=== PATIENT | male | born 1950 | race Caucasian/White ===

== ENCOUNTER 2018-05-23 15:27 | Inpatient (IN) ==
[2018-05-23 15:43] LABS: BE 9.7 mmoll (-3.0-3.0); BLOOD TYPE ARTERIAL; HCO3-(ACT) 32.1 mmoll (20.0-26.0); METHB 1.5 % (0.0-1.5); O2(CT) 18.6 mL/dL (15.0-23.0); PO2(98.6) 53 mmHg (60-100); SAMPLE BLOOD; SAO2 90.6 % (95.0-100.0); THB 15.4 g/dL (11.5-17.4); pH(98.6) 7.29 (7.35-7.45)
[2018-05-23 15:45] LABS: BASO# 0.02 X1000 (0.0-0.2); BASO% 0.2 % (0.0-0.8); EOS# 0.01 X1000 (0.0-0.7); EOS% 0.1 % (0.0-10.0); HEMATOCRIT 44.5 % (42.0-52.0); HEMOGLOBIN 15.1 g/dL (14.0-18.0); IMM GRAN# 0.03 X1000 (0.0-0.04); IMM GRAN% 0.3 % (0.0-0.5); LYMPH# 0.87 X1000 (1.2-3.4); LYMPH% 7.7 % (20.5-51.1); MCH 33.3 PG (27-31); MCHC 33.9 g/dL (33-37); MONO# 0.94 X1000 (0.11-0.59); MONO% 8.3 % (1.7-9.3); MPV 9.8 FL (7.4-10.4); NEUT# 9.43 X1000 (1.4-6.5); NEUT% 83.4 % (42.2-75.2); PLT 134 X1000 (130-400); RBC 4.54 XMIL (4.7-6.1); RDW 14.6 % (11.5-14.5)
[2018-05-23] MEDS ORDERED: DUONEB (A & A) INH ONE (15:52)
--- NOTE | 2018-05-23 15:57 | Diag Imaging Result Doc PS360 ---
EXAM: CHEST-PORTABLE HISTORY: SOB TECHNIQUE: Portable chest COMPARISON: 05/20/2018 FINDINGS: The lungs are well expanded. The heart is not enlarged. There is a left-sided pacemaker. The vessels are not distended. There are no infiltrates. No effusion identified. IMPRESSION: No acute abnormality. Electronically signed by Luis Monique 05/23/2018 3:55 PM
[2018-05-23 15:59] LABS: AGAP 13; ALBUMIN 4.7 g/dL (3.5-5.0); ALKALINE PHOSPHATASE 175 U/L (32-122); BUN 18 mg/dL (8-22); CALCIUM 9.5 mg/dL (8.8-10.2); CHLORIDE 92 mmol/L (98-107); COSMO 287; CREATININE 1.1 mg/dL (0.7-1.2); ESTIMATED GFR > 60; GLUCOSE 233 mg/dL (70-104); GOT 89 U/L (10-34); GPT 45 U/L (10-44); POTASSIUM 3.6 mmol/L (3.5-5.1); SODIUM 139 mmol/L (136-145); TCO2 35 mmol/L (25-35); TOTAL PROTEIN 8.3 g/dL (6.3-8.3)
[2018-05-23 16:01] LABS: PCO2(98.6) 84 mmHg (35-45)
[2018-05-23 16:02] LABS: ALLEN TEST YES; MODALITY CANNULA
[2018-05-23] MEDS ORDERED: ATIVAN ONE (16:55)
[2018-05-23] MEDS ORDERED: ATIVAN IV ONE (16:57)
[2018-05-23] MEDS ORDERED: NS 1,000 ML IV ONE (17:35)
[2018-05-23 17:51] LABS: BE 8.9 mmoll (-3.0-3.0); BLOOD TYPE ARTERIAL; HCO3-(ACT) 31.8 mmoll (20.0-26.0); METHB 1.2 % (0.0-1.5); O2(CT) 20.1 mL/dL (15.0-23.0); O2HB 94.1 % (95.0-99.0); PO2(98.6) 97 mmHg (60-100); SAMPLE BLOOD; SAO2 98.7 % (95.0-100.0); SRATE 20 BPM; THB 15.1 g/dL (11.5-17.4); pH(98.6) 7.36 (7.35-7.45)
[2018-05-23 17:54] LABS: ALLEN TEST YES; MODALITY BI PAP; PCO2(98.6) 66 mmHg (35-45)
[2018-05-23] MEDS: SOLU-MEDROL IV SCH ×2 (18:23→21:09)
[2018-05-23] MEDS: ZOSYN 3.375 GM in NS 50 ML IV SCH ×2 (18:23→22:32)
[2018-05-23] MEDS: ATIVAN IV PRN ×3 (18:50→22:04)
[2018-05-23] MEDS: DUONEB (A & A) INH SCH ×2 (19:00→22:50)
[2018-05-23] MEDS: NS 1,000 ML IV SCH (21:25)
[2018-05-24] MEDS: ATIVAN IV PRN ×5 (02:34→22:44)
[2018-05-24] MEDS: DUONEB (A & A) INH SCH ×6 (02:43→23:23)
[2018-05-24] MEDS: SOLU-MEDROL IV SCH ×4 (03:42→22:44)
[2018-05-24] MEDS: ZOSYN 3.375 GM in NS 50 ML IV SCH ×4 (05:39→22:44)
[2018-05-24 05:55] LABS: BLOOD TYPE ARTERIAL; METHB 1.2 % (0.0-1.5); SAMPLE BLOOD
[2018-05-24 06:03] LABS: BE 7.8 mmoll (-3.0-3.0); HCO3-(ACT) 30.9 mmoll (20.0-26.0); O2(CT) 18.4 mL/dL (15.0-23.0); O2HB 94.4 % (95.0-99.0); PO2(98.6) 88 mmHg (60-100); SAO2 98.4 % (95.0-100.0); THB 13.8 g/dL (11.5-17.4); pH(98.6) 7.29 (7.35-7.45)
[2018-05-24 06:12] LABS: ALLEN TEST YES; MODALITY BI PAP; PCO2(98.6) 78 mmHg (35-45)
[2018-05-24] MEDS ORDERED: DUONEB (A & A) ONE (08:20)
[2018-05-24] MEDS: NS 1,000 ML IV SCH ×2 (09:24→17:28)
[2018-05-24] MEDS: M.V.I.-12 10 ML, FOLIC ACID 1 MG, MAGNESIUM SULFATE 1 GM, THIAMINE 100 MG in NS 1,000 ML IV SCH (09:54)
[2018-05-24] MEDS ORDERED: BLISTEX MEDICATED BERRY LIP BALM TOP ONE (12:57)
[2018-05-24 14:14] LABS: BASO# 0.01 X1000 (0.0-0.2); BASO% 0.2 % (0.0-0.8); HEMATOCRIT 40.2 % (42.0-52.0); HEMOGLOBIN 13.5 g/dL (14.0-18.0); IMM GRAN# 0.01 X1000 (0.0-0.04); IMM GRAN% 0.2 % (0.0-0.5); LYMPH# 0.43 X1000 (1.2-3.4); LYMPH% 7.1 % (20.5-51.1); MCH 33.7 PG (27-31); MCHC 33.6 g/dL (33-37); MCV 100.2 FL (81-99); MONO% 3.3 % (1.7-9.3); MPV 10.2 FL (7.4-10.4); NEUT# 5.41 X1000 (1.4-6.5); NEUT% 89.2 % (42.2-75.2); PLT 113 X1000 (130-400); RBC 4.01 XMIL (4.7-6.1); RDW 14.3 % (11.5-14.5); WBC 6.06 X1000 (4.8-10.8)
[2018-05-24 14:34] LABS: AGAP 13; ALBUMIN 4.3 g/dL (3.5-5.0); ALKALINE PHOSPHATASE 148 U/L (32-122); BUN 24 mg/dL (8-22); CALCIUM 9.6 mg/dL (8.8-10.2); CHLORIDE 99 mmol/L (98-107); COSMO 306; CREATININE 1.1 mg/dL (0.7-1.2); ESTIMATED GFR > 60; GLUCOSE 373 mg/dL (70-104); GOT 60 U/L (10-34); GPT 39 U/L (10-44); POTASSIUM 3.7 mmol/L (3.5-5.1); SODIUM 144 mmol/L (136-145); TCO2 32 mmol/L (25-35)
[2018-05-24 15:12] LABS: LYMPHS 4 % (21-51); MONO 2 % (1-9); SEGS 93 % (42-75)
[2018-05-24] MEDS ORDERED: BASAGLAR SUBQ ONE (15:44)
--- NOTE | 2018-05-24 16:50 | PROGRESS NOTE ---
DATE: 05/24/2018 The patient is currently a patient in the intensive care unit where he is tolerating CPAP, but we give him moments off the machine and he declines after a short period of time. He has also been a little bit agitated. They have been using quite a bit of Ativan suppressing his respiratory drive to some degree. His blood gases today showed a pH of 7.29, pCO2 78, pO2 88, and carboxyhemoglobin 2.80. His chemistries today show normal electrolytes. BUN 24. Creatinine 1.1, GFR greater than 60, and glucose 373 contributed from the steroids, I am sure. He has some mild elevations in LFTs from his alcoholism. Finally, a CBC showed a white count down to 6,000. Hematocrit 40 and platelet count 113. We will continue the antibiotics and will continue to do BiPAP therapy and try to sedate him. cc: Omar Ruiz MD
--- NOTE | 2018-05-24 17:12 | HISTORY AND PHYSICAL ---
HISTORY OF PRESENT ILLNESS: A 67-year-old male presented to the emergency room, brought in by ambulance with shortness of breath, struggling to breathe. He stated that he has not even been able to get out of bed the day of admission because he felt so bad with diminished breathing, tachypnea, and rhonchi in spite of using some of his COPD paraphernalia, including a ipratropium Albuterol, Combivent Respimat inhaler, furosemide 80 daily, fluticasone two sprays b.i.d., bupropion 150 p.o. b.i.d., lorazepam 2 t.i.d., potassium, Mirapex one to two tablets, prednisone 10 p.o. b.i.d., and Cipro - we do not think that he is taking the prednisone and Cipro right now, but he may have gotten them on the looks to be 05/10/2018 when he presented here and was deemed to have a urinary tract infection. After initial evaluation in the ER, which included a chest x-ray, which showed that the lungs were well expanded, the heart was not enlarged, there was left-sided pacemaker, and the vessels were not distended; there are no infiltrates and no effusions identified; no acute abnormality was identified, so he was admitted with respiratory distress, tobacco abuse, and history of alcohol abuse. PAST MEDICAL HISTORY: The patient has had a history of CHF, hypertension, and has had a pacemaker. He has COPD from ongoing smoking, history of diabetes, and history of alcoholism. The only surgery he can recall is a pacemaker. SOCIAL HISTORY: He is drinking a pint of vodka a day. He smokes more than a pack a day. REVIEW OF SYSTEMS: CONSTITUTIONAL: He denies any fever, chills, or night sweats. EYES: No change in visual acuity. No irritation of his eyes. EARS, NOSE, AND THROAT: He has no sinusitis or pharyngitis or otitis. CARDIOVASCULAR: He denies chest pain and palpitations. He has no PND or orthopnea. RESPIRATORY: He has a chronic cough. He is chronically short of breath. GASTROINTESTINAL: He denies any abdominal pain, diarrhea, nausea, or vomiting. : No dysuria, polyuria, or hematuria. MUSCULOSKELETAL: He has chronic pain. Difficult to move around. He has a big belly that makes it difficult for him to mobilize. SKIN: No rash. NEUROLOGICAL: No dizziness, vertigo, or seizures. PSYCHIATRIC: He is a longstanding alcoholic. ENDOCRINE: History of diabetes. No thyroid disease. HEMATOLOGICAL: He has no clotting or bleeding disorder. ALLERGIES: No real asthma. I think his COPD is primarily from his long-standing history of smoking and cigarette abuse. PHYSICAL EXAMINATION: VITAL SIGNS: On admission, his temperature was 97. Pulse was 111, respiratory rate was 36, blood pressure 186/108, O2 saturation was 83. We placed him on oxygen and his O2 saturation came up to 100%. HEENT: Head was normocephalic. His complexion - he has flushed face, barrett faced. CHEST: Tachypneic. Diffuse rhonchi. Diminished breath sounds. Increased AP diameter. Flattened diaphragms. CARDIOVASCULAR: Distant heart sounds, appear to be regular. No murmurs, gallops, clicks, or rubs. ABDOMEN: Obese. Soft. No hepatosplenomegaly. No CVA tenderness. EXTREMITIES: Negative for clubbing, cyanosis, and edema. NEUROLOGIC: Intact. ADMITTING DIAGNOSES: 1. Chronic obstructive pulmonary disease exacerbation. 2. Smoker. 3. Alcoholic. 4. Diabetes, type 2. Random blood sugar is 223. 5. Respiratory and ventilatory failure manifested by blood gases of pH of 7.29, pCO2 84, pO2 53 on cannula with 40% FIO2. 6. History of heart failure. BNP currently is 552. 7. Pacemaker for history of atrial fibrillation. PLAN: Place him on BiPAP and sobering him up. He has had a tendency to have DT issues. Prophylactic antibiotics and steroids and some Ativan as needed, as we try to detox this memo and improve his lungs. cc: Omar Ruiz MD
[2018-05-24] MEDS ORDERED: GEODON PO ONE (23:21)
[2018-05-25] MEDS ORDERED: GEODON IM ONE (00:14)
[2018-05-25] MEDS ORDERED: STERILE WATER INJ. INJ ONE (00:14)
[2018-05-25] MEDS ORDERED: GEODON ONE (00:18)
[2018-05-25] MEDS ORDERED: STERILE WATER INJ. ONE (00:19)
[2018-05-25] MEDS: ATIVAN IV PRN ×4 (01:45→11:46)
[2018-05-25] MEDS ORDERED: ATIVAN IV ONE ×2 (02:47→03:25)
[2018-05-25] MEDS ORDERED: ATIVAN ONE (02:50)
[2018-05-25] MEDS: DUONEB (A & A) INH SCH ×6 (03:00→23:27)
[2018-05-25] MEDS: SOLU-MEDROL IV SCH ×4 (04:55→22:13)
[2018-05-25] MEDS: ZOSYN 3.375 GM in NS 50 ML IV SCH ×4 (04:55→22:13)
[2018-05-25 06:16] LABS: BE 7.9 mmoll (-3.0-3.0); BLOOD TYPE ARTERIAL; METHB 1.3 % (0.0-1.5); O2(CT) 17.9 mL/dL (15.0-23.0); O2HB 94.6 % (95.0-99.0); PO2(98.6) 85 mmHg (60-100); SAMPLE BLOOD; SAO2 98.3 % (95.0-100.0); THB 13.4 g/dL (11.5-17.4); pH(98.6) 7.33 (7.35-7.45)
[2018-05-25 06:19] LABS: ALLEN TEST YES; MODALITY BI PAP; PCO2(98.6) 69 mmHg (35-45)
[2018-05-25] MEDS: M.V.I.-12 10 ML, FOLIC ACID 1 MG, MAGNESIUM SULFATE 1 GM, THIAMINE 100 MG in NS 1,000 ML IV SCH (07:59)
--- NOTE | 2018-05-25 09:16 | PROGRESS NOTE ---
DATE: 05/25/2018 HISTORY: He had a fretful night. Kept the staff busy trying to keep him from pulling out his Hayes, which ultimately had to be discontinued. OBJECTIVE: VITAL SIGNS: He has a temperature of 98.0 degrees Fahrenheit, pulse 88, respiratory rate 32, blood pressure 153/69. PLAN: Blood gases are on 30% and he seems to be doing decently that way, but he is getting more and more combative and irritated, and we have been trying to sedate him with Ativan and Geodon to prevent him from going through delirium tremens. We are going to give him another banana bag today and hopefully he will start getting some better. cc: Omar Ruiz MD
[2018-05-25] MEDS: NS 1,000 ML IV SCH ×2 (09:24→17:29)
--- NOTE | 2018-05-25 09:46 | Diag Imaging Result Doc PS360 ---
EXAM: CHEST-PORTABLE INDICATION: sob TECHNIQUE: One view COMPARISON: 05/23/2018 FINDINGS: The lungs are grossly clear. There is no discrete pleural fluid collection or pneumothorax. The cardiomediastinal silhouette and central vasculature are grossly unremarkable. There is a stable pacemaker. IMPRESSION: No evidence of acute pathology by plain radiograph. Electronically signed by Jovanny Bain 05/25/2018 9:44 AM
[2018-05-25] MEDS ORDERED: ATIVAN IV PRN (13:43)
[2018-05-25] MEDS ORDERED: ATIVAN 20 MG in NS 190 ML IV SCH (13:45)
[2018-05-26] MEDS: NS 1,000 ML IV SCH ×3 (03:00→22:54)
[2018-05-26] MEDS: DUONEB (A & A) INH SCH ×6 (03:09→23:07)
[2018-05-26] MEDS: ZOSYN 3.375 GM in NS 50 ML IV SCH (04:49)
[2018-05-26] MEDS: SOLU-MEDROL IV SCH ×3 (04:50→20:38)
[2018-05-26] MEDS: M.V.I.-12 10 ML, FOLIC ACID 1 MG, MAGNESIUM SULFATE 1 GM, THIAMINE 100 MG in NS 1,000 ML IV SCH (08:53)
[2018-05-26] MEDS: LIBRIUM PO SCH ×2 (10:39→15:59)
[2018-05-26 10:46] LABS: BASO# 0.01 X1000 (0.0-0.2); BASO% 0.1 % (0.0-0.8); HEMATOCRIT 37.9 % (42.0-52.0); HEMOGLOBIN 12.3 g/dL (14.0-18.0); IMM GRAN# 0.02 X1000 (0.0-0.04); IMM GRAN% 0.3 % (0.0-0.5); LYMPH# 0.35 X1000 (1.2-3.4); LYMPH% 5.1 % (20.5-51.1); MCH 33.3 PG (27-31); MCHC 32.5 g/dL (33-37); MCV 102.7 FL (81-99); MONO# 0.29 X1000 (0.11-0.59); MONO% 4.2 % (1.7-9.3); MPV 9.8 FL (7.4-10.4); NEUT# 6.19 X1000 (1.4-6.5); NEUT% 90.3 % (42.2-75.2); PLT 113 X1000 (130-400); RBC 3.69 XMIL (4.7-6.1); RDW 13.9 % (11.5-14.5); WBC 6.86 X1000 (4.8-10.8)
[2018-05-26 11:08] LABS: AGAP 10; ALBUMIN 3.4 g/dL (3.5-5.0); ALKALINE PHOSPHATASE 111 U/L (32-122); BUN 25 mg/dL (8-22); CALCIUM 9.4 mg/dL (8.8-10.2); CHLORIDE 114 mmol/L (98-107); COSMO 322; CREATININE 0.9 mg/dL (0.7-1.2); ESTIMATED GFR > 60; GLUCOSE 325 mg/dL (70-104); GOT 52 U/L (10-34); GPT 37 U/L (10-44); POTASSIUM 3.8 mmol/L (3.5-5.1); SODIUM 154 mmol/L (136-145); TCO2 31 mmol/L (25-35); TOTAL PROTEIN 6.8 g/dL (6.3-8.3)
[2018-05-26 11:41] LABS: LYMPHS 13 % (21-51); MONO 2 % (1-9); SEGS 85 % (42-75)
[2018-05-26] MEDS ORDERED: NS 250 ML ONE (13:44)
[2018-05-26] MEDS ORDERED: NS 1,000 ML IV SCH (13:45)
[2018-05-26] MEDS ORDERED: ATIVAN PO SCH (14:00)
[2018-05-26 14:22] LABS: INR 0.94
[2018-05-26] MEDS ORDERED: ATIVAN IV PRN (17:28)
[2018-05-26] MEDS: ATIVAN 20 MG in NS 190 ML IV SCH ×2 (18:41→21:21)
--- NOTE | 2018-05-26 19:19 | PROGRESS NOTE ---
DATE: 05/26/2018 SUBJECTIVE: He has had a fairly eventful night, struggling to not bother his IVs, Hayes and CPAP, but persistently trying to do that. He has been sedated with Ativan. When he comes out from sedation, he starts picking around with things again. He is not actively hallucinating, as best we can tell. He just seems more irritated, not a true DT-type picture. He has pulled out so many IVs that we had to put in a PICC line. He is destroying the medical equipment, so we are having to replace all that. CURRENT LABS: White count 6860 with a left shift, probably aggravated by steroids, as is his steroid lilia, perhaps. His hematocrit is 37.9. Platelet count is 113. Numbers may be low from bone marrow toxicity from his alcohol, perhaps. I do not think he has a big spleen. Electrolytes: His sodium has drifted up to 154. We are going to have to increase his fluid intake. Potassium is 3.8, chloride 114, carbon dioxide 31, BUN 25, creatinine 0.9. Blood sugars are high. He is on steroids. I am going to continue to taper them. Chest x-ray from yesterday: No evidence of any pathology. OBJECTIVE: Vital signs currently: Temperature 98.4, pulse 95, respiratory rate 22, blood pressure 159/88. He is on BiPAP with 100% saturation. ASSESSMENT/PLAN: I think he is actually getting better. cc: Omar Ruiz MD
[2018-05-27] MEDS: NS 1,000 ML IV SCH ×3 (02:37→11:13)
[2018-05-27] MEDS: SOLU-MEDROL IV SCH ×3 (02:40→13:34)
[2018-05-27] MEDS: DUONEB (A & A) INH SCH ×4 (02:51→16:20)
[2018-05-27] MEDS: ATIVAN IV PRN ×2 (03:49→10:03)
[2018-05-27] MEDS ORDERED: XYLOCAINE 2% JELLY UROJECT TOP ONE (08:20)
[2018-05-27] MEDS: ATIVAN 20 MG in NS 190 ML IV SCH (10:15)
[2018-05-27 11:32] LABS: BE 7.2 mmoll (-3.0-3.0); BLOOD TYPE ARTERIAL; HCO3-(ACT) 30.5 mmoll (20.0-26.0); METHB 1.2 % (0.0-1.5); O2(CT) 16.9 mL/dL (15.0-23.0); O2HB 95.5 % (95.0-99.0); PO2(98.6) 94 mmHg (60-100); SAMPLE BLOOD; SAO2 98.8 % (95.0-100.0); THB 12.5 g/dL (11.5-17.4); pH(98.6) 7.36 (7.35-7.45)
[2018-05-27 11:36] LABS: MODALITY BI PAP; PCO2(98.6) 61 mmHg (35-45)
[2018-05-27 11:37] LABS: ALLEN TEST YES
[2018-05-27 11:57] LABS: HEMATOCRIT 38.3 % (42.0-52.0); IMM GRAN# 0.01 X1000 (0.0-0.04); IMM GRAN% 0.2 % (0.0-0.5); LYMPH# 0.24 X1000 (1.2-3.4); LYMPH% 4.1 % (20.5-51.1); MCH 33.2 PG (27-31); MCHC 31.3 g/dL (33-37); MCV 106.1 FL (81-99); MONO% 5.1 % (1.7-9.3); MPV 9.7 FL (7.4-10.4); NEUT# 5.29 X1000 (1.4-6.5); NEUT% 90.6 % (42.2-75.2); PLT 115 X1000 (130-400); RBC 3.61 XMIL (4.7-6.1); RDW 14.1 % (11.5-14.5); WBC 5.84 X1000 (4.8-10.8)
[2018-05-27 12:14] LABS: ESTIMATED GFR > 60
[2018-05-27 12:23] LABS: AGAP 12; ALBUMIN 3.5 g/dL (3.5-5.0); ALKALINE PHOSPHATASE 105 U/L (32-122); BUN 26 mg/dL (8-22); CALCIUM 9.5 mg/dL (8.8-10.2); CHLORIDE 120 mmol/L (98-107); COSMO 335; GLUCOSE 311 mg/dL (70-104); GOT 82 U/L (10-34); GPT 48 U/L (10-44); POTASSIUM 3.9 mmol/L (3.5-5.1); SODIUM 161 mmol/L (136-145); TCO2 29 mmol/L (25-35); TOTAL PROTEIN 6.8 g/dL (6.3-8.3)
[2018-05-27 12:37] LABS: LYMPHS 4 % (21-51); MONO 5 % (1-9); SEGS 91 % (42-75)
[2018-05-27] MEDS ORDERED: DEMEROL IV ONE ×2 (12:37→18:00)
[2018-05-27] MEDS ORDERED: DEMEROL ONE (12:41)
[2018-05-27] MEDS ORDERED: D5W IV SCH ×2 (13:15→23:00)
[2018-05-27] MEDS ORDERED: HUMULIN R IV SCH ×2 (13:15→23:00)
--- NOTE | 2018-05-27 13:17 | Diag Imaging Result Doc PS360 ---
EXAM: KUB ABDOMEN 05/27/2018 HISTORY: abdominal extension TECHNIQUE: KUB COMMENT: There is a Hayes catheter in the bladder. There may be stones in the upper pole right kidney in the lower pole of the left kidney. There is no evidence of bowel obstruction organomegaly or mass. There is a possible calcification over the left sacral sal which could represent a ureteral stone. IMPRESSION: Bilateral nephrolithiasis with possible distal mid left ureteral lithiasis. Electronically signed by Maximo Devine 05/27/2018 1:15 PM
[2018-05-27 14:36] LABS: BILIRUBIN URINE NEGATIVE (NEGATIVE); BLOOD URINE 3+ (NEGATIVE); CLARITY CLEAR (CLEAR); COLOR YELLOW; KETONE URINE 1+(Small) mg/dL (NEGATIVE); LEUKOCYTES URINE NEGATIVE (NEGATIVE); NITRITE URINE NEGATIVE (NEGATIVE); PH URINE 6.5; PROTEIN URINE 1+(30 mg/dL) mg/dL (NEGATIVE); SP GRAVITY URINE 1.015; UROBILINOGEN URINE NORMAL
[2018-05-27 14:39] LABS: URINE BACTERIA 1+ /HFP; URINE CAST NONE SEEN /LPF; URINE CRYSTAL NONE SEEN /HPF; URINE EPITHELIAL CELLS <10 /HPF (<10); URINE SOURCE CATH; URINE WBC <10 /HPF (<10); URINE YEAST NONE SEEN /HPF
[2018-05-27] MEDS ORDERED: HUMULIN R DOSE (PARKWAY) SUBQ SCH (16:00)
[2018-05-27] MEDS ORDERED: ZOSYN 3.375 GM in NS 50 ML IV SCH (17:00)
[2018-05-27 17:26] LABS: ESTIMATED GFR > 60
[2018-05-27 17:49] LABS: AGAP 9; ALBUMIN 3.4 g/dL (3.5-5.0); ALKALINE PHOSPHATASE 105 U/L (32-122); BUN 26 mg/dL (8-22); CALCIUM 9.6 mg/dL (8.8-10.2); CHLORIDE 121 mmol/L (98-107); COSMO 333; GLUCOSE 279 mg/dL (70-104); GOT 90 U/L (10-34); GPT 51 U/L (10-44); POTASSIUM 3.7 mmol/L (3.5-5.1); SODIUM 161 mmol/L (136-145); TCO2 31 mmol/L (25-35); TOTAL PROTEIN 6.7 g/dL (6.3-8.3)
--- NOTE | 2018-05-27 18:16 | PROGRESS NOTE ---
DATE: 05/27/2018 SUBJECTIVE: He recently started running a temperature. OBJECTIVE: Vital Signs: Pulse 106, respiratory rate 26, blood pressure 185/73, O2 saturation on O2 of 30 is 94%. He is thrashing about. He is still kind of restrained, legs and arms. He is writhing around. He has a history of a [id number] syndrome, but this is a little more than usual. He does not appear to be fluid overloaded. His belly is distended but soft. Bilateral breath sounds. IV sites appear to be normal. LABORATORY DATA: His hematocrit is 38. White count is still normal at 5840. His blood gases today are better, pH of 7.36, pCO2 of 61, the lowest since he has been here. His pO2 is 94 on BiPAP. Chemistries: His sodium is 161. It turns out he is getting some extra sodium in his Ativan drip, so we are changing his fluid status. He has a potassium of 3.9, chloride of 120, CO2 of 29, BUN of 26, creatinine of 1. His glucoses have been in the 200s most of the day. Liver functions are normal. Albumin is 3.5. Total protein is 6.8. So, we have started a D5 and 10 units of insulin drip to slowly correct his hypernatremia. IMPRESSION: 1. Probable delirium tremens. 2. Chronic obstructive pulmonary disease with primary respiratory failure. 3. Dehydration. 4. Hypernatremia. 5. He has a pacemaker that is greater than 10 years old that has not been firing. Probably batteries. I am not sure about their viability. PLAN: When he came into the hospital, he was on Lasix, nebulizer treatments with Combivent, lorazepam 2 mg p.o. t.i.d., potassium 20 mEq, pramipexole 1-2 tablets at bedtime and prednisone 10 mg. He had been on Cipro, but the Cipro appears to have been in the past, as was the prednisone. So, I think he needs to have pulmonary check him out, and neurology, to see about his altered mental status. His family thinks he is hurting in his lower abdomen. In fact, he had issues with his urethra in the past. He has a Hayes in place that he had been pulling and tugging on prior to being restrained. We are doing some cultures now. We need a broad spectrum covering him. We stopped his Zosyn last night. We are going to restart it, since he has a 100-degree temperature. His chest x-ray from 05/25 was read as no evidence of disease. cc: Omar Ruiz MD
[2018-05-27] MEDS ORDERED: ATIVAN IV PRN ×2 (20:07→21:16)
[2018-05-27] MEDS ORDERED: SOLU-MEDROL IV SCH (20:15)
[2018-05-27] MEDS: HUMULIN R SUBQ SCH (20:55)
[2018-05-27] MEDS ORDERED: PHENOBARBITAL IV ONE (21:16)
[2018-05-27] MEDS ORDERED: LANTUS SUBQ SCH (22:15)
[2018-05-27] MEDS ORDERED: INSULIN PEN NEEDLES ONE (22:47)
[2018-05-27] MEDS: ZOSYN 3.375 GM in NS 50 ML IV SCH (22:48)
[2018-05-27] MEDS: CATAPRES-TTS-1 TD SCH (22:52)
[2018-05-27] MEDS: D5W 1,000 ML IV SCH (22:52)
[2018-05-27] MEDS: BASAGLAR SUBQ SCH (22:53)
[2018-05-27] MEDS ORDERED: TYLENOL PR PRN (23:04)
[2018-05-27] MEDS ORDERED: ZOFRAN IV PRN (23:04)
[2018-05-27] MEDS ORDERED: DUONEB (A & A) INH SCH (23:30)
[2018-05-28] MEDS: SODIUM CHLORIDE 0.9% INJ SCH (00:10)
[2018-05-28] MEDS: PROTONIX IV SCH ×2 (00:10→22:31)
[2018-05-28] MEDS: ATIVAN IV PRN ×5 (00:36→20:45)
[2018-05-28] MEDS: DUONEB (A & A) INH SCH ×5 (03:49→21:00)
[2018-05-28] MEDS: D5W 1,000 ML IV SCH ×5 (04:21→21:36)
[2018-05-28] MEDS: ZOSYN 3.375 GM in NS 50 ML IV SCH ×4 (04:21→22:31)
[2018-05-28 04:58] LABS: HEMATOCRIT 38.3 % (42.0-52.0); HEMOGLOBIN 11.8 g/dL (14.0-18.0); IMM GRAN# 0.02 X1000 (0.0-0.04); IMM GRAN% 0.4 % (0.0-0.5); LYMPH# 0.24 X1000 (1.2-3.4); LYMPH% 4.9 % (20.5-51.1); MCH 32.9 PG (27-31); MCHC 30.8 g/dL (33-37); MCV 106.7 FL (81-99); MONO# 0.21 X1000 (0.11-0.59); MONO% 4.3 % (1.7-9.3); MPV 9.8 FL (7.4-10.4); NEUT# 4.39 X1000 (1.4-6.5); NEUT% 90.4 % (42.2-75.2); PLT 109 X1000 (130-400); RBC 3.59 XMIL (4.7-6.1); RDW 13.8 % (11.5-14.5); WBC 4.86 X1000 (4.8-10.8)
[2018-05-28 05:06] LABS: ESTIMATED GFR > 60
[2018-05-28 05:09] LABS: ALLEN TEST YES; BLOOD TYPE ARTERIAL; HCO3-(ACT) 30.4 mmoll (20.0-26.0); O2(CT) 16.2 mL/dL (15.0-23.0); O2HB 95.5 % (95.0-99.0); PO2(98.6) 87 mmHg (60-100); SAMPLE BLOOD; SAO2 99.3 % (95.0-100.0); pH(98.6) 7.38 (7.35-7.45)
[2018-05-28 05:10] LABS: MODALITY BI PAP; PCO2(98.6) 57 mmHg (35-45)
[2018-05-28 05:25] LABS: AGAP 10; BUN 25 mg/dL (8-22); CALCIUM 9.2 mg/dL (8.8-10.2); CHLORIDE 118 mmol/L (98-107); COSMO 332; GLUCOSE 332 mg/dL (70-104); MAGNESIUM 2.6 mg/dL (1.5-2.7); PHOSPHORUS 2.3 mg/dL (2.7-4.5); POTASSIUM 3.8 mmol/L (3.5-5.1); SODIUM 159 mmol/L (136-145); TCO2 31 mmol/L (25-35)
--- NOTE | 2018-05-28 05:43 | HISTORY AND PHYSICAL ---
ADDENDUM HISTORY OF PRESENT ILLNESS: Mr. Mikael Leija was admitted initially to [facility] to his primary care physician's service about 3 days ago for COPD exacerbation. This patient became very agitated displaying a clinical picture suggestive of DTs. He has been on the DT protocol over the last 24-48 hours and while he was on it, he was very agitated, pulling IVs and restless in bed. He had been put on BiPAP to supplement his breathing. His gases today are significantly improved from before. His pH is 7.36, pCO2 61, pO2 94. However, his sodium has increased over the last few days. It has gone up from 139 on admission to 161. This in part I believe in addition to underlying DTs is the main reason why the patient is agitated and confused. VITAL SIGNS: His blood pressure is currently elevated at 161/93, heart rate is 84, respiratory rate is 15, temperature is 97.8. GENERAL: He is a middle-aged man who is in restraints, lying in bed partially sedated and intermittently thrashing in bed. He will open his eyes to verbal stimulus, but occasionally spontaneously will do so. Despite restraints, the patient is able to move all extremities. I do not visualize any motor deficits. CHEST: His chest exam is significant with decreased air entry with a few scattered expiratory wheezes bilaterally. CARDIOVASCULAR: First and second heart sounds heard. No gallops, murmurs or rubs. Rhythm is regular. ABDOMEN: Soft, diffuse bowel sounds. No rigidity, no masses or hepatosplenomegaly appreciated. The patient does not grimace when I palpate his abdomen. EXTREMITIES: The patient has good pulses distally in all extremities. ASSESSMENT: 1. Encephalopathy secondary to probable delirium tremens and hypernatremia secondary to free water loss. 2. Chronic obstructive pulmonary disease exacerbation. 3. Acute on chronic respiratory failure secondary to #2. 4. Hypertension. 5. Macrocytic anemia secondary to chronic alcohol abuse. 6. Dehydration probably secondary to osmotic diuresis from high dose steroids. 7. Type 2 diabetes. PLAN: The patient has been admitted to the ICU. We will continue O2 supplementation via BiPAP. Regarding hypernatremia which I believe is due to free water loss presumably from osmotic diuresis secondary to hyperglycemia secondary to high steroid use. Will start the patient on D5 water and supplement this with sliding scale and Lantus. Monitor BMP closely so as to not over-correct with free water. Will lower the dose of steroids as the data has not shown any correlation with high dose steroids and improvement in COPD. As a matter of fact, the converse has been shown. Short- acting bronchodilators will be started and will consider adding on long-acting bronchodilators. For now the patient has not shown any evidence of an infectious process, i.e. pneumonia be it aspiration for now. Will repeat a chest film in the morning. As a matter of fact, the patient's white count has actually improved and for my recommendations would suggest control with nebulizer treatments and O2 supplementation. The patient will be also treated with thiamine and a banana bag due to the high probability of malnutrition and deficiency of trace elements. cc: MD Omar Chaney MD MTDD
[2018-05-28 06:08] LABS: SEGS 100 % (42-75)
[2018-05-28] MEDS: HUMULIN R SUBQ SCH ×5 (06:33→20:38)
--- NOTE | 2018-05-28 07:23 | HISTORY AND PHYSICAL ---
PRIMARY CARE PROVIDER: Dr. Omar Ruiz. CHIEF COMPLAINT: Shortness of breath. HISTORY OF PRESENT ILLNESS: Mr. Leija is a 67-year-old, male, who was admitted initially at [facility] on 05/23/2018. He was brought in by EMS for complaints of shortness of breath. He reported that he had not been able to get out of bed all day due to his shortness of breath. He does have a history of COPD and is currently smoking for what we know to be a pack to [id number]-[id number]-half of cigarettes a day. His friend who is at bedside reports that he does nebulizer treatments at home and is only prescribed to do these approximately 6 times a day, though she states sometimes he will do them every hour due to his shortness of breath. She reports that he has told her that he cannot even walk to the mailbox without getting winded and becoming very short of breath. She states that he is a daily drinker as well and drinks for what we know at least a pint of alcohol a day. She reports that he does drink vodka and whiskey. She also does report that he does use Red Bull energy drinks as well. And according to her, in the past has had chest pain related to his energy drink use. She also reports that he was known to have a urinary tract infection prior to admission to the hospital and was taking Cipro for treatment of this. He was admitted for COPD exacerbation with acute hypoxic and hypercapnic respiratory failure. According to the history and physical, it does report that the patient has had issues with delirium tremens in the past as well. They place him on prophylactic antibiotics , steroids and Ativan. Though unfortunately at this time the patient's respiratory status is only mildly improved. He does appear to be in alcohol withdrawal. As well, he does have dehydration with hypernatremia. He has been transferred to [facility] to be admitted to the Hospitalist Service, and to have a Pulmonary consultation as well. REVIEW OF SYSTEMS: Unable to be performed as the patient is only responsive to verbal and tactile stimulation by opening his eyes, though he is not really following commands and is not answering questions. Please see HPI for previously reported symptoms. PAST MEDICAL HISTORY: 1. Congestive heart failure. 2. Hypertension. 3. Status post permanent pacemaker placement, though at this time we are unsure exactly when this was placed. 4. Chronic obstructive pulmonary disease. 5. Nicotine dependence. 6. Diabetes mellitus. 7. Alcoholism. 8. Atrial Fibrillation PAST SURGICAL HISTORY: Permanent pacemaker placement. SOCIAL HISTORY: The patient is retired. He is single. His friend who was at the bedside during the time of my examination is an ex-girlfriend, though they have remained friends. At this time, the patient is smoking 1-2 packs of cigarettes per day and has been doing so for many years. She did report that he briefly quit for a few years though unfortunately has started back. The patient has a history of daily alcohol use and at this time is reportedly drinking at least a pint of alcohol a day, though she reports that he does drink vodka and whiskey. He also uses Red Bull energy drinks. FAMILY HISTORY: Positive for his mother having a history of diabetes mellitus. His friend at bedside does not know any other family medical history and at this time the patient is unable to answer these questions due to his condition and mentation. ALLERGIES: No known allergies. HOME MEDICATIONS: It looks as though some of his medications have been reconciled. There are still a few that are unverified, though the ones that had been verified are listed as follows: 1. Cipro 500 mg p.o. b.i.d. 2. Furosemide 60 mg p.o. daily. 3. Glimepiride 2 mg p.o. daily. 4. Combivent Respimat inhaler as directed inhaled daily p.r.n. 5. Lorazepam 2 mg p.o. q.8 hours p.r.n. 6. Meloxicam 50 mg p.o. daily. 7. Metformin ER 500 mg p.o. b.i.d. 8. Mirapex 0.5 mg 1-2 tablets p.o. q at bedtime p.r.n. 9. Prednisone 2 mg p.o. daily. DIAGNOSTIC DATA: Based off his most recent laboratory results that we have: 1. White blood cell count is 5,840, hemoglobin 12, hematocrit 38.3, platelet count is 115,000. 2. PT 13, INR 0.94. Sodium 164, potassium 3.7, chloride 121, serum bicarb is 31 , BUN 26, creatinine 1. GFR is greater than 60. Glucose 279. Calcium 9.6. 3. Total bilirubin is 0.4. AST 90, ALT 51, alkaline phosphatase 105. 4. Ammonia level was previously checked was 60. 5. Urinalysis was obtained via catheter and was positive for protein, ketones and blood. It was negative for white blood cells. Though was positive for 1+ bacteria. He also had 3+ glucose noted in his urine. 6. Arterial blood gases were obtained on BiPAP at 30% FiO2 with pH of 7.36, pCO2 61, pO2 94, HC03 was 30.5 with a base excess of 7.2 and O2 saturation of 98.8%. 7. Chest x-ray which was most recently performed on 05/25/2018 showed no evidence of acute pathology. 8. They did perform an abdominal x-ray which did show bilateral nephrolithiasis with possible distal mid left ureterolithiasis. PHYSICAL EXAMINATION: VITAL SIGNS: Temperature 97.8 degrees Fahrenheit, heart rate 84, respirations 15, blood pressure had been in the 190s systolically and 80-90s diastolically. Oxygen saturation is 100% on BiPAP at 3% FiO2. GENERAL: Mr. Leija is a 67-year-old, male who is resting in the inpatient ICU bed. He is in no acute distress, though he is drowsy upon our examination. He does spontaneously open his eyes and does sometimes open his eyes to verbal stimulation. He will turn his head and follow my voice from one side of the bed to the other, though other than this he is alert and oriented to zero. The patient is sedative medications secondary to withdrawal symptoms with Ativan and phenobarbital p.r.n. HEENT: Head is normocephalic and atraumatic. Pupils are equal, round and reactive to light with 3 mL bilaterally and brisk. Oral mucosa is dry. Oropharynx is clear. NECK: Supple. Trachea is midline. CARDIOVASCULAR: The patient has S1, S2. No murmur, rub or gallop appreciated. Regular rate and rhythm. PULMONARY: The patient has symmetrical chest expansion bilaterally. Lung sounds are clear to auscultation in bilateral upper alfaro and left lower lung alfaro. He did have crackles noted in the right lung base. ABDOMEN: Soft. There was no facial grimacing, guarding or localization to pain upon palpation. Bowel sounds were present in all four quadrants were hypoactive. EXTREMITIES: No clubbing, cyanosis or edema noted. The patient is able to move all extremities. Pedal pulses and radial pulses were 2+ bilaterally. Capillary refill is less than 3. INTEGUMENTARY: The patient is pink, warm and dry. He does have slightly decreased skin turgor upon examination. NEUROLOGIC: The patient is alert and oriented to zero at this time. He does open his eyes spontaneously and in response to verbal stimuli, though is not really following commands and is not answering questions upon request. IMPRESSION AND PLAN: 1. Acute hypoxic and hypercapnic respiratory failure. 2. Chronic obstructive pulmonary disease exacerbation. For both #1 and #2, we continued the patient's BiPAP. We have placed him with administration of Solu-Medrol, though we have reduced this dose to 40 mg IV q.12 hours due to patient experiencing some volume depletion as well as hypernatremia. We will continue with scheduled DuoNeb treatments, aggressive pulmonary toilet. The patient's friend reports that at home it appears as though he does have to use his nebulizer treatments very frequently. She reports sometimes he will do them every hour due to his shortness of breath. He also reports shortness of breath with the mild exertion of just walking to the mailbox. Given this, we will obtain a Pulmonology consult so they can evaluate the patient and he can possibly have pulmonology followup after discharge. We will continue to follow his respiratory status closely. We will repeat an arterial blood gas later on in the morning and we will await pulmonology evaluation and further recommendations. 3. Acute alcohol withdrawal. We will continue the patient at this time on his Ativan drip at 0.5 mg per hour. We have also added in p.r.n. Ativan and phenobarbital as needed. We will do daily banana bag as well. We will closely monitor his neurological, pulmonary and cardiovascular status closely. We will continue to follow. 4. Hypernatremia. This is likely multifactorial. The patient does appear to be volume depleted. He has also been receiving fairly high dose steroids and does have glucose noted in his urine. At this time, we have placed him with infusion of D5W IV at 200mL per hour. We will do frequent sodium checks. We have placed him on seizure precautions as well. We will continue to follow. 5. Metabolic Encephalopathy. This is likely multifactorial related to his hypercapnia, hypernatremia, alcohol withdrawal, and sedative medications he has been receiving. The patient has been on p.r.n. Ativan since his admission, as well as had received Geodon previously. He has been on an Ativan drip since 05/25/2018 and is currently still receiving Ativan 0.5mg/ hr IV. We will continue to monitor this closely. And after these medications have been discontinued or tapered back, if the patient still continues to have confusion and his neurological status is not improving, we will consider further testing as well as possible Neurology consult. 6. Fluid volume depletion. We will continue with treatment as mentioned above for # 4. 7. Hypertension. At this time, we have placed the patient with a clonidine patch. We will continue to monitor his blood pressure closely. 8. History of congestive heart failure. The patient does not appear to be in any fluid volume overload at this time. He actually does appear to be have volume depletion, though given his history of congestive heart failure we will monitor his fluid status closely. It looks as though the last ejection fraction that we have noted was 63% in June 2016. 9. Diabetes mellitus. We have placed the patient with sliding-scale insulin coverage as well as Lantus at night. 10. DVT prophylaxis. He is provided with SCDs. The patient has been placed in ICU for close monitoring. We will do vital signs per ICU protocol. He will be n.p.o. at this time. We will repeat a BMP, magnesium, phosphorus, CBC and ABG later on this morning. The patient was previously on antibiotic of Zosyn. They had discontinued this briefly at [facility], though the patient did begin having a low-grade temperature. We will continue this at this time. We are going to order a repeat chest x-ray. We will await those results and continue to follow. Further orders and recommendations pending hospital course, diagnostics studies, and physician evaluation. Critical care time with this patient is 60 minutes. Dictated by BRENDA Alcaraz for Elvia Lopez MD cc: MD Omar Chaney MD Pls refer to my addendum. [facility]
--- NOTE | 2018-05-28 07:25 | Diag Imaging Result Doc PS360 ---
CHEST-PORTABLE - 05/27/2018 INDICATION: COPD Exac. RLL Crackles COMPARISON: 05/25/2018 FINDINGS: Stable left-sided pacemaker. Stable extensive pulmonary vascular congestion. Heart size is mildly enlarged. There are worsening, faint interstitial infiltrates bilaterally. This may represent interstitial pulmonary edema. IMPRESSION: Mild interstitial pulmonary edema. Electronically signed by Avtar Hawkins 05/28/2018 7:23 AM
[2018-05-28] MEDS: BROVANA NEB INH SCH ×2 (09:27→19:21)
[2018-05-28] MEDS: M.V.I.-12 10 ML, FOLIC ACID 1 MG, MAGNESIUM SULFATE 1 GM, THIAMINE 100 MG in NS 1,000 ML IV SCH (10:17)
[2018-05-28] MEDS: SOLU-MEDROL IV SCH ×2 (10:17→19:59)
[2018-05-28] MEDS: THIAMINE IM SCH (10:18)
--- NOTE | 2018-05-28 10:36 | PROGRESS NOTE ---
DATE: 05/28/2018 SUBJECTIVE: Patient is still confused. Using a BiPAP mask. The patient had been combative last night as per nursing staff, and we decided to continue with Ativan drip. At this point, he is receiving 0.5 mg per hour. OBJECTIVE: Vital Signs: Temperature 97.9 degrees, heart rate 84, respiratory rate 22, blood pressure 169/91, O2 saturation 95% on BiPAP at FiO2 30%. General Examination: This is a chronically ill-looking, 67-year-old male, lying in bed in no acute distress. HEENT: Head is normocephalic, atraumatic. Mucous membranes dry. Patient using BiPAP mask. Neck: No JVD noted. No carotid bruits. No lymphadenopathy. No thyromegaly. Cardiovascular exam: S1, S2 heard. No murmurs, gallops, or rubs. Regular rate and rhythm. Respiratory exam: Decreased air entry globally with a few scattered expiratory wheezing in both pulmonary bases. The patient is not using any accessory muscles or having work of breathing. Abdomen: Soft, a little bit distended, but nontender to palpation. No signs of peritoneal irritation. Bowel sounds present. No organomegaly. Extremities: No clubbing, cyanosis, or edema. Peripheral pulses present in both legs. Neurological exam: Patient follows basic commands. He is not oriented in time, person or place. Moves 4 extremities spontaneously. LABORATORY DATA: White cell count 4.86, hemoglobin 11.8, hematocrit 38.3, platelets are 109. ABG shows pH 7.38, with pCO2 57, PO2 87. Sodium 159. Normal creatinine. Glucose 322 ASSESSMENT AND PLAN: 1. Acute hypercarbic respiratory failure secondary to chronic obstructive pulmonary disease exacerbation. The patient continues to require BiPAP. CO2 in comparing with admission that was 84 is getting better. The pH is normal. So, at this point we will continue with the same management. Pulmonary has been consulted. We will follow recommendations. 2. Encephalopathy. That condition is multifactorial secondary to delirium tremens and hypernatremia. We will continue to monitor. 3. Delirium tremens. Patient is on Ativan drip. The patient was agitated, so that is why we decided to continue with this medication. We will continue to monitor this patient closely. 4. Severe hypernatremia, most likely related to free water loss. The patient is on D5W at 200 mL per hour. We will continue with the same management. 5. Diabetes mellitus type 2. We will continue with Accu-Cheks before meals and also at bedtime and sliding scale insulin as well. 6. Microcytic anemia secondary to chronic alcohol abuse. Aware. Patient also has a very elevated MCV of 106. Vitamin B 12 has been checked and is 895. Folate is normal. At this point, we will continue to monitor this patient. Check the complete blood count daily. 7. Hypertension. Blood pressure has being a little high because this patient is agitated, and he is not able to take any blood pressure medications. Will provide oral medications as needed. In this case, it will be hydralazine as needed for systolic blood pressure greater than 180 or diastolic greater than or equal to 110. DISPOSITION: We will continue to monitor this patient here in the intensive care unit. cc: Antoine Cantor MD
--- NOTE | 2018-05-28 10:41 | PROVIDER DOCUMENTATION ---
This chart was entered by Paris Ellis Scribe, acting as scribe for Omar Ruiz MD. HPI-Respiratory General - General Chief Complaint: Shortness of Breath Stated Complaint: SOB Time Seen by Provider: 05/23/18 15:40 Source: patient, family, EMS Allergies/Adverse Reactions: Patient Allergies Allergy/AdvReac Type Severity Reaction Status Date / Time No Known Allergies Allergy Verified 05/23/18 15:36 Home Medications: Home Medication List Medication Instructions Recorded Confirmed Last Taken Type Bupropion HCl [Bupropion Xl] 150 mg PO BID 09/09/17 05/20/18 05/20/18 History Fluticasone Propionate 2 sprays INH BID 09/09/17 05/20/18 05/20/18 History Furosemide 60 mg PO DAILY 09/09/17 05/24/18 05/20/18 History Ipratropium/Albuterol Sulfate 20 - 100 inh INH DAILY PRN 09/09/17 05/24/1805/20 History [Combivent Respimat Inhal [place]] Lorazepam 2 mg PO Q8H PRN 09/09/17 05/24/18 05/20/18 History Potassium Chloride 20 meq PO DAILY 09/09/17 05/20/18 05/20/18 History Pramipexole Di-HCl [Pramipexole 1 - 2 tab PO QHS PRN 09/10/17 05/24/18 05/20/18 History Dihydrochloride] Ciprofloxacin HCl [Cipro] 500 mg PO BID #20 tablet 05/20/18 05/24/18 Unknown Rx Fluticasone/Umeclidin/Vilanter 05/24/18 Unknown History [Trelegy Ellipta 100-62.5-25] Glimepiride 1 tab PO DAILY 05/24/18 05/24/18 Unknown History Meloxicam 15 mg PO DAILY 05/24/18 05/24/18 Unknown History Metformin HCl [Metformin HCl ER] 500 mg PO BID 05/24/18 05/24/18 Unknown History Prednisone 10 mg PO DAILY 05/24/18 05/24/18 Unknown History - History of Present Illness-Resp Nature of Presenting Problem: 67 y/o male presents to ED with SOB onset this morning. Family of pt reports he has not been out of bed today because he has felt so bad. Diminished breath sounds upon examination. Pt is alert and oriented. Quality of Pain: reports: none Severity in ED: reports: mild Onset/Duration: reports: this morning Timing: reports: still present Context: reports: other (COPD) Exposure: reports: other (COPD) Cough Quality/Degree: reports: no cough Episode Frequency: chronic episodes (COPD) Current Respiratory Medication Therapy: Initiated see nurses note Modifying Factors: improves with: nothing Associated Symptoms: reports: shortness of breath, short of breath Similar Symptoms Previously?: No Recently seen or treated by another doctor?: No Review of Systems - Adult - REVIEW OF SYSTEMS - ADULT Constitutional: denies: chills, fever Eyes: reports: no symptoms reported Ears, Nose, Mouth & Throat: reports: no symptoms reported Cardiovascular: denies: chest pain, palpitations Respiratory: reports: shortness of breath. denies: cough Gastrointestinal: denies: abdominal pain, diarrhea, nausea, vomiting Genitourinary: reports: no symptoms reported Musculoskeletal: denies: back pain, joint pain Integumentary: reports: no symptoms reported Neurological: denies: dizziness/vertigo, seizure Psychiatric: reports: no symptoms reported Endocrine: reports: no symptoms reported Hematologic/Lymphatic: reports: no symptoms reported Allergic/Immunologic: reports: no symptoms reported All Other Systems: Reviewed and Negative Past History - Adult - PAST MEDICAL HISTORY-ADULT Review of Records: reports: Old Records Reviewed, Nursing Assessment Review, Medications Reviewed Major Childhood Illnesses: reports: denies history Cardiovascular: reports: CHF, HTN, pacemaker Respiratory: reports: COPD Gastrointestinal: reports: denies history Obstetrical/Gynecological: reports: denies history Genitourinary: reports: denies history Musculoskeletal: reports: denies history Neurological: reports: denies history Endocrine/Immune: reports: denies history, Diabetes Other Conditions: reports: denies history - PRIOR SURGERIES/PROCEDURES Surgical/Procedure History: reports: pacemaker - PRIOR HOSPITALIZATIONS Prior Hospitalizations: reports: none - IMMUNIZATION STATUS Childhood Immunizations: See Nurse Assessment Flu Vaccine: See Nurse Assessment - FAMILY HISTORY Family History: reviewed, not pertinent - SOCIAL HISTORY Smoking: greater than 1 pack/day Provider spent 3-5 mins advising pt. on dangers of tobacco.: Discussed manners to quit use, and f/u contacts for add'l counseling. Substance Use: none/never Alcohol Use Frequency: occasionally Living Situation: family Physical Exam-General - PHYSICAL EXAM-ADULT Initial Vital Signs Reviewed: Yes - CONSTITUTIONAL General Appearance: appears well, alert, no apparent distress - EYES Eyes: PERRL/EOMI, pink conjunctivae, anisocoria - HEAD, EARS, NOSE, MOUTH & THROAT HENMT: normocephalic/atraumatic, moist mucous membranes, normal ENT inspection - NECK Neck: non-tender, full range of motion - RESPIRATORY Respiratory: chest non-tender, lungs clear, decreased breath sounds - CARDIOVASCULAR Cardiovascular: normal peripheral pulses, regular rate, rhythm - GASTROINTESTINAL (ABDOMEN) Abdominal Exam: normal bowel sounds, non tender, soft - MUSCULOSKELETAL Back Exam: normal inspection, no CVA tenderness Extremity: normal range of motion, non-tender, normal gait - SKIN Integumentary: normal color, warm/dry - NEUROLOGIC Neurologic: grossly normal - PSYCHIATRIC Psych/Mental Status: normal mood/affect, normal thought content, normal thought process Progress - PLAN OF CARE/RESULTS Progress/Plan/Lab Results: Orders Category Date Time Status Admit - [facility] Routine AdmDCTranf 05/23/18 17:35 Active Activity - Strict Bedrest ORDERED Care 05/23/18 17:35 Active Cardiac Monitoring DIRECTED Care 05/23/18 15:37 Completed Saline Loc NOW Care 05/23/18 15:37 Completed Vital Signs Order Q 4-HR ASSESS Care 05/23/18 17:35 Active Z-Document. for Tele Applied ORDERED Care 05/23/18 17:35 Completed CHEST-PORTABLE [RAD] Stat Exams 05/23/18 15:28 Completed ABG [RESP] Routine Lab 05/23/18 15:15 Completed ALCOHOL BLOOD Stat Lab 05/23/18 15:30 Completed CBC WITH ELECTRONIC DIFF [HEME] Stat Lab 05/23/18 15:30 Completed COMPREHENSIVE METABOLIC PANEL [CHEM] Stat Lab 05/23/18 15:30 Completed PRO B-NATRIURETIC PEPTIDE Stat Lab 05/23/18 15:30 Completed 0.9% Sodium Chloride Inj [Ns] 1,000 ml Med 05/23/18 17:35 Discontinued IV 100 mls/hr Albuterol 2.5MG/Ipratrop 0.5MG [Duoneb (A & A)] Med 05/23/18 15:52 Discontinued 3 ml INH NOW ONE Albuterol 2.5MG/Ipratrop 0.5MG [Duoneb (A & A)] Med 05/23/18 19:30 Discontinued 3 ml INH RTQ4H Lorazepam [Ativan] Med 05/23/18 16:57 Discontinued 1 mg IV NOW ONE Lorazepam [Ativan] Med 05/23/18 16:55 Discontinued 2 mg .ROUTE .STK-MED ONE Piperacillin/Tazobactam [Zosyn] 3.375 gm Med 05/23/18 17:35 Discontinued 0.9% Sodium Chloride Inj [Ns] 50 ml IV Q6H Aerosol Treatments Routine Oth 05/23/18 17:35 Completed Aerosol Treatments Stat Oth 05/23/18 15:52 Completed Aerosol Treatments Stat Oth 05/23/18 17:35 Completed BIPAP Stat Oth 05/23/18 15:53 Active Oxygen Device Routine Oth 05/23/18 17:35 Completed Telemetry [OM.EQ] Routine Oth 05/23/18 17:35 Active Transfer/Admit Order [TRANSFER] Routine Transfer 05/23/18 16:18 Completed Result Diagrams: 05/28/18 04:30 05/28/18 04:30 - XRAY 1 XRAY Study: Chest Impression: Normal ( FINDINGS: The lungs are well expanded. The heart is not enlarged. There is a left-sided pacemaker. The vessels are not distended. There are no infiltrates. No effusion identified. IMPRESSION: No acute abnormality. Electronically signed by Luis Monique 05/23/2018 3:55 PM) Departure - Departure Date of Disposition Decision: 05/23/18 Time of Disposition Decision: 17:16 DIAGNOSIS: Tobacco abuse disorder, COPD with exacerbation Disposition: ADMITTED INPATIENT 09 Certified Medical Emergency: Emergent Condition: Stable - Critical Care Note This patient required my direct & personal management of CC.: No Attestation - Physician/ JER Attestation Patient care was provided by Advanced Practice Provider:: No The physician spent face to face time with patient:: Yes Advanced Practice Provider documentation review:: Supervising physician onsite and consulted in the evaluation and care of this patient. The physician did have a face to face encounter with the patient. This chart was documented by the indicated scribe, (Paris Ellis, Char) and accurately reflects the services I performed and decisions made by me, Omar Ruiz MD, as attested by the provider's signature.
[2018-05-28] MEDS: LIORESAL PO SCH ×2 (15:30→16:36)
[2018-05-28] MEDS: ATIVAN 20 MG in NS 190 ML IV SCH (16:49)
[2018-05-28] MEDS: BASAGLAR SUBQ SCH (19:59)
[2018-05-29] MEDS: ATIVAN IV PRN ×5 (01:09→13:56)
[2018-05-29] MEDS: DUONEB (A & A) INH SCH ×4 (03:00→19:29)
[2018-05-29] MEDS: D5W 1,000 ML IV SCH ×5 (03:15→23:40)
--- NOTE | 2018-05-29 03:45 | CONSULTATION ---
DATE OF CONSULTATION: 05/28/2018 REQUESTING PROVIDER: BRENDA Alcaraz. REASON FOR CONSULTATION: COPD exacerbation. HISTORY OF PRESENT ILLNESS: This is a 67-year-old male. He is restless, confused and drowsy. He is able to answer simple questions by shaking or nodding his head, or follow basic commands at times. According to the History and Physical, he has a history of congestive heart failure, hypertension, chronic obstructive pulmonary disease, chronic pain syndrome, diabetes, atrial fibrillation, restless legs syndrome, nicotine dependence, and alcoholism. He was initially admitted to the ICU at [facility] on 05/23/2018 with respiratory distress, tobacco abuse, alcohol abuse and probably probable delirium tremens. During the period of this time, the patient stayed very agitated and confused despite the ongoing treatment with antibiotics, steroids, bronchodilators, and Ativan, and his respiratory status only mildly improved. He started to run fever yesterday afternoon. Currently, he has been transferred here in the ICU for further evaluation and management. PAST MEDICAL HISTORY: 1. Congestive heart failure. 2. Hypertension. 3. Chronic obstructive pulmonary disease. 4. Chronic pain syndrome. 5. Diabetes mellitus type 2. 6. Atrial fibrillation, status post permanent pacemaker placement for more than [address] Ruiz's report. 7. Restless legs syndrome. 8. Nicotine dependence. 9. Alcoholism. SOCIAL HISTORY: The patient drinks at least a pint of alcohol a day, including Vodka and whiskey. He also drinks [employer]. He smokes more than a pack a day for more than 30 years. There is no history of illicit drug use. FAMILY HISTORY: Unable to obtain. ALLERGIES: No known drug allergies. CURRENT MEDICATIONS: As listed in the medication reconciliation sheet. REVIEW OF SYSTEMS: Unable to obtain. PHYSICAL EXAMINATION: Vital Signs: Temperature 97.9, pulse 82, blood pressure 133/63, respiratory rate 20, oxygen saturation 96% on BiPAP at 14/6 with FiO2 of 30%. General: The patient wants to try to get up, becomes restless and confused at times. Most of time, he is resting with eyes closed. In fact, he is on bilateral wrist and ankle restraints. HEENT: Atraumatic. Trachea midline, with full facial mask in place. Respiratory: Even and unlabored. Diminished breathing sounds bilaterally with expiratory wheezing in the right middle lung zone noted. Cardiovascular: Regular rate and rhythm. Gastrointestinal: Normoactive bowel sounds in all 4 quadrants. Soft, nontender, and obese. Extremities: No pedal edema. No clubbing or cyanosis. Able to move all extremities. Pedal pulses and radial pulses 2+ bilaterally. Capillary refill less than 3 seconds. Neurologic: Drowsy, confused. Able to answer simple questions by shaking or nodding his head at times. Able to follow basic commands at times. LABORATORY DATA: White blood cells 4.86, hemoglobin 11.8, hematocrit 38.3, platelet count 109,000. Sodium 159, potassium 3.8, chloride 118, carbon dioxide 31, BUN 25, creatinine 1.0, and glucose 332. Blood gas: pH 7.38, pCO2 of 57, pO2 of 87, HCO3 of 30.4, base excess 7.0, and oxyhemoglobin 95.5. ASSESSMENT: This is a 67-year-old male with a history of congestive heart failure, hypertension, chronic obstructive pulmonary disease, chronic pain syndrome, diabetes, atrial fibrillation, restless legs syndrome, nicotine dependence, and alcoholism. He has been transferred from [facility] Intensive Care Unit to [facility] Intensive Care Unit to the ICU with acute hypoxic and hypercapnic respiratory failure, chronic obstructive pulmonary disease exacerbation, acute alcohol withdrawal, and metabolic encephalopathy. He also presents with hyponatremia and fluid volume depletion. 1. Acute hypoxemic and hypercapnic respiratory failure. 2. Chronic obstructive pulmonary disease exacerbation. PLAN: 1. Continue antibiotics, steroids, and bronchodilators as prescribed. 2. Continue BiPAP with supplemental oxygen and consider AC if needed. 3. Routine chest x-ray, ABG, BMP, and CBC. 4. Continue GI and DVT prophylaxis. Thank you for the courtesy of this consult. Dictated by BRENDA Leon for Evon Mak MD cc: BRENDA Leon MD [facility]
[2018-05-29 05:05] LABS: HEMATOCRIT 38.1 % (42.0-52.0); HEMOGLOBIN 11.9 g/dL (14.0-18.0); IMM GRAN# 0.02 X1000 (0.0-0.04); IMM GRAN% 0.3 % (0.0-0.5); LYMPH# 0.46 X1000 (1.2-3.4); LYMPH% 7.8 % (20.5-51.1); MCHC 31.2 g/dL (33-37); MCV 105.5 FL (81-99); MONO# 0.28 X1000 (0.11-0.59); MONO% 4.7 % (1.7-9.3); NEUT# 5.17 X1000 (1.4-6.5); NEUT% 87.2 % (42.2-75.2); PLT 110 X1000 (130-400); RBC 3.61 XMIL (4.7-6.1); RDW 13.3 % (11.5-14.5); WBC 5.93 X1000 (4.8-10.8)
[2018-05-29 05:08] LABS: ALLEN TEST YES; BLOOD TYPE ARTERIAL; HCO3-(ACT) 29.5 mmoll (20.0-26.0); METHB 1.3 % (0.0-1.5); O2(CT) 22.5 mL/dL (15.0-23.0); O2HB 95.5 % (95.0-99.0); PO2(98.6) 111 mmHg (60-100); SAMPLE BLOOD; SAO2 98.8 % (95.0-100.0); THB 16.7 g/dL (11.5-17.4); pH(98.6) 7.36 (7.35-7.45)
[2018-05-29 05:10] LABS: MODALITY VENTIMASK; PCO2(98.6) 60 mmHg (35-45)
[2018-05-29] MEDS: ZOSYN 3.375 GM in NS 50 ML IV SCH ×4 (05:16→23:34)
[2018-05-29 05:18] LABS: AGAP 6; BUN 18 mg/dL (8-22); CALCIUM 8.5 mg/dL (8.8-10.2); CHLORIDE 112 mmol/L (98-107); COSMO 309; CREATININE 0.8 mg/dL (0.7-1.2); ESTIMATED GFR > 60; GLUCOSE 302 mg/dL (70-104); SODIUM 149 mmol/L (136-145); TCO2 31 mmol/L (25-35)
[2018-05-29] MEDS: HUMULIN R SUBQ SCH ×4 (06:06→20:09)
--- NOTE | 2018-05-29 06:50 | Diag Imaging Result Doc PS360 ---
CHEST-1 VIEW - 05/29/2018 INDICATION: SOB COMPARISON: 05/27/2018 FINDINGS: Stable pacemaker. Stable cardiomegaly and pulmonary vascular congestion. There is worsening infiltrate in the right lung base. Otherwise lung alfaro appear stable. No pneumothorax or large pleural effusion. IMPRESSION: Worsening right basilar infiltrate. Cardiomegaly and pulmonary vascular congestion. Electronically signed by Avtar Hawkins 05/29/2018 6:47 AM
[2018-05-29] MEDS: LIORESAL PO SCH ×3 (08:41→17:03)
[2018-05-29] MEDS: M.V.I.-12 10 ML, FOLIC ACID 1 MG, MAGNESIUM SULFATE 1 GM, THIAMINE 100 MG in NS 1,000 ML IV SCH (08:53)
[2018-05-29] MEDS: SOLU-MEDROL IV SCH ×2 (08:54→20:09)
[2018-05-29] MEDS: THIAMINE IM SCH (08:54)
--- NOTE | 2018-05-29 10:55 | PROGRESS NOTE ---
DATE: 05/29/2018 SUBJECTIVE: The patient continues to be confused. Now he is using BiPAP mask again. According to nursing staff, he had been combative last night. He continues to be on Ativan drip at 0.5 mg/hour. OBJECTIVE: Vital Signs: Temperature 98.0 degrees, heart rate 64, respiratory rate 15, blood pressure 153/73, O2 saturation 96% on Venturi mask at 35%. General Examination: This is a chronically ill-looking, 67-year-old male, lying in bed in no acute distress. HEENT: Mucous membranes dry. Neck: No JVD noted. No carotid bruit. Cardiovascular exam: S1, S2 heard. No murmurs, gallops, or rubs. Regular rate and rhythm. Respiratory exam: Decreased air entry globally with some scattered expiratory wheezing in both pulmonary bases. The patient is not using any accessory muscles or having work of breathing. Abdomen: Soft. A little bit distended, but nontender to palpation. No signs of peritoneal irritation. Bowel sounds present. No organomegaly noted. Extremities: No clubbing or cyanosis or edema. Peripheral pulses present in both legs. Neurological exam: Patient is not oriented to time, person and place. The patient is still confused. Patient moves 4 extremities spontaneously. LABORATORY DATA: White cell count 5.93, hemoglobin 11.9, hematocrit 38.1, platelets 110. ABG shows pH 7.36 with pCO2 60, PO2 111, with sodium 149, potassium 4.0, blood sugars 305. ASSESSMENT/PLAN: 1. Acute hypercarbic respiratory failure secondary to chronic obstructive pulmonary disease exacerbation. Patient continues to require BiPAP. I do personally think that this patient's CO2 of 60 is probably his baseline, but considering that he was desaturating this morning, I prefer to continue to use BiPAP not only for ventilation, but also for oxygenation. We will continue checking arterial blood gases daily. 2. Encephalopathy that is multifactorial secondary to hyponatremia, delirium tremens and acute respiratory failure. In any case, we will continue to monitor. 3. Delirium tremens. The patient continues to be on Ativan drip. He is still combative and agitated. At this point, we will continue with same management. 4. Severe hyponatremia most likely related to free water loss. After we started D5W 200 mL per hour, the sodium is getting better. We will continue to monitor. 5. Diabetes mellitus type 2. Definitely because of D5W, blood sugar has been getting higher. The patient is on sliding scale insulin. We will continue with the same management. 6. Microcytic anemia secondary to chronic alcohol abuse. Aware. 7. Thrombocytopenia secondary to alcohol abuse. Aware. We will continue to monitor complete blood count. 8. Hypertension. Blood pressure is really high mostly because the patient is agitated. So, at this point I prefer to use hydralazine 50 mg every 6 hours. 9. Disposition: We will continue to monitor this patient here in the intensive care unit. cc: Antoine Cantor MD
[2018-05-29] MEDS: APRESOLINE IV SCH ×3 (11:20→23:34)
[2018-05-29] MEDS: NICODERM PATCH TD SCH (11:26)
[2018-05-29] MEDS: BROVANA NEB INH SCH ×2 (11:30→19:29)
[2018-05-29] MEDS: PHENOBARBITAL IV PRN ×2 (12:21→20:09)
[2018-05-29] MEDS ORDERED: BROVANA NEB ONE (18:25)
[2018-05-29] MEDS: ATIVAN 20 MG in NS 190 ML IV SCH (18:32)
[2018-05-29] MEDS: BASAGLAR SUBQ SCH (20:10)
[2018-05-29 21:41] LABS: HEMATOCRIT 39.2 % (42.0-52.0); HEMOGLOBIN 13.2 g/dL (14.0-18.0)
[2018-05-29] MEDS: PROTONIX IV SCH (23:34)
[2018-05-30] MEDS: ATIVAN IV PRN ×4 (01:02→20:09)
[2018-05-30 01:33] LABS: HEMATOCRIT 43.2 % (42.0-52.0); HEMOGLOBIN 14.2 g/dL (14.0-18.0)
[2018-05-30] MEDS: DUONEB (A & A) INH SCH ×4 (03:27→22:23)
[2018-05-30 04:31] LABS: ALLEN TEST YES; BE 8.8 mmoll (-3.0-3.0); BLOOD TYPE ARTERIAL; HCO3-(ACT) 31.8 mmoll (20.0-26.0); METHB 1.1 % (0.0-1.5); O2(CT) 18.5 mL/dL (15.0-23.0); O2HB 96.4 % (95.0-99.0); PCO2(98.6) 45 mmHg (35-45); PO2(98.6) 133 mmHg (60-100); SAMPLE BLOOD; SAO2 99.6 % (95.0-100.0); THB 13.5 g/dL (11.5-17.4); pH(98.6) 7.48 (7.35-7.45)
[2018-05-30 04:32] LABS: MODALITY VENTIMASK
[2018-05-30] MEDS: APRESOLINE IV SCH ×4 (04:36→22:04)
[2018-05-30] MEDS: ZOSYN 3.375 GM in NS 50 ML IV SCH ×4 (04:36→22:04)
[2018-05-30] MEDS: D5W 1,000 ML IV SCH ×3 (04:36→13:01)
[2018-05-30 04:43] LABS: EOS# 0.01 X1000 (0.0-0.7); EOS% 0.2 % (0.0-10.0); HEMATOCRIT 40.2 % (42.0-52.0); HEMOGLOBIN 12.9 g/dL (14.0-18.0); IMM GRAN# 0.03 X1000 (0.0-0.04); IMM GRAN% 0.5 % (0.0-0.5); LYMPH# 0.41 X1000 (1.2-3.4); LYMPH% 6.3 % (20.5-51.1); MCH 32.4 PG (27-31); MCHC 32.1 g/dL (33-37); MONO# 0.24 X1000 (0.11-0.59); MONO% 3.7 % (1.7-9.3); MPV 10.1 FL (7.4-10.4); NEUT# 5.85 X1000 (1.4-6.5); NEUT% 89.3 % (42.2-75.2); PLT 98 X1000 (130-400); RBC 3.98 XMIL (4.7-6.1); RDW 13.1 % (11.5-14.5); WBC 6.54 X1000 (4.8-10.8)
[2018-05-30 04:51] LABS: AGAP 6; BUN 11 mg/dL (8-22); CHLORIDE 107 mmol/L (98-107); COSMO 293; CREATININE 0.6 mg/dL (0.7-1.2); ESTIMATED GFR > 60; GLUCOSE 255 mg/dL (70-104); PHOSPHORUS 2.2 mg/dL (2.7-4.5); POTASSIUM 3.8 mmol/L (3.5-5.1); SODIUM 143 mmol/L (136-145); TCO2 30 mmol/L (25-35)
[2018-05-30 04:54] LABS: LYMPHS 16 % (21-51); SEGS 84 % (42-75)
[2018-05-30] MEDS: HUMULIN R SUBQ SCH ×4 (06:11→20:09)
[2018-05-30] MEDS ORDERED: SODIUM PHOSPHATE 40 MMOL in NS 250 ML IV ONE (06:56)
[2018-05-30] MEDS: PHENOBARBITAL IV PRN ×3 (08:06→15:21)
[2018-05-30] MEDS: SOLU-MEDROL IV SCH ×2 (08:06→20:09)
[2018-05-30] MEDS: LIORESAL PO SCH ×3 (08:07→16:05)
[2018-05-30] MEDS: M.V.I.-12 10 ML, FOLIC ACID 1 MG, MAGNESIUM SULFATE 1 GM, THIAMINE 100 MG in NS 1,000 ML IV SCH (08:07)
[2018-05-30] MEDS: THIAMINE IM SCH (08:07)
[2018-05-30] MEDS: NICODERM PATCH TD SCH (08:07)
--- NOTE | 2018-05-30 08:27 | PROGRESS NOTE ---
DATE: 05/30/2018 SUBJECTIVE: The patient continues to be confused. He had a rough night last night. He was refusing to use BiPAP also as per nursing staff last afternoon. He had 1 big bowel movement. No black tarry stools. OBJECTIVE: Vital Signs: Temperature 98.0 degrees, heart rate 98, respiratory rate 27, blood pressure 181/88, O2 saturation 98% on Venturi mask. General Examination: This is a chronically ill-looking, 67-year-old male, lying in bed in no acute distress. HEENT: Head is normocephalic, atraumatic. Mucous membranes dry. Neck: No JVD noted. No carotid bruits. No lymphadenopathy. No thyromegaly. Cardiovascular exam: S1, S2 heard. No murmurs, gallops, or rubs. Regular rate and rhythm. Respiratory exam: Decreased air entry globally with some scattered expiratory wheezing in both pulmonary bases. Patient not using any accessory muscles or having work of breathing. Abdomen: Soft, a little bit distended, but nontender to palpation. Bowel sounds present. No organomegaly. No signs of peritoneal irritation. Extremities: No clubbing, cyanosis, or edema. Peripheral pulses present in both legs. Skin: There is an edematous rash noted around the abdominal fold near the perineum. Neurological exam: Patient continues to be confused. Does not follow commands. Moves 4 extremities spontaneously. LABORATORY DATA: White cell count is 6.54, hemoglobin for 14.2, hematocrit 43.2, platelets 98. ABG that shows pH 7.48, pCO2 45, PO2 133. BMP shows creatinine 0.6. Phosphate 2.2. ASSESSMENT AND PLAN: 1. Acute hypercarbic, hypoxemic respiratory failure secondary to chronic obstructive pulmonary disease exacerbation. Patient now is better in terms of ventilation. CO2 is back to normal. Patient refused to use BiPAP. So, he has been placed on Ventimask at this time. At this point, we will continue with the same management. 2. Severe dehydration/hyponatremia. D5W is being administered to him and the sodium today is 143. We are going to decrease the rate of fluids from 200-100 mL/hour. 3. Alcohol withdrawal. Patient continues to be agitated, combative. We will continue with Ativan drip. 4. Diabetes mellitus type 2. We will continue with sliding scale insulin. 5. Microcytic anemia secondary to chronic alcohol abuse. Aware. 6. Thrombocytopenia secondary to chronic alcohol abuse. Aware. 7. Hypertension. Blood pressure is still elevated, but the patient has been administered hydralazine. We will continue with the same management. 8. Encephalopathy, multifactorial. We will continue to monitor. 9. Gastrointestinal bleeding. Nursing staff reported 1 episode of big black tarry stool. We have checked hemoglobin and that is stable. Patient is tachycardic, so at this point we are going to order a CT of abdomen and pelvis and consult Gastroenterology and increase the Protonix from 40 mg every 24 hours to every 12 hours. 10. Disposition: We will continue to monitor patient in the intensive care unit. cc: Antoine Cantor MD
[2018-05-30] MEDS: LOTRIMIN 1% CREAM TOP SCH ×2 (08:57→20:17)
[2018-05-30 11:02] LABS: HEMATOCRIT 43.6 % (42.0-52.0)
[2018-05-30] MEDS: SODIUM CHLORIDE 0.9% INJ SCH (11:02)
[2018-05-30] MEDS: PROTONIX IV SCH (11:02)
--- NOTE | 2018-05-30 11:14 | Diag Imaging Result Doc PS360 ---
EXAM: CT ABDOMEN/PELVIS W/WO AMANDAAS 05/30/2018 HISTORY: GI bleeding TECHNIQUE: This exam was performed using automated exposure control, adjustment of mA or kV according to patient size, and/or use of iterative reconstruction technique. COMMENT: There are no previous abdominal studies available for comparison. Where possible, the current study is compared with the previous thoracic study of 03/29/2018. The study is somewhat suboptimal due to motion. There are bilateral pleural effusions. This was not the case at the time the previous thoracic study. There are patchy opacities in both lower lung alfaro particularly in the right lower lobe where there is apparent atelectasis. On the previous study there was some tree-in-bud type opacity particularly in the right lower lobe. There is intraperitoneal fluid, which was not the case at the time the previous study. This measures less than 6 Hounsfield units on the right side on the noncontrast series. Fluid in the pelvis measures at 7 Hounsfield units. This is consistent with ascites. The spleen is not enlarged. There is bilateral nephrolithiasis with a stone in the lower pole on the left measuring 8 mm in greatest dimension and in the mid upper pole of the right kidney measuring 6 mm. There is no evidence of hydronephrosis. There is some stranding in the retroperitoneal fat around the pancreas. There is no evidence of mass or necrosis. The stomach is not distended. There is pericholecystic fluid. The gallbladder is not distended and there are no apparent stones. There is an apparent small cyst in the left hepatic lobe. No acute abnormalities are otherwise demonstrated in the liver. There are some cysts present in the kidneys. No solid mass is identified. There is no evidence of abdominal aortic aneurysm. The mesenteric and renal arteries are patent. There are atherosclerotic calcifications. There is no evidence of bowel obstruction. There is gas and some fecal debris in the colon. There is no evidence of significant adenopathy. Pelvis: There is no evidence of appendicitis. There is a Hayes catheter in the bladder. No masses or significant adenopathy is present. There is a moderate amount of fluid in the rectum. There is bilateral spondylolysis at L5. No acute bony abnormalities are present. IMPRESSION: Ascites and pleural effusions not present on 03/29/2018. The possibility of mild pancreatitis cannot be excluded. A source of gastrointestinal bleeding is not identified. Bibasilar atelectasis and/or pneumonia particularly in the right lower lobe. Electronically signed by Maximo Devine 05/30/2018 11:11 AM
[2018-05-30] MEDS: BROVANA NEB INH SCH ×2 (15:47→19:22)
[2018-05-30] MEDS: BASAGLAR SUBQ SCH (20:17)
[2018-05-31] MEDS: D5W 1,000 ML IV SCH ×3 (00:51→22:35)
[2018-05-31] MEDS: PROTONIX IV SCH ×3 (00:51→23:58)
[2018-05-31] MEDS: ATIVAN 20 MG in NS 190 ML IV SCH (01:29)
[2018-05-31] MEDS: PHENOBARBITAL IV PRN ×4 (02:06→14:58)
[2018-05-31] MEDS: DUONEB (A & A) INH SCH ×4 (03:27→19:37)
[2018-05-31 04:10] LABS: EOS# 0.03 X1000 (0.0-0.7); EOS% 0.5 % (0.0-10.0); HEMATOCRIT 37.9 % (42.0-52.0); HEMOGLOBIN 12.2 g/dL (14.0-18.0); IMM GRAN# 0.05 X1000 (0.0-0.04); IMM GRAN% 0.8 % (0.0-0.5); LYMPH# 0.37 X1000 (1.2-3.4); LYMPH% 5.7 % (20.5-51.1); MCH 32.9 PG (27-31); MCHC 32.2 g/dL (33-37); MCV 102.2 FL (81-99); MONO# 0.36 X1000 (0.11-0.59); MONO% 5.6 % (1.7-9.3); MPV 10.3 FL (7.4-10.4); NEUT# 5.66 X1000 (1.4-6.5); NEUT% 87.4 % (42.2-75.2); PLT 92 X1000 (130-400); RBC 3.71 XMIL (4.7-6.1); RDW 13.4 % (11.5-14.5); WBC 6.47 X1000 (4.8-10.8)
[2018-05-31] MEDS: ZOSYN 3.375 GM in NS 50 ML IV SCH ×4 (04:17→22:34)
[2018-05-31] MEDS: APRESOLINE IV SCH ×4 (04:17→22:34)
[2018-05-31 04:25] LABS: ANISOCYTOSIS OCCASIONAL; BANDS 6 % (0-1); LYMPHS 4 % (21-51); MONO 4 % (1-9); SEGS 86 % (42-75); TOXIC GRANULATION OCCASIONAL
[2018-05-31 04:33] LABS: ALLEN TEST YES; BE 7.3 mmoll (-3.0-3.0); BLOOD TYPE ARTERIAL; HCO3-(ACT) 30.6 mmoll (20.0-26.0); METHB 1.1 % (0.0-1.5); O2(CT) 17.3 mL/dL (15.0-23.0); O2HB 95.7 % (95.0-99.0); PO2(98.6) 96 mmHg (60-100); SAMPLE BLOOD; SAO2 98.9 % (95.0-100.0); THB 12.8 g/dL (11.5-17.4); pH(98.6) 7.39 (7.35-7.45)
[2018-05-31 04:35] LABS: MODALITY VENTIMASK
[2018-05-31 04:36] LABS: PCO2(98.6) 56 mmHg (35-45)
[2018-05-31 04:49] LABS: AGAP 6; BUN 11 mg/dL (8-22); CALCIUM 8.4 mg/dL (8.8-10.2); CHLORIDE 110 mmol/L (98-107); COSMO 296; CREATININE 0.8 mg/dL (0.7-1.2); ESTIMATED GFR > 60; GLUCOSE 209 mg/dL (70-104); PHOSPHORUS 2.6 mg/dL (2.7-4.5); POTASSIUM 3.5 mmol/L (3.5-5.1); SODIUM 146 mmol/L (136-145); TCO2 30 mmol/L (25-35)
[2018-05-31] MEDS: HUMULIN R SUBQ SCH (06:01)
[2018-05-31] MEDS ORDERED: SODIUM PHOSPHATE 35 MMOL in NS 250 ML IV ONE (07:43)
[2018-05-31] MEDS: LOTRIMIN 1% CREAM TOP SCH ×2 (08:05→20:02)
[2018-05-31] MEDS: NICODERM PATCH TD SCH (08:05)
[2018-05-31] MEDS: SOLU-MEDROL IV SCH ×2 (08:05→20:02)
[2018-05-31] MEDS: THIAMINE IM SCH (08:05)
[2018-05-31] MEDS: LIORESAL PO SCH ×3 (08:06→16:06)
[2018-05-31] MEDS ORDERED: LASIX IV ONE (08:06)
[2018-05-31] MEDS: CLINIMIX E 4.25%-5% SOLUTION 1,000 ML IV SCH ×2 (08:40→17:31)
[2018-05-31 08:42] LABS: HEMOGLOBIN A1C 7.4 % (4.8-6.0)
--- NOTE | 2018-05-31 08:48 | PROGRESS NOTE ---
DATE: 05/31/2018 SUBJECTIVE: The patient continues to be confused and agitated. At the time of my examination, he has received 1 dose of phenobarbital. Now he is sleepy. He continued to have several bowel movements but there were maroon-colored. No more black tarry stools. OBJECTIVE: Vital Signs: Temperature 98.4 degrees, heart rate 100, respiratory rate 24, blood pressure 178/93, O2 saturation of 97% on Venturi mask. General Examination: This is a chronically ill-looking, 67-year-old, male, lying in bed, in no acute distress. HEENT: Head is normocephalic and atraumatic. Neck: No JVD noted. No carotid bruits. No lymphadenopathy. No thyromegaly. Cardiovascular Examination: S1 and S2 heard. Tachycardic. No murmurs, gallops, or rubs. Regular rate and rhythm. Respiratory Examination: Decreased air entry globally with some respiratory wheezing and coarse breath sounds noted in both pulmonary bases. The patient is not using any accessory muscles or having work of breathing. Abdomen: Soft. Still more distended but nontender to palpation. Bowel sounds present. No organomegaly. No signs of peritoneal irritation. Extremities: No clubbing or cyanosis. Peripheral pulses present in both legs. Skin: There is still some erythematosus rash noted around the abdominal fold near the perineum. Neurological Examination: The patient continues to be confused. Does not follow commands at all. Moves 4 extremities spontaneously. Laboratory Data: White cell count 6.47, hemoglobin 12.2, hematocrit 37.9, platelets 92,000. ABG shows pH 7.39, pCO2 56, PO2 96. BMP shows sodium 146, glucose 209, phosphorus 2.6. Abdominal CT report showed ascites and pleural effusion, not present on a prior CT in March of this year. Bibasilar atelectasis and/or pneumonia in the right lower lobe. ASSESSMENT AND PLAN: 1. Acute hypercarbic, hypoxemic respiratory failure secondary to chronic obstructive pulmonary disease exacerbation/right lower lobe pneumonia. Patient continues to be on Zosyn. CO2 is slightly elevated. Patient is now requiring Ventimask. At this point, we will continue with the same management; in this case, Zosyn, breathing treatments every 4 hours as scheduled, and intravenous steroids as well. 2. Severe dehydration/hypernatremia. Sodium is 149 . We will continue to monitor sodium. 3. Alcohol withdrawal. Unfortunately, the patient continues to be agitated and withdrawing. At this point, the patient is receiving 0.5 mg intravenous daily for withdrawals but I am planning to increase to 1 every hour considering that he is agitated and he has needed to be given phenobarbital 4 times in the last 24 hours. We will continue to monitor this patient here in the unit. 4. Hypertension. Blood pressure is elevated still when this patient is more combative. At this point on my visit, the systolic blood pressure was 120. We will continue to monitor this patient closely. 5. Encephalopathy. Aware. Multifactorial. We will continue to monitor. 6. Suspected gastrointestinal bleeding. Patient had one episode of black tarry stools the day before yesterday but hemoglobin is stable so far. At this point, we are going to continue checking CBC daily. CT of the abdomen showed results as above. Gastroenterology has been consulted. We will follow recommendations. 7. Right lower lobe pneumonia. We will continue with Zosyn. White cell count is normal. 8. Disposition. We will continue to monitor this patient closely in the intensive care unit. cc: Antoine Cantor MD MTDD
[2018-05-31] MEDS: BROVANA NEB INH SCH ×2 (09:22→19:37)
[2018-05-31] MEDS ORDERED: BROVANA NEB ONE (09:26)
[2018-05-31] MEDS: LIPOSYN 20% 250 ML IV SCH (09:32)
[2018-05-31] MEDS: SODIUM CHLORIDE 0.9% INJ SCH (11:03)
[2018-05-31] MEDS: HUMALOG SUBQ SCH ×3 (11:04→20:02)
[2018-05-31] MEDS: ATIVAN IV PRN (16:08)
[2018-05-31 17:47] LABS: AGAP 13; BUN 15 mg/dL (8-22); CALCIUM 8.9 mg/dL (8.8-10.2); CHLORIDE 103 mmol/L (98-107); COSMO 301; CREATININE 0.9 mg/dL (0.7-1.2); ESTIMATED GFR > 60; GLUCOSE 209 mg/dL (70-104); POTASSIUM 3.3 mmol/L (3.5-5.1); SODIUM 148 mmol/L (136-145); TCO2 32 mmol/L (25-35)
--- NOTE | 2018-05-31 18:00 | CONSULTATION ---
DATE OF CONSULTATION: 05/30/2018 REASON FOR CONSULTATION: Possible GI bleed. HISTORY OF PRESENT ILLNESS: 67-year-old gentleman with increasing shortness of breath, history of COPD, patient is getting recent exercise intolerance and found to be anemic. He did have dehydration, hyponatremia and heme-positive stool. REVIEW OF SYSTEMS: Unable to obtain. PAST MEDICAL HISTORY: 1. CHF . 2. Hypertension. 3. Pacemaker. 4. Chronic obstructive pulmonary disease. 5. Diabetes. 6. Alcoholism. 7. Atrial fibrillation. PAST SURGICAL HISTORY: Pacemaker. SOCIAL: Single, smokes 1 to 2 packs, drinks routinely. FAMILY HISTORY: Positive for diabetes mellitus. HOME MEDICATION: Reconciled. He is on meloxicam 15 mg and prednisone which may contribute to some nonsteroidal gastropathy . PHYSICAL EXAMINATION: Temperature 97 degrees, heart rate 84, respiration 15, blood pressure 180/80, O2 saturation 100% on BiPAP .General: 67 -year-old gentleman pale, sedated. HEENT: Conjunctival pallor, no obvious icterus. Heart: Normal first and second heart sounds. Lungs: Decreased breath sounds. Abdomen: Soft, mildly distended, bowel sounds present. Extremities: No edema, cyanosis. Neurological: Patient is sedated and not oriented. IMPRESSION AND PLAN: 1. Acute hypoxic hypercapnic respiratory failure. 2. Chronic obstructive pulmonary disease. 3. Alcohol withdrawal. 4. Hyponatremia. 5. Anemia heme-positive stool. 6. Congestive heart failure. 7. Hypertension . 8. Deep vein thrombosis prophylaxis SCD. His hematocrit today is 43, his GI blood loss is not hemodynamically significant. Continue PPI for now, will follow, patient also has on CT scan a possible alcoholic liver disease and ascites, there is no signs of any brisk bleeding, will continue to follow and decide on the timing of endoscopy depending on the clinical course. cc: Jem Chamberlain MD
[2018-05-31] MEDS: BASAGLAR SUBQ SCH (20:02)
[2018-06-01] MEDS: ATIVAN 20 MG in NS 190 ML IV SCH ×2 (01:51→21:00)
[2018-06-01] MEDS: DUONEB (A & A) INH SCH ×4 (03:02→21:13)
[2018-06-01] MEDS: CLINIMIX E 4.25%-5% SOLUTION 1,000 ML IV SCH ×3 (04:06→23:43)
[2018-06-01] MEDS: ZOSYN 3.375 GM in NS 50 ML IV SCH ×4 (04:06→23:43)
[2018-06-01] MEDS ORDERED: NS 50 ML ONE (04:06)
[2018-06-01] MEDS: APRESOLINE IV SCH ×4 (04:06→23:42)
[2018-06-01 04:45] LABS: ALLEN TEST YES; BE 6.3 mmoll (-3.0-3.0); BLOOD TYPE ARTERIAL; HCO3-(ACT) 29.7 mmoll (20.0-26.0); METHB 0.9 % (0.0-1.5); O2(CT) 25.1 mL/dL (15.0-23.0); O2HB 94.3 % (95.0-99.0); PO2(98.6) 78 mmHg (60-100); SAMPLE BLOOD; SAO2 97.3 % (95.0-100.0)
[2018-06-01 04:46] LABS: MODALITY VENTIMASK; PCO2(98.6) 54 mmHg (35-45)
[2018-06-01 05:20] LABS: EOS# 0.04 X1000 (0.0-0.7); EOS% 0.5 % (0.0-10.0); HEMATOCRIT 41.5 % (42.0-52.0); HEMOGLOBIN 13.1 g/dL (14.0-18.0); IMM GRAN# 0.02 X1000 (0.0-0.04); IMM GRAN% 0.2 % (0.0-0.5); LYMPH# 0.56 X1000 (1.2-3.4); LYMPH% 6.6 % (20.5-51.1); MCH 32.3 PG (27-31); MCHC 31.6 g/dL (33-37); MCV 102.2 FL (81-99); MONO# 0.53 X1000 (0.11-0.59); MONO% 6.2 % (1.7-9.3); NEUT# 7.37 X1000 (1.4-6.5); NEUT% 86.5 % (42.2-75.2); PLT 94 X1000 (130-400); RBC 4.06 XMIL (4.7-6.1); RDW 13.6 % (11.5-14.5); WBC 8.52 X1000 (4.8-10.8)
[2018-06-01 05:23] LABS: AGAP 7; BUN 15 mg/dL (8-22); CALCIUM 8.9 mg/dL (8.8-10.2); CHLORIDE 105 mmol/L (98-107); COSMO 300; CREATININE 0.7 mg/dL (0.7-1.2); ESTIMATED GFR > 60; GLUCOSE 318 mg/dL (70-104); PHOSPHORUS 2.5 mg/dL (2.7-4.5); POTASSIUM 3.7 mmol/L (3.5-5.1); SODIUM 144 mmol/L (136-145); TCO2 32 mmol/L (25-35)
[2018-06-01] MEDS: HUMALOG SUBQ SCH ×4 (06:07→21:30)
--- NOTE | 2018-06-01 06:18 | Diag Imaging Result Doc PS360 ---
EXAM: CHEST-1 VIEW HISTORY: SOB TECHNIQUE: Portable chest single view COMPARISON: 06/08/2018 FINDINGS: The lungs are well expanded. The heart is not enlarged. Vascular distention remains although it is less pronounced. There is likely an infiltrate in the right base. No pleural effusions identified. No change in the right-sided PICC line. There is a left-sided pacemaker. IMPRESSION: Mild interval improvement. Electronically signed by Luis Monique 06/01/2018 6:16 AM
[2018-06-01] MEDS ORDERED: BROVANA NEB ONE (07:27)
[2018-06-01] MEDS ORDERED: SODIUM PHOSPHATE 40 MMOL in NS 250 ML IV ONE (08:40)
[2018-06-01] MEDS: LIPOSYN 20% 250 ML IV SCH (08:42)
[2018-06-01] MEDS: SOLU-MEDROL IV SCH ×2 (08:42→21:32)
[2018-06-01] MEDS: LOTRIMIN 1% CREAM TOP SCH ×2 (08:42→21:32)
[2018-06-01] MEDS: THIAMINE IM SCH (08:42)
[2018-06-01] MEDS: LIORESAL PO SCH ×3 (08:57→16:48)
[2018-06-01] MEDS ORDERED: BASAGLAR SUBQ SCH (09:00)
[2018-06-01] MEDS: NICODERM PATCH TD SCH (09:03)
[2018-06-01] MEDS: BROVANA NEB INH SCH ×2 (09:25→19:13)
[2018-06-01] MEDS ORDERED: INSULIN PEN NEEDLES ONE (09:33)
--- NOTE | 2018-06-01 10:33 | PROGRESS NOTE ---
DATE: 06/01/2018 SUBJECTIVE: The patient continues to be confused and agitated, although there has been some periods where he is a little bit more calmed down and answers questions, but at this time he is sleepy because he is on Ativan drip. OBJECTIVE: Vital Signs: Temperature 98.7 degrees, heart rate 90, respiratory rate 21, blood pressure 121/60, O2 saturation 96% on 3 L nasal cannula. General examination: This is a chronically ill-looking, 67-year-old, male lying in bed, in no acute distress. HEENT: Head is normocephalic and atraumatic. Neck: No JVD noted. No carotid bruits. No lymphadenopathy. Cardiovascular: S1 and S2 heard, tachycardic, but there are no murmurs, gallops, or rubs. Regular rate and rhythm. Respiratory: Decreased air entry globally. There is still some expiratory wheezing and coarse breath sounds noted in both pulmonary bases. Patient is not using any accessory muscles or having work of breathing. Abdomen: Soft, a little bit distended, but nontender to palpation. Bowel sounds present. No organomegaly. No signs of peritoneal irritation. Extremities: No clubbing, cyanosis, or edema. Peripheral pulses present in both legs. There is still erythematous rash noted around the lower abdomen and also on the perineum. Neurological: The patient continues to be confused, does not follow any commands. LABORATORY DATA: White cell count 8.52, hemoglobin 13.1, hematocrit 41.5, platelets 94,000. ABG shows pH 7.4 with pCO2 54 and PO2 78. The patient is on Ventimask. BMP reveals basal glucose 318. ASSESSMENT AND PLAN: 1. Acute hypercarbic/hypoxemic respiratory failure secondary to chronic obstructive pulmonary disease exacerbation/right lower lobe pneumonia. The patient continues to be on Zosyn. White cell count is back to normal. CO2 is better. I think at this point, we will continue with breathing treatments every 4 hours, in this case DuoNeb, and intravenous steroids 40 mg q.12 hours. We will continue, of course, to monitor this patient in the intensive care unit. 2. Alcohol withdrawal. Unfortunately, the patient continues to require Ativan drip. Now, we have increased the dose from 0.5 yesterday to 1 mg. He is no longer needing to receive phenobarbital. At this point, will continue with the same management. 3. Severe dehydration/hyponatremia, resolved. 4. Hypertension. Even though he is combative, the blood pressure is much better. He is receiving hydralazine intravenously q.6 hours scheduled. Continue with same management. 5. Metabolic encephalopathy. Aware. 6. Suspected gastrointestinal bleeding. His hemoglobin has remained stable. No more tarry stools noted by the nursing staff. 7. Right lower lobe pneumonia. Will continue with Zosyn. Numbers are back to normal. DISPOSITION: Will continue to monitor this patient in the intensive care unit. cc: Antoine Cantor MD
[2018-06-01] MEDS ORDERED: PERICOLACE PO PRN (11:12)
[2018-06-01] MEDS: PROTONIX IV SCH (11:16)
[2018-06-01] MEDS: D5W 1,000 ML IV SCH ×2 (11:16→23:43)
--- NOTE | 2018-06-01 11:32 | PROGRESS NOTE ---
DATE: 06/01/2018 SUBJECTIVE: The patient is resting in bed. He is currently confused. Nursing staff is at the bedside. No documented vomiting or passing blood in the stools. He is on an Ativan drip. PHYSICAL EXAMINATION: Vital Signs: Temperature of 98.7 degrees, pulse rate of 88, respiratory rate of 21, blood pressure 121/60, saturating 95% on 4 L nasal cannula. Body weight of 208 pounds and 1.6 ounces. BMI of 28.2 kg/m2. General Appearance: Moderately built, moderately nourished, lying in bed, and currently confused. HEENT: No pallor. No icterus. Nasal cannula in place. Neck: Supple. Abdomen: Protuberant and tympanic on percussion. No rebound or guarding. Extremities: No cyanosis or clubbing. Neurologic: He is confused. LABS: Hemoglobin and hematocrit are 13.1 and 41.5, white count of 8.5, platelet count of 94,000. ABG showing pH 7.40, pCO2 54, PO2 78. This is on Ventimask, 35% FiO2. Sodium of 140, potassium 3.7, chloride 105, bicarb 32, anion gap 7, BUN of 15, creatinine 0.7, glucose of 318, calcium is 8.9, phosphorus 2.5. Stool studies done showed C. difficile antigen negative, C. difficile toxin is negative. Stool for occult blood is positive. Blood culture x2 are negative at 48 hours. Urine culture is showing no growth. CT of the abdomen and pelvis was done which showed ascites, pleural effusion mild, basilar atelectasis and pneumonia in the right lower lobe. No source of GI bleeding identified. Chest x-ray showed lungs are well-expanded. Left-sided pacemaker. IMPRESSION AND PLAN: 1. Acute hypoxic and hypercarbic respiratory failure secondary to chronic obstructive pulmonary disease exacerbation and right lower lobe pneumonia. He is on Zosyn. He is being followed by the primary care team. He is on intravenous steroids and DuoNeb inhalers. 2. Alcohol withdrawal. He is on an Ativan drip. He is still currently confused and he is in restraints. 3. Suspected gastrointestinal bleeding. He is currently stable. The blood counts are stable. We keep the patient on intravenous Protonix twice a day. We will watch for any further signs of gastrointestinal bleeding. 4. Gastrointestinal prophylaxis with proton pump inhibitors. 5. Diabetes. He is on insulin. 6. Malnutrition. He is on amino acids at 100 mL per hour and fat emulsion 10 mL per hour. 7. Bowel regimen. He is continuing to have liquid green and brown stools. We will start him on Keren-Colace as needed. 8. I discussed the plan of care with the patient's nursing staff and all questions were answered. Please call with any further questions. cc: MD Antoine Thomas MD MTDD
[2018-06-01] MEDS: ATIVAN IV PRN (17:52)
[2018-06-01] MEDS: DITROPAN PO PRN (17:53)
[2018-06-01] MEDS: BASAGLAR SUBQ SCH (21:31)
[2018-06-01] MEDS ORDERED: LASIX IV ONE (23:55)
[2018-06-02] MEDS: PROTONIX IV SCH ×2 (00:11→11:24)
[2018-06-02] MEDS: SODIUM CHLORIDE 0.9% INJ SCH (00:14)
[2018-06-02] MEDS: ATIVAN IV PRN ×6 (02:15→22:05)
[2018-06-02] MEDS: DITROPAN PO PRN ×2 (03:16→08:29)
[2018-06-02] MEDS: DUONEB (A & A) INH SCH ×4 (03:25→19:20)
[2018-06-02 04:25] LABS: AGAP 10; BUN 15 mg/dL (8-22); CALCIUM 8.9 mg/dL (8.8-10.2); CHLORIDE 103 mmol/L (98-107); COSMO 300; CREATININE 0.7 mg/dL (0.7-1.2); ESTIMATED GFR > 60; GLUCOSE 255 mg/dL (70-104); PHOSPHORUS 2.3 mg/dL (2.7-4.5); POTASSIUM 3.6 mmol/L (3.5-5.1); SODIUM 146 mmol/L (136-145); TCO2 33 mmol/L (25-35)
[2018-06-02] MEDS: ZOSYN 3.375 GM in NS 50 ML IV SCH ×4 (04:30→23:14)
[2018-06-02] MEDS: APRESOLINE IV SCH ×4 (04:31→23:14)
[2018-06-02] MEDS: HUMALOG SUBQ SCH ×4 (06:44→21:10)
[2018-06-02] MEDS ORDERED: LASIX IV ONE (08:00)
[2018-06-02] MEDS: BASAGLAR SUBQ SCH ×2 (08:27→21:33)
[2018-06-02] MEDS: NICODERM PATCH TD SCH (08:28)
[2018-06-02] MEDS: LIORESAL PO SCH ×3 (08:28→16:42)
[2018-06-02] MEDS: THIAMINE IM SCH (08:28)
[2018-06-02] MEDS: SOLU-MEDROL IV SCH ×2 (08:28→21:33)
[2018-06-02] MEDS: MORPHINE IV PRN ×4 (08:29→22:04)
[2018-06-02] MEDS: LOTRIMIN 1% CREAM TOP SCH ×2 (08:29→21:34)
[2018-06-02] MEDS: LIPOSYN 20% 250 ML IV SCH (08:29)
[2018-06-02] MEDS ORDERED: SODIUM PHOSPHATE 40 MMOL in NS 250 ML IV ONE (08:30)
--- NOTE | 2018-06-02 08:35 | PROGRESS NOTE ---
DATE: 06/02/2018 SUBJECTIVE: The patient continues to be agitated, combative, confused. Patient continues to be on Ativan drip. OBJECTIVE: Vital Signs: Temperature 99.0, heart rate 114, respiratory rate 24 , blood pressure 150/90, O2 saturation 95% on BiPAP. General Examination: This is a chronically ill-looking, 57- year-old male, lying in bed in no acute distress. HEENT: Head is normocephalic, atraumatic. Mucous membranes dry. Neck: No JVD noted. No carotid bruits. No lymphadenopathy. No thyromegaly. Cardiovascular exam: S1, S2 heard. Tachycardic, but there are no murmurs gallops or rubs noted. Regular rate and rhythm. Respiratory exam: Decreased air entry globally. There is marked crackles noted mostly in both pulmonary bases. Some expiratory wheezing as well. Patient is not using any accessory muscles or having work of breathing. Abdomen : Soft. A little bit distended. Nontender to palpation. Bowel sounds present. No organomegaly. Extremities: No clubbing, cyanosis, or edema. Peripheral pulses present in both legs. Skin: There is still erythematous rash noted around the lower abdomen and also the perineum. Neurological exam: Patient continues to be confused and combative. Does not follow any commands. LABORATORY DATA: White cell count 8.52, hemoglobin 13.1, hematocrit 41.5, platelets 94. BMP shows sodium 146 and glucose 255, phosphorus 2.3. ASSESSMENT AND PLAN: 1. Acute hypercarbic hypoxemic respiratory failure secondary to chronic obstructive pulmonary disease exacerbation/right lower lobe pneumonia. Patient is on Zosyn day #6 of treatment. At this point, we are going to continue with the same management. Actually the CO2 from yesterday was 54. We will continue with the same management. Patient is also receiving the unit every 4 hours as scheduled and also intravenous steroids, in this case Solu-Medrol 40 mg intravenous every 12 hours. 2. Alcohol withdrawal. Unfortunately, this patient continues to require Ativan drip. He is still combative and agitated, so we will continue with same medications. 3. Dehydration/hyponatremia, resolved. 4. Hypertension. Blood pressure is under control. The patient is receiving intravenous medications to control blood pressure. 5. Metabolic encephalopathy, aware. 6. Suspected gastrointestinal bleeding. Hemoglobin continues to be stable. Gastroenterology has evaluated the patient, but no procedure is required at this time. We will continue to monitor. 7. Right lower lobe pneumonia. Patient is on Zosyn day #6. Oxygen saturation is okay. At this point we will continue with same management. 9. Disposition: We will continue to monitor this patient in intensive care unit. cc: Antoine Cantor MD MTDD
--- NOTE | 2018-06-02 08:36 | Diag Imaging Result Doc PS360 ---
EXAM: CHEST-PORTABLE 06/02/2018 HISTORY: pulmonary edema TECHNIQUE: AP portable at 0817 COMMENT: There is a PICC line with its tip in the superior vena cava. There is increased pulmonary vascularity. There is increased interstitial opacity particularly in the left base. There is some hazy opacity in the perihilar region on the right. The lungs are slightly better expanded than on 06/01/2018. IMPRESSION: Pulmonary edema. Electronically signed by Maximo Devine 06/02/2018 8:34 AM
[2018-06-02] MEDS: BROVANA NEB INH SCH ×2 (09:21→19:20)
[2018-06-02] MEDS: CLINIMIX E 4.25%-5% SOLUTION 1,000 ML IV SCH ×2 (09:47→21:33)
[2018-06-02] MEDS: MUPIROCIN OINTMENT TOP SCH ×2 (09:47→21:34)
[2018-06-02] MEDS: CALMOSEPTINE OINTMENT TOP PRN (09:52)
--- NOTE | 2018-06-02 13:27 | PROGRESS NOTE ---
DATE: 06/02/2018 SUBJECTIVE: Patient is resting in bed. He is on a face mask. He is in restraints. He is confused. He is on Ativan drip. OBJECTIVE: Vital Signs: Temperature 98.5 degrees, pulse rate 114, respiratory 32, blood pressure 173/95, saturating 92% on BiPAP. General appearance: He is moderately built , moderately nourished, lying in bed, in no acute distress. He is in restraints. His face mask in place. HEENT: No pallor. No icterus. Face mask in place. Neck: Supple. Abdomen: Soft, nondistended. No guarding. Extremities: Restraints. Neuro garcia: He was awake, was able to respond to his name. He did not answer any of my questions. LABS: His labs were done, which showed sodium, potassium 3.6, chloride 103, bicarb 30, anion gap 10, BUN of 15, creatinine 0.7, glucose of 255, calcium is 8.9, phosphorus 2.3. Chest x- ray was done which showed pulmonary edema. IMPRESSION AND PLAN: 1. Suspected gastrointestinal bleeding. Hematocrit is stable. We will hold off any kind of intervention. Will keep him on proton-pump inhibitors b.i.d. Will watch his blood counts as you are doing. 2. Alcohol withdrawal. He is on Ativan drip. He is in restraints. 3. Pulmonary edema and acute hypercarbic and hypoxic respiratory failure secondary to chronic obstructive pulmonary disease exacerbation. This is being managed by the primary care team. 4. Right lower lobe pneumonia. He is on Zosyn, day 6. 5. Delirium secondary to alcohol withdrawal. 6. Gastrointestinal prophylaxis with proton-pump inhibitors. 7. Bowel regimen with Keren-Colace as needed. 8. The above plan was discussed with patient's nurse, and all questions were answered. Please call us with any questions. We will sign off at this time. cc: MD Dr. Kennedy Thomas
[2018-06-02] MEDS: D5W 1,000 ML IV SCH (14:22)
[2018-06-02] MEDS: ATIVAN 20 MG in NS 190 ML IV SCH (17:34)
--- NOTE | 2018-06-02 20:35 | CONSULTATION ---
DATE OF CONSULTATION: 06/02/2018 ATTENDING PHYSICIAN: Hospitalist. REFERRING PHYSICIAN: Hospitalist. HISTORY OF PRESENT ILLNESS: This 67-year-old male with a long history of extensive alcohol abuse was admitted with withdrawal syndrome. He is on an Ativan drip and is still very combative. He is restrained. He has a 14-Guaman[place] Hayes catheter in place and leaks around the catheter occasionally. The patient does not answer questions. He is on a face tent and again is very combative. His past medical history is taken from his chart. PAST MEDICAL HISTORY: Congestive heart failure, hypertension, COPD, diabetes, history of atrial fibrillation with pacemaker placement, restless leg syndrome. SOCIAL HISTORY: At least a pint of alcohol a day. Cigarettes more than a pack a day for over 30 years. SURGICAL HISTORY: Not available. ALLERGIES: No known drug allergies. REVIEW OF SYSTEMS: No known drug allergies. The rest is not able to be obtained. PHYSICAL EXAMINATION: General: A mildly obese, age apparent, normally developed white male who is restrained on face tent. He is trying to get up and tries to move all extremities. He Valsalvas very often. HEENT: Normal for age. Lungs: Clear. Cardiovascular: Regular rate and rhythm. Abdomen: Protuberant, soft, nontender. No hepatosplenomegaly or masses. Normal bowel sounds. Genitourinary: Circumcised male. 14-Guamanian Hayes catheter in place and there is no leakage at this time. Both testes are down and palpably normal. Rectal: Deferred since the patient is tied to his bed. Extremities: No clubbing, cyanosis or edema. Neurologic: No focal deficits. LABORATORY EVALUATION: He has a white count of 8.52, hemoglobin 13.1, hematocrit of 41.5 and platelets are 94,000. His serum electrolytes are normal. BUN 15, creatinine 0.7. IMPRESSION: 1. Alcohol withdrawal and is still very combative. 2. 14-Guamanian Hayes catheter in place. The catheter was verified in position two days ago by CT scan. 3. Bladder spasms. When the patient Valsalvas with a 14-Gu[place]ian Hayes, if he develops enough pressure it will push urine around the catheter. Recommend that since the patient cannot take p.o. medications, will use B O suppositories. When he can take p.o. medication and he is still having spasms, will use Ditropan 5 to 10 mg 3 times a day. Thank you for this consultation. cc: Salvador Linda MD
[2018-06-02] MEDS: LASIX IV SCH (21:33)
[2018-06-02] MEDS ORDERED: INSULIN PEN NEEDLES ONE (21:33)
[2018-06-03] MEDS: ATIVAN IV PRN ×4 (00:10→10:44)
[2018-06-03] MEDS: PROTONIX IV SCH ×2 (00:10→12:33)
[2018-06-03] MEDS: DUONEB (A & A) INH SCH ×4 (03:31→22:00)
[2018-06-03] MEDS: D5W 1,000 ML IV SCH (04:04)
[2018-06-03 04:38] LABS: ALLEN TEST YES; BE 9.2 mmoll (-3.0-3.0); BLOOD TYPE ARTERIAL; O2(CT) 19.6 mL/dL (15.0-23.0); O2HB 93.6 % (95.0-99.0); PO2(98.6) 75 mmHg (60-100); SAMPLE BLOOD; SAO2 96.9 % (95.0-100.0); THB 14.9 g/dL (11.5-17.4); pH(98.6) 7.44 (7.35-7.45)
[2018-06-03 04:39] LABS: MODALITY BI PAP; PCO2(98.6) 52 mmHg (35-45)
[2018-06-03 04:46] LABS: EOS# 0.06 X1000 (0.0-0.7); EOS% 0.6 % (0.0-10.0); HEMATOCRIT 37.9 % (42.0-52.0); HEMOGLOBIN 12.5 g/dL (14.0-18.0); IMM GRAN# 0.05 X1000 (0.0-0.04); IMM GRAN% 0.5 % (0.0-0.5); LYMPH# 0.49 X1000 (1.2-3.4); LYMPH% 4.5 % (20.5-51.1); MCH 33.2 PG (27-31); MCV 100.8 FL (81-99); MONO# 0.87 X1000 (0.11-0.59); MONO% 8.1 % (1.7-9.3); MPV 11.4 FL (7.4-10.4); NEUT# 9.32 X1000 (1.4-6.5); NEUT% 86.3 % (42.2-75.2); PLT 103 X1000 (130-400); RBC 3.76 XMIL (4.7-6.1); RDW 13.8 % (11.5-14.5); WBC 10.79 X1000 (4.8-10.8)
[2018-06-03 05:06] LABS: AGAP 12; BUN 20 mg/dL (8-22); CALCIUM 8.5 mg/dL (8.8-10.2); CHLORIDE 97 mmol/L (98-107); COSMO 292; ESTIMATED GFR > 60; GLUCOSE 303 mg/dL (70-104); PHOSPHORUS 3.4 mg/dL (2.7-4.5); SODIUM 139 mmol/L (136-145); TCO2 30 mmol/L (25-35)
[2018-06-03] MEDS: ZOSYN 3.375 GM in NS 50 ML IV SCH ×4 (05:22→22:43)
[2018-06-03] MEDS: APRESOLINE IV SCH ×4 (05:22→21:31)
[2018-06-03 06:33] LABS: BANDS 2 % (0-1); LYMPHS 6 % (21-51); SEGS 92 % (42-75)
[2018-06-03] MEDS: HUMALOG SUBQ SCH ×4 (06:38→21:24)
[2018-06-03] MEDS: CLINIMIX E 4.25%-5% SOLUTION 1,000 ML IV SCH ×2 (06:48→15:42)
--- NOTE | 2018-06-03 07:27 | PROGRESS NOTE ---
DATE: 06/03/2018 SUBJECTIVE: The patient has been agitated overnight as per nursing staff. Today, he is a little bit more calmed down. Upon my examination, he is able to tell me his name but not place. OBJECTIVE: Vital Signs: Temperature is 99.1, heart rate 101, respiratory 19, blood pressure 141/85. O2 saturation 97% on BiPAP. General: This is a chronically ill-looking , 57-year-old male, lying in bed, in no acute distress. Looking older than his stated age. HEENT: Head is normocephalic and atraumatic. Mucous membranes dry. Neck: No JVD noted. No carotid bruits. No lymphadenopathy. Cardiovascular: S1, S2 heard. Tachycardic, but there are no murmurs, gallops, or rubs noted. Regular rate and rhythm. Respiratory: Decreased air entry globally. There are crackles noted mostly in both pulmonary bases. The patient is not using any accessory muscles or having work of breathing. Abdomen is soft, a little bit distended but nontender to palpation. Bowel sounds present. No organomegaly. Extremities: No clubbing, cyanosis, or edema. Peripheral pulses present in both legs. Skin: There is still some erythematosus rash noted in the lower abdomen and also in the perineum but it is getting better. Neurologic: The patient continues to be confused and combative most of the time with some short periods of time when he is little more calmed down. He does follow very basic commands like squeezing my fingers. LABORATORY DATA: White cell count 10.79, hemoglobin 12.5, hematocrit 37.9, platelets 103,000. ABG shows pH of 7.44, pCO2 of 52, PO2 of 75; that was taken on BiPAP at FiO2 of 30% . Blood sugar 303. Phosphorus 3.4 today. ASSESSMENT AND PLAN: 1. Acute hypercarbic hypoxemic respiratory failure secondary to chronic obstructive pulmonary disease exacerbation/right lower lobe pneumonia. The patient is on Zosyn, day #7 of treatment. White cell count is back to normal. Regarding CO2 levels , 52 today. The patient has been using BiPAP all night long. At this point, we will continue with breathing treatments and, also, he is receiving Solu-Medrol 40 mg IV q.12 hours. 2. Alcohol withdrawal. The patient continues to be on Ativan drip. He, unfortunately, is still combative and agitated. 3. Dehydration. Hypernatremia. That condition is completely resolved. 4. Hypertension. Blood pressure is under control. The patient is most of the time agitated, so that is why probably we were having falsely elevated blood pressure. In any case, I have instructed the nurse to check manually in case the blood pressure reading looks inconsistent. 5. Metabolic encephalopathy secondary to alcohol withdrawal, aware. Management as we mentioned above. 6. Suspected gastrointestinal bleeding. Three days ago, the patient had black tarry stools. We have checked hemoglobin and hematocrit every 6 hours for a day and a half, but hemoglobin has remained stable. Animal Assistant is following this patient, but there is no plan to do any procedure in the near future. We will continue with Protonix 40 mg IV every 12 hours. 7. Right lower lobe pneumonia. Patient is on Zosyn. We will continue with the same management. 8. Hypophosphatemia. Finally phosphorus is back to normal after we replenished for 4 days. We will continue checking it for 2 more days. DISPOSITION: We will continue to monitor this patient in the Intensive Care Unit. cc: Antoine Cantor MD MTDD
[2018-06-03] MEDS: BROVANA NEB INH SCH ×2 (08:00→19:30)
[2018-06-03] MEDS: LIORESAL PO SCH ×3 (08:24→15:59)
[2018-06-03] MEDS: LIPOSYN 20% 250 ML IV SCH (08:25)
[2018-06-03] MEDS: THIAMINE IM SCH (08:25)
[2018-06-03] MEDS: BASAGLAR SUBQ SCH ×2 (08:25→21:23)
[2018-06-03] MEDS: NICODERM PATCH TD SCH (08:25)
[2018-06-03] MEDS: SOLU-MEDROL IV SCH ×2 (08:25→21:31)
[2018-06-03] MEDS: DITROPAN PO PRN ×2 (08:25→15:44)
[2018-06-03] MEDS: LOTRIMIN 1% CREAM TOP SCH ×2 (08:26→21:27)
[2018-06-03] MEDS: LASIX IV SCH ×2 (08:26→21:22)
[2018-06-03] MEDS: MUPIROCIN OINTMENT TOP SCH ×2 (08:26→21:25)
[2018-06-03] MEDS: B & O 16A SUPP PR PRN ×2 (08:43→15:42)
[2018-06-03] MEDS: ATIVAN 20 MG in NS 190 ML IV SCH (10:48)
[2018-06-03] MEDS: PHENOBARBITAL IV PRN ×3 (12:47→22:43)
--- NOTE | 2018-06-03 18:29 | PROGRESS NOTE ---
DATE: 06/03/2018 SUBJECTIVE: Patient is resting in bed. Patient is in restraints. He is on Ativan drip. OBJECTIVE: Vital Signs: Temperature 98.1, pulse of 97, respiratory 20, blood pressure 150/95, saturating 94% on 4 L nasal cannula. General Appearance: Moderately built, lying in bed, currently sedated. HEENT: No pallor. No icterus. Nasal cannula in place. Neck: Supple. Abdomen: Mildly protuberant, soft, nondistended. No guarding. Extremities: In restraints. No cyanosis, clubbing. Neurologic: He woke up on commands, but could not answer any questions. LABS: Hemoglobin and hematocrit is 12.5 and 37.9, white count of 10.79, platelet count of 103,000. Sodium 139, potassium 4, chloride 97, bicarb 30, anion gap 12, BUN of 20, creatinine 1, glucose of 303, calcium is 8.5, phosphorus 3.4. ABG showing pH of 7.4, pCO2 52 , PO2 75, this is on BiPAP at 30% FiO2. Chest x-ray yesterday showed pulmonary edema. IMPRESSION AND PLAN: 1. Alcohol withdrawal. He is on Ativan drip. Continue to watch closely. 2. Suspect upper GI bleeding. Three days ago the patient had black tarry stools. His hematocrit so far dropped by a few points. We will give him Protonix twice daily. We will watch closely. No plans of endoscopic intervention at this time. 3. Right lower lobe pneumonia. He is on Zosyn. 4. Electrolyte imbalance. He is being monitored by primary team. 5. Acute hypercarbic hypoxic respiratory failure secondary to chronic obstructive pulmonary disease exacerbation, right lower lobe pneumonia. He is slowly improving. He is on Solu- Medrol q.12 hours. 6. GI, PPIs. 7. Malnutrition. He is on TPN. 8. Bowel regimen. Keren-Colace as needed. 9. Above plan discussed with discussed with the patient's nurse and all questions were answered. cc: Jesus Mays MD MTDD
[2018-06-03] MEDS: CATAPRES-TTS-1 TD SCH (21:26)
[2018-06-04] MEDS: PHENOBARBITAL IV PRN ×3 (00:55→17:54)
[2018-06-04] MEDS: B & O 16A SUPP PR PRN (01:21)
[2018-06-04] MEDS: CLINIMIX E 4.25%-5% SOLUTION 1,000 ML IV SCH ×3 (01:43→21:53)
[2018-06-04] MEDS: PROTONIX IV SCH ×2 (01:43→11:45)
[2018-06-04] MEDS: DUONEB (A & A) INH SCH ×4 (03:15→21:54)
[2018-06-04] MEDS: ZOSYN 3.375 GM in NS 50 ML IV SCH (04:17)
[2018-06-04] MEDS: APRESOLINE IV SCH ×4 (04:17→21:55)
[2018-06-04 04:29] LABS: ALLEN TEST YES; BE 13.6 mmoll (-3.0-3.0); BLOOD TYPE ARTERIAL; HCO3-(ACT) 35.5 mmoll (20.0-26.0); METHB 1.2 % (0.0-1.5); O2(CT) 15.5 mL/dL (15.0-23.0); O2HB 94.4 % (95.0-99.0); PO2(98.6) 79 mmHg (60-100); SAMPLE BLOOD; SAO2 97.6 % (95.0-100.0); THB 11.6 g/dL (11.5-17.4); pH(98.6) 7.44 (7.35-7.45)
[2018-06-04 04:30] LABS: MODALITY BI PAP; PCO2(98.6) 59 mmHg (35-45)
[2018-06-04 04:58] LABS: EOS# 0.05 X1000 (0.0-0.7); EOS% 0.6 % (0.0-10.0); HEMATOCRIT 35.7 % (42.0-52.0); HEMOGLOBIN 11.4 g/dL (14.0-18.0); IMM GRAN# 0.02 X1000 (0.0-0.04); IMM GRAN% 0.2 % (0.0-0.5); LYMPH# 0.44 X1000 (1.2-3.4); LYMPH% 4.9 % (20.5-51.1); MCH 32.8 PG (27-31); MCHC 31.9 g/dL (33-37); MCV 102.6 FL (81-99); MONO# 0.56 X1000 (0.11-0.59); MONO% 6.3 % (1.7-9.3); MPV 11.7 FL (7.4-10.4); NEUT# 7.87 X1000 (1.4-6.5); PLT 102 X1000 (130-400); RBC 3.48 XMIL (4.7-6.1); RDW 13.8 % (11.5-14.5); WBC 8.94 X1000 (4.8-10.8)
[2018-06-04 05:12] LABS: LYMPHS 22 % (21-51); MONO 12 % (1-9); SEGS 66 % (42-75)
[2018-06-04 05:19] LABS: AGAP 12; BUN 23 mg/dL (8-22); CALCIUM 9.1 mg/dL (8.8-10.2); CHLORIDE 103 mmol/L (98-107); COSMO 303; ESTIMATED GFR > 60; GLUCOSE 250 mg/dL (70-104); PHOSPHORUS 3.3 mg/dL (2.7-4.5); POTASSIUM 3.8 mmol/L (3.5-5.1); SODIUM 146 mmol/L (136-145); TCO2 31 mmol/L (25-35)
[2018-06-04] MEDS: HUMALOG SUBQ SCH ×4 (06:23→20:40)
--- NOTE | 2018-06-04 07:39 | Diag Imaging Result Doc PS360 ---
EXAM: CHEST-PORTABLE INDICATION: pna TECHNIQUE: One view COMPARISON: 06/02/2018 FINDINGS: Right PICC line is in stable position. Interstitial infiltrate at the left lung base appears to have improved slightly. However, there is focal infiltrate in the right lower lung zone that is slightly more dense. No other new consolidations are appreciated. Cardiac silhouette is stable. IMPRESSION: Mixed changes as described above. Electronically signed by Jovanny Bain 06/04/2018 7:37 AM
[2018-06-04] MEDS: LASIX IV SCH ×2 (08:27→20:29)
[2018-06-04] MEDS: LIPOSYN 20% 250 ML IV SCH (08:27)
[2018-06-04] MEDS: SOLU-MEDROL IV SCH ×2 (08:27→20:29)
[2018-06-04] MEDS: LOTRIMIN 1% CREAM TOP SCH ×2 (08:28→20:31)
[2018-06-04] MEDS: NICODERM PATCH TD SCH (08:28)
[2018-06-04] MEDS: MUPIROCIN OINTMENT TOP SCH ×2 (08:28→20:31)
[2018-06-04] MEDS: BASAGLAR SUBQ SCH ×2 (08:28→20:41)
[2018-06-04] MEDS: LIORESAL PO SCH ×3 (08:42→15:59)
[2018-06-04] MEDS: DITROPAN PO SCH ×3 (08:59→15:59)
--- NOTE | 2018-06-04 09:36 | PROGRESS NOTE ---
DATE: 06/04/2018 SUBJECTIVE: Overnight, no acute events. He was intermittently tachycardic. In the morning time, he was a little fidgety inside the bed. I was informed by the nurse that phenobarbital IV was given to him which helped him calmed down. He is awake. However, he is not oriented. He denies any complaints on repeated verbal stimuli. He does follow simple commands, but only occasionally. PHYSICAL EXAMINATION: Vital Signs: Temperature afebrile with T-max of 98.6 degrees, pulse has been between 80 to 105 per minute, he has been normotensive most occasions, except occasional readings of 180s which happens when he is more agitated, saturating between usually 91 to 96 percent on 4 L nasal cannula and BiPAP intermittently. General appearance: On physical examination, he appears fidgety in bed, moving around. He also has flushed face. HEENT: His pupil are round, reacting to light bilaterally. Oral cavity appears dry. Lungs: Air entry bilaterally equal. He does have prolonged expiratory phase and wheezing bilaterally. No rhonchi or crackles. Heart: Tachycardic, S1, S2 regular, normal. No murmur, rub, or gallop. Abdomen: Distended, soft. Bowel sounds present. He has urine catheter in place. Extremities: He has livedo reticularis bilateral lower extremities. He is also intermittently coughing during examination, appears tachypneic. Neurologic: He is awake, alert, but not oriented. Moving all his extremities spontaneously. Does not follow commands to have better neurological examination. LABS: Suggestive of macrocytic anemia with stable hemoglobin, thrombocytopenia, hypercarbia with normal pH, hypernatremia, normal kidney function and hyperglycemia. MICROBIOLOGY: Previously had Clostridium difficile that was negative. Stool occult blood test was positive. IMAGING: Chest x-ray performed today suggests dense right lower lobe infiltrate. ASSESSMENT AND PLAN: 1. Acute hypoxic hypercarbic respiratory failure on admission due to chronic obstructive pulmonary disease exacerbation and right lower lobe pneumonia. Continue nighttime BiPAP and nasal cannula during daytime. Currently he does appear to have chronic hypercarbic respiratory failure based on arterial blood gas, which is compensated. 2. Chronic obstructive pulmonary disease exacerbation. Continue albuterol ipratropium nebulization scheduled and intravenous Solu-Medrol twice daily. 3. Right lower lobe pneumonia. He is status post 7 days of Zosyn. Chest x-ray does suggest dense consolidation. However, his leukocytosis has resolved. He has not had any fever episode, so I will stop antibiotics. 4. Alcohol use disorder with alcohol withdrawal. He still appears to be delirious. Continue intravenous lorazepam drip. Will also give him lorazepam intravenous as needed and as-needed phenobarbital for controlling his agitation. Continue thiamine. I will add multivitamins as he becomes more alert. 5. Hypertension currently in acceptable range, likely related to alcohol withdrawal. 6. Metabolic toxic encephalopathy because of alcohol withdrawal, aware. Management as mentioned above. 7. Gastrointestinal bleed, suspected upper gastrointestinal bleed. Currently hemoglobin is stable. He does have thrombocytopenia, likely because of his alcohol use disorder. Gastroenterology on board. Continue Protonix intravenous twice daily. 8. Hypophosphatemia appears to have resolved. 9. Hyperglycemia. Continue insulin glargine and sliding scale insulin. 10. Bladder spasm with nephrolithiasis. Continue oxybutynin and Hayes catheter. 11. Ascites, likely because of his alcohol use disorder. Does not have tenderness to suggest spontaneous bacterial peritonitis. 12. Other history of atrial fibrillation status post pacemaker. Follow-up with electrocardiogram. DISPOSITION: The patient remains inside the ICU for need for lorazepam drip. This is likely related to his alcohol withdrawal status. If he has a fever episode or leukocytosis, we will consider further infectious workup. Plan of care was discussed with the nursing team; all of their questions were answered. TIME SPENT: More than 30 minutes of critical care time was spent in taking care of this patient. cc: Carlton Mares MD
--- NOTE | 2018-06-04 09:45 | EKG Report ---
Test Performed on : 06/04/2018 09:34:33 AM Test Reason : H/o A Fib. Currently tachycardic Blood Pressure : / mmHG Vent. Rate : 105 BPM Atrial Rate : 105 BPM P-R Int : 144 ms QRS Dur : 090 ms QT Int : 346 ms P-R-T Axes : 080 048 -11 degrees QTc Int : 457 ms Sinus tachycardia. Septal infarct (cited on or before 09-SEP-2017) Abnormal ECG When compared with ECG of 29-MAR-2018 14:55, (Unconfirmed) Nonspecific T wave abnormality now evident in Inferior leads Nonspecific T wave abnormality now evident in Lateral leads Confirmed by Edwin SANDRA, Raúl Moscoso ([id number]) on 06/04/2018 4:15:46 PM
[2018-06-04] MEDS: THIAMINE IM SCH (10:15)
[2018-06-04] MEDS: LOVENOX SUBQ SCH (10:25)
[2018-06-04] MEDS: MORPHINE IV PRN ×3 (10:26→21:56)
[2018-06-04] MEDS: ATIVAN 20 MG in NS 190 ML IV SCH (10:51)
--- NOTE | 2018-06-04 12:44 | PROGRESS NOTE ---
DATE: 06/04/2018 SUBJECTIVE: He is resting in bed. He is in restraints. He woke up to verbal commands, but he was still confused. OBJECTIVE: Vital signs: Temperature 98.9 degrees, pulse 109, respiratory rate 21, blood pressure 174/98, saturating 94% on Ventimask 35% FiO2. General appearance: Moderately built, moderately nourished, lying in bed, currently confused. He is in restraints. HEENT: Positive pallor. No icterus. Neck: Supple. Abdomen: Soft, nondistended. No guarding. Extremities: In restraints. Neurological: He woke up on command, but could not answer any questions. He is confused. LABORATORY DATA: Hemoglobin and hematocrit 11.4 and 35.7, white count 8.94, platelet count 102,000. Sodium 146, potassium 3.8, chloride 103, bicarb 31, anion gap 12, BUN 23, creatinine 1, glucose 125, calcium 9.1, phosphorus 3.3. ABG showing pH 7.44, pCO2 59, PO2 79. This is on BiPAP. IMPRESSION AND PLAN: 1. Melena. Will continue watch his blood counts. So far, the blood counts are slightly low. Will continue on Protonix b.i.d. No signs of active gastrointestinal bleeding noted. 2. Right lower lobe pneumonia. He is on Zosyn. 3. Chronic obstructive pulmonary disease exacerbation. He is on albuterol/ipratropium and intravenous Solu-Medrol. 4. Acute hypoxic respiratory failure. He is weaning down. He continues with nighttime BiPAP and nasal cannula during the daytime. 5. Delirium tremens, likely secondary to alcohol withdrawal. He is on Ativan drip. 6. Malnutrition. He is on total parenteral nutrition. Above plan with the patient's nurse and all questions were answered. Please call us with any further questions. cc: Jesus Mays MD
[2018-06-04] MEDS: ATIVAN IV PRN ×3 (12:45→21:55)
[2018-06-04] MEDS: BROVANA NEB INH SCH ×2 (15:24→19:42)
[2018-06-04] MEDS ORDERED: BROVANA NEB ONE (15:31)
[2018-06-05] MEDS: SODIUM CHLORIDE 0.9% INJ SCH ×3 (02:40→23:24)
[2018-06-05] MEDS: PROTONIX IV SCH ×3 (02:40→23:22)
[2018-06-05] MEDS: MORPHINE IV PRN ×3 (02:41→14:08)
[2018-06-05] MEDS: PHENOBARBITAL IV PRN ×2 (02:41→11:06)
[2018-06-05] MEDS: DUONEB (A & A) INH SCH ×4 (02:45→22:19)
[2018-06-05 04:06] LABS: ALLEN TEST YES; BE 11.5 mmoll (-3.0-3.0); BLOOD TYPE ARTERIAL; HCO3-(ACT) 33.9 mmoll (20.0-26.0); O2(CT) 10.8 mL/dL (15.0-23.0); O2HB 95.9 % (95.0-99.0); PCO2(98.6) 50 mmHg (35-45); PO2(98.6) 81 mmHg (60-100); SAMPLE BLOOD; SAO2 98.9 % (95.0-100.0); THB 7.9 g/dL (11.5-17.4); pH(98.6) 7.47 (7.35-7.45)
[2018-06-05 04:08] LABS: MODALITY BI PAP
[2018-06-05] MEDS: APRESOLINE IV SCH ×4 (04:53→22:33)
[2018-06-05] MEDS: ATIVAN 20 MG in NS 190 ML IV SCH (04:53)
[2018-06-05 05:29] LABS: CREATININE 1.2 mg/dL (0.7-1.2)
[2018-06-05] MEDS: HUMALOG SUBQ SCH ×4 (06:34→20:44)
[2018-06-05] MEDS: ATIVAN IV PRN (06:36)
[2018-06-05] MEDS: NICODERM PATCH TD SCH (08:06)
[2018-06-05] MEDS: CLINIMIX E 4.25%-5% SOLUTION 1,000 ML IV SCH ×2 (08:06→17:41)
[2018-06-05] MEDS: LIPOSYN 20% 250 ML IV SCH (08:06)
[2018-06-05] MEDS: BASAGLAR SUBQ SCH ×2 (08:07→20:45)
[2018-06-05] MEDS: SOLU-MEDROL IV SCH ×2 (08:11→20:43)
[2018-06-05] MEDS: MUPIROCIN OINTMENT TOP SCH ×2 (08:12→20:46)
[2018-06-05] MEDS: LOTRIMIN 1% CREAM TOP SCH ×2 (08:12→20:46)
[2018-06-05] MEDS: LIORESAL PO SCH ×3 (08:37→16:25)
[2018-06-05] MEDS: DITROPAN PO SCH ×3 (08:37→16:25)
[2018-06-05] MEDS: VITAMIN B-1 PO SCH (08:38)
[2018-06-05] MEDS: THERA M PLUS PO SCH (08:38)
[2018-06-05] MEDS: LOVENOX SUBQ SCH (09:46)
--- NOTE | 2018-06-05 10:41 | PROGRESS NOTE ---
DATE: 06/05/2018 OVERNIGHT EVENTS: Overnight, he required 1 mg of Ativan early in the morning. He also required phenobarbital at 2 a.m. SUBJECTIVE: He was on CPAP when I saw him. He opens his eyes to verbal commands, occasionally follows commands like shaking hands with me and smiling, but does not engage in any intelligent conversation. He does not appear to be in acute distress except he is fidgety and he is in four- point restraints. OBJECTIVE: Vital signs: Afebrile with temperature of 98.1 degrees, pulse 95 per minute, blood pressure 150/83, saturating 94% to 97% on Venturi mask. General: He does not appear in any acute distress. However, he does appear fidgety in the bed. He appears obese, moving about in bed. He is in restraints. He has flushing of his face after CPAP mask. HEENT: Pupils are round, pinpoint. Reaction to light could not be assessed very well as he keeps his eyes closed. Oral cavity appears dry. Lungs: Air entry bilaterally equal. He does have prolonged expiratory phase and wheezing bilaterally. He also has some secretions in his mouth, which is making gurgling, rhonchorous sounds. Heart: Tachycardic. S1 nd S2 regular and normal. No murmur, rub, or gallop. Abdomen: Distended, soft. Bowel sounds present. He has a urine catheter in place. 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 He also has intermittent coughing during the examination. He is not oriented. He is moving all of his extremities spontaneously. LABORATORY DATA: Labs today suggestive of chronic hypercarbic respiratory failure, hyponatremia, and elevated BUN. ASSESSMENT AND PLAN: 1. Acute hypoxic/hypercarbic respiratory failure due to chronic obstructive pulmonary disease exacerbation and right lower lobe pneumonia. Continue nighttime BiPAP and nasal cannula during the daytime. He also has chronic hypercarbic respiratory failure. 2. Chronic obstructive pulmonary disease exacerbation. Continue albuterol/ipratropium nebulization and intravenous Solu-Medrol. 3. Right lower lobe pneumonia. He is status post 7 days of Zosyn. Last day was 06/04/2018. Chest x-ray does suggest consolidation. However, he is afebrile and leukocytosis has resolved. I will follow up with chest x-ray tomorrow and hold off on giving additional antibiotics for now. 4. Acute metabolic toxic encephalopathy since presentation, could be related to alcohol withdrawal. Follow-up head CT to rule out any intracranial hemorrhage. He has a pacemaker and cannot get an MRI. 5. Alcohol use disorder with alcohol withdrawal and delirium tremens. Continue intravenous lorazepam drip and p.r.n. lorazepam. Continue p.r.n. phenobarbital for agitation. He is still very delirious and will require intravenous lorazepam drip. 6. Hypertension, in acceptable range, likely because of alcohol withdrawal. I will continue to keep a close eye over it. 7. Suspected upper gastrointestinal bleed with positive fecal occult blood test and thrombocytopenia, likely because of alcohol use disorder. Suspect acute alcoholic gastritis or erosive gastritis. Gastroenterology on board. Continue proton pump inhibitor b.i.d. No need of acute EGD at the moment. 8. Hypophosphatemia, resolved. 9. Hyperglycemia. Continue glargine and sliding scale insulin. 10. Bladder spasm with nephrolithiasis. Continue oxybutynin and Hayes catheter. 11. Ascites and thrombocytopenia because of alcohol use disorder. No tenderness could be elicited. 12. History of atrial fibrillation, status post pacemaker. EKG, however, suggestive of sinus tachycardia. DISPOSITION: The patient remains in the intensive care unit. More than 30 minutes of critical care time was spent in taking care of this patient. Plan of care was discussed with the patient's sister. cc: Carlton Mares MD
--- NOTE | 2018-06-05 11:46 | Diag Imaging Result Doc PS360 ---
EXAM: CT HEAD W/O CONTRAST 06/05/2018 HISTORY: encephalopathy TECHNIQUE: This exam was performed using automated exposure control, adjustment of mA or kV according to patient size, and/or use of iterative reconstruction technique. COMMENT: There is no evidence of mass effect, bleed, abnormal extra-axial fluid collection, or hydrocephalus. There is a tiny lacune in the right basal ganglia. Compared to 07/08/2016 there has been no significant change. The visualized paranasal sinuses are without air-fluid level. There is a mucous retention cyst on the left in the maxillary sinus. The calvarium is intact. There is some motion artifact IMPRESSION: No evidence of acute disease. Chronic microvascular ischemic change. Electronically signed by Maximo Devine 06/05/2018 11:44 AM
[2018-06-05] MEDS: D5W 1,000 ML IV SCH ×2 (13:13→21:19)
[2018-06-05] MEDS: LASIX IV SCH (13:14)
--- NOTE | 2018-06-05 13:34 | PULMONOLOGY PROGRESS NOTE ---
DATE: 06/05/2018 SUBJECTIVE: The patient has been agitated. He is currently on an Ativan drip. The patient has been in the hospital for 13 days. OBJECTIVE: BP is 136/80, heart rate 98, respiratory rate 20, and oxygen saturation 94% on 4L per nasal cannula. HEENT: Pupils are equal but not overtly dilated. Oropharynx is dry with nasal cannula in place. Respiratory: The chest reveals good air entry bilaterally with prolonged expiratory phase and faint wheezing. Cardiac: S1, S2. Regular rate. Gastrointestinal: The abdomen is soft. Extremities: The extremities reveal trace edema. LABORATORIES: CT scan of the brain was performed which reveals microvascular disease but no evidence of acute disease. Chest x-ray performed yesterday reveals a focal infiltrate in the right lower lung field which is slightly worse with improvement in the left lung base. Arterial blood gas reveals a pH of 7.47, pCO2 of 50, and pO2 of 81. Chemistry reveals a sodium of 147, potassium 4, chloride 101, bicarbonate 32, BUN 35, and creatinine 1.2. IMPRESSION: A 67-year-old with chronic obstructive pulmonary disease, chronic obstructive pulmonary disease exacerbation, and alcohol abuse, with chronic obstructive pulmonary disease exacerbation. The patient has acute hypoxemic respiratory failure. The patient has chronic hypercapnic respiratory failure. Current laboratories today reveal hypernatremia. RECOMMENDATIONS: 1. Attempt to wean benzodiazepines and initiate an antipsychotic for his delirium. 2. Continue BiPAP and oxygen for respiratory failure. 3. Free water bolus for hypernatremia. 4. Continue Clinimix pending improvement of mental status. 5. Follow up chest x-ray tomorrow with initiation of antibiotics if he develops fevers or worsening infiltrates. cc: Alexandr Franklin MD
[2018-06-05] MEDS: BROVANA NEB INH SCH ×2 (15:11→19:01)
--- NOTE | 2018-06-05 18:08 | PROGRESS NOTE ---
DATE: 06/05/2018 SUBJECTIVE: Resting in bed. He is currently sedated. His daughter is present at bedside. According to the records, his Ativan drip is being weaned down. No fevers reported. He is on TPN. He is moving his bowels. The last bowel movement was yesterday. OBJECTIVE: Vital Signs: Temperature 98.5, pulse rate of 88, respiratory rate 13, blood pressure 106/57, saturating 94%. General Appearance: Moderately-built, moderately-nourished. Lying in bed, currently sedated. HEENT: No pallor. No icterus. Neck: Supple. Abdomen: Soft, nontender, nondistended. No guarding. Extremities: No cyanosis, clubbing. Neurologic: He is currently sedated. LABS: ABG showing pH 7.47, pCO2 50, PO2 81. This is on BiPAP at 35% FiO2. Sodium 147, potassium 4, chloride 101, bicarb 32, anion gap of 14, BUN of 35, creatinine 1.2, glucose of 252. Calcium is 9, phosphorus is 4. On admission, his liver enzymes are slightly high. AST on 05/27 was 90, ALT on 05/27 was 51. Alkaline phosphatase on 05/24 was 148. His albumin at that time was 3.4. We will repeat the liver enzymes tomorrow. IMPRESSION AND PLAN: 1. Alcohol withdrawal and delirium tremens. We are weaning down the Ativan drip. 2. Malnutrition. Continue TPN. 3. History of alcoholism. We will check the liver enzymes tomorrow. 4. CT scan of the abdomen done on 05/30/2018 was reviewed. 5. Acute hypoxic and hypercarbic respiratory failure, secondary to chronic obstructive pulmonary disease and right lower lobe pneumonia. He is on antibiotics and BiPAP support. 6. Suspected gastrointestinal bleeding. The patient had some melena on admission, but this is now resolved. He is having brown stools. We will keep on proton pump inhibitor b.i.d. 7. Gastrointestinal prophylaxis. Proton pump inhibitor. 8. Hyperglycemia. Glargine and sliding scale insulin. 9. History of atrial fibrillation, status post pacemaker. Aware. The above plans were discussed with the patient's family at bedside. All questions were answered. Please call us with any further questions. cc: Jesus Mays MD
[2018-06-06] MEDS: LASIX IV SCH ×2 (00:24→16:30)
[2018-06-06] MEDS: DUONEB (A & A) INH SCH ×4 (03:13→22:05)
[2018-06-06] MEDS: APRESOLINE IV SCH ×4 (03:31→22:01)
[2018-06-06] MEDS: CLINIMIX E 4.25%-5% SOLUTION 1,000 ML IV SCH ×2 (03:39→13:41)
[2018-06-06 04:39] LABS: ALLEN TEST YES; BE 10.7 mmoll (-3.0-3.0); BLOOD TYPE ARTERIAL; HCO3-(ACT) 33.3 mmoll (20.0-26.0); PO2(98.6) 89 mmHg (60-100); SAMPLE BLOOD; pH(98.6) 7.38 (7.35-7.45)
[2018-06-06 04:40] LABS: MODALITY COOL AEROSOL; PCO2(98.6) 65 mmHg (35-45)
[2018-06-06] MEDS: ATIVAN 20 MG in NS 190 ML IV SCH (04:58)
[2018-06-06 06:11] LABS: AGAP 8; ALB/GLOB RATIO 1.3; ALBUMIN 3.2 g/dL (3.5-5.0); ALKALINE PHOSPHATASE 139 U/L (32-122); BUN 32 mg/dL (8-22); CALCIUM 8.9 mg/dL (8.8-10.2); CHLORIDE 99 mmol/L (98-107); COSMO 301; ESTIMATED GFR > 60; GLUCOSE 263 mg/dL (70-104); GOT 28 U/L (10-34); GPT 37 U/L (10-44); POTASSIUM 4.1 mmol/L (3.5-5.1); SODIUM 143 mmol/L (136-145); TCO2 36 mmol/L (25-35); TOTAL BILIRUBIN 0.45 mg/dL (0.20-1.00); TOTAL PROTEIN 5.7 g/dL (6.3-8.3)
[2018-06-06] MEDS: HUMALOG SUBQ SCH ×4 (06:18→21:58)
--- NOTE | 2018-06-06 06:37 | Diag Imaging Result Doc PS360 ---
EXAM: CHEST-PORTABLE HISTORY: Follow up of pneumonia TECHNIQUE: Portable chest single view COMPARISON: 06/04/2018 FINDINGS: There is a left-sided pacemaker and right-sided PICC line. Pulmonary edema is more prominent than on the prior study. There is a small left pleural effusion. There may be underlying pneumonia in the lung bases. No cardiomegaly. IMPRESSION: Interval worsening in the pulmonary edema. Electronically signed by Luis Monique 06/06/2018 6:35 AM
[2018-06-06 07:38] LABS: MAGNESIUM 1.7 mg/dL (1.5-2.7); PHOSPHORUS 4.2 mg/dL (2.7-4.5)
[2018-06-06] MEDS ORDERED: LASIX IV ONE (07:51)
[2018-06-06] MEDS: LIPOSYN 20% 250 ML IV SCH (08:16)
[2018-06-06] MEDS: SOLU-MEDROL IV SCH ×2 (08:17→21:59)
[2018-06-06] MEDS: MUPIROCIN OINTMENT TOP SCH ×2 (08:17→22:00)
[2018-06-06] MEDS: HALDOL IV PRN ×4 (08:17→16:59)
[2018-06-06] MEDS: LOTRIMIN 1% CREAM TOP SCH ×2 (08:17→22:00)
[2018-06-06] MEDS: BASAGLAR SUBQ SCH ×2 (08:18→21:58)
[2018-06-06] MEDS ORDERED: VANCOMYCIN IV PER PHARMACY MISC SCH (08:45)
[2018-06-06] MEDS: DITROPAN PO SCH ×3 (08:55→17:13)
[2018-06-06] MEDS: VITAMIN B-1 PO SCH (08:56)
[2018-06-06] MEDS: THERA M PLUS PO SCH (08:56)
[2018-06-06] MEDS: LIORESAL PO SCH ×3 (08:56→17:13)
[2018-06-06] MEDS: ZOSYN 3.375 GM in NS 50 ML IV SCH ×3 (09:15→21:45)
[2018-06-06] MEDS: LOVENOX SUBQ SCH (09:15)
--- NOTE | 2018-06-06 09:45 | PROGRESS NOTE ---
DATE: 06/06/2018 OVERNIGHT: His lorazepam drip rate was decreased, and he was started on p.r.n. Haldol. He did require p.r.n. medications to help his agitation. He remains on four-point restraints. Chest x- ray performed this morning was suggestive of worsening pulmonary edema and possibly worsening infiltrate, so his antibiotics have been resumed. SUBJECTIVE: He remains fidgety, and he is in four-point restraints and does not follow commands meaningfully. He is also appears to be in mild distress. OBJECTIVE: Vital Signs: Temperature 98.1, pulse 75 per minute, blood pressure 107/54, saturating 97% on CPAP mask. PHYSICAL EXAMINATION: General: He has a flushed face. He is fidgety and moving around in bed. Pupils are round, reacting to light bilaterally, about 6 or 7 mm in size, equal. Oral cavity could not be assessed. Lungs: Air entry bilaterally equal with bilateral mild wheezes with prolonged expiratory phase. He has crackles in bilateral infrascapular region. Abdomen is soft, distended and bowel sounds are present. Urine catheter is in place, and he has 4-point restraints. He also has left-sided chest AICD or pacemaker. Neurologic: He is intermittently sleepy and awake; appears delirious. No obvious tremors I could assess. LABORATORY DATA: Labs today suggestive of pH of 7.38, pCO2 of 65. Normal electrolytes except high bicarbonate likely as a compensation for his chronic hypercarbia. Normal kidney function. Hyperglycemia, mostly in acceptable range. Microbiology: No new microbiological data. IMAGING: Head CT performed yesterday did not detect any evidence of acute disease except chronic microvascular ischemic changes. Chest x-ray this morning suggestive of worsening pulmonary congestion and possible consolidation. ASSESSMENT AND PLAN: 1. Acute metabolic toxic encephalopathy since presentation. Differentials at this point include delirium tremens from alcohol, worsening predominantly right lower lobe pneumonia versus other infectious etiology. Will repeat urine culture, blood culture, and start him on broad- spectrum antibiotics. 2. Acute hypoxic hypercarbic respiratory failure due to chronic obstructive pulmonary disease exacerbation and right lower lobe pneumonia. Continue nighttime BiPAP and nasal cannula during daytime. He still appears to be hyperventilating, and he has chronic compensated hypercarbic respiratory failure. Continue albuterol ipratropium nebulization and intravenous steroids. We will decrease the dose as tolerated. 3. Right lower lobe pneumonia. He was initially status post 7 days off Zosyn which was stopped on 06/04/2018. Resume antibiotics considering worsening infiltrate. 4. I also give him a one time dose of Lasix to maintain input and output and considering his pulmonary edema. 5. Alcohol use disorder with alcohol withdrawal and delirium tremens. Continue lorazepam drip at 0.5. We will try to wean him off over the next 24 to 48 hours. Continue p.r.n. Haldol as needed and p.r.n. phenobarbital. CT scan did not detect any acute intracranial process. He has a pacemaker and cannot get an MRI. 6. Essential hypertension and worsening of it because of alcohol withdrawal; currently in acceptable range. 7. Suspected gastrointestinal bleeding with positive fecal occult blood test and thrombocytopenia because of alcohol use disorder and alcoholic gastritis and suspected erosive gastritis. Continue Protonix IV b.i.d. He does not need esophagogastroduodenoscopy emergently. 8. Hypophosphatemia, resolved. 9. Hyperglycemia. Continue glargine and sliding scale insulin. 10. Bladder spasm with history of nephrolithiasis. Continue oxybutynin when he is able to take p.o. Continue Hayes catheter. 11. Ascites and thrombocytopenia because of alcohol use disorder. No evident tenderness. 12. History of atrial fibrillation, status post pacemaker. EKG was suggestive of sinus tachycardia. DISPOSITION: The patient's condition remains critical. I had called one of the patient's sister on the phone and discussed with her about plan of care yesterday and had answered all of her questions. TIME SPENT: More than 30 minutes of critical care time was spent in taking care of this patient. cc: Carlton Mares MD
[2018-06-06] MEDS ORDERED: D5W 1,000 ML IV SCH (11:00)
[2018-06-06] MEDS: VANCOMYCIN 1,800 MG in NS 250 ML IV SCH (11:31)
[2018-06-06] MEDS: PROTONIX IV SCH (11:31)
[2018-06-06] MEDS: SODIUM CHLORIDE 0.9% INJ SCH (11:32)
[2018-06-06 12:43] LABS: URINE SOURCE CATH
[2018-06-06 12:45] LABS: BILIRUBIN URINE NEGATIVE (NEGATIVE); BLOOD URINE NEGATIVE (NEGATIVE); COLOR STRAW; GLUCOSE URINE NEGATIVE (NEGATIVE); KETONE URINE NEGATIVE (NEGATIVE); LEUKOCYTES URINE MODERATE (NEGATIVE); NITRITE URINE NEGATIVE (NEGATIVE); PROTEIN URINE NEGATIVE (NEGATIVE); TURBIDITY URINE CLEAR (CLEAR); UROBILINOGEN URINE NORMAL (NORMAL)
[2018-06-06 12:48] LABS: UR EPITHELIAL CELLS <10 /HPF (<10); URINE BACTERIA NEGATIVE /HPF; URINE RBC 20-40 /HPF (<10); URINE WBC 20-40 /HPF (<10)
[2018-06-06 13:04] LABS: URINE YEAST PRESENT
[2018-06-06 13:05] LABS: URINE CASTS NONE SEEN; URINE CRYSTALS NONE SEEN; URINE SMALL ROUND CELLS NONE SEEN
[2018-06-06] MEDS: PHENOBARBITAL IV PRN (13:40)
--- NOTE | 2018-06-06 14:32 | PULMONOLOGY PROGRESS NOTE ---
DATE: 06/06/2018 SUBJECTIVE: The patient has periods of agitation. He does withdraw to pain. He is not conversant. OBJECTIVE: Vital signs: The patient has been afebrile for the last 24 hours. Blood pressure 127/73, heart rate 94, respiratory rate 24 and oxygen saturation 92%. HEENT: Pupils are equal and reactive. Oropharynx appears dry. Neck: Supple. Chest: Coarse rhonchi bilaterally. Cardiac: S1, S2. Abdomen: Soft with diminished bowel sounds. Extremities: 1+ peripheral edema. LABORATORY: Chest x-ray reveals mild increased vascular congestion. Sodium 143, potassium 4.1, chloride 99, bicarbonate 36, BUN 32, creatinine 1.0, glucose 263. WBC 8.94, hemoglobin 11.4, platelet count 102,000. Arterial blood gas reveals a pH of 7.38, pCO2 of 65 and pO2 of 89. IMPRESSION: 67-year-old with COPD, COPD exacerbation, acute hypoxemic respiratory failure, chronic hypercapnic respiratory failure, hypernatremia, with delirium. The patient is currently on 0.5 mg of Ativan per hour. RECOMMENDATIONS: 1. Decrease Ativan to 0.25 mg per hour for the next 24 hours and then the Ativan drip will be discontinued. 2. Additional free water today for hypernatremia. 3. Continue to cycle BiPAP and oxygen for respiratory failure. 4. Attempt to balance intake and output. 5. Overall prognosis is guarded. cc: Alexandr Franklin MD
[2018-06-06] MEDS: BROVANA NEB INH SCH ×2 (15:34→18:54)
[2018-06-06] MEDS ORDERED: BROVANA NEB ONE (18:26)
[2018-06-06] MEDS ORDERED: INSULIN PEN NEEDLES ONE (22:51)
[2018-06-07] MEDS: PROTONIX IV SCH ×2 (01:30→18:08)
[2018-06-07] MEDS: CLINIMIX E 4.25%-5% SOLUTION 1,000 ML IV SCH ×3 (01:30→21:32)
[2018-06-07] MEDS: ZOSYN 3.375 GM in NS 50 ML IV SCH ×5 (01:31→21:34)
[2018-06-07] MEDS: HALDOL IV PRN ×2 (01:32→14:14)
[2018-06-07] MEDS: LASIX IV SCH (01:32)
[2018-06-07] MEDS: PHENOBARBITAL IV PRN (01:32)
[2018-06-07] MEDS: DUONEB (A & A) INH SCH ×4 (03:32→22:46)
[2018-06-07 04:35] LABS: ALLEN TEST YES; BE 18.9 mmoll (-3.0-3.0); BLOOD TYPE ARTERIAL; HCO3-(ACT) 39.7 mmoll (20.0-26.0); METHB 1.9 % (0.0-1.5); O2HB 95.5 % (95.0-99.0); PO2(98.6) 83 mmHg (60-100); SAMPLE BLOOD; SAO2 99.6 % (95.0-100.0); THB 4.3 g/dL (11.5-17.4); pH(98.6) 7.52 (7.35-7.45)
[2018-06-07 04:38] LABS: MODALITY COOL AEROSOL; PCO2(98.6) 53 mmHg (35-45)
[2018-06-07] MEDS: APRESOLINE IV SCH ×4 (04:40→21:46)
[2018-06-07] MEDS: VANCOMYCIN 1,800 MG in NS 250 ML IV SCH ×2 (04:40→23:30)
[2018-06-07] MEDS: HUMALOG SUBQ SCH ×5 (05:04→21:38)
[2018-06-07 06:52] LABS: BASO# 0.01 X1000 (0.0-0.2); BASO% 0.1 % (0.0-0.8); EOS# 0.03 X1000 (0.0-0.7); EOS% 0.4 % (0.0-10.0); HEMATOCRIT 34.9 % (42.0-52.0); HEMOGLOBIN 11.2 g/dL (14.0-18.0); LYMPH# 0.43 X1000 (1.2-3.4); LYMPH% 5.2 % (20.5-51.1); MCH 32.8 PG (27-31); MCHC 32.1 g/dL (33-37); MCV 102.3 FL (81-99); MONO# 0.54 X1000 (0.11-0.59); MONO% 6.5 % (1.7-9.3); MPV 11.6 FL (7.4-10.4); NEUT# 7.24 X1000 (1.4-6.5); NEUT% 87.8 % (42.2-75.2); PLT 131 X1000 (130-400); RBC 3.41 XMIL (4.7-6.1); RDW 13.3 % (11.5-14.5); WBC 8.25 X1000 (4.8-10.8)
[2018-06-07 07:13] LABS: MAGNESIUM 1.4 mg/dL (1.5-2.7); PHOSPHORUS 2.8 mg/dL (2.7-4.5)
[2018-06-07 07:15] LABS: AGAP 13; ALBUMIN 3.2 g/dL (3.5-5.0); ALKALINE PHOSPHATASE 192 U/L (32-122); BUN 24 mg/dL (8-22); CALCIUM 8.6 mg/dL (8.8-10.2); CHLORIDE 93 mmol/L (98-107); COSMO 295; CREATININE 1.1 mg/dL (0.7-1.2); ESTIMATED GFR > 60; GLUCOSE 311 mg/dL (70-104); GOT 40 U/L (10-34); GPT 43 U/L (10-44); POTASSIUM 3.5 mmol/L (3.5-5.1); SODIUM 140 mmol/L (136-145); TCO2 34 mmol/L (25-35); TOTAL BILIRUBIN 0.82 mg/dL (0.20-1.00); TOTAL PROTEIN 6.3 g/dL (6.3-8.3)
[2018-06-07] MEDS ORDERED: MAGNESIUM SULFATE 2 GM/S.W.I. 2 GM/50 ML IVPB IV ONE (07:28)
--- NOTE | 2018-06-07 07:36 | Diag Imaging Result Doc PS360 ---
EXAM: CHEST-PORTABLE - 06/07/2018 HISTORY: respiratory failure TECHNIQUE: Portable chest COMPARISON: 06/06/2018 FINDINGS: There has been some decrease in pulmonary edema compared to the prior exam. There is no substantial pleural effusion or pneumothorax identified. Heart size appears within normal limits and stable. There is transvenous cardiac pacemaker again seen. PICC remains with its tip of the distal superior vena cava. IMPRESSION: Some decrease in pulmonary edema compared to prior. Electronically signed by Sterling Baird 06/07/2018 7:33 AM
[2018-06-07] MEDS ORDERED: LASIX IV ONE ×2 (08:20→22:00)
[2018-06-07] MEDS: BROVANA NEB INH SCH ×2 (08:47→19:02)
[2018-06-07] MEDS: LOTRIMIN 1% CREAM TOP SCH ×2 (08:47→21:43)
[2018-06-07] MEDS: LIPOSYN 20% 250 ML IV SCH (08:47)
[2018-06-07] MEDS: BASAGLAR SUBQ SCH ×2 (08:48→21:41)
[2018-06-07] MEDS: MUPIROCIN OINTMENT TOP SCH ×2 (08:48→21:43)
[2018-06-07] MEDS: POTASSIUM CHLORIDE 20 MEQ/SWI 20 MEQ/100 ML IVPB IV SCH ×2 (08:48→10:34)
[2018-06-07] MEDS: DITROPAN PO SCH (08:49)
[2018-06-07] MEDS: LIORESAL PO SCH ×3 (08:49→18:09)
[2018-06-07] MEDS: VITAMIN B-1 PO SCH (08:49)
[2018-06-07] MEDS: THERA M PLUS PO SCH (08:50)
[2018-06-07] MEDS: LOVENOX SUBQ SCH (10:34)
--- NOTE | 2018-06-07 12:29 | PROGRESS NOTE ---
DATE: 06/07/2018 Overnight, no acute events. His Ativan drip rate was decreased to 0.25. He had blood cultures and urine cultures drawn. A chest x-ray suggested persistent pneumonia. He was restarted on antibiotics. He has been tachycardic in the morning time. He is more calm. His face is flushed. He did receive BiPAP overnight and he was on Ventimask when I saw him. He follows simple commands like shaking hand, however does not engage in meaningful conversation and becomes confused again. His pupils are dilated, reacting to light bilaterally. Oral cavity appears dry on limited examination. Pupils equal. He still appears tachypneic and he has rhonchi with prolonged expiration. No wheeze. S1, S2 normal. Tachycardic. No murmur or gallop. Abdomen soft, nontender. Lower extremities no edema. He has left-sided chest pacemaker. He has a PICC line in the right arm. Neurologic, he is awake and alert but not oriented. Intermittently mumbles something which is not apprehensible. LAB DATA: Today suggestive of no leukocytosis. No macrocytic anemia. Normal platelet count. ABG suggestive of hypercarbia with alkalosis. BMP suggestive off normal kidney function, decreasing BUN, hyperglycemia, hypomagnesemia, persistently elevated alkaline phosphatase. ASSESSMENT AND PLAN: 1. Acute toxic metabolic encephalopathy since presentation. Contributing factors includes delirium tremens, right lower lobe pneumonia versus others. Repeat urine culture only growing yeast. Repeat blood cultures in lab. Follow up with final results. 2. Delirium tremens, likely related to his alcohol use disorder. He has been on an Ativan drip for more than 7 days now, which could also be contributing to confusion. Plan is to gradually wean him off. He is on 0.25 mg/hour. We will start him on p.r.n. benzodiazepines starting later tonight or early tomorrow morning. Pulmonology on board. Appreciate recommendation. 3. Acute hypoxic hypercarbic respiratory failure because of COPD exacerbation, right lower lobe pneumonia. Continue nighttime BiPAP and nasal cannula during daytime. Continue intravenous vancomycin and Zosyn. Continue albuterol ipratropium nebulization. Decrease steroids to once a day IV. Also, gave one time Lasix today as he has been positive 24 L according to input and output cumulative, however this may not be acute. 4. Alcohol use disorder with alcohol withdrawal. Lorazepam drip weaning off plan as mentioned above. CT scan head did not detect any acute pathology. He cannot get MRI because of pacemaker. 5. Essential hypertension, currently in acceptable range. Continue p.r.n. hydralazine and clonidine patch. 6. History of [id number] diabetes mellitus, currently hyperglycemic because of steroid use. Continue glargine sliding scale insulin. Steroid dose is getting decreased. 7. Suspected gastrointestinal bleed with positive FOBT and thrombocytopenia. No need of transfusion. Follow up daily CBC. 8. Hypophosphatemia, resolved. Hypomagnesemia being repleted. 9. Bladder spasms with history of nephrolithiasis. Continue Hayes catheter. He has not been taking p.o. oxybutynin. 10. History of atrial fibrillation status post pacemaker. However, EKG was sinus tachycardia, aware. 11. Disposition: Patient remains inside the ICU for need for intravenous lorazepam drip. Plan of care is discussed with the patient's daughter on phone today. All of her questions have been answered. More than 30 minutes of critical care time was spent in taking care of this patient. cc: Carlton Mares MD MTDD
[2018-06-07] MEDS: THIAMINE 100 MG in NS 50 ML IV SCH (13:21)
--- NOTE | 2018-06-07 13:34 | PULMONOLOGY PROGRESS NOTE ---
DATE: 06/07/2018 SUBJECTIVE: The patient will respond to questions. He has had periods of agitation requiring Haldol. He remains on his Diprivan drip at 0.25 mg per hour. OBJECTIVE: Vital Signs: The patient has been afebrile for the last 24 hours. Blood pressure 125/61, heart rate 77, respiratory rate 16, oxygen saturation 96%. HEENT: Pupils are equal and reactive. Oropharynx appears clear. Neck: Supple. Chest: Reveals prolonged expiratory phase with no significant wheezing. Cardiac: S1 and S2. Abdomen: Soft. Extremities: Reveal trace edema. LABORATORY DATA: White blood count 8.25, hemoglobin 11.5, platelet count 131,000. Chemistry: Sodium 140, potassium 3.5, chloride 93, bicarbonate 34, BUN 24, creatinine 1.1, magnesium 1.4. Arterial blood gas reveals a pH of 7.52, pCO2 53, pO2 83, on cool aerosol. Chest x-ray reveals decrease in pulmonary edema. IMPRESSION: A 67-year-old with chronic obstructive pulmonary disease, chronic obstructive pulmonary disease exacerbation with acute hypoxemic respiratory failure, chronic hypercapnic respiratory failure, alcohol abuse/use, and delirium. He has no tachycardia or hypertension and does not appear to be diaphoretic. He does not have other signs of alcohol withdrawal. RECOMMENDATIONS: 1. Discontinue Ativan drip. He is currently getting 6 mg of Ativan per day. I will change his dosing so that he can get up to 4 mg per day. 2. Continue to cycle BiPAP and oxygen per respiratory failure. 3. Continue to balance intake and output. 4. Additional recommendations pending hospital course. cc: Alexandr Franklin MD
[2018-06-07] MEDS: ATIVAN IV PRN (14:14)
[2018-06-07] MEDS ORDERED: BROVANA NEB ONE (19:02)
[2018-06-07] MEDS ORDERED: SOLU-MEDROL IV SCH (21:00)
[2018-06-08] MEDS: PROTONIX IV SCH ×3 (00:30→23:16)
[2018-06-08] MEDS: ZOSYN 3.375 GM in NS 50 ML IV SCH ×4 (02:30→21:05)
[2018-06-08] MEDS: DUONEB (A & A) INH SCH ×4 (03:46→21:55)
[2018-06-08 04:29] LABS: ALLEN TEST YES; BE 16.3 mmoll (-3.0-3.0); BLOOD TYPE ARTERIAL; HCO3-(ACT) 37.6 mmoll (20.0-26.0); METHB 1.3 % (0.0-1.5); O2(CT) 16.2 mL/dL (15.0-23.0); O2HB 96.5 % (95.0-99.0); PO2(98.6) 126 mmHg (60-100); SAMPLE BLOOD; SAO2 99.6 % (95.0-100.0); THB 11.8 g/dL (11.5-17.4); pH(98.6) 7.48 (7.35-7.45)
[2018-06-08 04:31] LABS: MODALITY COOL AEROSOL; PCO2(98.6) 57 mmHg (35-45)
[2018-06-08] MEDS: APRESOLINE IV SCH ×4 (04:41→21:06)
[2018-06-08] MEDS: HUMALOG SUBQ SCH ×5 (05:37→21:08)
[2018-06-08] MEDS: CLINIMIX E 4.25%-5% SOLUTION 1,000 ML IV SCH ×4 (06:35→22:02)
--- NOTE | 2018-06-08 06:35 | Diag Imaging Result Doc PS360 ---
EXAM: CHEST-PORTABLE HISTORY: respiratory failure TECHNIQUE: Portable chest single view COMPARISON: 06/07/2018 FINDINGS: The lungs are well expanded. No change in the right-sided PICC line or left pacemaker. No cardiomegaly. Mild vascular distention. Likely tiny left pleural effusion. No consolidation. IMPRESSION: Stable chest. Electronically signed by Luis Monique 06/08/2018 6:33 AM
[2018-06-08 07:05] LABS: AGAP 8; ALBUMIN 3.3 g/dL (3.5-5.0); ALKALINE PHOSPHATASE 220 U/L (32-122); BUN 20 mg/dL (8-22); CALCIUM 9.3 mg/dL (8.8-10.2); CHLORIDE 98 mmol/L (98-107); COSMO 297; ESTIMATED GFR > 60; GLUCOSE 238 mg/dL (70-104); GOT 42 U/L (10-34); GPT 45 U/L (10-44); POTASSIUM 3.7 mmol/L (3.5-5.1); SODIUM 144 mmol/L (136-145); TCO2 38 mmol/L (25-35); TOTAL BILIRUBIN 0.72 mg/dL (0.20-1.00); TOTAL PROTEIN 6.7 g/dL (6.3-8.3)
[2018-06-08] MEDS: MORPHINE IV PRN ×4 (08:55→22:33)
[2018-06-08] MEDS: HALDOL IV PRN ×5 (08:55→22:12)
[2018-06-08] MEDS: LOVENOX SUBQ SCH (08:56)
[2018-06-08] MEDS: LIORESAL PO SCH ×3 (08:56→16:28)
[2018-06-08] MEDS: LIPOSYN 20% 250 ML IV SCH (08:59)
[2018-06-08] MEDS: LOTRIMIN 1% CREAM TOP SCH ×2 (08:59→21:09)
[2018-06-08] MEDS: MUPIROCIN OINTMENT TOP SCH ×2 (08:59→21:09)
[2018-06-08] MEDS: BASAGLAR SUBQ SCH ×2 (09:03→21:07)
--- NOTE | 2018-06-08 09:42 | PROGRESS NOTE ---
DATE: 06/08/2018 SUBJECTIVE: Patient resting in bed. He is more awake. He answers simple questions. He is in restraints. OBJECTIVE: Vital signs: Temperature of 99.5, pulse rate of 90, respiratory rate 18, blood pressure of 143/69, saturating 97% on face mask. General Appearance: Moderately built, moderately nourished, lying in bed, in no acute distress. HEENT: Pale conjunctivae. No icterus. Face mask in place. Neck: Supple. Abdomen: Soft, nondistended. No guarding or rebound. Extremities: No cyanosis, clubbing. He is in restraints with upper and lower extremities. Neuro: He is awake and answers simple questions. He still could not do a meaningful conversation. LABORATORIES: Hemoglobin and hematocrit is 11.2 and 34.9 from yesterday. His ABG today 7.40, pCO2 57, PO2 126, he is on 40% FiO2. Sodium 140, potassium 3.7, chloride 98, bicarb 39 with BUN of 20, creatinine 1, glucose of 238, calcium 9.3, total bilirubin is 0.72, AST 42, ALT 45, alkaline phosphatase 220, total protein 6.7, albumin of 3.3. Urine culture showing yeast. IMAGING: Chest x-ray showed no cardiomegaly mild vascular distention. Likely tiny left pleural effusion. No consolidation. IMPRESSION AND PLAN: 1. Delirium tremens likely secondary to alcohol use disorder. His Ativan drip has been discontinued. He is still in restraints, most likely he will come out of restraints today. He is on thiamine. 2. Encephalopathy likely secondary to pneumonia and delirium and urine culture showing yeast. This is being followed by primary care team. 3. Alcoholism, aware. 4. Non-insulin dependent diabetes mellitus. Continue on sliding scale insulin. 5. Suspected gastrointestinal bleed with positive fecal occult blood and mild drop in hematocrit. He does not have any signs of active gastrointestinal bleeding at the moment. We will keep her on PPIs b.i.d. We will keep him on iron C b.i.d. 6. Malnutrition. Continue on TPN. 7. Atrial fibrillation status post pacemaker. Aware. 8. Pneumonia and COPD exacerbation. He is on vancomycin, Zosyn, oxygen support and nebulizer treatment. 9. Gastrointestinal prophylaxis with PPIs. 10. Anemia. We will watch the blood counts. We will start him on iron C b.i.d. 11. The above plan of care discussed with the patient's nursing staff and all questions answered. cc: MD Carlton Thomas MD Michael Putman, MD
[2018-06-08] MEDS ORDERED: LASIX IV ONE ×2 (10:44→21:00)
[2018-06-08] MEDS: ATIVAN IV PRN ×2 (11:06→21:06)
[2018-06-08] MEDS: THIAMINE 100 MG in NS 50 ML IV SCH (11:08)
[2018-06-08] MEDS: BROVANA NEB INH SCH ×2 (11:30→19:06)
--- NOTE | 2018-06-08 12:17 | PROGRESS NOTE ---
DATE: 06/08/2018 OVERNIGHT: No acute events. His lorazepam drip was stopped and he had a quiet night. He did not require p.r.n. medications except 4 mg of morphine and 5 mg of haloperidol to help him calm down. SUBJECTIVE: He is more alert today. He is a little interactive. He was able to tell me his full name. His family member's name and I tried to inform about his hospital course and answer simple questions. OBJECTIVE: Vital signs: Temperature 99.5, pulse 98 per minute, blood pressure 143/69, saturating 97% on Ventimask. General: On physical exam, obese, does not appear in acute distress. HEENT: Pupils round, reacting to light bilaterally. Oral cavity is dry, air entry bilaterally equal. No wheeze or rhonchi. Decreased crackles bilaterally. Abdomen: Soft, obese. Bowel sounds present. Extremities: Lower extremities, no edema. He has left-sided chest pacemaker and right arm PICC line. Neurologic: He is alert and oriented to himself. He is able to name his family members today. LAB DATA: ABG suggestive of chronic hypercarbic respiratory failure. BMP suggestive of decreasing BUN and hyperglycemia. Input and output suggests he was -4 L yesterday and has been - 800 mL today MICROBIOLOGY: Urine culture growing yeast. Blood culture, no growth to date. ASSESSMENT AND PLAN: 1. Acute toxic metabolic encephalopathy since presentation, likely a combination of delirium tremens, right lower lobe pneumonia. Repeat urinalysis and blood culture has ruled out any new infection. His encephalopathy appears to be resolving now. 2. Delirium tremens, likely because of his alcohol use disorder. He required lorazepam drip for almost 12 days. Now he is off lorazepam drip. Continue p.r.n. haloperidol and p.r.n. lorazepam if needed to control agitation and further withdrawal episodes. Continue to monitor in the ICU for at least 24 hours. 3. Acute hypoxic hypercarbic respiratory failure because of chronic obstructive pulmonary disease exacerbation, right lower lobe pneumonia. Continue nighttime BiPAP and nasal cannula during daytime. Continue intravenous vancomycin and Zosyn. Day one of antibiotics have been 06/06/2018. He had previously completed 7 days of Zosyn though. Continue albuterol ipratropium nebulization. Decrease steroids to once a day. Last day would be 06/09/2018. We will give him p.r.n. Lasix to match input and output. 4. Alcohol use disorder with alcohol withdrawal. Continue thiamine. 5. Essential hypertension, currently acceptable range. Continue p.r.n. hydralazine and clonidine patch. 6. History of noninsulin-dependent diabetes mellitus with hyperglycemia, likely related to steroid use. Increase Lantus dose today. 7. Suspected gastrointestinal bleed with positive fecal occult blood test (FOBT) and thrombocytopenia. No need of transfusion. Continue iron tablets. 8. Hypophosphatemia during admission, resolved. 9. Bladder spasm. He does not complain of bladder spasm anymore. 10. History of atrial fibrillation status post pacemaker. EKG now sinus tachycardia. Aware. 11. Nutrition. Continue intravenous infusions until he is more awake and alert. Start ice chips and sips of water today and assess his progress. TIME SPENT: More than 30 minutes of critical care time was spent in taking care of this patient. I had in informed one of patient's family member, daughter, on phone about his course on 06/07/2018. All of her questions were answered. cc: Carlton Mares MD
--- NOTE | 2018-06-08 12:41 | PULMONOLOGY PROGRESS NOTE ---
DATE: 06/08/2018 SUBJECTIVE: The patient is arousable. He will answer questions. He is in restraints but does not appear to be overtly combative during the examination. OBJECTIVE: Blood pressure is 139/68, heart rate 100, respiratory rate 21 and unlabored, oxygen saturation 95% on 5 L per nasal cannula. HEENT: Pupils are equal and reactive. Oropharynx is clear. Neck is supple. Chest reveals prolonged expiratory phase. Cardiac: S1, S2. Abdomen is soft and without hepatosplenomegaly. Extremities were without edema. Dermatologic: Skin is erythematous following bathing. DIAGNOSTIC DATA: Arterial blood gas shows pH of 7.48, pCO2 of 57, pO2 of 126. Sodium is 144, potassium 3.7, chloride 98, bicarbonate 38, BUN is 20, creatinine 1.0. Chest x-ray reveals mild vasculature distention and tiny infiltrate/effusion at left base. IMPRESSION: A 67 year old with COPD, COPD exacerbation with acute hypoxemic respiratory failure, chronic hypercapnic respiratory failure, alcohol abuse, and delirium. The patient continues to slowly improve. RECOMMENDATIONS: 1. Continue p.r.n. Ativan and Haldol if needed for delirium. 2. Cycle BiPAP and oxygen. 3. Continue Clinimix. Consider p.o. intake tomorrow. 4. Consider physical therapy if mental status continues to improve. cc: Alexandr Franklin MD
[2018-06-08] MEDS: VANCOMYCIN 1,800 MG in NS 250 ML IV SCH (17:38)
[2018-06-08] MEDS: ICAR-C PO SCH (21:06)
[2018-06-08] MEDS: SODIUM CHLORIDE 0.9% INJ SCH (23:15)
[2018-06-09] MEDS: ZOSYN 3.375 GM in NS 50 ML IV SCH ×4 (02:54→20:40)
[2018-06-09] MEDS: APRESOLINE IV SCH ×4 (03:38→21:16)
[2018-06-09] MEDS: DUONEB (A & A) INH SCH ×4 (04:04→21:15)
[2018-06-09 04:36] LABS: ALLEN TEST YES; BE 15.6 mmoll (-3.0-3.0); BLOOD TYPE ARTERIAL; HCO3-(ACT) 37.1 mmoll (20.0-26.0); METHB 1.2 % (0.0-1.5); O2(CT) 14.4 mL/dL (15.0-23.0); O2HB 96.7 % (95.0-99.0); PO2(98.6) 143 mmHg (60-100); SAMPLE BLOOD; THB 10.4 g/dL (11.5-17.4); pH(98.6) 7.44 (7.35-7.45)
[2018-06-09 04:37] LABS: MODALITY CANNULA; PCO2(98.6) 62 mmHg (35-45)
[2018-06-09 04:46] LABS: BASO# 0.01 X1000 (0.0-0.2); BASO% 0.1 % (0.0-0.8); EOS# 0.25 X1000 (0.0-0.7); EOS% 3.5 % (0.0-10.0); HEMATOCRIT 31.9 % (42.0-52.0); HEMOGLOBIN 10.4 g/dL (14.0-18.0); IMM GRAN# 0.02 X1000 (0.0-0.04); IMM GRAN% 0.3 % (0.0-0.5); LYMPH# 0.79 X1000 (1.2-3.4); MCH 32.9 PG (27-31); MCHC 32.6 g/dL (33-37); MCV 100.9 FL (81-99); MONO# 0.59 X1000 (0.11-0.59); MONO% 8.2 % (1.7-9.3); MPV 11.1 FL (7.4-10.4); NEUT# 5.51 X1000 (1.4-6.5); NEUT% 76.9 % (42.2-75.2); PLT 127 X1000 (130-400); RBC 3.16 XMIL (4.7-6.1); RDW 13.4 % (11.5-14.5); WBC 7.17 X1000 (4.8-10.8)
[2018-06-09 05:09] LABS: MAGNESIUM 1.7 mg/dL (1.5-2.7); PHOSPHORUS 3.6 mg/dL (2.7-4.5)
[2018-06-09 05:17] LABS: AGAP 11; ALB/GLOB RATIO 1.1; ALBUMIN 3.2 g/dL (3.5-5.0); ALKALINE PHOSPHATASE 174 U/L (32-122); BUN 21 mg/dL (8-22); CALCIUM 8.7 mg/dL (8.8-10.2); CHLORIDE 96 mmol/L (98-107); COSMO 291; ESTIMATED GFR > 60; GLUCOSE 184 mg/dL (70-104); GOT 36 U/L (10-34); GPT 41 U/L (10-44); POTASSIUM 3.2 mmol/L (3.5-5.1); SODIUM 142 mmol/L (136-145); TCO2 35 mmol/L (25-35); TOTAL BILIRUBIN 0.66 mg/dL (0.20-1.00)
[2018-06-09] MEDS: HALDOL IV PRN ×4 (05:36→19:34)
[2018-06-09] MEDS: MORPHINE IV PRN ×3 (05:36→19:35)
[2018-06-09] MEDS: HUMALOG SUBQ SCH ×4 (06:20→20:40)
--- NOTE | 2018-06-09 07:17 | Diag Imaging Result Doc PS360 ---
EXAM: CHEST-PORTABLE INDICATION: respiratory failure TECHNIQUE: 2 views COMPARISON: 06/08/2018 FINDINGS: The right PICC line is in stable position. There is decreased opacity at the left lung base suggesting a resolved tiny effusion with adjacent atelectasis and/or infiltrate. Pulmonary venous congestion is approximately stable. No new consolidation is identified. Cardiac silhouette is stable. IMPRESSION: Interval improvement on the left. Stable chest, otherwise. Electronically signed by Jovanny Bain 06/09/2018 7:15 AM
[2018-06-09] MEDS: ATIVAN IV PRN ×2 (07:31→17:58)
[2018-06-09] MEDS: CLINIMIX E 4.25%-5% SOLUTION 1,000 ML IV SCH ×2 (07:55→17:01)
[2018-06-09] MEDS: LIORESAL PO SCH ×3 (08:43→17:01)
[2018-06-09] MEDS: MUPIROCIN OINTMENT TOP SCH ×2 (08:44→20:40)
[2018-06-09] MEDS: LOVENOX SUBQ SCH (08:44)
[2018-06-09] MEDS: ICAR-C PO SCH ×2 (08:44→20:41)
[2018-06-09] MEDS: LIPOSYN 20% 250 ML IV SCH (08:44)
[2018-06-09] MEDS: LOTRIMIN 1% CREAM TOP SCH ×2 (08:44→20:40)
[2018-06-09] MEDS: BASAGLAR SUBQ SCH ×2 (09:58→20:41)
[2018-06-09] MEDS ORDERED: INSULIN PEN NEEDLES ONE (09:59)
[2018-06-09] MEDS: VANCOMYCIN 1,800 MG in NS 250 ML IV SCH (11:27)
[2018-06-09] MEDS: LASIX IV SCH ×2 (11:27→21:52)
--- NOTE | 2018-06-09 12:06 | PROGRESS NOTE ---
DATE: 06/09/2018 OVERNIGHT: No acute events. SUBJECTIVE: He is feeling fine. He is more awake and alert. He is able to tell me his name. He is able to follow simple commands like squeezing my hands and opening his mouth. He was able to name his daughter's names to me. I discussed with the nursing team about starting him on sips of water if he tolerates. OBJECTIVE: Vital Signs: Afebrile with temperature of 98.8, pulse 95 per minute, blood pressure 128/67. He is saturating 90 to 93% percent on nasal cannula on Ventimask. Input and output: He was -4 L. Give for yesterday -800 mL yesterday. Positive 300 mL today in next labs and study. PHYSICAL EXAMINATION: General: Flushed face. He does not appear in acute distress. Eyes: Pupils dilated, round, reacting to light bilaterally equal. Chest: No wheeze or rhonchi. He does have a bilateral inframammary crackles. Abdomen is obese, soft, and nontender. No lower extremity edema. He has left-sided chest pacemaker. Right arm PICC line. Neurologic: He is alert and oriented to himself. He is able to name his family members today. LABORATORY DATA: Labs today suggestive of macrocytic anemia with hemoglobin of 10.4, thrombocytopenia with a platelet of 127,000. Chronic hypercarbia, hypokalemia, hyperglycemia, chronically elevated alkaline phosphatase. ASSESSMENT AND PLAN: 1. Acute toxic metabolic encephalopathy due to delirium tremens and right lower lobe pneumonia appears to be resolving. Continue p.r.n. lorazepam and p.r.n. haloperidol if he becomes agitated. 2. Delirium tremens because of alcohol use disorder. He is off lorazepam drip now, which he required for almost 12 days. Last day of the drip was 06/07/2018. Continue p.r.n. haloperidol and lorazepam p.r.n. IV as needed. I will consider still monitoring him in ICU until he is a little more awake. 3. Acute hypoxic hypercarbic respiratory failure on top of chronic hypercarbic respiratory failure because of history of chronic obstructive pulmonary disease and currently right lower lobe pneumonia. Continue nighttime BiPAP and daytime nasal cannula or simple Venti mask. Give him additional IV Lasix to maintain input and output. Continue intravenous vancomycin and Zosyn. Day 1 of antibiotics is 06/06/2018; previously, he had completed 7 days of Zosyn. Continue albuterol ipratropium nebulization. Stop intravenous steroids as he is no longer wheezing. Last day is 06/09/2018. 4. Alcohol use disorder with alcohol withdrawal. Continue thiamine. 5. Essential hypertension. Continue p.r.n. hydralazine and clonidine patch. 6. History of [id number] diabetes mellitus with hyperglycemia, likely related to steroid use previously. Continue off Lantus and sliding scale insulin. 7. Suspected gastrointestinal bleed with positive fecal occult blood test and thrombocytopenia. No need of transfusion at the moment. Continue iron tablet and pantoprazole IV b.i.d. 8. Hypophosphatemia during admission, resolved. 9. Bladder spasm, resolved. Continue Hayes catheter for close input and output monitoring. 10. History of atrial fibrillation, status post pacemaker, aware. During hospital, his EKG revealed sinus tachycardia. 11. Nutrition. Continue intravenous nutrition if he tolerates ice chips, my plan is to start him on a clear liquid diet later today or tomorrow. DISPOSITION: The patient remains inside ICU. TIME SPENT: More than 30 minutes critical care time was spent in taking care of this patient. If he continues to do better, my plan is to transfer him to a step-down unit on 06/10/2018. Plan of care were discussed with her daughter. All of her questions have been answered thank you. cc: Carlton Mares MD
[2018-06-09] MEDS: PROTONIX IV SCH ×2 (12:24→23:24)
[2018-06-09] MEDS: THIAMINE 100 MG in NS 50 ML IV SCH (12:24)
--- NOTE | 2018-06-09 12:52 | PULMONOLOGY PROGRESS NOTE ---
DATE: 06/09/2018 SUBJECTIVE: The patient is awake, alert, and conversant. He is not oriented to time or place. OBJECTIVE: The patient has been afebrile for the last 24 hours. Blood pressure is 101/52, heart rate 96, respiratory rate 16, oxygen saturation is 92% on face mask. Input approximately matches output. HEENT: Pupils are equal and reactive. Oropharynx appears clear. Neck is supple. Chest reveals prolonged expiratory phase with faint wheezing. Cardiac: S1, S2. Abdomen is soft with good bowel sounds. Extremities reveal trace to 1+ edema. DIAGNOSTIC DATA: White blood count is 7.17, hemoglobin 10.4, platelet count 127,000. Chemistry shows sodium 142, potassium 3.2, chloride 96, bicarbonate 35, BUN is 21, creatinine 1.0. Arterial blood gas showed pH of 7.44, pCO2 of 62, pO2 of 143. Chest x-ray reveals decreasing infiltrate/effusion at the left base. IMPRESSION: A 67 year old with COPD, COPD exacerbation, acute hypoxemic respiratory failure, alcohol abuse with delirium, chronic hypercapnic respiratory failure. He continues to slowly improve. RECOMMENDATIONS: 1. Continue to use p.r.n. Ativan and Haldol with the minimal amount as needed for delirium. 2. Continue to cycle BiPAP and oxygen. 3. Agree with plans to try sips of liquids today as outlined by Dr. Mares. 4. Consider initiation of physical therapy tomorrow if he continues to improve. 5. 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 cc: Alexandr Franklin MD
[2018-06-09] MEDS ORDERED: BROVANA NEB ONE (13:26)
--- NOTE | 2018-06-09 14:13 | PROGRESS NOTE ---
DATE: 06/09/2018 SUBJECTIVE: Patient is resting in bed. He is sedated. He is in restraints. He is on TPN. No evidence of GI bleeding. OBJECTIVE: Vital signs: Temperature of 99.6, pulse of 96, respiratory rate 16 , blood pressure 101/52, saturating 92% on face mask, 40% FiO2. General appearance: Moderately nourished, moderately built, lying in bed, currently sedated. HEENT: Pale conjunctivae. No icterus. Face mask in place. Neck: Supple. Abdomen: Soft, nondistended. No guarding or rebound. Extremities: No cyanosis or clubbing. He is in restraints. Neuro garcia: He is sedated. LABS: Hemoglobin and hematocrit is 10.4 and 31.9, white count of 7.1, platelet count of 127,000. ABG showing pH 7.44, pCO2 of 62, pO2 143. This is on nasal cannula on 40% FiO2. Sodium of 142, potassium 3.2, chloride 96, bicarb 35, anion gap 11. BUN of 21, creatinine 1, glucose of 184, calcium is 8.7, phosphorus 3.6, magnesium 1.7. Total bilirubin is 0.66, AST 36, ALT 41, alkaline phosphatase 174, total protein 6, albumin of 3.2. IMPRESSION AND PLAN: 1. Anemia. Continue to watch for now and transfuse as needed. 2. Question of gastrointestinal bleeding. The patient melena a few weeks ago, but no more evidence of melena. We will keep him on proton-pump inhibitors b.i.d. 3. Elevated liver enzymes. This could be seen alcoholic liver disease. We will check acute hepatitis panel, GINA. 4. Alcohol withdrawal. He is on thiamine and being managed by the primary care team. 5. Acute hypoxic respiratory failure. He has a baseline history of chronic obstructive pulmonary disease and right lower lobe pneumonia. This is being managed by the pulmonary team. 6. Kzk-gglpjcd-jpbljyxnw diabetes mellitus on sliding scale insulin. 7. Gastrointestinal prophylaxis on proton-pump inhibitors. 8. Atrial fibrillation status post pacemaker placement, aware. 9. Malnutrition. Continue total parenteral nutrition. The above plans was discussed with the patient's nurse and all questions answered. cc: MD Dr. Vishnu Thomas
[2018-06-09] MEDS: BROVANA NEB INH SCH ×2 (15:14→21:10)
[2018-06-09] MEDS: SODIUM CHLORIDE 0.9% INJ SCH (23:24)
[2018-06-10] MEDS: ZOSYN 3.375 GM in NS 50 ML IV SCH ×4 (02:55→22:16)
[2018-06-10] MEDS: CLINIMIX E 4.25%-5% SOLUTION 1,000 ML IV SCH ×3 (02:59→23:03)
[2018-06-10] MEDS: APRESOLINE IV SCH ×4 (03:11→22:18)
[2018-06-10] MEDS: DUONEB (A & A) INH SCH ×4 (03:27→21:15)
[2018-06-10] MEDS: MORPHINE IV PRN ×3 (04:24→20:22)
[2018-06-10] MEDS: HALDOL IV PRN ×4 (04:25→22:44)
[2018-06-10] MEDS: VANCOMYCIN 1,800 MG in NS 250 ML IV SCH ×2 (04:27→22:16)
[2018-06-10] MEDS: HUMALOG SUBQ SCH ×4 (06:57→22:17)
--- NOTE | 2018-06-10 07:34 | Diag Imaging Result Doc PS360 ---
CHEST-PORTABLE - 06/10/2018 INDICATION: respiratory failure COMPARISON: 06/09/2018 FINDINGS: Stable pacemaker. Stable right PICC line in good position. There has been slight decrease in the left perihilar infiltrate. No new infiltrates. Stable cardiomegaly and pulmonary vascular congestion. IMPRESSION: Decrease in density of the left perihilar infiltrate. Electronically signed by Avtar Hawkins 06/10/2018 7:31 AM
[2018-06-10] MEDS: ICAR-C PO SCH ×2 (08:19→22:16)
[2018-06-10] MEDS: LIORESAL PO SCH ×3 (08:19→16:05)
[2018-06-10] MEDS: LIPOSYN 20% 250 ML IV SCH (08:20)
[2018-06-10] MEDS: LOTRIMIN 1% CREAM TOP SCH ×2 (08:20→22:15)
[2018-06-10] MEDS: LOVENOX SUBQ SCH (08:20)
[2018-06-10] MEDS: TYLENOL PR PRN (08:20)
[2018-06-10] MEDS: MUPIROCIN OINTMENT TOP SCH ×2 (08:21→22:16)
[2018-06-10] MEDS: BASAGLAR SUBQ SCH ×2 (08:27→22:17)
[2018-06-10 09:10] LABS: ALBUMIN 3.5 g/dL (3.5-5.0); CALCIUM 9.1 mg/dL (8.8-10.2); CREATININE 1.2 mg/dL (0.7-1.2); POTASSIUM 3.7 mmol/L (3.5-5.1); TOTAL BILIRUBIN 0.75 mg/dL (0.20-1.00)
[2018-06-10] MEDS: BROVANA NEB INH SCH ×2 (10:14→19:30)
[2018-06-10] MEDS: LASIX IV SCH ×2 (10:19→22:18)
[2018-06-10] MEDS: THIAMINE 100 MG in NS 50 ML IV SCH (12:11)
[2018-06-10] MEDS: PROTONIX IV SCH ×2 (12:12→23:03)
--- NOTE | 2018-06-10 12:18 | PROGRESS NOTE ---
DATE: 06/10/2018 OVERNIGHT: No acute events. 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 SUBJECTIVE: He is feeling fine. Denies any complaints. He is able to tell me his full name, his daughter's name. He remembers the date today, month. Could not tell me the year though. He denies any complaints. He states he wants to eat something. OBJECTIVE: Vital signs: Temperature, he had a 1-time fever episode of 101.2 this morning. Pulse of 105 per minute, blood pressure 150/70, saturating 90 to 95 percent on Ventimask. General: Does not appear in acute distress. Lungs: Air entry bilaterally equal. Mild wheeze at the end of expiration bilaterally. No crackles, no rhonchi. Cardiac: S1, S2 normal. Tachycardic. No murmur or gallop. Abdomen: Soft, nontender. He has left-sided chest pacemaker. He has a right arm PICC line. He is alert and oriented to himself, to this place, able to name his daughter's name and oriented to the date and month. INPUT AND OUTPUT: He was positive 300 mL yesterday and positive 600 mL today. LABORATORY DATA: BMP suggestive of resolution of hypokalemia, mild elevation of creatinine, persistent elevated alkaline phosphatase. Hepatitis panel has been pending. ASSESSMENT AND PLAN: 1. Acute toxic metabolic encephalopathy due to delirium tremens and right lower lobe pneumonia, appears to be resolving. I will modify p.r.n. lorazepam and p.r.n. haloperidol dosing so that he remains more awake, at the same time controlling his agitation. 2. Delirium tremens because of alcohol use disorder. He is off lorazepam drip, which he required for almost 12 days. Last day of drip was June 07. Continue p.r.n. haloperidol and p.r.n. lorazepam. I will transfer him to [facility]. We will try to take four-point restraints off. 3. Acute hypoxic hypercarbic respiratory failure on top of chronic hypercarbic respiratory failure because of right lower lobe pneumonia and history of COPD. Continue nighttime BiPAP and daytime nasal cannula or Ventimask. Continue intravenous Lasix and modify dose according to kidney function to have him net negative balance. Continue intravenous vancomycin and Zosyn, day 1 of antibiotics was 06/06/2018. Before that, he had completed 7 days of Zosyn though. Continue albuterol-ipratropium nebulization. He is status post intravenous steroids stopped on 06/09/2018. 4. Alcohol use disorder with alcohol withdrawal. Continue thiamine. 5. Essential hypertension. Continue p.r.n. hydralazine and clonidine patch. 6. History of peb-auydfwe-kobtkyvyz diabetes mellitus with hyperglycemia, likely related to steroid use. Continue Lantus and sliding scale insulin. His dose was modified yesterday. 7. Suspected gastrointestinal bleed. Positive fecal occult blood test and thrombocytopenia on admission. He did not require any transfusion. Continue iron tablets and pantoprazole IV b.i.d. 8. Hypophosphatemia during admission and bladder spasm during hospitalization, resolved. Continue Hayes catheter. 9. History of atrial fibrillation status post pacemaker. During EKG he was sinus tachycardia, likely paroxysmal atrial fibrillation in the past. 10. Nutrition. Continue intravenous nutrition and start him on clear liquid diet and will stop the intravenous once he is more stable and able to take by mouth. 11. Disposition. Patient will be transferred to [facility] today. Plan of care was discussed with his daughter yesterday. All of her questions have been answered. cc: Carlton Mares MD
[2018-06-10 13:36] LABS: HEPATITIS PROFILE ACUTE SEE COMMENTS
[2018-06-10 14:08] LABS: URINE SOURCE CATH
[2018-06-10 14:12] LABS: BILIRUBIN URINE NEGATIVE (NEGATIVE); BLOOD URINE NEGATIVE (NEGATIVE); COLOR ORANGE; GLUCOSE URINE NEGATIVE (NEGATIVE); KETONE URINE NEGATIVE (NEGATIVE); LEUKOCYTES URINE LARGE (NEGATIVE); NITRITE URINE NEGATIVE (NEGATIVE); PH URINE 6.5; PROTEIN URINE NEGATIVE (NEGATIVE); SP GRAVITY URINE 1.004; TURBIDITY URINE TURBID (CLEAR); UROBILINOGEN URINE NORMAL (NORMAL)
[2018-06-10 14:18] LABS: UR EPITHELIAL CELLS <10 /HPF (<10); URINE BACTERIA NEGATIVE /HPF; URINE RBC TNTC /HPF (<10); URINE WBC TNTC /HPF (<10)
[2018-06-10 14:24] LABS: URINE CASTS NONE SEEN; URINE YEAST PRESENT
--- NOTE | 2018-06-10 17:18 | Diag Imaging Result Doc PS360 ---
EXAM: US ABDOMEN-COMPLETE INDICATION: elevated liver enzymes COMPARISON: 01/11/2015 FINDINGS: The gallbladder appears normal with no stones, wall thickening, or pericholecystic fluid. The common bile duct is normal in diameter. Sonographic Marx's sign was reported to be negative. The liver is enlarged measuring up to 21.6 cm in length. The echotexture of the liver is unremarkable. No discrete hepatic mass is identified. Portal venous flow is hepatopetal. The pancreas is largely obscured. The visualized portion is unremarkable. The distal aorta is obscured. The remainder of the aorta and IVC are unremarkable. The spleen is enlarged measuring up to 16.4 cm in length. The kidneys are grossly unremarkable. IMPRESSION: Hepatosplenomegaly. Grossly unremarkable, otherwise. Electronically signed by Jovanny Bain 06/10/2018 5:15 PM
--- NOTE | 2018-06-10 18:06 | PULMONOLOGY PROGRESS NOTE ---
DATE: 06/10/2018 SUBJECTIVE: The patient is in restraints. He is moaning but with direct conversation he will focus and answer questions. He reports he is doing "okay." He cannot verbalize why he is moaning. OBJECTIVE: Maximum temperature in the last 24 hours 101.2 degrees. Blood pressure 129/71. Heart rate 101. Respiratory rate 19. Oxygen saturation 95% on face mask. HEENT: Pupils are equal and reactive. Oropharynx is clear. Neck is supple. Chest reveals prolonged expiratory phase with faint distant wheezing. Cardiac exam: S1, S2. Abdomen: Soft. Extremities: Reveal 1+ peripheral edema. LABORATORY: Chest x-ray reveals generous cardiac silhouette with slight decrease in the left perihilar infiltrate. IMPRESSION: A 67-year-old with: 1. Chronic obstructive pulmonary disease exacerbation. 2. Acute hypoxemic respiratory failure. 3. Delirium. 4. Chronic hypoxemic respiratory failure and delirium. He did have a fever at 8 o'clock this morning. RECOMMENDATIONS: 1. Continue bronchial hygiene. 2. Wean oxygen as tolerated. 3. Agree with attempts at p.o. intake. 4. Check urine for C and S. cc: Alexandr Franklin MD
[2018-06-10] MEDS: CATAPRES-TTS-1 TD SCH (22:17)
[2018-06-11] MEDS: HALDOL IV PRN ×6 (00:20→20:35)
[2018-06-11] MEDS: ATIVAN IV PRN ×3 (00:20→21:59)
[2018-06-11] MEDS: MORPHINE IV PRN ×3 (00:20→11:11)
[2018-06-11] MEDS: ZOSYN 3.375 GM in NS 50 ML IV SCH ×2 (02:37→08:44)
--- NOTE | 2018-06-11 03:04 | PROGRESS NOTE ---
DATE: 06/10/2018 SUBJECTIVE: The patient is resting in bed. He is in restraints. He is slightly more awake today. He was able to answer to his name and tell me his name. He has been on TPN. According to the nursing staff, he is spiking a temperature of 101.2 degrees today. He had a urinalysis done, which was positive for UTI. OBJECTIVE: Vital Signs: Temperature 98.4 degrees, pulse rate of 93, respiratory rate 22, blood pressure 163/68, saturating 94% on all oxygen face mask. General: Moderately-built, moderately nourished, lying in bed, in no acute distress. HEENT: Positive pallor. No icterus. Neck: Supple. Abdomen: Soft, nondistended. No guarding or rebound. Extremities: No cyanosis, clubbing, edema. The upper and lower extremities are in restraints. Neurologic: He was agitated, but was able to answer to his name. He was able to tell me his name, but was still confused. LABS: Hemoglobin and hematocrit is 10.4 and 31.9. White count of 7.17. Platelet count of 127,000. ABG showing pH 7.44, pCO2 of 62, PO2 of 143. This is on nasal cannula. This is on 40 percent FiO2. Sodium 143 potassium, of 3.7, chloride 96, bicarb 31, anion gap 12, BUN of 44, creatinine 1.2, glucose of 135, calcium 9.1, total bilirubin is 0.75, AST 47, ALT 49, alkaline phosphatase is 258. Total protein 7, albumin of 3.5. Urinalysis showing large white cells. His GINA is negative. Hepatitis panel is nonreactive. IMPRESSION AND PLAN: 1. Elevated liver enzymes. His hepatitis panel is negative. GINA is negative. We will check an abdominal ultrasound. This could also be secondary to sepsis and medication-induced liver injury. We will continue to follow liver enzymes. 2. Encephalopathy, secondary to delirium tremens and right lower lobe pneumonia. Improving slowly. 3. History of alcoholic liver disease and alcoholism. Continue to watch liver enzymes. 4. Chronic smoker. Aware. 5. Chronic obstructive pulmonary disease and exacerbation, resulting in acute hypoxic and hypercarbic respiratory failure. He is on oxygen support. 6. Pneumonia. He is on antibiotics. 7. UTI. This is being worked up by the primary care team. 8. Suspected GI bleed. He will continue on PPIs. 9. Anemia. Continue to watch for now. 10. Malnutrition. He is on TPN. 11. We will continue Iron C b.i.d. for anemia. 12. GI prophylaxis, PPIs b.i.d. 13. Bowel regimen is Keren-Colace as needed. The above plan of care was discussed with the patient's nursing staff, and all questions answered. cc: MD Omar Thomas MD
[2018-06-11] MEDS: APRESOLINE IV SCH ×4 (03:09→20:31)
[2018-06-11] MEDS: DUONEB (A & A) INH SCH ×4 (03:30→21:06)
[2018-06-11] MEDS: HUMALOG SUBQ SCH ×4 (06:10→20:34)
[2018-06-11 06:22] LABS: AGAP 10; ALB/GLOB RATIO 1.2; ALBUMIN 3.4 g/dL (3.5-5.0); ALKALINE PHOSPHATASE 262 U/L (32-122); BUN 22 mg/dL (8-22); CALCIUM 9.1 mg/dL (8.8-10.2); CHLORIDE 96 mmol/L (98-107); COSMO 285; ESTIMATED GFR > 60; GLUCOSE 165 mg/dL (70-104); GOT 52 U/L (10-34); GPT 51 U/L (10-44); POTASSIUM 3.3 mmol/L (3.5-5.1); SODIUM 139 mmol/L (136-145); TCO2 33 mmol/L (25-35); TOTAL BILIRUBIN 0.72 mg/dL (0.20-1.00); TOTAL PROTEIN 6.2 g/dL (6.3-8.3)
--- NOTE | 2018-06-11 07:20 | Diag Imaging Result Doc PS360 ---
EXAM: CHEST-PORTABLE INDICATION: respiratory failure TECHNIQUE: One view COMPARISON: 06/10/2018 FINDINGS: The right PICC line is in stable position. Consolidation in the medial right lung base has developed since the previous study. No new consolidation is identified, otherwise. Cardiac silhouette is stable. IMPRESSION: Interval development of consolidation at the right lung base. Electronically signed by Jovanny Bain 06/11/2018 7:17 AM
[2018-06-11] MEDS: LIPOSYN 20% 250 ML IV SCH (08:44)
[2018-06-11] MEDS: CLINIMIX E 4.25%-5% SOLUTION 1,000 ML IV SCH ×3 (08:44→20:27)
[2018-06-11] MEDS: LOVENOX SUBQ SCH (08:44)
[2018-06-11] MEDS: BASAGLAR SUBQ SCH ×2 (08:58→20:30)
[2018-06-11] MEDS: LOTRIMIN 1% CREAM TOP SCH ×2 (08:58→20:29)
[2018-06-11] MEDS: MUPIROCIN OINTMENT TOP SCH ×2 (08:59→20:29)
[2018-06-11] MEDS: SENOKOT PO SCH (08:59)
[2018-06-11] MEDS: LIORESAL PO SCH (09:20)
[2018-06-11] MEDS: ICAR-C PO SCH ×2 (09:20→20:30)
[2018-06-11] MEDS: LASIX IV SCH ×2 (09:52→23:42)
[2018-06-11] MEDS: PROTONIX IV SCH ×2 (11:11→23:42)
[2018-06-11] MEDS: TYLENOL PR PRN (11:16)
[2018-06-11] MEDS: THIAMINE 100 MG in NS 50 ML IV SCH (12:39)
--- NOTE | 2018-06-11 12:54 | PROGRESS NOTE ---
DATE: 06/11/2018 SUBJECTIVE: Resting in bed. He is still in restraints. He was in face mask. He was able to wake up to verbal commands. He was able to tell me his name. No documented evidence of GI bleeding. OBJECTIVE: Vital signs: Temperature 98.1, pulse rate of 109, respiratory rate of 24, blood pressure 133/58, saturating 94% on mask 8 L/minute of oxygen. General: The patient is moderately built, moderately nourished, lying in bed in no acute distress. HEENT: Pale conjunctivae. No icterus. Face mask in place. Neck: Supple. Abdomen: Soft. Nondistended. No guarding. Extremities: No cyanosis, clubbing. He has upper and lower extremity restraints. Neurological: He was sleeping. He woke up on commands. He was able to tell me his name, but he still cannot have a meaningful conversation. DIAGNOSTIC DATA: Sodium 139, potassium 3.3, chloride of 96, bicarbonate of 33, anion gap 10, BUN of 22, creatinine 1, glucose of 165, calcium 9.1, total bilirubin is 0.72, AST 52, ALT 51, alkaline phosphatase was 260, total protein is 6.2, albumin 3.4. Ultrasound of the abdomen was done yesterday, which showed hepatosplenomegaly, grossly unremarkable otherwise. Chest x-ray done today, which showed an interval development of consolidation in right lung base. IMPRESSION AND PLAN: 1. Elevated liver enzymes. Likely from resolving alcoholic hepatitis. His GINA is negative. Acute hepatitis panel is negative. Ultrasound is negative. We will continue to watch and try to avoid hepatotoxic drugs. 2. Anemia. Continue to watch for now. We will continue Iron-C b.i.d. 3. Malnutrition. He is on TPN. 4. Gastrointestinal prophylaxis. PPIs. 5. History of melena during this admission, which appears to have resolved. We will keep him on Protonix twice daily for now. 6. Pneumonia. He is on vancomycin and Zosyn. 7. Bowel regimen with Keren-Colace as needed. 8. Encephalopathy. Being monitored by primary team. 9. Deep vein thrombosis prophylaxis. Lovenox. Above plan of care was discussed with the patient's nurse, and all questions were answered. Please call us with any further questions. We will follow as needed. We will sign off at this time. cc: MD Omar Thomas MD
[2018-06-11 13:04] LABS: ALLEN TEST YES; BE 12.3 mmoll (-3.0-3.0); BLOOD TYPE ARTERIAL; HCO3-(ACT) 34.5 mmoll (20.0-26.0); METHB 1.2 % (0.0-1.5); O2(CT) 12.8 mL/dL (15.0-23.0); O2HB 96.5 % (95.0-99.0); PO2(98.6) 98 mmHg (60-100); SAMPLE BLOOD; SAO2 99.9 % (95.0-100.0); THB 9.3 g/dL (11.5-17.4); pH(98.6) 7.46 (7.35-7.45)
[2018-06-11] MEDS: MERREM 1 GM in NS 50 ML IV SCH ×2 (13:06→20:30)
[2018-06-11 13:09] LABS: MODALITY COOL AEROSOL; PCO2(98.6) 53 mmHg (35-45)
[2018-06-11] MEDS: ZYVOX 600 MG/D5W 600 MG/300 ML IVPB IV SCH (14:19)
--- NOTE | 2018-06-11 14:39 | PROGRESS NOTE ---
DATE: 06/11/2018 OBJECTIVE: Vital signs: Blood pressure is 111/53, heart rate of 82, respiratory rate 22, temperature 98.9 degrees. Cardiovascular: Regular rate and rhythm. Pulmonary: Bilateral breath sounds clear to auscultation. Gastrointestinal: Soft, nontender, nondistended. Bowel sounds are positive. DIAGNOSTIC DATA: Blood gas: A pH 7.46, pCO2 of 53, PaO2 of 98. Potassium is 3.3, AST 52, and ALT 51. PROBLEM LIST: 1. Acute encephalopathy. Not exactly sure of his underlying etiology. He does have chronic alcohol abuse, but he has been here for 19 days. I find it difficult to believe this is still related to withdrawal, but he had apparently been on Ativan for a long time, and that may have been part of the now undergoing withdrawal. He was on an Ativan drip for 12 days. We will add some Seroquel at night and see how he does. Right now, he is still in restraints. 2. Acute on chronic hypercapnic respiratory failure related to chronic obstructive pulmonary disease and now pneumonia. He has completed 7 days of Zosyn which I think was resumed. I have changed him to Zyvox and imipenem because he has a very dense consolidation there, which is the next problem. 3. Right lower lobe pneumonia. We will continue antibiotics. He does have fever. 4. Alcoholic hepatitis. Gastroenterology is following. We are going to continue to monitor. 5. Moderate protein calorie malnutrition. He is currently on TPN and lipids. We will continue to follow. 6. History of gastrointestinal bleed. Hemoglobin and hematocrit have been stable. We will continue to monitor, although he has kind had a slow drift downwards, but that may be related to fluids. DISPOSITION: He is still very agitated. I am not sure what our long-term goal is. We have to wait for him to wake up before we can decide about other treatment plans. He has been on some p.r.n. Ativan which we will continue. I am going to try to see if we can use Haldol alone. I have stopped the morphine in case it is causing issues from that standpoint, and we will continue to monitor. Prognosis is guarded. I did not note family, but we will update them accordingly. cc: Pasquale Urena MD
[2018-06-11] MEDS: BROVANA NEB INH SCH ×2 (15:19→21:06)
[2018-06-11] MEDS ORDERED: BROVANA NEB ONE ×2 (15:20→18:07)
[2018-06-11] MEDS ORDERED: INSULIN PEN NEEDLES ONE (19:58)
--- NOTE | 2018-06-11 20:31 | PULMONOLOGY PROGRESS NOTE ---
DATE: 06/11/2018 SUBJECTIVE: The patient continues to be periodically agitated and combative. He will answer questions with direct stimulation. OBJECTIVE: Maximum temperature in the last 24 hours is 100.4 degrees. Blood pressure 164/63. Oxygen saturation 95% on face mask. Heart rate 89. Respiratory rate 20. HEENT: Pupils are equal and reactive. Oropharynx is clear. Neck is supple. Chest reveals rhonchi bilaterally. Cardiac exam: S1, S2. Abdomen is soft with good bowel sounds. Extremities reveal a trace of edema. IMAGING: Chest x-ray reveals new infiltrate at the right middle base. IMPRESSION: A 67 year old with chronic obstructive pulmonary disease exacerbation, delirium, acute hypoxemic respiratory failure, and chronic hypoxemic respiratory failure. His improvement appears to be hindered by his delirium. RECOMMENDATIONS: 1. Continue antibiotics. 2. Continue bronchial hygiene. 3. Continue oxygen. 4. Await final urine culture report. 5. Agree with plans to minimize benzodiazepine use as outlined by Dr. Urena. cc: Alexandr Franklin MD
[2018-06-12] MEDS: APRESOLINE IV SCH ×3 (00:19→10:55)
[2018-06-12] MEDS: ZYVOX 600 MG/D5W 600 MG/300 ML IVPB IV SCH ×2 (02:02→15:50)
[2018-06-12] MEDS: DUONEB (A & A) INH SCH ×5 (03:36→23:10)
[2018-06-12] MEDS: MERREM 1 GM in NS 50 ML IV SCH ×3 (04:03→23:56)
[2018-06-12] MEDS: CLINIMIX E 4.25%-5% SOLUTION 1,000 ML IV SCH ×3 (05:10→14:19)
[2018-06-12] MEDS: HUMALOG SUBQ SCH ×4 (06:00→21:28)
[2018-06-12 06:02] LABS: BASO# 0.02 X1000 (0.0-0.2); BASO% 0.2 % (0.0-0.8); EOS# 0.23 X1000 (0.0-0.7); EOS% 2.6 % (0.0-10.0); HEMATOCRIT 32.9 % (42.0-52.0); HEMOGLOBIN 10.7 g/dL (14.0-18.0); IMM GRAN# 0.02 X1000 (0.0-0.04); IMM GRAN% 0.2 % (0.0-0.5); LYMPH# 0.67 X1000 (1.2-3.4); LYMPH% 7.5 % (20.5-51.1); MCH 32.7 PG (27-31); MCHC 32.5 g/dL (33-37); MCV 100.6 FL (81-99); MONO# 0.76 X1000 (0.11-0.59); MONO% 8.5 % (1.7-9.3); MPV 11.5 FL (7.4-10.4); NEUT# 7.29 X1000 (1.4-6.5); PLT 126 X1000 (130-400); RBC 3.27 XMIL (4.7-6.1); RDW 13.6 % (11.5-14.5); WBC 8.99 X1000 (4.8-10.8)
[2018-06-12 06:07] LABS: AGAP 13; ALB/GLOB RATIO 0.9; ALBUMIN 3.5 g/dL (3.5-5.0); ALKALINE PHOSPHATASE 269 U/L (32-122); BUN 20 mg/dL (8-22); CALCIUM 8.9 mg/dL (8.8-10.2); CHLORIDE 95 mmol/L (98-107); COSMO 287; ESTIMATED GFR > 60; GLUCOSE 155 mg/dL (70-104); GOT 50 U/L (10-34); GPT 47 U/L (10-44); POTASSIUM 3.4 mmol/L (3.5-5.1); SODIUM 141 mmol/L (136-145); TCO2 33 mmol/L (25-35); TOTAL BILIRUBIN 0.66 mg/dL (0.20-1.00); TOTAL PROTEIN 7.3 g/dL (6.3-8.3)
--- NOTE | 2018-06-12 08:03 | Diag Imaging Result Doc PS360 ---
EXAM: CHEST-PORTABLE HISTORY: respiratory failure TECHNIQUE: Portable chest single view COMPARISON: 06/11/2018 FINDINGS: There is a right-sided PICC line and a left-sided pacemaker. The lungs are well expanded. There is pulmonary edema. Continued improvement in the right basilar infiltrate. No cardiomegaly. No pleural effusions identified. IMPRESSION: Interval improvement. Electronically signed by Luis Monique 06/12/2018 8:01 AM
[2018-06-12] MEDS: ICAR-C PO SCH ×2 (08:05→21:23)
[2018-06-12] MEDS: BASAGLAR SUBQ SCH ×2 (08:05→21:22)
[2018-06-12] MEDS: LOVENOX SUBQ SCH (08:05)
[2018-06-12] MEDS: LIPOSYN 20% 250 ML IV SCH (08:05)
[2018-06-12] MEDS: LOTRIMIN 1% CREAM TOP SCH ×2 (08:21→21:24)
[2018-06-12] MEDS: MUPIROCIN OINTMENT TOP SCH ×2 (08:22→21:24)
[2018-06-12] MEDS: SENOKOT PO SCH (08:22)
[2018-06-12] MEDS ORDERED: BROVANA NEB ONE ×2 (09:02)
[2018-06-12] MEDS ORDERED: POTASSIUM CHLORIDE 40 MEQ/SWI 40 MEQ/100 ML IVPB IV ONE (09:03)
[2018-06-12] MEDS: BROVANA NEB INH SCH ×2 (09:34→21:20)
[2018-06-12] MEDS: LASIX IV SCH ×3 (11:00→23:16)
[2018-06-12] MEDS: PROTONIX IV SCH ×2 (11:28→23:56)
[2018-06-12] MEDS: THIAMINE 100 MG in NS 50 ML IV SCH (11:28)
[2018-06-12] MEDS ORDERED: DUONEB (A & A) INH ONE (12:51)
[2018-06-12] MEDS ORDERED: SOLU-MEDROL IV ONE (12:52)
[2018-06-12] MEDS ORDERED: LASIX IV ONE (12:52)
[2018-06-12 13:16] LABS: ALLEN TEST YES; BE 9.9 mmoll (-3.0-3.0); BLOOD TYPE ARTERIAL; HCO3-(ACT) 32.6 mmoll (20.0-26.0); METHB 1.1 % (0.0-1.5); O2(CT) 15.6 mL/dL (15.0-23.0); O2HB 94.3 % (95.0-99.0); PCO2(98.6) 48 mmHg (35-45); PO2(98.6) 71 mmHg (60-100); SAMPLE BLOOD; SAO2 97.3 % (95.0-100.0); THB 11.7 g/dL (11.5-17.4); pH(98.6) 7.47 (7.35-7.45)
[2018-06-12 13:17] LABS: MODALITY CANNULA
[2018-06-12] MEDS ORDERED: DUONEB (A & A) INH PRN (15:27)
[2018-06-12] MEDS: ATIVAN IV PRN ×2 (15:47→21:22)
--- NOTE | 2018-06-12 16:30 | PROGRESS NOTE ---
DATE: 06/12/2018 SUBJECTIVE: The patient has no focal complaints. OBJECTIVE: Blood pressure is 145/64, heart rate of 104, respiratory rate 28, temperature 97.8 degrees, 95% on 5 L. Cardiovascular: Regular rate and rhythm. Pulmonary: Bilateral breath sounds. Clear to auscultation. Gastrointestinal: Abdomen soft, nontender, nondistended. Bowel sounds are positive. LABORATORY DATA: White count 8.9, hemoglobin 10, hematocrit 32, platelets 126,000. The pH is 7.47, pCO2 of 48, PaO2 of 71. Potassium 3.4. AST is 50, ALT is 47, alkaline phosphatase is 269. PROBLEM LIST: 1. Acute encephalopathy. Not clear what the underlying etiology is, but it is improving. Today, he is much more awake, alert. He is able to carry conversation. He is following commands. He seems to be doing better. I am going to start some low-dose Seroquel at night. He is requesting something for sleep which I think is reasonable, and we will continue to monitor. 2. Hriyh-qq-eyxvvsk respiratory failure. Today, it is worse. He is just having much more difficulty breathing. I have increased his Lasix, put him on some diuretics, changed his breathing treatments, and will continue to follow. I am not sure why he has declined so significantly, but overall, he is struggling a little more. I discussed the case with Dr. Mak, and hopefully, we can get this situated to the point where he does not end up having to be on a ventilator. We will continue BiPAP as needed. 3. Diabetes, appears to be well controlled on current medications. I have decreased his fluid intake because of other things going on. 4. Right lower lobe pneumonia. He is currently on cefepime and Zyvox. Fevers have improved. 5. Alcoholic hepatitis, appears to be stable. 6. History of gastrointestinal bleed. Hemoglobin and hematocrit are also stabilizing. 7. Disposition: He may need LTAC. We will continue to see how he does. cc: Pasquale Urena MD
--- NOTE | 2018-06-12 17:24 | PROGRESS NOTE ---
DATE: 06/12/2018 SUBJECTIVE: The patient is resting in bed. He is off restraints. His grandson is at the bedside. The patient was able to eat some of his meal today. He had one soft liquid black tarry stool here. OBJECTIVE: Vitals: Temperature 98 degrees, pulse rate of 93, respiratory rate 22, blood pressure 129/56, saturating 94% on 6 L nasal cannula. General Appearance: Moderately-built, lying in bed, in no acute distress. HEENT: Pale conjunctivae. No icterus. Neck: Supple. Abdomen: Soft, nondistended. No guarding or rebound. Extremities: No cyanosis or clubbing. Neurologic: He is awake, alert, and answers questions. LABS: His hemoglobin and hematocrit is 10.7 and 32.9, white count of 8.9, platelet count of 126,000. ABG showed pH of 7.47, pCO2 of 48, pO2 71, this is 6 L nasal cannula. Sodium 141, potassium 3.4, chloride 95, bicarb 30, anion gap of 13, BUN of 20, creatinine 1, glucose of 155. Calcium is 8.9. Total bilirubin is 0.6. AST 50, ALT 47, alkaline phosphatase 269. Total protein 7.3. Albumin of 3.5. His GINA is negative and hepatitis panel is nonreactive. IMPRESSION AND PLAN: 1. Alcoholism and alcohol withdrawal. He is slowly showing signs of improvement. He is on Seroquel. 2. Acute on chronic hypercapnic respiratory failure secondary to COPD and pneumonia. He is on Zyvox and imipenem. 3. Alcoholic hepatitis. Continue to watch liver enzymes. His hepatitis panel is nonreactive. 4. Protein calorie malnutrition. He is on TPN. Hopefully once he is able to reach optimum oral nutrition we can discontinue TPN. 5. History of melena. We are going to monitor hemoglobin and hematocrit. If that remains stable we will keep him on PPIs b.i.d. No plans of any endoscopy intervention at this time. 6. Bowel regimen with Keren-Colace. 7. Anemia. We will start on iron C b.i.d. 8. Above plan discussed with the patient and his family and all questions answered. Please call us with any further questions. cc: MD Omar Thomas MD
[2018-06-12] MEDS: CALMOSEPTINE OINTMENT TOP PRN (17:40)
[2018-06-12] MEDS: MUCOMYST 20% INH SCH (21:20)
[2018-06-12] MEDS: SOLU-MEDROL IV SCH (21:22)
[2018-06-12] MEDS: APRESOLINE PO SCH (21:23)
[2018-06-12] MEDS ORDERED: INSULIN PEN NEEDLES ONE (21:23)
[2018-06-12] MEDS: SEROQUEL PO SCH (21:23)
[2018-06-13] MEDS: DUONEB (A & A) INH SCH ×6 (03:05→23:13)
[2018-06-13] MEDS: ATIVAN IV PRN ×2 (03:16→10:51)
[2018-06-13] MEDS: ZYVOX 600 MG/D5W 600 MG/300 ML IVPB IV SCH ×2 (03:17→17:55)
[2018-06-13 05:29] LABS: BASO# 0.01 X1000 (0.0-0.2); BASO% 0.1 % (0.0-0.8); HEMATOCRIT 32.5 % (42.0-52.0); HEMOGLOBIN 10.6 g/dL (14.0-18.0); LYMPH# 0.36 X1000 (1.2-3.4); LYMPH% 5.1 % (20.5-51.1); MCH 32.5 PG (27-31); MCHC 32.6 g/dL (33-37); MCV 99.7 FL (81-99); MONO# 0.25 X1000 (0.11-0.59); MONO% 3.5 % (1.7-9.3); MPV 11.1 FL (7.4-10.4); NEUT# 6.47 X1000 (1.4-6.5); NEUT% 91.3 % (42.2-75.2); PLT 126 X1000 (130-400); RBC 3.26 XMIL (4.7-6.1); RDW 13.4 % (11.5-14.5); WBC 7.09 X1000 (4.8-10.8)
[2018-06-13] MEDS: SOLU-MEDROL IV SCH ×3 (05:40→21:34)
[2018-06-13] MEDS: APRESOLINE PO SCH ×3 (05:40→21:34)
[2018-06-13 05:42] LABS: MAGNESIUM 1.9 mg/dL (1.5-2.7); PHOSPHORUS 2.9 mg/dL (2.7-4.5)
[2018-06-13 05:51] LABS: AGAP 15; ALBUMIN 3.7 g/dL (3.5-5.0); ALKALINE PHOSPHATASE 296 U/L (32-122); BUN 20 mg/dL (8-22); CALCIUM 9.6 mg/dL (8.8-10.2); CHLORIDE 94 mmol/L (98-107); COSMO 293; ESTIMATED GFR > 60; GLUCOSE 267 mg/dL (70-104); GOT 42 U/L (10-34); GPT 44 U/L (10-44); POTASSIUM 3.6 mmol/L (3.5-5.1); SODIUM 141 mmol/L (136-145); TCO2 32 mmol/L (25-35); TOTAL BILIRUBIN 0.56 mg/dL (0.20-1.00); TOTAL PROTEIN 7.4 g/dL (6.3-8.3)
[2018-06-13 06:23] LABS: LYMPHS 10 % (21-51); SEGS 90 % (42-75)
[2018-06-13] MEDS: HUMALOG SUBQ SCH ×4 (06:40→21:33)
--- NOTE | 2018-06-13 07:18 | Diag Imaging Result Doc PS360 ---
CHEST-PORTABLE - 06/13/2018 INDICATION: respiratory failure COMPARISON: 06/12/2018 FINDINGS: Stable pacemaker and right PICC line. Stable severe pulmonary vascular congestion. No infiltrates or edema. No pneumothorax or large pleural effusion. Heart size is top normal. IMPRESSION: No change from prior. Electronically signed by Avtar Hawkins 06/13/2018 7:16 AM
[2018-06-13] MEDS: MERREM 1 GM in NS 50 ML IV SCH ×3 (07:59→23:33)
[2018-06-13] MEDS: SENOKOT PO SCH (09:15)
[2018-06-13] MEDS: ICAR-C PO SCH ×2 (09:15→21:33)
[2018-06-13] MEDS: LIPOSYN 20% 250 ML IV SCH (09:19)
[2018-06-13] MEDS: LOTRIMIN 1% CREAM TOP SCH ×2 (09:19→21:35)
[2018-06-13] MEDS: BASAGLAR SUBQ SCH ×2 (09:19→21:32)
[2018-06-13] MEDS: MUPIROCIN OINTMENT TOP SCH ×2 (09:19→21:35)
[2018-06-13] MEDS: BROVANA NEB INH SCH ×2 (09:24→19:28)
[2018-06-13] MEDS: MUCOMYST 20% INH SCH ×2 (09:25→19:27)
[2018-06-13] MEDS: LASIX IV SCH ×2 (10:48→23:34)
[2018-06-13] MEDS: LOVENOX SUBQ SCH (10:52)
[2018-06-13] MEDS: THIAMINE 100 MG in NS 50 ML IV SCH (11:41)
[2018-06-13] MEDS: PROTONIX IV SCH ×2 (11:45→23:34)
[2018-06-13] MEDS: HALDOL IV PRN (15:22)
[2018-06-13 16:45] LABS: ALLEN TEST YES; BE 9.8 mmoll (-3.0-3.0); BLOOD TYPE ARTERIAL; HCO3-(ACT) 32.5 mmoll (20.0-26.0); METHB 1.1 % (0.0-1.5); O2(CT) 14.4 mL/dL (15.0-23.0); O2HB 93.4 % (95.0-99.0); PO2(98.6) 67 mmHg (60-100); SAMPLE BLOOD; SAO2 96.1 % (95.0-100.0); THB 10.9 g/dL (11.5-17.4); pH(98.6) 7.41 (7.35-7.45)
[2018-06-13 16:47] LABS: MODALITY VENTIMASK
[2018-06-13 16:48] LABS: PCO2(98.6) 57 mmHg (35-45)
[2018-06-13] MEDS ORDERED: BROVANA NEB ONE (19:02)
--- NOTE | 2018-06-13 19:37 | PROGRESS NOTE ---
DATE: 06/13/2018 SUBJECTIVE: Patient has no focal complaints. OBJECTIVE: Blood pressure is 141/67, heart rate of 98, respiratory 19, temperature 97.7 degrees, 98% on 5 L.Cardiovascular: Regular rate and rhythm. Pulmonary: Bilateral breath sounds clear to auscultation. GI: Soft, nontender, nondistended. Bowel sounds are positive. He still has some work of breathing, rhonchi, wheezing. LABORATORY DATA: White count 7, hemoglobin and hematocrit 10 and 32, platelets 126,000. Basic looked okay except sugar was 267. PROBLEM LIST: 1. Acute respiratory failure hypercapnic, we are using BiPAP intermittently. I am going to try to switch him to Optiflow or high-flow O2 today and see how he does. 2. Encephalopathy with likely component of chronic organic brain disease but overall he has improved. Trying to avoid anything really sedating. I did start some Seroquel last night so will see how he does with that. 3. Diabetes stable on current medications. 4. Right lower lobe pneumonia. He is on cefepime and Zyvox and has been afebrile. 5. Alcoholic hepatitis appears to be stable. 6. Disposition. It is difficult situation. He wants to go home but now is probably not strong enough. We may need to consider rehab or even LTAC. We will continue to monitor closely. cc: Pasquale Urena MD
--- NOTE | 2018-06-13 19:51 | PROGRESS NOTE ---
DATE: 06/13/2018 SUBJECTIVE: Resting in bed. He is eating his lunch. He denies any new complaints. Denies any vomiting or passing blood in stool. VITALS: Temperature 97.7, pulse of 98, respiratory 19, blood pressure 141/67 , saturating 90% on 5 L nasal cannula.General Appearance: Moderate nourished in no acute distress HEENT: Mild conjunctiva pallor no icterus. Neck: Is supple. Abdomen: Is protuberant, soft, nontender, no guarding. Extremities: No cyanosis, clubbing. Neuro: Awake, alert, answers questions. LABS: His hemoglobin and hematocrit is 10.6 and 32.5, white count of 7.09, platelet count of 126,000, sodium 140, potassium 3.6, chloride 94, bicarb of 32, anion gap 15, BUN of 20, creatinine 1, glucose 89, calcium 9.6, phosphorus 2.9, magnesium 1.9, total bilirubin is 0.56, AST 42, ALT 44, alkaline phosphatase 296, total protein is 7.4, albumin of 3.7. IMPRESSION AND PLAN: 1. History of melena, currently his hematocrit stable, continue on supportive care with PPIs b.i.d. 2. Anemia: continue to watch for now and his hematocrit is stable. continue Iron C b.i.d. and multivitamin once daily, transfuse as needed. 3. Bowel regimen with Keren-Colace to continue. 4. Malnutrition. He is beginning to eat orally and is tolerating diet well. We probably will be able to discontinue his TPN but I will leave it to the discretion of the primary care team. 5. Chronic obstructive pulmonary disease, chronic smoker, alcoholism and delirium aware. 6. Gastrointestinal prophylaxis PPIs . 7. The above plan discussed with patient and all questions answered; will sign off, please call if any questions. cc: Jesus Mays MD MTDD
[2018-06-13] MEDS: SEROQUEL PO SCH (21:33)
[2018-06-13] MEDS: CLINIMIX E 4.25%-5% SOLUTION 1,000 ML IV SCH (21:56)
[2018-06-14] MEDS: DUONEB (A & A) INH SCH ×6 (03:13→23:12)
[2018-06-14] MEDS: CLINIMIX E 4.25%-5% SOLUTION 1,000 ML IV SCH (04:09)
[2018-06-14 04:20] LABS: ALLEN TEST YES; BE 10.9 mmoll (-3.0-3.0); BLOOD TYPE ARTERIAL; HCO3-(ACT) 33.4 mmoll (20.0-26.0); METHB 1.2 % (0.0-1.5); O2(CT) 15.5 mL/dL (15.0-23.0); O2HB 95.8 % (95.0-99.0); PO2(98.6) 89 mmHg (60-100); SAMPLE BLOOD; SAO2 98.7 % (95.0-100.0); THB 11.4 g/dL (11.5-17.4); pH(98.6) 7.46 (7.35-7.45)
[2018-06-14 04:29] LABS: MODALITY BI PAP; PCO2(98.6) 51 mmHg (35-45)
[2018-06-14] MEDS: APRESOLINE PO SCH ×3 (04:32→22:13)
[2018-06-14] MEDS: ZYVOX 600 MG/D5W 600 MG/300 ML IVPB IV SCH ×2 (04:33→17:19)
[2018-06-14] MEDS: SOLU-MEDROL IV SCH ×4 (04:34→23:23)
[2018-06-14] MEDS: HALDOL IV PRN ×2 (05:06→10:57)
[2018-06-14 06:03] LABS: HEMATOCRIT 32.4 % (42.0-52.0); HEMOGLOBIN 10.4 g/dL (14.0-18.0); LYMPH# 0.46 X1000 (1.2-3.4); LYMPH% 5.3 % (20.5-51.1); MCH 32.6 PG (27-31); MCHC 32.1 g/dL (33-37); MCV 101.6 FL (81-99); MONO# 0.41 X1000 (0.11-0.59); MONO% 4.7 % (1.7-9.3); PLT 140 X1000 (130-400); RBC 3.19 XMIL (4.7-6.1); RDW 13.3 % (11.5-14.5); WBC 8.67 X1000 (4.8-10.8)
[2018-06-14] MEDS: ATIVAN IV PRN ×3 (06:17→23:22)
[2018-06-14 06:18] LABS: AGAP 12; ALBUMIN 3.7 g/dL (3.5-5.0); ALKALINE PHOSPHATASE 279 U/L (32-122); BUN 24 mg/dL (8-22); CHLORIDE 93 mmol/L (98-107); COSMO 291; CREATININE 1.1 mg/dL (0.7-1.2); ESTIMATED GFR > 60; GLUCOSE 236 mg/dL (70-104); GOT 37 U/L (10-34); GPT 41 U/L (10-44); POTASSIUM 4.3 mmol/L (3.5-5.1); SODIUM 140 mmol/L (136-145); TCO2 35 mmol/L (25-35); TOTAL PROTEIN 7.3 g/dL (6.3-8.3)
[2018-06-14] MEDS: HUMALOG SUBQ SCH ×4 (06:18→22:12)
--- NOTE | 2018-06-14 07:39 | Diag Imaging Result Doc PS360 ---
CHEST-PORTABLE - 06/14/2018 INDICATION: respiratory failure COMPARISON: 06/13/2018 FINDINGS: Stable right PICC line in good position. Stable left-sided pacemaker. Stable cardiomegaly and pulmonary vascular congestion. There has been decrease in the interstitial markings/pulmonary edema in the lung bases. No pneumothorax or pleural effusion. IMPRESSION: Decrease in the faint interstitial pulmonary edema in the lung bases. Stable cardiomegaly and pulmonary vascular congestion. Electronically signed by Avtar Hawkins 06/14/2018 7:37 AM
[2018-06-14] MEDS: MERREM 1 GM in NS 50 ML IV SCH ×3 (08:04→23:22)
[2018-06-14] MEDS: SENOKOT PO SCH (08:35)
[2018-06-14] MEDS: ICAR-C PO SCH ×2 (08:35→22:13)
[2018-06-14] MEDS: LOVENOX SUBQ SCH (08:36)
[2018-06-14] MEDS: BASAGLAR SUBQ SCH ×2 (08:36→22:12)
[2018-06-14] MEDS: MUPIROCIN OINTMENT TOP SCH (08:38)
[2018-06-14] MEDS: LOTRIMIN 1% CREAM TOP SCH (08:38)
[2018-06-14] MEDS: LIPOSYN 20% 250 ML IV SCH (10:56)
[2018-06-14] MEDS: LASIX IV SCH ×2 (10:58→23:23)
[2018-06-14] MEDS ORDERED: BROVANA NEB ONE ×2 (11:18)
[2018-06-14] MEDS: MUCOMYST 20% INH SCH ×2 (11:57→19:06)
[2018-06-14] MEDS: BROVANA NEB INH SCH ×2 (11:57→19:07)
[2018-06-14] MEDS: THIAMINE 100 MG in NS 50 ML IV SCH (12:07)
[2018-06-14] MEDS: PROTONIX IV SCH ×2 (12:07→23:23)
--- NOTE | 2018-06-14 17:40 | PROGRESS NOTE ---
DATE: 06/14/2018 SUBJECTIVE: Patient has no focal complaints. OBJECTIVE: Vital Signs: Blood pressure is 117/60, heart rate of 86, respiratory rate of 20, temperature 97.9, 98%. He is on a face mask. Cardiovascular: Regular rate and rhythm. Pulmonary: Bilateral breath sounds. Clear to auscultation. Gastrointestinal: Soft, nontender, nondistended. Bowel sounds are positive. Clinically he appears like he is improving, though. He was joking around today, seemed to be in better spirits. Cardiovascular: Tachy. Pulmonary: With wheezes. LABORATORY: PH 7.46, pCO2 51, PaO2 89. BUN is 24. AST was 37. ProBNP is 888. Chest x-ray today showed interstitial edema is improved. ASSESSMENT AND PLAN: 1. Acute on chronic respiratory failure associated with sleep apnea. We will continue treatment, weaning O2 and weaning off BiPAP. He is heading in the right direction. Pulmonary is following. 2. Encephalopathy seems to be resolving. We are trying to use non-benzodiazepine medications. We did start Seroquel at night. He seems to be doing better from that standpoint. He is eating better. I think I am going to take him off the lipids for the time being. I think we could possibly wean his steroids a bit as well. 3. Diabetes, will continue regular medications. 4. Right lower lobe pneumonia. He is on cefepime and Zyvox. We will continue to follow. 5. Alcoholic hepatitis. His numbers are stable. DISPOSITION: Probably start to work on him with physical therapy a bit more now that he is participating a bit better. Disposition he most likely will need rehab. Hopefully he will be agreeable to that. We will continue to follow. I think he is probably safe for the floor in next 1 to 2 days pending his clinical status. cc: Pasquale Urena MD
[2018-06-14] MEDS: SEROQUEL PO SCH (22:14)
[2018-06-14] MEDS ORDERED: LASIX IV SCH (22:15)
[2018-06-15] MEDS: ATIVAN IV PRN ×4 (03:15→21:01)
[2018-06-15] MEDS: MUPIROCIN OINTMENT TOP SCH ×2 (03:16→08:44)
[2018-06-15] MEDS: LOTRIMIN 1% CREAM TOP SCH ×2 (03:16→08:43)
[2018-06-15] MEDS: ZYVOX 600 MG/D5W 600 MG/300 ML IVPB IV SCH ×2 (03:16→16:32)
[2018-06-15] MEDS: DUONEB (A & A) INH SCH ×6 (03:34→23:14)
[2018-06-15 03:54] LABS: ALLEN TEST YES; BLOOD TYPE ARTERIAL; HCO3-(ACT) 34.3 mmoll (20.0-26.0); METHB 1.3 % (0.0-1.5); O2(CT) 14.2 mL/dL (15.0-23.0); O2HB 95.5 % (95.0-99.0); PO2(98.6) 81 mmHg (60-100); SAMPLE BLOOD; SAO2 98.8 % (95.0-100.0); THB 10.5 g/dL (11.5-17.4); pH(98.6) 7.44 (7.35-7.45)
[2018-06-15 03:55] LABS: MODALITY VENTIMASK
[2018-06-15 03:57] LABS: PCO2(98.6) 56 mmHg (35-45)
[2018-06-15 06:02] LABS: AGAP 9; ALB/GLOB RATIO 0.9; ALBUMIN 3.2 g/dL (3.5-5.0); ALKALINE PHOSPHATASE 232 U/L (32-122); BUN 24 mg/dL (8-22); CALCIUM 9.3 mg/dL (8.8-10.2); CHLORIDE 95 mmol/L (98-107); COSMO 284; ESTIMATED GFR > 60; GLUCOSE 205 mg/dL (70-104); GOT 37 U/L (10-34); GPT 40 U/L (10-44); POTASSIUM 3.8 mmol/L (3.5-5.1); SODIUM 137 mmol/L (136-145); TCO2 33 mmol/L (25-35); TOTAL BILIRUBIN 0.44 mg/dL (0.20-1.00); TOTAL PROTEIN 6.6 g/dL (6.3-8.3)
[2018-06-15] MEDS: HUMALOG SUBQ SCH ×4 (06:21→20:59)
[2018-06-15] MEDS: APRESOLINE PO SCH ×3 (06:21→21:06)
--- NOTE | 2018-06-15 07:12 | Diag Imaging Result Doc PS360 ---
CHEST-PORTABLE - 06/15/2018 INDICATION: respiratory failure COMPARISON: 06/14/2018 FINDINGS: Stable pacemaker and right PICC line in good position. Heart size remains normal. Stable pulmonary vascular congestion. No infiltrates or edema. No large pleural effusion. IMPRESSION: No change from prior. Electronically signed by Avtar Hawkins 06/15/2018 7:09 AM
[2018-06-15 07:45] LABS: HEMATOCRIT 30.3 % (42.0-52.0); HEMOGLOBIN 9.6 g/dL (14.0-18.0); LYMPH# 0.16 X1000 (1.2-3.4); LYMPH% 2.5 % (20.5-51.1); MCH 32.1 PG (27-31); MCHC 31.7 g/dL (33-37); MCV 101.3 FL (81-99); MONO# 0.41 X1000 (0.11-0.59); MONO% 6.4 % (1.7-9.3); NEUT# 5.86 X1000 (1.4-6.5); NEUT% 91.1 % (42.2-75.2); PLT 136 X1000 (130-400); RBC 2.99 XMIL (4.7-6.1); WBC 6.43 X1000 (4.8-10.8)
[2018-06-15] MEDS: MUCOMYST 20% INH SCH ×2 (08:06→18:52)
[2018-06-15] MEDS: BROVANA NEB INH SCH ×2 (08:06→18:52)
[2018-06-15 08:16] LABS: BANDS 4 % (0-1); LYMPHS 2 % (21-51); MONO 6 % (1-9); SEGS 88 % (42-75)
[2018-06-15] MEDS: ICAR-C PO SCH ×2 (08:41→21:02)
[2018-06-15] MEDS: SOLU-MEDROL IV SCH ×2 (08:41→15:22)
[2018-06-15] MEDS: MERREM 1 GM in NS 50 ML IV SCH ×2 (08:41→15:22)
[2018-06-15] MEDS: LASIX IV SCH ×3 (08:41→21:00)
[2018-06-15] MEDS: LOVENOX SUBQ SCH (08:42)
[2018-06-15] MEDS: BASAGLAR SUBQ SCH ×2 (08:42→20:59)
[2018-06-15] MEDS: SENOKOT PO SCH (08:42)
[2018-06-15] MEDS: PROTONIX IV SCH (13:02)
[2018-06-15] MEDS: HALDOL IV PRN (13:19)
--- NOTE | 2018-06-15 17:48 | PROGRESS NOTE ---
DATE: 06/15/2018 SUBJECTIVE: The patient is sitting up in a chair eating candy. He states that he feels better today. OBJECTIVE: Vital Signs: Temperature 97 degrees, blood pressure 125/56, heart rate 101, respirations 20, O2 saturation 96% on Venturi mask, urine output 2.6 L. General : This is a chronically ill-appearing elderly male sitting up in a chair in no acute distress. Heart: S1, S2 normal. Lungs: Coarse breath sounds bilaterally. Abdomen: Positive bowel sounds. Soft, nontender, nondistended. Extremities: No edema, no cyanosis. Neuro: The patient is alert and oriented x3. LABS: Hemoglobin 9.6, hematocrit 30, platelets 136,000. ABG pH of 7.4, pCO2 56 , PO2 81, bicarb 34. Sodium 137, potassium 3.8, chloride 95, CO2 33, BUN 24, creatinine 1, glucose 205. Chest x-ray shows pulmonary vascular congestion. ASSESSMENT AND PLAN: 1. Acute hypoxemic and hypercapnic respiratory failure. The patient remains on a Venturi mask. Will continue to try and wean the patient off of the supplemental oxygen, continue to treat the underlying pneumonia, continue with bronchodilator therapy. 2. Pneumonia. Continue with the current antibiotic regimen plus bronchodilator therapy. 3. Encephalopathy. Resolving. The patient is awake and alert today, the patient did require dose of Ativan early this morning. 4. Diabetes mellitus type 2. Continue on long-acting insulin plus sliding scale insulin. 5. Hypertension. Continue on the current antihypertensive regimen. 6. Gastrointestinal prophylaxis. Continue on Protonix. 7. Deep vein thrombosis prophylaxis. Continue on Lovenox. 8. Physical therapy has been consulted. cc: Honey Rutherford MD [facility]
--- NOTE | 2018-06-15 19:17 | Diag Imaging Result Doc PS360 ---
CT THORAX W/O CONTRAST - 06/15/2018 INDICATION: pneumonia/copd COMPARISON: Chest x-ray 06/15/2018. Chest CT 03/29/2018. FINDINGS: Stable pacemaker. Heart size is top normal. Stable mediastinal lymph nodes. Stable cirrhotic liver. Stable nonobstructing stones in both kidneys. There is bronchitis in the lung bases. There are some scattered tree-in-bud nodular infiltrates compatible with endobronchially spread infection such as aspiration or bronchial pneumonia. There is mild COPD. IMPRESSION: Bronchitis. Mild bronchopneumonia. COPD. Cirrhosis. Bilateral nonobstructing renal stones. This exam was performed using automated exposure control, adjustment of mA or kV according to patient size, and/or use of iterative reconstruction technique Electronically signed by Avtar Hawkins 06/15/2018 7:14 PM
[2018-06-15] MEDS: SEROQUEL PO SCH (21:02)
[2018-06-16] MEDS: MERREM 1 GM in NS 50 ML IV SCH ×3 (01:10→15:59)
[2018-06-16] MEDS: PROTONIX IV SCH ×2 (01:11→12:26)
[2018-06-16] MEDS: SOLU-MEDROL IV SCH ×4 (01:11→15:59)
[2018-06-16] MEDS: DUONEB (A & A) INH SCH ×6 (03:14→23:03)
[2018-06-16 03:53] LABS: ALLEN TEST YES; BE 17.1 mmoll (-3.0-3.0); BLOOD TYPE ARTERIAL; HCO3-(ACT) 38.3 mmoll (20.0-26.0); METHB 1.1 % (0.0-1.5); O2(CT) 14.9 mL/dL (15.0-23.0); O2HB 96.2 % (95.0-99.0); PO2(98.6) 93 mmHg (60-100); SAMPLE BLOOD; SAO2 99.2 % (95.0-100.0); THB 10.9 g/dL (11.5-17.4); pH(98.6) 7.45 (7.35-7.45)
[2018-06-16 04:05] LABS: MODALITY VENTIMASK; PCO2(98.6) 63 mmHg (35-45)
[2018-06-16] MEDS: ZYVOX 600 MG/D5W 600 MG/300 ML IVPB IV SCH ×2 (04:42→16:34)
[2018-06-16] MEDS: APRESOLINE PO SCH ×3 (04:42→21:03)
[2018-06-16] MEDS: MUPIROCIN OINTMENT TOP SCH ×3 (04:43→20:59)
[2018-06-16] MEDS: LOTRIMIN 1% CREAM TOP SCH ×3 (04:43→21:00)
[2018-06-16 05:43] LABS: HEMATOCRIT 32.2 % (42.0-52.0); HEMOGLOBIN 10.2 g/dL (14.0-18.0); LYMPH% 3.3 % (20.5-51.1); MCH 32.7 PG (27-31); MCHC 31.7 g/dL (33-37); MCV 103.2 FL (81-99); MONO# 0.55 X1000 (0.11-0.59); MONO% 9.1 % (1.7-9.3); MPV 10.5 FL (7.4-10.4); NEUT# 5.28 X1000 (1.4-6.5); NEUT% 87.6 % (42.2-75.2); PLT 132 X1000 (130-400); RBC 3.12 XMIL (4.7-6.1); RDW 13.4 % (11.5-14.5); WBC 6.03 X1000 (4.8-10.8)
[2018-06-16 05:58] LABS: AGAP 8; ALB/GLOB RATIO 1.1; ALBUMIN 3.6 g/dL (3.5-5.0); ALKALINE PHOSPHATASE 263 U/L (32-122); BUN 19 mg/dL (8-22); CALCIUM 9.5 mg/dL (8.8-10.2); CHLORIDE 94 mmol/L (98-107); COSMO 280; ESTIMATED GFR > 60; GLUCOSE 108 mg/dL (70-104); GOT 46 U/L (10-34); GPT 45 U/L (10-44); POTASSIUM 3.8 mmol/L (3.5-5.1); SODIUM 139 mmol/L (136-145); TCO2 37 mmol/L (25-35); TOTAL BILIRUBIN 0.47 mg/dL (0.20-1.00); TOTAL PROTEIN 6.8 g/dL (6.3-8.3)
[2018-06-16] MEDS: HUMALOG SUBQ SCH ×4 (06:29→20:22)
--- NOTE | 2018-06-16 07:12 | Diag Imaging Result Doc PS360 ---
CHEST-PORTABLE - 06/16/2018 INDICATION: respiratory failure COMPARISON: 06/15/2018 FINDINGS: Stable pacemaker and right PICC line. Stable cardiomegaly and pulmonary vascular congestion. No infiltrates or edema. No large pleural effusion. IMPRESSION: No change from prior. Electronically signed by Avtar Hawkins 06/16/2018 7:10 AM
[2018-06-16] MEDS: MUCOMYST 20% INH SCH ×2 (07:33→19:30)
[2018-06-16] MEDS: BROVANA NEB INH SCH ×2 (07:33→19:30)
[2018-06-16] MEDS: BASAGLAR SUBQ SCH (08:24)
[2018-06-16] MEDS: LOVENOX SUBQ SCH (08:24)
[2018-06-16] MEDS: SENOKOT PO SCH (08:24)
[2018-06-16] MEDS: ICAR-C PO SCH ×2 (08:25→21:03)
[2018-06-16] MEDS: LASIX IV SCH ×2 (10:08→21:00)
[2018-06-16] MEDS: ATIVAN IV PRN ×2 (10:08→21:00)
[2018-06-16] MEDS: HALDOL IV PRN (13:55)
--- NOTE | 2018-06-16 14:28 | PROGRESS NOTE ---
DATE: 06/16/2018 SUBJECTIVE: The patient is standing up near his bed. He states that he feels okay. He currently has a Venturi mask on. OBJECTIVE: Vital Signs: Temperature 98.1 degrees, blood pressure 124/59, heart rate 85, respirations 20, O2 saturation 100% on Venturi mask. Urine output 1 L. General : A chronically ill-appearing, elderly male sitting on the edge of the bed in no acute distress. Heart: S1, S2 normal. Lungs: Coarse breath sounds bilaterally. Diminished breath sounds at the bases. Abdomen: Positive bowel sounds. Soft, nontender, nondistended. Extremities: No edema. No cyanosis. Neurologic: The patient is alert and oriented x3. LABORATORY DATA: White blood cell count 6, hemoglobin 10, hematocrit 32 platelets 132,000. Sodium 139, potassium 3.8, chloride 94, CO2 37, BUN 19, creatinine 1, glucose 108. AST 46, ALT 45, alkaline phosphatase 263. Chest x-ray shows no change. ASSESSMENT AND PLAN: 1. Acute hypoxemic and hypercapnic respiratory failure. Continue with the current treatment plan. Pulmonary is following. 2. Pneumonia. Continue with IV antibiotic therapy plus bronchodilator therapy and supplemental oxygen. 3. Encephalopathy. Resolved. 4. Diabetes mellitus type 2. Continue on the current insulin regimen. 5. Hypertension. Continue on the current antihypertensive regimen. 6. Gastrointestinal prophylaxis. Continue on Protonix. 7. Deep vein thrombosis prophylaxis. Continue on Lovenox. 8. Physical therapy has been consulted. cc: Honey Rutherford MD MTDD
[2018-06-16] MEDS: SEROQUEL PO SCH (21:03)
--- NOTE | 2018-06-16 22:27 | Extremity Venous Study ---
PROCEDURE NAME: Venous U/S Right Leg - 06/14/2018 Right lower extremity venous duplex and color flow imaging study using the [employer] vivid E9 ultrasound system with a 9L-D transducer. REFERRING PHYSICIANS: Pasquale Urena MD. INDICATIONS: Pain and edema right lower extremity suggestive of deep venous thrombosis. FINDINGS: Right common femoral vein and its branches, deep and superficial femoral veins were satisfactorily imaged. They had flow through them and were compressible. The right popliteal vein, deep veins below the right knee were all compressible and had flow through them. Superficial veins of the right lower extremity were compressible throughout their length. INTERPRETATION: No evidence of acute deep or superficial venous thrombosis of the right lower extremity. cc: MD Robinson Kaur CRNP
[2018-06-17] MEDS: PROTONIX IV SCH ×2 (00:51→13:08)
[2018-06-17] MEDS: MERREM 1 GM in NS 50 ML IV SCH ×3 (00:51→16:50)
[2018-06-17] MEDS: SOLU-MEDROL IV SCH ×3 (00:51→15:30)
[2018-06-17] MEDS: DUONEB (A & A) INH SCH ×7 (03:43→23:00)
[2018-06-17] MEDS: ZYVOX 600 MG/D5W 600 MG/300 ML IVPB IV SCH ×2 (04:10→15:27)
[2018-06-17] MEDS: APRESOLINE PO SCH ×3 (04:10→20:05)
[2018-06-17 04:21] LABS: ALLEN TEST YES; BE 15.1 mmoll (-3.0-3.0); BLOOD TYPE ARTERIAL; HCO3-(ACT) 36.6 mmoll (20.0-26.0); METHB 1.2 % (0.0-1.5); O2(CT) 22.7 mL/dL (15.0-23.0); O2HB 94.6 % (95.0-99.0); PO2(98.6) 78 mmHg (60-100); SAMPLE BLOOD; SAO2 97.7 % (95.0-100.0); THB 17.1 g/dL (11.5-17.4); pH(98.6) 7.45 (7.35-7.45)
[2018-06-17 04:26] LABS: MODALITY CANNULA; PCO2(98.6) 62 mmHg (35-45)
[2018-06-17 05:40] LABS: HEMATOCRIT 33.6 % (42.0-52.0); HEMOGLOBIN 10.8 g/dL (14.0-18.0); LYMPH# 0.35 X1000 (1.2-3.4); LYMPH% 5.4 % (20.5-51.1); MCH 32.7 PG (27-31); MCHC 32.1 g/dL (33-37); MCV 101.8 FL (81-99); MONO# 0.54 X1000 (0.11-0.59); MONO% 8.3 % (1.7-9.3); MPV 10.4 FL (7.4-10.4); NEUT# 5.61 X1000 (1.4-6.5); NEUT% 86.3 % (42.2-75.2); PLT 130 X1000 (130-400); RDW 13.2 % (11.5-14.5)
[2018-06-17] MEDS: HUMALOG SUBQ SCH ×4 (06:11→23:49)
[2018-06-17 06:18] LABS: AGAP 12; ALB/GLOB RATIO 1.1; ALBUMIN 3.6 g/dL (3.5-5.0); ALKALINE PHOSPHATASE 265 U/L (32-122); BUN 15 mg/dL (8-22); CHLORIDE 93 mmol/L (98-107); COSMO 285; CREATININE 0.9 mg/dL (0.7-1.2); ESTIMATED GFR > 60; GLUCOSE 190 mg/dL (70-104); GOT 50 U/L (10-34); GPT 48 U/L (10-44); POTASSIUM 3.6 mmol/L (3.5-5.1); SODIUM 140 mmol/L (136-145); TCO2 35 mmol/L (25-35); TOTAL BILIRUBIN 0.51 mg/dL (0.20-1.00); TOTAL PROTEIN 6.9 g/dL (6.3-8.3)
[2018-06-17] MEDS: BROVANA NEB INH SCH ×2 (07:30→19:25)
[2018-06-17] MEDS: MUCOMYST 20% INH SCH ×2 (07:31→19:25)
--- NOTE | 2018-06-17 07:38 | Diag Imaging Result Doc PS360 ---
CHEST-PORTABLE - 06/17/2018 INDICATION: respiratory failure COMPARISON: 06/16/2018 FINDINGS: Stable pacemaker and right PICC line. There is improvement in the cardiomegaly and pulmonary vascular congestion. No dense infiltrates or edema. IMPRESSION: Improvement in the cardiomegaly and pulmonary vascular congestion. Electronically signed by Avtar Hawkins 06/17/2018 7:36 AM
[2018-06-17] MEDS: SENOKOT PO SCH (09:14)
[2018-06-17] MEDS: ICAR-C PO SCH ×2 (09:14→20:04)
[2018-06-17] MEDS: LASIX IV SCH ×3 (09:14→23:49)
[2018-06-17] MEDS: BASAGLAR SUBQ SCH (09:15)
[2018-06-17] MEDS: MUPIROCIN OINTMENT TOP SCH ×2 (09:15→20:06)
[2018-06-17] MEDS: LOTRIMIN 1% CREAM TOP SCH ×2 (09:15→23:49)
[2018-06-17] MEDS: LOVENOX SUBQ SCH (09:30)
[2018-06-17] MEDS: SODIUM CHLORIDE 0.9% INJ SCH (13:07)
--- NOTE | 2018-06-17 14:26 | PROGRESS NOTE ---
DATE: 06/17/2018 SUBJECTIVE: The patient is resting comfortably. He states that he feels a lot better. He states that he has been walking around in his room. OBJECTIVE: Vital Signs: Temperature 97.9, blood pressure 135/55, heart rate 96 , respirations 21 O2 saturation 90% on 5 L nasal cannula. Urine output 1 L. General: This is a chronically ill- appearing, elderly male, sitting at the edge of the bed in no acute distress. Heart: S1, S2 normal. Lungs: Coarse breath sounds bilaterally. Abdomen: Positive bowel sounds. Soft, nontender, nondistended. Extremities: No edema, no cyanosis. Neurologic: The patient is alert and oriented x3. LABS: White blood cell count 6.5, hemoglobin 10, hematocrit 33, platelets 130. Sodium 140, potassium 3.6, chloride 93, CO2 of 35, BUN 15, creatinine 0.9, glucose 190, AST 50, ALT 48, alkaline phosphatase 265. Chest x-ray shows improvement in the pulmonary vascular congestion and cardiomegaly. ASSESSMENT AND PLAN: 1. Acute hypercapnic respiratory failure. Slowly improving. Continue with the current treatment plan. 2. Pulmonary edema. Continue on diuretic therapy. The chest x-ray shows improvement today. 3. Pneumonia. Continue with antibiotics and bronchodilator therapy. The patient is now on 5 L nasal cannula. We will continue to try and wean the patient's O2 requirements down. 4. Encephalopathy. Resolved. 5. Diabetes mellitus type 2. Continue on sliding scale insulin. 6. Hypertension. Continue on the current antihypertensive regimen. 7. Anemia. Stable. 8. Gastrointestinal prophylaxis. Continue on the IV Protonix. 9. Elevated liver function tests. Will continue to monitor closely. The patient has hepatosplenomegaly on ultrasound. 10. Deep vein thrombosis prophylaxis. Continue on Lovenox. 11. Disposition. The patient is stable for transfer to the medical floor on telemetry. We will consult physical therapy. cc: Honey Rutherford MD [facility]
[2018-06-17] MEDS: ATIVAN IV PRN ×2 (14:34→20:56)
[2018-06-17] MEDS: CATAPRES-TTS-1 TD SCH ×2 (20:04→23:49)
[2018-06-17] MEDS: SEROQUEL PO SCH (20:05)
[2018-06-18] MEDS: MERREM 1 GM in NS 50 ML IV SCH ×3 (01:15→15:49)
[2018-06-18] MEDS: SOLU-MEDROL IV SCH ×3 (01:15→15:50)
[2018-06-18] MEDS: PROTONIX IV SCH ×2 (01:15→12:55)
[2018-06-18] MEDS: DUONEB (A & A) INH SCH ×6 (03:44→23:00)
[2018-06-18] MEDS: APRESOLINE PO SCH ×3 (05:00→20:44)
[2018-06-18] MEDS: ZYVOX 600 MG/D5W 600 MG/300 ML IVPB IV SCH ×2 (05:00→16:36)
[2018-06-18] MEDS: HUMALOG SUBQ SCH ×4 (06:41→20:44)
[2018-06-18 07:07] LABS: HEMATOCRIT 33.2 % (42.0-52.0); HEMOGLOBIN 10.6 g/dL (14.0-18.0); LYMPH# 0.46 X1000 (1.2-3.4); LYMPH% 9.6 % (20.5-51.1); MCH 32.3 PG (27-31); MCHC 31.9 g/dL (33-37); MCV 101.2 FL (81-99); MONO# 0.33 X1000 (0.11-0.59); MONO% 6.9 % (1.7-9.3); NEUT# 3.98 X1000 (1.4-6.5); NEUT% 83.5 % (42.2-75.2); PLT 122 X1000 (130-400); RBC 3.28 XMIL (4.7-6.1); WBC 4.77 X1000 (4.8-10.8)
[2018-06-18 07:20] LABS: AGAP 10; ALB/GLOB RATIO 1.1; ALBUMIN 3.6 g/dL (3.5-5.0); ALKALINE PHOSPHATASE 243 U/L (32-122); BUN 15 mg/dL (8-22); CALCIUM 9.2 mg/dL (8.8-10.2); CHLORIDE 90 mmol/L (98-107); COSMO 282; CREATININE 0.9 mg/dL (0.7-1.2); ESTIMATED GFR > 60; GLUCOSE 263 mg/dL (70-104); GOT 41 U/L (10-34); GPT 43 U/L (10-44); POTASSIUM 3.6 mmol/L (3.5-5.1); SODIUM 136 mmol/L (136-145); TCO2 36 mmol/L (25-35); TOTAL BILIRUBIN 0.51 mg/dL (0.20-1.00); TOTAL PROTEIN 6.8 g/dL (6.3-8.3)
[2018-06-18] MEDS: BROVANA NEB INH SCH ×2 (07:28→19:50)
[2018-06-18] MEDS: MUCOMYST 20% INH SCH ×2 (07:28→19:50)
[2018-06-18] MEDS: ICAR-C PO SCH ×2 (08:46→20:44)
[2018-06-18] MEDS: SENOKOT PO SCH (08:46)
[2018-06-18] MEDS: LOVENOX SUBQ SCH (08:48)
[2018-06-18] MEDS: BASAGLAR SUBQ SCH (08:49)
[2018-06-18] MEDS: LASIX IV SCH ×2 (09:33→20:44)
[2018-06-18] MEDS ORDERED: STERILE WATER INJ. INJ ONE (12:08)
[2018-06-18] MEDS ORDERED: CATHFLO IV ONE (12:08)
[2018-06-18] MEDS: ATIVAN IV PRN ×2 (12:54→22:00)
[2018-06-18] MEDS: MUPIROCIN OINTMENT TOP SCH ×2 (12:55→20:44)
[2018-06-18] MEDS: LOTRIMIN 1% CREAM TOP SCH ×2 (12:55→20:44)
[2018-06-18] MEDS: SODIUM CHLORIDE 0.9% INJ SCH (12:55)
--- NOTE | 2018-06-18 15:40 | PROGRESS NOTE ---
DATE: 06/18/2018 SUBJECTIVE: The patient is sitting at the edge of the bed. He is getting ready to work with Physical Therapy. He does ambulate a little bit on his own and he states that he is feeling a lot better. OBJECTIVE: Vital Signs: Temperature 98.9, blood pressure 126/57, heart rate 87 , respirations 19, O2 sats 93% on 2 L nasal cannula. General: This is a chronically ill- appearing elderly male sitting at the edge of the bed in no acute distress. Heart: S1, S2 normal. Regular rate and rhythm. Lungs: Equal air entry bilaterally. No wheezing. No rales. Abdomen : Positive bowel sounds. Soft, nontender, nondistended. Extremities: No edema, no cyanosis. Neurologic: The patient is alert and oriented x 3. LABS: White blood cell count 4.7, hemoglobin 10, hematocrit 33, platelets 122, 000. BUN 15, creatinine 0.9, sodium 136, potassium 3.6, chloride 90, CO2 36, glucose 263. AST 41, ALT 43, alkaline phosphatase 243. ASSESSMENT AND PLAN: 1. Acute hypercapnic respiratory failure. The patient is now on 2 L nasal cannula. Slowly improving. 2. Pulmonary edema. Improved. The patient is currently on Lasix. 3. Pneumonia. Continue with antibiotics and bronchodilator therapy. 4. Encephalopathy. Resolved. 5. Alcohol abuse. The patient has been counseled about cessation. 6. Diabetes mellitus type 2. Continue on sliding scale insulin. 7. Hypertension. Continue on the current antihypertensive regimen. 8. Anemia. Stable. 9. Elevated liver function tests. Improved. 10. GI prophylaxis. Continue on IV Protonix. 11. DVT prophylaxis. Continue on Lovenox. 12. Disposition. The patient will likely be stable for discharge with home health in the next several days. Continue to work with Physical Therapy. cc: Honey Rutherford MD MTDD
[2018-06-18] MEDS: SEROQUEL PO SCH (20:44)
[2018-06-19] MEDS: LASIX IV SCH ×2 (00:35→09:25)
[2018-06-19] MEDS: MERREM 1 GM in NS 50 ML IV SCH ×2 (00:41→09:22)
[2018-06-19] MEDS: SOLU-MEDROL IV SCH ×2 (00:42→09:25)
[2018-06-19] MEDS: PROTONIX IV SCH ×2 (00:42→12:28)
[2018-06-19] MEDS: DUONEB (A & A) INH SCH ×3 (03:00→11:33)
[2018-06-19] MEDS: ZYVOX 600 MG/D5W 600 MG/300 ML IVPB IV SCH (05:28)
[2018-06-19] MEDS: APRESOLINE PO SCH (05:28)
[2018-06-19 07:26] LABS: HEMOGLOBIN 10.5 g/dL (14.0-18.0); MCH 31.8 PG (27-31); MCHC 31.8 g/dL (33-37); MPV 9.7 FL (7.4-10.4); RBC 3.3 XMIL (4.7-6.1); RDW 12.9 % (11.5-14.5); WBC 3.31 X1000 (4.8-10.8)
[2018-06-19] MEDS: BROVANA NEB INH SCH (07:28)
[2018-06-19] MEDS: MUCOMYST 20% INH SCH (07:28)
[2018-06-19 07:46] VITALS: BP 134/66
[2018-06-19 07:50] LABS: AGAP 9; ALB/GLOB RATIO 1.1; ALBUMIN 3.5 g/dL (3.5-5.0); ALKALINE PHOSPHATASE 246 U/L (32-122); BUN 16 mg/dL (8-22); CALCIUM 9.3 mg/dL (8.8-10.2); CHLORIDE 94 mmol/L (98-107); COSMO 285; CREATININE 0.9 mg/dL (0.7-1.2); ESTIMATED GFR > 60; GLUCOSE 181 mg/dL (70-104); GOT 42 U/L (10-34); GPT 41 U/L (10-44); POTASSIUM 3.7 mmol/L (3.5-5.1); SODIUM 140 mmol/L (136-145); TCO2 37 mmol/L (25-35); TOTAL BILIRUBIN 0.44 mg/dL (0.20-1.00); TOTAL PROTEIN 6.6 g/dL (6.3-8.3)
[2018-06-19] MEDS: BASAGLAR SUBQ SCH (09:15)
[2018-06-19] MEDS: MUPIROCIN OINTMENT TOP SCH (09:25)
[2018-06-19] MEDS: ICAR-C PO SCH (09:25)
[2018-06-19] MEDS: LOVENOX SUBQ SCH (09:25)
[2018-06-19] MEDS: SENOKOT PO SCH (09:25)
[2018-06-19] MEDS: LOTRIMIN 1% CREAM TOP SCH (09:26)
[2018-06-19] MEDS ORDERED: FLU VACCINE IM ONE (11:23)
[2018-06-19] MEDS ORDERED: INSULIN PEN NEEDLES ONE (11:59)
[2018-06-19] MEDS: HUMALOG SUBQ SCH (12:26)
--- NOTE | 2018-06-27 13:29 | DISCHARGE SUMMARY ---
ADMISSION DATE: 05/23/2018 DISCHARGE DATE: 06/19/2018 FINAL DISCHARGE DIAGNOSES: 1. Acute hypercapnic respiratory failure. 2. Pulmonary edema. 3. Pneumonia. 4. Global encephalopathy. 5. Alcohol abuse. 6. Diabetes mellitus, type 2. 7. Alcohol withdrawal. 8. Hypertension. 9. Anemia. 10. Elevated liver function tests. 11. COPD on home oxygen HOSPITAL COURSE: Mr. Leija is a 67-year-old male with a history of heavy alcohol abuse, COPD, and diabetes who presented to the ER initially for COPD exacerbation. Within 3 days of his hospital stay, the patient went into alcohol withdrawal. The patient was then transferred to [facility]. The patient was noted to be in acute hypercapnic respiratory failure and was placed on BiPAP upon arrival to [facility]. Pulmonary was consulted as well as GI due to concerns about GI bleeding. A CT of the abdomen and pelvis was done that revealed ascites and pleural effusion. Also, pancreatitis was a possibility as well as pneumonia. Cultures were obtained, and the patient was started on broad-spectrum antibiotics, IV steroids and bronchodilator therapy. The patient had a prolonged course due to his encephalopathy. Eventually, the patient improved clinically and was transferred to CICU. The patient did develop some pulmonary edema and was given Lasix in addition to the other medications. Slowly over the course of the hospitalization, the patient returned to baseline from a mental status point of view. Also, the patient's respiratory status started to improve as well. The patient remained on IV antibiotic therapy throughout the hospitalization. On the day of discharge, the patient was noted to be back down to 2 L nasal cannula of supplemental oxygen which was what he was on prior to admission. The patient was again advised to stop drinking alcohol and to quit smoking. The patient was ultimately cleared for discharge home with home health on 2017. DISCHARGE MEDICATIONS: 1. Hydralazine 25 mg p.o. every 8 hours. 2. Glargine 20 units subcutaneous every morning. 3. Icar-C 1 tablet oral twice a day. 4. Prednisone taper. 5. Augmentin 875/125 one tab oral twice a day. 6. Ativan 0.5 mg p.o. daily p.r.n. 7. Seroquel 25 mg p.o. at bedtime. 8. DuoNebs 3 mL inhaled every 4 hours p.r.n. 9. Lasix 60 mg p.o. daily. 10. Potassium chloride 20 mEq oral daily. 11. Bupropion 150 mg p.o. twice a day. 12. Amaryl 1 tablet oral daily. 13. Metformin 500 mg p.o. twice a day. 14. Ellipta inhaled daily. DISCHARGE DIET: 1800 ADA diet/low-sodium diet. ACTIVITY: As tolerated. FOLLOWUP INSTRUCTIONS: The patient will need to follow up with his primary care physician in 1 week for a repeat chest x-ray. The patient was also given a prescription for antibiotics and a steroid taper. cc: Honey Rutherford MD MTDD
== END 2018-06-19 13:30 | disposition home health service (06) | DRG 189 ==
LOC: P.ED 15:27 → P.ICU 17:16 → SUATTDRO 17:16 → ICU 05-27 19:48 → 3S 06-10 20:14 → 3N 06-17 10:42
PROVIDERS: ATTEND Internal Medicine
CPT/HCPCS: 36415; 36569; 70450; 71010; 71020; 71045; 71046; 71250; 74000; 74018; 74178; 76700; 80048; 80053; 80074; 80202; 80307; 80320; 81001; 82055; 82140; 82270; 82607; 82746; 82805; 82948; 83036; 83690; 83735; 83880; 84100; 84145; 84295; 85014; 85018; 85025; 85027; 85610; 86038; 86039; 87040; 87077; 87088; 87186; 87275; 87276; 87324; 87449; 87804; 93005; 93010; 93971; 94640; 94660; 94760; 94761; 94762; 94799; 96372; 96374; 97110; 97162; 97530; 99284; 99285; A9270; C9113; G0480; G6040; J0360; J0696; J1630; J1650; J1815; J1940; J2020; J2060; J2175; J2185; J2270; J2543; J2560; J2920; J2930; J3370; J3411; J3475; J3480; J3486; J7030; J7050; J7070; Q9967; S0164; XXXXX

== ENCOUNTER 2018-06-25 13:26 | Inpatient (IN) ==
[2018-06-25] MEDS ORDERED: ASPIRIN PO ONE (13:34)
--- NOTE | 2018-06-25 14:10 | EKG Report ---
Test Performed on : 06/25/2018 1:42:49 PM Test Reason : SOB Blood Pressure : / mmHG Vent. Rate : 110 BPM Atrial Rate : 110 BPM P-R Int : 158 ms QRS Dur : 094 ms QT Int : 342 ms P-R-T Axes : 077 007 068 degrees QTc Int : 462 ms Sinus tachycardia. Otherwise normal ECG When compared with ECG of 04-JUN-2018 09:34, Nonspecific T wave abnormality no longer evident in Inferior leads Nonspecific T wave abnormality no longer evident in Lateral leads Unconfirmed Result
[2018-06-25 14:26] LABS: PROTIME 11.4 Seconds (11.0-16.0)
[2018-06-25 14:27] LABS: BASO# 0.01 X1000 (0.0-0.2); BASO% 0.1 % (0.0-0.8); EOS# 0.05 X1000 (0.0-0.7); EOS% 0.4 % (0.0-10.0); IMM GRAN# 0.05 X1000 (0.0-0.04); IMM GRAN% 0.4 % (0.0-0.5); INR 0.77; LYMPH# 0.34 X1000 (1.2-3.4); LYMPH% 2.8 % (20.5-51.1); MCH 32.3 PG (27-31); MCHC 32.5 g/dL (33-37); MCV 99.5 FL (81-99); MONO# 0.81 X1000 (0.11-0.59); MONO% 6.6 % (1.7-9.3); MPV 9.8 FL (7.4-10.4); NEUT# 10.93 X1000 (1.4-6.5); NEUT% 89.7 % (42.2-75.2); PLT 145 X1000 (130-400); PTT 30.7 Seconds (22.3-41.8); RBC 4.02 XMIL (4.7-6.1); RDW 13.5 % (11.5-14.5); WBC 12.19 X1000 (4.8-10.8)
--- NOTE | 2018-06-25 14:28 | Diag Imaging Result Doc PS360 ---
EXAM: CHEST-PORTABLE HISTORY: SOB TECHNIQUE: Portable chest COMPARISON: 06/17/2018 FINDINGS: The lungs are well expanded. The heart is not enlarged. There is a left-sided pacemaker The vessels are not distended. There are no infiltrates. No effusion identified. IMPRESSION: Negative exam. Electronically signed by Luis Monique 06/25/2018 2:26 PM
[2018-06-25 14:34] LABS: AGAP 13; ALB/GLOB RATIO 1.2; ALBUMIN 4.2 g/dL (3.5-5.0); ALKALINE PHOSPHATASE 331 U/L (32-122); BUN 14 mg/dL (8-22); CALCIUM 9.9 mg/dL (8.8-10.2); CHLORIDE 94 mmol/L (98-107); CK PROFILE 35 U/L (24-204); COSMO 288; ESTIMATED GFR > 60; GLUCOSE 179 mg/dL (70-104); GOT 106 U/L (10-34); GPT 125 U/L (10-44); POTASSIUM 4.1 mmol/L (3.5-5.1); SODIUM 142 mmol/L (136-145); TCO2 35 mmol/L (25-35); TOTAL BILIRUBIN 0.73 mg/dL (0.20-1.00); TOTAL PROTEIN 7.6 g/dL (6.3-8.3)
[2018-06-25] MEDS ORDERED: DUONEB (A & A) INH ONE (14:35)
[2018-06-25] MEDS ORDERED: DECADRON IV ONE (14:36)
[2018-06-25] MEDS ORDERED: ROCEPHIN 1 GM in NS 50 ML IV ONE (14:42)
[2018-06-25] MEDS ORDERED: NS 1,000 ML IV ONE (14:42)
[2018-06-25 15:01] LABS: URINE SOURCE CLEAN CATCH
[2018-06-25 15:13] LABS: BILIRUBIN URINE NEGATIVE (NEGATIVE); BLOOD URINE NEGATIVE (NEGATIVE); COLOR YELLOW; GLUCOSE URINE NEGATIVE (NEGATIVE); KETONE URINE NEGATIVE (NEGATIVE); LEUKOCYTES URINE LARGE (NEGATIVE); NITRITE URINE NEGATIVE (NEGATIVE); PH URINE 6.5; PROTEIN URINE NEGATIVE (NEGATIVE); TURBIDITY URINE HAZY (CLEAR); UROBILINOGEN URINE NORMAL (NORMAL)
[2018-06-25 15:20] LABS: ALLEN TEST YES; BE 11.7 mmoll (-3.0-3.0); BLOOD TYPE ARTERIAL; HCO3-(ACT) 33.9 mmoll (20.0-26.0); METHB 1.4 % (0.0-1.5); O2(CT) 18.3 mL/dL (15.0-23.0); O2HB 91.3 % (95.0-99.0); PCO2(98.6) 50 mmHg (35-45); PO2(98.6) 61 mmHg (60-100); SAMPLE BLOOD; THB 14.3 g/dL (11.5-17.4); pH(98.6) 7.48 (7.35-7.45)
[2018-06-25 15:29] LABS: UR EPITHELIAL CELLS <10 /HPF (<10); URINE BACTERIA NEGATIVE /HPF; URINE WBC TNTC /HPF (<10)
[2018-06-25 15:35] LABS: URINE CASTS NONE SEEN; URINE CRYSTALS NONE SEEN; URINE YEAST PRESENT
[2018-06-25 15:41] LABS: MODALITY CANNULA
--- NOTE | 2018-06-25 17:26 | PROVIDER DOCUMENTATION ---
This chart was entered by Shanika Reyna Scribe, acting as scribe for Braulio Marcos MD. HPI-Respiratory General - General Chief Complaint: Shortness of Breath Stated Complaint: COPD / SHORTNESS OF BREATH Time Seen by Provider: 06/25/18 14:10 Source: patient, family Allergies/Adverse Reactions: Patient Allergies Allergy/AdvReac Type Severity Reaction Status Date / Time No Known Allergies Allergy Verified 05/23/18 15:36 Home Medications: Home Medication List Medication Instructions Recorded Confirmed Last Taken Type Bupropion HCl [Bupropion Xl] 150 mg PO BID 09/09/17 06/25/18 05/20/18 History Furosemide 60 mg PO DAILY 09/09/17 06/25/18 05/20/18 History Ipratropium/Albuterol Sulfate 20 - 100 inh INH DAILY PRN 09/09/17 06/25/1805/20 History [Combivent Respimat 20-100 Mcg] Potassium Chloride 20 meq PO DAILY 09/09/17 05/20/18 05/20/18 History Fluticasone/Umeclidin/Vilanter 05/24/18 Unknown History [Trelegy Ellipta 100-62.5-25] Glimepiride 1 tab PO DAILY 05/24/18 06/25/18 Unknown History Metformin HCl [Metformin HCl ER] 500 mg PO BID 05/24/18 05/24/18 Unknown History Albuterol 2.5MG/Ipratrop 0.5MG 3 ml INH RTQ4H PRN #30 neb 06/19/18 06/25/18 Unknown Rx [Duoneb (A & A)] Amoxicillin/Potassium Clav 1 each PO BID #10 tablet 06/19/18 Unknown Rx [Augmentin 875-125 Tablet] Hydralazine [Apresoline] 25 mg PO Q8HR #90 tab 06/19/18 06/25/18 Unknown Rx Insulin Glargine [Basaglar] 20 unit SUBQ QAM #4 insuln.pen 06/19/18 06/25/18 Unknown Rx Iron Carbonyl/Ascorbic Acid 1 ea PO BID #60 tab 06/19/18 06/25/18 Unknown Rx [Icar-C] Lorazepam [Ativan] 0.5 mg PO DAILY #10 tablet 06/19/18 06/25/18 Unknown Rx Prednisone 20 mg PO DIRECTED #20 tablet 06/19/18 Unknown Rx Quetiapine [Seroquel] 25 mg PO QHS tablet 06/19/18 06/25/18 Unknown Rx - History of Present Illness-Resp Nature of Presenting Problem: 67 yom presents to the ed with c/o increasing sob for few days especially this morning associated with wheeze. pt home health care came out and sent pt to ed. He report mild cough, denies leg swelling or chest pain. pt was released from hosp pn 06/19/18 with dx copd, uti and detox. Quality of Pain: reports: none Severity in ED: reports: moderate (sob) Onset/Duration: reports: this morning (has been worsening throughout the day) Timing: reports: still present Exposure: reports: unknown cause Cough Quality/Degree: reports: mild, dry cough Episode Frequency: frequent episodes Current Respiratory Medication Therapy: Initiated see nurses note Modifying Factors: improves with: nothing Associated Symptoms: reports: cough, dizziness, hyperventilating, shortness of breath, wheezing. denies: chest pain/soreness, heart racing Similar Symptoms Previously?: Yes Recently seen or treated by another doctor?: Yes (was dc from hosp 06/19/18) Review of Systems - Adult - REVIEW OF SYSTEMS - ADULT Constitutional: reports: fatique. denies: chills, fever Eyes: reports: no symptoms reported Ears, Nose, Mouth & Throat: reports: no symptoms reported Cardiovascular: denies: chest pain, palpitations, syncope Respiratory: reports: cough, dyspnea on exertion, shortness of breath, wheezing Gastrointestinal: reports: see HPI, nausea. denies: diarrhea, vomiting Genitourinary: reports: no symptoms reported Musculoskeletal: reports: muscle aches. denies: back pain, neck pain Integumentary: reports: no symptoms reported Neurological: reports: see HPI, dizziness/vertigo. denies: headache/migraines, loss of balance, numbness, paresthesia, slurred speech, syncope, tremors Psychiatric: reports: no symptoms reported Endocrine: reports: no symptoms reported Hematologic/Lymphatic: reports: no symptoms reported Allergic/Immunologic: reports: no symptoms reported All Other Systems: Reviewed and Negative Past History - Adult - PAST MEDICAL HISTORY-ADULT Review of Records: reports: Old Records Reviewed, Nursing Assessment Review, Medications Reviewed, Social history reviewed & non-contributory. Major Childhood Illnesses: reports: denies history Cardiovascular: reports: CHF, HTN, pacemaker Respiratory: reports: COPD Gastrointestinal: reports: denies history Genitourinary: reports: denies history Musculoskeletal: reports: denies history Neurological: reports: denies history Endocrine/Immune: reports: denies history, Diabetes Diabetes Type: Type 2 Other Conditions: reports: denies history - PRIOR SURGERIES/PROCEDURES Surgical/Procedure History: reports: pacemaker - PRIOR HOSPITALIZATIONS Prior Hospitalizations: reports: none - IMMUNIZATION STATUS Childhood Immunizations: See Nurse Assessment Flu Vaccine: See Nurse Assessment - FAMILY HISTORY Family History: reviewed, not pertinent - SOCIAL HISTORY Smoking: denies Substance Use: none presently/history of abuse Living Situation: family Physical Exam-General - PHYSICAL EXAM-ADULT Initial Vital Signs Reviewed: Yes - CONSTITUTIONAL General Appearance: alert, mild distress - EYES Eyes: PERRL/EOMI, pink conjunctivae - HEAD, EARS, NOSE, MOUTH & THROAT HENMT: moist mucous membranes, normal ENT inspection - NECK Neck: non-tender, normal inspection - RESPIRATORY Respiratory: respiratory distress, decreased breath sounds, wheezing, increased rate (32). negative: crackles, rales, rhonchi - CARDIOVASCULAR Cardiovascular: normal peripheral pulses, tachycardia (109) - GASTROINTESTINAL (ABDOMEN) Abdominal Exam: normal bowel sounds, non tender, soft - GENITOURINARY Male Genitalia: deferred Rectal Exam: deferred - LYMPHATIC Lymphatic: no adenopathy - MUSCULOSKELETAL Back Exam: normal inspection Extremity: normal capillary refill, pelvis stable - SKIN Integumentary: normal color, normal turgor, warm/dry - NEUROLOGIC Neurologic: grossly normal - PSYCHIATRIC Psych/Mental Status: normal mood/affect, normal thought content, normal thought process, oriented x 3 Progress - PLAN OF CARE/RESULTS Progress/Plan/Lab Results: Vital Signs - 8 hr 06/25/18 13:43 06/25/18 14:18 06/25/18 14:32 Temperature 98.7 F Pulse Rate 109 H 109 H 107 H Respiratory Rate 32 H 30 H 32 H Blood Pressure 124/85 132/76 126/86 O2 Sat by Pulse Oximetry 90 L 93 L 93 L 06/25/18 15:01 06/25/18 15:15 06/25/18 15:39 Temperature Pulse Rate 110 H 97 H 112 H Respiratory Rate 16 Blood Pressure 136/87 135/77 O2 Sat by Pulse Oximetry 94 L 94 L 91 L 06/25/18 16:01 06/25/18 16:20 Temperature Pulse Rate 110 H 107 H Respiratory Rate 10 L Blood Pressure 122/69 O2 Sat by Pulse Oximetry 89 L 94 L Laboratory Results - last 24 hr 06/25/18 06/25/18 06/25/18 13:56 13:57 13:57 WBC 12.19 H RBC 4.02 L Hgb 13.0 L Hct 40.0 L MCV 99.5 H MCH 32.3 H MCHC 32.5 L RDW Std Deviation 13.5 Plt Count 145 MPV 9.8 Immature Gran % (Auto) 0.4 Neut % (Auto) 89.7 H Lymph % (Auto) 2.8 L Wilcox % (Auto) 6.6 Eos % (Auto) 0.4 Baso % (Auto) 0.1 Immature Gran # (Auto) 0.05 H Neut # (Auto) 10.93 H Lymph # (Auto) 0.34 L Wilcox # (Auto) 0.81 H Eos # (Auto) 0.05 Baso # (Auto) 0.01 PT INR PTT (Actin FS) Specimen Type Sample Site pH pCO2 pO2 HCO3 Base Excess Oxyhemoglobin ABG O2 Sat (Calculated) ABG O2 Saturation ABG Carboxyhemoglobin ABG Methemoglobin Raúl Test A-a O2 Difference Total Hemoglobin Lactate Liter Flow Blood Gas Modality FiO2 % Sodium 142 Potassium 4.1 Chloride 94 L Carbon Dioxide 35 Anion Gap 13 BUN 14 Creatinine 1.0 Estimated GFR/1.73 m2 > 60 BUN/Creatinine Ratio 14 Glucose 179 H Calculated Osmolality 288 Calcium 9.9 Total Bilirubin 0.73 AST 106 H ALT 125 H Alkaline Phosphatase 331 H Creatine Kinase 35 Troponin T Dpd-V-Trtairhcoyy Pept Total Protein 7.6 Albumin 4.2 Globulin 3.4 Albumin/Globulin Ratio 1.2 Plasma Lactate 1.7 Urine Source Urine Color Urine Turbidity Urine pH Ur Specific [place] Urine Protein Ur Glucose (Stick) Ur Ketones (Stick) Urine Blood Urine Nitrite Urine Bilirubin Urobilinogen Dipstick Urine Leukocytes Urine WBC (Auto) Urine RBC (Auto) U Epithel Cells (Auto) Urine Bacteria (Auto) Urine Crystals Small Round Cells Urine Casts Urine Yeast-like Cells 06/25/18 06/25/18 06/25/18 13:57 13:57 13:57 WBC RBC Hgb Hct MCV MCH MCHC RDW Std Deviation Plt Count MPV Immature Gran % (Auto) Neut % (Auto) Lymph % (Auto) Wilcox % (Auto) Eos % (Auto) Baso % (Auto) Immature Gran # (Auto) Neut # (Auto) Lymph # (Auto) Wilcox # (Auto) Eos # (Auto) Baso # (Auto) PT 11.4 INR 0.77 PTT (Actin FS) 30.7 Specimen Type Sample Site pH pCO2 pO2 HCO3 Base Excess Oxyhemoglobin ABG O2 Sat (Calculated) ABG O2 Saturation ABG Carboxyhemoglobin ABG Methemoglobin Raúl Test A-a O2 Difference Total Hemoglobin Lactate Liter Flow Blood Gas Modality FiO2 % Sodium Potassium Chloride Carbon Dioxide Anion Gap BUN Creatinine Estimated GFR/1.73 m2 BUN/Creatinine Ratio Glucose Calculated Osmolality Calcium Total Bilirubin AST ALT Alkaline Phosphatase Creatine Kinase Troponin T 0.015 Fzx-B-Tiaulvrtkjq Pept 585 H Total Protein Albumin Globulin Albumin/Globulin Ratio Plasma Lactate Urine Source Urine Color Urine Turbidity Urine pH Ur Specific [place] Urine Protein Ur Glucose (Stick) Ur Ketones (Stick) Urine Blood Urine Nitrite Urine Bilirubin Urobilinogen Dipstick Urine Leukocytes Urine WBC (Auto) Urine RBC (Auto) U Epithel Cells (Auto) Urine Bacteria (Auto) Urine Crystals Small Round Cells Urine Casts Urine Yeast-like Cells 06/25/18 06/25/18 14:37 15:11 WBC RBC Hgb Hct MCV MCH MCHC RDW Std Deviation Plt Count MPV Immature Gran % (Auto) Neut % (Auto) Lymph % (Auto) Wilcox % (Auto) Eos % (Auto) Baso % (Auto) Immature Gran # (Auto) Neut # (Auto) Lymph # (Auto) Wilcox # (Auto) Eos # (Auto) Baso # (Auto) PT INR PTT (Actin FS) Specimen Type ARTERIAL Sample Site R RADIAL pH 7.48 H pCO2 50 H pO2 61 HCO3 33.9 H Base Excess 11.7 H Oxyhemoglobin 91.3 L ABG O2 Sat (Calculated) 18.3 ABG O2 Saturation 95.0 ABG Carboxyhemoglobin 2.50 ABG Methemoglobin 1.4 Raúl Test YES A-a O2 Difference 105.0 Total Hemoglobin 14.3 Lactate 0.90 Liter Flow 3.0 Blood Gas Modality CANNULA FiO2 % 32.0 Sodium Potassium Chloride Carbon Dioxide Anion Gap BUN Creatinine Estimated GFR/1.73 m2 BUN/Creatinine Ratio Glucose Calculated Osmolality Calcium Total Bilirubin AST ALT Alkaline Phosphatase Creatine Kinase Troponin T Clp-T-Twrencmiash Pept Total Protein Albumin Globulin Albumin/Globulin Ratio Plasma Lactate Urine Source CLEAN CATCH Urine Color YELLOW Urine Turbidity HAZY Urine pH 6.5 Ur Specific [place] 1.000 Urine Protein NEGATIVE Ur Glucose (Stick) NEGATIVE Ur Ketones (Stick) NEGATIVE Urine Blood NEGATIVE Urine Nitrite NEGATIVE Urine Bilirubin NEGATIVE Urobilinogen Dipstick NORMAL Urine Leukocytes LARGE A Urine WBC (Auto) TNTC A Urine RBC (Auto) 10-20 A U Epithel Cells (Auto) <10 Urine Bacteria (Auto) NEGATIVE Urine Crystals NONE SEEN Small Round Cells Not Reportable Urine Casts NONE SEEN Urine Yeast-like Cells PRESENT Orders Category Date Time Status Cardiac Monitoring DIRECTED Care 06/25/18 13:34 Active Oxygen Therapy- ED Nursing DIRECTED Care 06/25/18 13:34 Active Saline Loc NOW Care 06/25/18 13:34 Active Diabetic Diet Diet 06/25/18 15:53 Active CHEST-PORTABLE [RAD] Stat Exams 06/25/18 13:55 Completed ABG [RESP] Routine Lab 06/25/18 15:11 Completed BLOOD CULTURE [BLDCUL] Stat Lab 06/25/18 15:15 Received CBC WITH ELECTRONIC DIFF [HEME] Stat Lab 06/25/18 13:57 Completed CK PROFILE [SP CHEM] Stat Lab 06/25/18 13:57 Completed COMPREHENSIVE METABOLIC PANEL [CHEM] Stat Lab 06/25/18 13:57 Completed LACTATE, PLASMA [CHEM] Stat Lab 06/25/18 13:56 Completed PRO B-NATRIURETIC PEPTIDE Stat Lab 06/25/18 13:57 Completed PROTIME WITH INR [COAG] Stat Lab 06/25/18 13:57 Completed PTT [COAG] Stat Lab 06/25/18 13:57 Completed TROPONIN T Stat Lab 06/25/18 13:57 Completed URINALYSIS W/POSS RFLX CULT [URINALYSIS] Stat Lab 06/25/18 14:37 Completed URINE CULTURE [RM] Routine Lab 06/25/18 15:30 Received URINE MANUAL MICROSCOPIC [URINALYSIS] Stat Lab 06/25/18 14:37 Completed 0.9% Sodium Chloride Inj [Ns] 1,000 ml Med 06/25/18 14:42 Discontinued IV 999 mls/hr Albuterol 2.5MG/Ipratrop 0.5MG [Duoneb (A & A)] Med 06/25/18 14:35 Discontinued 9 ml INH NOW ONE Aspirin Med 06/25/18 13:34 Discontinued 325 mg PO NOW ONE CefTRIAXONE [Rocephin] 1 gm Med 06/25/18 14:42 Discontinued 0.9% Sodium Chloride Inj [Ns] 50 ml IV NOW Dexamethasone [Decadron] Med 06/25/18 14:36 Discontinued 10 mg IV NOW ONE Aerosol Treatments Routine Oth 06/25/18 14:36 Completed Aerosol Treatments Stat Oth 06/25/18 14:36 Completed BIPAP Stat Oth 06/25/18 14:35 Active CP/SOB/Palp >45 yrs of Age Stat Oth 06/25/18 13:34 Ordered EKG [EKG] Stat Ther 06/25/18 13:34 Draft Transfer/Admit Order [TRANSFER] Routine Transfer 06/25/18 16:08 Ordered Patient care, assessment and plan discussed with the attending physician Dr. Stuart Muhammad and he agree with the plan as documented. Result Diagrams: 06/25/18 13:57 06/25/18 13:57 - REASSESSMENT Reassessment #1 Time Reassessed: 15:23 Status: improving (Patient has less SOB, less tachypneic. better air entry but still tight lung exam. will admit to inpatient.) - EKG 1 Time of EKG reading by physician:: 13:42 EKG Read and Signed by:: Braulio Cobb EKG Interpretation (*Must complete 3 of following elements*): Normal Rate: 110 Rhythm: sinus tachycardia [place]: normal QRS: normal [place] Interval: normal ST Wave: normal - XRAY 1 XRAY: Bilateral XRAY Study: Chest ( EXAM: CHEST-PORTABLE HISTORY: SOB TECHNIQUE: Portable chest COMPARISON: 06/17/2018 FINDINGS: The lungs are well expanded. The heart is not enlarged. There is a left-sided pacemaker The vessels are not distended. There are no infiltrates. No effusion identified. IMPRESSION: Negative exam. Electronically signed by Luis Monique 06/25/2018 2:26 PM 06/25/18 [id number] Interpreting Physician: Luis Monique MD Dictated Date/Time : 06/25/18 1428 cc: Stuart Muhammad MD; Omar Ruiz MD) - CONSULTS/PCP/HOSPITALIST Notification #1 *Consult/PCP/Hospitalist*: RAMAN Maurice admit to Dr. Aguilera Time Discussed: 15:42 Consult Disposition: Admit (Accepted.) Departure - Departure Date of Disposition Decision: 06/25/18 Time of Disposition Decision: 15:42 DIAGNOSIS: COPD exacerbation, Elevated brain natriuretic peptide (BNP) level Sepsis Qualifiers: Sepsis type: sepsis due to unspecified organism Qualified Code(s): A41.9 - Sepsis, unspecified organism Respiratory failure Qualifiers: Chronicity: unspecified Respiratory failure complication: hypoxia and hypercapnia Qualified Code(s): J96.91 - Respiratory failure, unspecified with hypoxia; J96.92 - Respiratory failure, unspecified with hypercapnia Disposition: ADMITTED INPATIENT 09 Certified Medical Emergency: Emergent Condition: Stable Referrals and Follow-Ups: Omar Ruiz MD [Primary Care Provider] - - Critical Care Note This patient required my direct & personal management of CC.: Yes Total Time (mins): 36 Critical Care Statement: This patient required my direct personal management to treat or rule out processes, the absence of which, could potentiallly result in sudden, clinically significant life or limb threatening deterioration. Attestation - Physician/ JER Attestation Patient care was provided by Advanced Practice Provider:: No The physician spent face to face time with patient:: Yes Advanced Practice Provider documentation review:: Supervising physician onsite and consulted in the evaluation and care of this patient. The physician did have a face to face encounter with the patient. This chart was documented by the indicated scribe, (Shanika Reyna Scribe) and accurately reflects the services I performed and decisions made by me, Braulio Marcos MD, as attested by the provider's signature.
[2018-06-25] MEDS ORDERED: NORCO-7.5 PO PRN (19:25)
[2018-06-25] MEDS ORDERED: NICODERM PATCH TD PRN (19:25)
[2018-06-25] MEDS ORDERED: ZOFRAN IV PRN (19:25)
[2018-06-25] MEDS: DUONEB (A & A) INH SCH ×2 (19:30→23:30)
[2018-06-25] MEDS: HUMALOG SUBQ SCH (21:00)
--- NOTE | 2018-06-25 21:26 | Diag Imaging Result Doc PS360 ---
EXAM: CT THORAX W/O CONTRAST - 06/25/2018 HISTORY: hypoxia. pneumonia vs copd exac TECHNIQUE: CT thorax without contrast. No contrast administered per request the referring provider. COMPARISON: 06/15/2018 FINDINGS: There are mild COPD/emphysematous changes. There is interstitial infiltrate with fine nodularity at the right lower lobe and possibly right middle and upper lobes. There is no dense consolidation, pleural effusion, or pneumothorax identified. There are nonspecific small to borderline mediastinal lymph nodes similar to prior. Included sections of upper abdomen show possible cirrhosis with dramatically/portal hypertension, similar to prior. There is no discrete focal lesion identified in the visualized portion of the liver. There are small bilateral adrenal nodules similar to prior, possibly representing adrenal adenomas. IMPRESSION: Mild COPD/emphysematous changes. Pneumonitis and/or bronchopneumonia on the right, most prominent at the lower lobe. No dense consolidation. This exam was performed using automated exposure control, adjustment of mA or kV according to patient size, and/or use of iterative reconstruction technique. Electronically signed by Sterling Baird 06/25/2018 9:24 PM
[2018-06-25] MEDS: SEROQUEL PO SCH (22:06)
[2018-06-25] MEDS: WELLBUTRIN XL PO SCH (22:06)
[2018-06-25] MEDS: SOLU-MEDROL IV SCH (22:06)
[2018-06-25] MEDS: LIBRIUM PO SCH (22:30)
[2018-06-26] MEDS: HUMALOG SUBQ SCH ×5 (00:39→21:29)
--- NOTE | 2018-06-26 01:15 | HISTORY AND PHYSICAL ---
CHIEF COMPLAINT: Dyspnea. HISTORY OF PRESENT ILLNESS: Patient is a 67-year-old white male with history of COPD on 2 L O2 at home, hypertension, diabetes, atrial fibrillation, CHF, tobacco abuse and until recently alcohol abuse. He was recently discharged on June 19, approximately 5 days ago, after being admitted for a prolonged period with a COPD exacerbation, pneumonia, pulmonary edema and alcohol withdrawal. He reports being relatively stable for the 1st day or so after discharge but then began having episodes of shortness of breath. He endorses increased nonproductive cough, subjective chills, but no fevers, and episodes of shortness of breath also associated with anxiety. He endorses a history of anxiety which has worsened since he stopped drinking. He denies restarting alcohol abuse since his discharge, but was previously a pint a day drinker. He has had no nausea, vomiting, diarrhea, muscle aches. He has occasional urinary hesitancy, but denies current dysuria. On presentation to the ED, he was found to have a mildly elevated white count and hypoxia worse than his baseline. For this reason, we were asked to admit the patient for further evaluation and treatment. REVIEW OF SYSTEMS: Twelve point review of systems negative except as per interval history. ALLERGIES: No known drug allergies. PAST MEDICAL HISTORY: As per HPI. PAST SURGICAL HISTORY: Pacemaker/defibrillator placement. FAMILY HISTORY: Mother , had diabetes while she was alive. Father from CHF. SOCIAL HISTORY: Smokes 1 to 2 packs per day for several decades. Previously 1 pint per day of liquor drinker, but states he has not resumed drinking since discharge almost a week ago. LABS: White count 12.1, hemoglobin 13, hematocrit 40, platelets 145,000, neutrophils 89.7. PH 7.48, pCO2 50, PO2 61, O2 saturation 95% on 32% FiO2. AST 106, ALT 125, alkaline phosphatase 331, bilirubin 0.73. BNP 585. Complete metabolic panel otherwise unremarkable. Lactate 1.7. Urinalysis significant for large leukocytes, too numerous to count white cells, 10 to 20 red cells, no epithelial cells. IMAGING: Chest x-ray with no acute process. Chest CT pending. PHYSICAL EXAMINATION: VITALS: T-max 98.7 degrees, pulse 97, respirations 16, blood pressure 122/69, O2 saturation 89% on 3 L by nasal cannula. GENERAL: No acute distress. Vitals as above. HEENT: Normocephalic, atraumatic. Moist mucous membranes. No cervical adenopathy. CARDIOVASCULAR: Regular rate and rhythm. No murmurs, rubs, or gallops. PULMONARY: Faint end-expiratory wheeze with good air entry throughout. Slight bibasilar crackles, otherwise clear to auscultation. ABDOMEN: Soft, nontender, nondistended. Bowel sounds positive. EXTREMITIES: Peripheral pulses decreased but intact. No clubbing or cyanosis. No edema. NEUROLOGIC: Cranial nerves 2-12 grossly intact. No focal motor sensory deficits. PSYCHIATRIC: Normal mood and affect. Awake, alert, oriented x3. SKIN: No new rashes or lesions noted. ASSESSMENT AND PLAN: 1. Acute on chronic hypoxic and chronic hypercapnic respiratory failure: Suspect mild COPD exacerbation but we will obtain CT chest to make sure we are not missing a pneumonia. White count is minimally elevated, but no fevers here. We will place on IV steroids and DuoNebs and monitor closely. Suspect that at least part of his dyspnea is anxiety related, so we will likely start the patient on Paxil. BNP is not significantly elevated compared to previous and no evidence of pulmonary edema on chest x-ray so low suspicion for congestive heart failure, but as his exact CHF status is unclear we will also obtain an echocardiogram. Patient on 2 L O2 at home, so we will work toward weaning him down to that. 2. Congestive heart failure. Last EF unknown, but suspect this failure is systolic as patient states that his pacemaker/defibrillator was placed primarily for heart failure. We will obtain echo to clarify status. 3. Diabetes mellitus. Last A1c 7.4. No need to recheck at this time. We will place on sliding scale insulin and continue recently added basal insulin. 4. Alcohol dependence. The patient was a pint a day drinker until approximately 5 days ago. Denies continued drinking, but given severity of withdrawal on previous admission we will place on a Librium taper and monitor. 5. Atrial fibrillation, likely paroxysmal versus patient may have had an ablation previously. Normal sinus rhythm at the time of my exam. We will monitor on telemetry. 6. Tobacco abuse. Patient again counseled on cessation and offered nicotine patch. 7. Transaminitis, likely related to history of alcohol abuse. Previously with mild hepatosplenomegaly noted on ultrasound. We will monitor, but no need for acute intervention at this time. 8. Likely urinary tract infection. Patient urinalysis suggestive of urinary tract infection. Previous urine cultures with Enterobacter cloacae and Enterobacter aerogenes, both sensitive to Rocephin so we will place him on Rocephin until culture data is available. 9. Deep vein thrombosis prophylaxis, SCDs.
[2018-06-26] MEDS: DUONEB (A & A) INH SCH ×6 (03:30→23:20)
[2018-06-26] MEDS: LIBRIUM PO SCH ×3 (04:30→16:18)
[2018-06-26 05:09] LABS: ALLEN TEST YES; BE 7.4 mmoll (-3.0-3.0); BLOOD TYPE ARTERIAL; HCO3-(ACT) 30.7 mmoll (20.0-26.0); METHB 1.2 % (0.0-1.5); O2(CT) 14.7 mL/dL (15.0-23.0); O2HB 96.8 % (95.0-99.0); PO2(98.6) 112 mmHg (60-100); SAMPLE BLOOD; SAO2 99.6 % (95.0-100.0); THB 10.7 g/dL (11.5-17.4); pH(98.6) 7.42 (7.35-7.45)
[2018-06-26 05:12] LABS: MODALITY VENTIMASK; PCO2(98.6) 51 mmHg (35-45)
[2018-06-26 07:47] LABS: HEMATOCRIT 32.9 % (42.0-52.0); HEMOGLOBIN 10.7 g/dL (14.0-18.0); IMM GRAN# 0.02 X1000 (0.0-0.04); IMM GRAN% 0.3 % (0.0-0.5); LYMPH# 0.42 X1000 (1.2-3.4); LYMPH% 5.7 % (20.5-51.1); MCH 32.2 PG (27-31); MCHC 32.5 g/dL (33-37); MCV 99.1 FL (81-99); MONO# 0.36 X1000 (0.11-0.59); MONO% 4.9 % (1.7-9.3); MPV 9.7 FL (7.4-10.4); NEUT# 6.52 X1000 (1.4-6.5); NEUT% 89.1 % (42.2-75.2); PLT 119 X1000 (130-400); RBC 3.32 XMIL (4.7-6.1); WBC 7.32 X1000 (4.8-10.8)
[2018-06-26 07:59] LABS: BANDS 2 % (0-1); LYMPHS 6 % (21-51); MONO 2 % (1-9); SEGS 90 % (42-75)
[2018-06-26 08:05] LABS: AGAP 12; ALB/GLOB RATIO 1.1; ALBUMIN 3.6 g/dL (3.5-5.0); ALKALINE PHOSPHATASE 274 U/L (32-122); BUN 26 mg/dL (8-22); CALCIUM 9.1 mg/dL (8.8-10.2); CHLORIDE 94 mmol/L (98-107); COSMO 290; CREATININE 1.1 mg/dL (0.7-1.2); ESTIMATED GFR > 60; GLUCOSE 370 mg/dL (70-104); GOT 76 U/L (10-34); GPT 104 U/L (10-44); POTASSIUM 3.9 mmol/L (3.5-5.1); SODIUM 135 mmol/L (136-145); TCO2 29 mmol/L (25-35); TOTAL BILIRUBIN 0.49 mg/dL (0.20-1.00); TOTAL PROTEIN 6.9 g/dL (6.3-8.3)
[2018-06-26] MEDS: PRILOSEC PO SCH (08:08)
[2018-06-26] MEDS: LASIX PO SCH (09:08)
[2018-06-26] MEDS: ZITHROMAX 500 MG/NS 500 MG/250 ML IVPB IV SCH (09:15)
[2018-06-26] MEDS: SOLU-MEDROL IV SCH ×2 (09:15→21:29)
[2018-06-26] MEDS: WELLBUTRIN XL PO SCH ×2 (09:56→21:28)
[2018-06-26] MEDS: BASAGLAR SUBQ SCH (10:00)
--- NOTE | 2018-06-26 13:13 | ECHO REPORT ---
ORDER DATE: 06/25/2018 ECHOCARDIOGRAPHIC MEASUREMENTS: 1. Interventricular septum 1.0. 2. Left ventricular posterior wall. 0.9. 3. Diastolic diameter 5.8. 4. Left atrium 4.2. 5. Aorta 3.3. SUMMARY: 1. Left atrial enlargement. 2. Technically suboptimal study. Poor acoustic window. 3. Aortic valve leaflets are trileaflet. 4. Mitral valve was normal. 5. Tricuspid valve was normal. 6. Peak velocity across the aortic valve less than 2 m/sec. There is no aortic stenosis or regurgitation. 7. There is trace mitral regurgitation. 8. Trace tricuspid regurgitation. Peak velocity across the tricuspid valve was 2 m/sec. 9. Definity was used to assess left ventricular systolic function to better delineate endocardium. 10. The left ventricle is mildly dilated with an estimated ejection fraction of 45%. There is apical hypokinesis. 11. Pacing leads were noted in the right chamber. 12. There is no pericardial effusion. cc: Roel Hernandez MD
[2018-06-26] MEDS: ROCEPHIN 1 GM in NS 50 ML IV SCH (15:41)
--- NOTE | 2018-06-26 16:06 | PROGRESS NOTE ---
DATE: 06/26/2017 INTERVAL HISTORY: Patient dyspnea somewhat improved. Oxygen requirements significantly improved. Afebrile overnight. Patient still with some nonproductive cough with no new complaints no acute events overnight . REVIEW OF SYSTEMS: Twelve point review of systems negative except as per interval history . LABS: WBC 7.3, hemoglobin 10.7, hematocrit 32.9 , platelets 119,000. ABG with pH 7.4, pCO2 51 , PO2 112, O2 saturation 99 on 50% Ventimask at that time. Sodium 135, potassium 3.9, chloride 94, BUN 26, creatinine 1.1, AST 76, ALT 104, alkaline phosphatase 274. IMAGING: Chest CT showing mild emphysematous changes and pneumonitis/ bronchopneumonia on the right most prominent in lower lobe . Incidental note made of likely cirrhosis of the liver. VITALS: T-max 98.7 degrees, pulse 87, respiration 16, blood pressure 137/71, O2 saturation 98% on 2 L by nasal cannula. PHYSICAL EXAM: General: No acute distress vitals as above. HEENT: Normocephalic, atraumatic, moist mucous membranes, no cervical adenopathy . Cardiovascular: Regular rate and rhythm no murmur, rub, gallop. Pulmonary: Still with faint end-expiratory wheeze with good air entry throughout slight bibasilar crackles right greater than otherwise largely clear. Abdomen: Soft, nontender, nondistended bowel sounds positive. Extremities: Peripheral pulses decreased but intact, no clubbing or cyanosis or edema. Neurologic: Cranial nerves 2-12 grossly intact, no focal motor sensory deficit. Psychiatric: No mood, affect, awake, alert oriented x3. Skin: No rashes or lesions noted . ASSESSMENT AND PLAN: 1. Acute on chronic hypoxic chronic hypercapnic respiratory failure: Multifactorial with mild chronic obstructive pulmonary disease exacerbation and pneumonia identified on chest CT started on antibiotics with Rocephin and azithromycin which will continue. Leukocytosis resolved, no fevers. Continue steroids, duo nebs, antibiotics. Oxygen requirements weaning down rapidly will continue patient's home bupropion but recommend he discuss with PCP possibly changing to another antidepressant with more anti anxiety effect. 2. Chronic systolic congestive heart failure last ejection fraction unknown but here appears to be 40 to 45 so fairly mild decrease in ejection fraction, has pacemaker/ defibrillator in place. Does not appear to be in exacerbation at this time. 3. Diabetes mellitus A1c 7.4 control poor with current steroids . Received 1st dose of basal insulin on this morning so will wait and see what that does prior to adjusting, suspect he will need a higher level of sliding scale and possibly a higher doses of basal insulin . 4. History of alcohol dependence. Patient was a pint a day drinker until approximately 1 month ago when he was admitted. Denies further drinking since discharge 5 days ago. On low-dose Librium taper given severity withdrawal on previous admission. 5. Atrial fibrillation likely paroxysmal as patient has been normal sinus rhythm here. Continue to monitor on telemetry. 6. Tobacco abuse, patient counseled on cessation and offered nicotine patch. 7. 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 Will monitor, no need for acute intervention at this time. 8. Likely urinary tract infection, urinalysis strongly suggestive of urinary tract infection, previous urine cultures with Enterobacter cloaca and Enterobacter aerogenes both sensitive to Rocephin so he should be well covered by Rocephin as above. Culture pending. 9. Deep vein thrombosis prophylaxis SCDs. 10. Disposition, hopefully home in the next 24 to 48 hours if he continues to improve. CAITLIN
[2018-06-26] MEDS: SEROQUEL PO SCH (21:28)
[2018-06-27] MEDS: LIBRIUM PO SCH ×3 (00:03→16:49)
[2018-06-27] MEDS: DUONEB (A & A) INH SCH ×6 (03:20→22:42)
[2018-06-27] MEDS: PRILOSEC PO SCH (06:29)
[2018-06-27] MEDS: HUMALOG SUBQ SCH ×4 (06:30→20:35)
[2018-06-27] MEDS: SOLU-MEDROL IV SCH ×2 (08:34→21:34)
[2018-06-27] MEDS: LASIX PO SCH (08:35)
[2018-06-27] MEDS: WELLBUTRIN XL PO SCH ×2 (08:35→21:34)
[2018-06-27] MEDS: BASAGLAR SUBQ SCH (10:38)
[2018-06-27] MEDS: ZITHROMAX 500 MG/NS 500 MG/250 ML IVPB IV SCH (10:38)
[2018-06-27] MEDS: ROCEPHIN 1 GM in NS 50 ML IV SCH (15:06)
--- NOTE | 2018-06-27 17:15 | PROGRESS NOTE ---
DATE: 06/27/2018 SUBJECTIVE: This patient is still complaining of shortness of breath, he is still wheezing bilaterally, he is still having some nonproductive cough but no new complaints overnight though. I will continue with the same management for now. I will ask for a hemoglobin A1c. I will start decreasing his Librium slowly. I already talked to the patient and probably he will spend a few more days in the hospital. OBJECTIVE: Vital Signs: Temperature 98.2 degrees, pulse 92, respiratory rate 14, blood pressure 146/71, oxygen saturation 97 on room air. HEENT: Head normocephalic. No trauma. PERRLA. Neck: Supple. No JVD. No masses. Central trachea. Chest: Decreased breath sounds globally with prolonged expiratory phase, bibasilar crackles and expiratory wheezing. Abdomen: Soft, nontender, nondistended. No hepatosplenomegaly. Extremities: No edema, no clubbing, no cyanosis. Neurological: The patient is alert and oriented x3. He does have some mild hand tremors but he is following commands. He is completely oriented. LABORATORY: Glucose 382. ASSESSMENT AND PLAN: 1. Acute on chronic hypoxemic and hypercapnic respiratory failure probably multifactorial due to his history of chronic obstructive pulmonary disease and pneumonia. Will continue with ceftriaxone and azithromycin. He is not having fever. Continue with steroids but I will start decreasing the dose slowly probably tomorrow. 2. Right lower lobe pneumonia, continue with same management. I do believe he is getting better slowly. 3. Chronic obstructive pulmonary disease exacerbation, continue with steroids, breathing treatment, oxygen supplementation and pulmonary toilet. 4. Chronic systolic congestive heart failure, ejection fraction around 40 to 45 percent. He does not appear to be in exacerbation at this time. 5. Type 2 diabetes. Hemoglobin A1c 7.4. Will continue with steroids, that probably is increasing his glucose in blood, will continue with pattern of blood sugar and sliding scale insulin. 6. History of alcohol dependence. It looks like he stopped drinking around 1 month ago and he went to a detox center. Apparently he was discharged a few days ago probably a week, he has been placed on low dose of Librium that will be tapered down slowly. 7. Atrial fibrillation likely paroxysmal. He has been in normal sinus rhythm. Continue to monitor. 8. Tobacco abuse. This patient has been highly advised against tobacco use. I will continue with daily cessation education. 9. Transaminitis likely secondary to alcoholic hepatitis. Will continue to monitor. No intervention at this time. 10. Deep vein thrombosis prophylaxis with sequential compression devices. cc: Glenroy Roth MD
[2018-06-27] MEDS: SEROQUEL PO SCH (21:34)
[2018-06-28] MEDS: LIBRIUM PO SCH ×2 (00:37→08:17)
[2018-06-28] MEDS: DUONEB (A & A) INH SCH ×6 (03:23→23:57)
[2018-06-28 04:47] LABS: ALLEN TEST YES; BE 5.5 mmoll (-3.0-3.0); BLOOD TYPE ARTERIAL; HCO3-(ACT) 29.1 mmoll (20.0-26.0); METHB 0.9 % (0.0-1.5); O2(CT) 15.5 mL/dL (15.0-23.0); O2HB 91.7 % (95.0-99.0); PO2(98.6) 66 mmHg (60-100); SAMPLE BLOOD; SAO2 94.7 % (95.0-100.0); pH(98.6) 7.33 (7.35-7.45)
[2018-06-28 04:54] LABS: MODALITY CANNULA
[2018-06-28 05:20] LABS: PCO2(98.6) 63 mmHg (35-45)
[2018-06-28] MEDS: PRILOSEC PO SCH (06:26)
[2018-06-28] MEDS: HUMALOG SUBQ SCH ×4 (06:28→22:39)
[2018-06-28 07:08] LABS: HEMATOCRIT 35.6 % (42.0-52.0); HEMOGLOBIN 11.3 g/dL (14.0-18.0); IMM GRAN# 0.02 X1000 (0.0-0.04); IMM GRAN% 0.2 % (0.0-0.5); LYMPH# 0.47 X1000 (1.2-3.4); LYMPH% 5.1 % (20.5-51.1); MCH 31.9 PG (27-31); MCHC 31.7 g/dL (33-37); MCV 100.6 FL (81-99); MONO% 6.5 % (1.7-9.3); MPV 10.2 FL (7.4-10.4); NEUT# 8.09 X1000 (1.4-6.5); NEUT% 88.2 % (42.2-75.2); PLT 145 X1000 (130-400); RBC 3.54 XMIL (4.7-6.1); RDW 13.4 % (11.5-14.5); WBC 9.18 X1000 (4.8-10.8)
--- NOTE | 2018-06-28 07:14 | Diag Imaging Result Doc PS360 ---
EXAM: CHEST-PORTABLE 06/28/2018 HISTORY: dyspnea TECHNIQUE: AP portable at 0505 COMMENT: The inspiration is less optimal than on 06/25/2018. Otherwise there has been no significant change. IMPRESSION: Stable chest. Electronically signed by Maximo Devine 06/28/2018 7:11 AM
[2018-06-28 07:16] LABS: ALBUMIN 3.6 g/dL (3.5-5.0); CALCIUM 8.9 mg/dL (8.8-10.2); CREATININE 1.4 mg/dL (0.7-1.2); TOTAL BILIRUBIN 0.4 mg/dL (0.20-1.00); TOTAL PROTEIN 7.3 g/dL (6.3-8.3)
[2018-06-28 07:22] LABS: HEMOGLOBIN A1C 6.7 % (4.8-6.0)
[2018-06-28] MEDS: SOLU-MEDROL IV SCH (08:16)
[2018-06-28 08:17] LABS: POTASSIUM 4.1 mmol/L (3.5-5.1)
[2018-06-28] MEDS: WELLBUTRIN XL PO SCH ×2 (08:18→22:35)
[2018-06-28] MEDS: LASIX PO SCH (08:18)
[2018-06-28] MEDS: BASAGLAR SUBQ SCH (08:19)
--- NOTE | 2018-06-28 11:56 | PROGRESS NOTE ---
DATE: 06/28/2018 SUBJECTIVE: This patient states that he is feeling better. He is still having some expiratory wheezing, but compared with yesterday he is improving. He has a little increase of his BUN and creatinine. I will hold his furosemide today and see how he does. Also I will decrease the dose of the steroids to once a day. Hopefully that will improve the hyperglycemia. OBJECTIVE: Vital Signs: Temperature 98.3 degrees, pulse 86, respiratory rate 18, blood pressure 135/62, oxygen saturation 98% on 3 L of nasal cannula. HEENT: Head normocephalic. No trauma. PERRLA. Neck: Supple. No JVD. No masses. Central trachea. Chest: Decreased breath sounds globally with prolonged expiratory phase. Bilateral scattered crackles and expiratory wheezing. Abdomen: Soft, nontender, nondistended. No hepatosplenomegaly. Extremities: No edema. No clubbing. No cyanosis. Neurological: He is alert. He is oriented x3. He is not having tremors today. He is completely oriented. LABORATORY: WBC 9.1, hemoglobin 11.3, hematocrit 35.6, platelets 145,000. Sodium 139, potassium 4.1, chloride 97, bicarbonate 26, BUN 28, creatinine 1.4, glucose 325, calcium 8.9. Hemoglobin A1c 6.7, albumin 3.6. ASSESSMENT AND PLAN: 1. Acute on chronic hypoxemic and hypercapnic respiratory failure, multifactorial due to COPD, pneumonia. Continue with ceftriaxone and azithromycin. He is not having fever continue with steroids but I will decrease the dose today. 2. Right lower lobe pneumonia. Continue with same management. I think he is getting better. 3. Chronic obstructive pulmonary disease exacerbation. Continue with steroids, but I will decrease the dose, breathing treatment, oxygen supplementation and pulmonary toilet. 4. Chronic systolic congestive heart failure, ejection fraction around 40 to 45 percent, He does not appear to be in exacerbation at this time, but he does have lower extremity edema. 5. Type 2 diabetes. His blood sugar is between 200s and 300s because of the steroids, which I have decreased today. Continue with sliding scale insulin and pattern of blood sugar. 6. History of alcohol abuse. This patient has been highly advised against alcohol use. I will continue with daily cessation education. Apparently, this patient already stopped drinking a month ago. 7. Tobacco abuse. This patient has been highly advised against tobacco use. I will continue with daily cessation education. This patient apparently stopped smoking a month ago as well. 8. Atrial fibrillation, likely paroxysmal. He has been in normal sinus rhythm. Continue to monitor. 9. Transaminitis, likely secondary to alcoholic hepatitis. Continue to monitor. 10. Deep vein thrombosis prophylaxis with SCDs. cc: Glenroy Roth MD
[2018-06-28] MEDS: ZITHROMAX 500 MG/NS 500 MG/250 ML IVPB IV SCH (12:07)
[2018-06-28] MEDS: ROCEPHIN 1 GM in NS 50 ML IV SCH (14:50)
[2018-06-28] MEDS: SEROQUEL PO SCH (22:35)
[2018-06-28] MEDS: ATIVAN IV PRN (22:35)
[2018-06-29] MEDS: DUONEB (A & A) INH SCH ×6 (03:30→23:05)
[2018-06-29 06:38] LABS: BASO# 0.01 X1000 (0.0-0.2); BASO% 0.1 % (0.0-0.8); EOS# 0.01 X1000 (0.0-0.7); EOS% 0.1 % (0.0-10.0); HEMATOCRIT 33.6 % (42.0-52.0); HEMOGLOBIN 10.7 g/dL (14.0-18.0); LYMPH# 0.75 X1000 (1.2-3.4); LYMPH% 11.1 % (20.5-51.1); MCH 32.5 PG (27-31); MCHC 31.8 g/dL (33-37); MCV 102.1 FL (81-99); MONO# 0.62 X1000 (0.11-0.59); MONO% 9.2 % (1.7-9.3); MPV 10.1 FL (7.4-10.4); NEUT# 5.34 X1000 (1.4-6.5); NEUT% 79.5 % (42.2-75.2); PLT 117 X1000 (130-400); RBC 3.29 XMIL (4.7-6.1); RDW 13.3 % (11.5-14.5); WBC 6.73 X1000 (4.8-10.8)
[2018-06-29] MEDS: PRILOSEC PO SCH (06:49)
[2018-06-29] MEDS: HUMALOG SUBQ SCH ×4 (06:51→20:25)
[2018-06-29 07:18] LABS: AGAP 9; ALB/GLOB RATIO 1.1; ALBUMIN 3.4 g/dL (3.5-5.0); ALKALINE PHOSPHATASE 255 U/L (32-122); BUN 25 mg/dL (8-22); CALCIUM 9.3 mg/dL (8.8-10.2); CHLORIDE 103 mmol/L (98-107); COSMO 297; CREATININE 1.1 mg/dL (0.7-1.2); ESTIMATED GFR > 60; GLUCOSE 177 mg/dL (70-104); GOT 132 U/L (10-34); GPT 185 U/L (10-44); IRON SATURATION 20 %; POTASSIUM 3.3 mmol/L (3.5-5.1); SODIUM 145 mmol/L (136-145); TCO2 33 mmol/L (25-35); TIBC 270 ug/dL; TOTAL BILIRUBIN 0.41 mg/dL (0.20-1.00); TOTAL IRON 55 ug/dL (53-167); TOTAL PROTEIN 6.4 g/dL (6.3-8.3); UNBOUND IRON 215 ug/dL (112-346)
[2018-06-29 07:30] LABS: FERRITIN 241 ng/mL (30-400)
[2018-06-29] MEDS: SOLU-MEDROL IV SCH (10:54)
[2018-06-29] MEDS: WELLBUTRIN XL PO SCH ×2 (10:54→20:25)
[2018-06-29] MEDS: BASAGLAR SUBQ SCH (10:54)
[2018-06-29] MEDS: ZITHROMAX 500 MG/NS 500 MG/250 ML IVPB IV SCH (10:55)
[2018-06-29] MEDS ORDERED: KLOR-CON PO ONE (11:41)
[2018-06-29] MEDS: ROCEPHIN 1 GM in NS 50 ML IV SCH (16:42)
--- NOTE | 2018-06-29 18:01 | PROGRESS NOTE ---
DATE: 06/29/2018 SUBJECTIVE: No acute events overnight, this patient still complaining of shortness of breath, he is still having some wheezing and generalized weakness, his folate level is low. I will replace it as well as his potassium level. OBJECTIVE: Vital Signs: Temperature 98 degrees, pulse 95, respiratory rate 18, blood pressure 129/71, oxygen saturation 97 on 3 L of nasal cannula. HEENT: Head normocephalic. No trauma. PERRLA. Neck: Supple. No JVD. No masses. Central trachea. Chest: Decreased breath sounds globally with prolonged expiratory phase. Bilateral scattered crackles and expiratory wheezing. Abdomen: Soft, nontender, nondistended. No hepatosplenomegaly. Extremities: 1 to 2+ lower extremity edema. No clubbing, no cyanosis. Neurological: The patient is alert. He is oriented x3. He is not having tremors today . LABORATORY: WBC 6.7, hemoglobin 10.7, hematocrit 33.6, platelets 117,000, sodium 145, potassium 3.3, chloride 103, bicarbonate 33, BUN 25, creatinine 1.1, glucose 177, calcium 9.3, AST 132, ALT 185, alkaline phosphatase 255. ASSESSMENT AND PLAN: 1. Acute on chronic hypoxemic and hypercapnic respiratory failure, this is likely multifactorial due to pneumonia and chronic obstructive pulmonary disease, continue with ceftriaxone and azithromycin. He is not having fever, continue with steroids as well. 2. Right lower lobe pneumonia. Continue with antibiotics. 3. Chronic obstructive pulmonary disease exacerbation. Continue with steroids, oxygen supplementation, breathing treatment and pulmonary toilet. 4. Chronic systolic congestive heart failure, ejection fraction 40 to 45 percent. He does no appear to be on exacerbation at this time but he does have some crackles and lower extremity edema, I will put this patient on IV Lasix. 5. Type 2 diabetes. Blood sugar better controlled. 6. History of alcohol abuse. This patient has been highly advised against alcohol abuse. I will continue with daily cessation education. 7. Tobacco abuse. This patient has been highly advised against tobacco use. I will continue with daily cessation education as well. 8. Atrial fibrillation likely paroxysmal. At this moment he is on normal sinus rhythm. Continue to monitor. 9. Transaminitis likely secondary to alcoholic hepatitis. Continue to monitor. 10. Deep vein thrombosis prophylaxis with SCDs. cc: Glenroy Roth MD
[2018-06-29] MEDS: LASIX IV SCH (18:22)
[2018-06-29] MEDS: SEROQUEL PO SCH (20:25)
[2018-06-29] MEDS: FOLIC ACID PO SCH (20:25)
[2018-06-29] MEDS: ATIVAN IV PRN (22:42)
[2018-06-30] MEDS: DUONEB (A & A) INH SCH ×6 (03:35→23:25)
[2018-06-30] MEDS ORDERED: INSULIN PEN NEEDLES ONE (05:39)
[2018-06-30] MEDS: HUMALOG SUBQ SCH ×4 (06:41→20:47)
[2018-06-30] MEDS: PRILOSEC PO SCH (07:00)
[2018-06-30 07:02] LABS: BASO# 0.01 X1000 (0.0-0.2); BASO% 0.2 % (0.0-0.8); EOS# 0.05 X1000 (0.0-0.7); EOS% 0.8 % (0.0-10.0); HEMATOCRIT 33.1 % (42.0-52.0); HEMOGLOBIN 10.5 g/dL (14.0-18.0); IMM GRAN# 0.02 X1000 (0.0-0.04); IMM GRAN% 0.3 % (0.0-0.5); LYMPH# 0.85 X1000 (1.2-3.4); LYMPH% 13.4 % (20.5-51.1); MCH 32.1 PG (27-31); MCHC 31.7 g/dL (33-37); MCV 101.2 FL (81-99); MONO# 0.56 X1000 (0.11-0.59); MONO% 8.8 % (1.7-9.3); MPV 10.3 FL (7.4-10.4); NEUT# 4.85 X1000 (1.4-6.5); NEUT% 76.5 % (42.2-75.2); PLT 113 X1000 (130-400); RBC 3.27 XMIL (4.7-6.1); RDW 13.2 % (11.5-14.5); WBC 6.34 X1000 (4.8-10.8)
[2018-06-30 07:21] LABS: AGAP 7; ALB/GLOB RATIO 1.1; ALBUMIN 3.2 g/dL (3.5-5.0); ALKALINE PHOSPHATASE 240 U/L (32-122); BUN 18 mg/dL (8-22); CALCIUM 9.1 mg/dL (8.8-10.2); CHLORIDE 100 mmol/L (98-107); COSMO 288; ESTIMATED GFR > 60; GLUCOSE 121 mg/dL (70-104); GOT 94 U/L (10-34); GPT 156 U/L (10-44); POTASSIUM 3.6 mmol/L (3.5-5.1); SODIUM 143 mmol/L (136-145); TCO2 36 mmol/L (25-35); TOTAL BILIRUBIN 0.43 mg/dL (0.20-1.00); TOTAL PROTEIN 6.1 g/dL (6.3-8.3)
[2018-06-30] MEDS: ZITHROMAX 500 MG/NS 500 MG/250 ML IVPB IV SCH (09:14)
[2018-06-30] MEDS: LASIX IV SCH (09:32)
[2018-06-30] MEDS: SOLU-MEDROL IV SCH (09:32)
[2018-06-30] MEDS: WELLBUTRIN XL PO SCH ×2 (09:32→20:46)
[2018-06-30] MEDS: FOLIC ACID PO SCH ×2 (09:33→20:46)
[2018-06-30] MEDS: BASAGLAR SUBQ SCH (09:33)
[2018-06-30] MEDS ORDERED: LASIX IV ONE (10:35)
--- NOTE | 2018-06-30 11:04 | PROGRESS NOTE ---
DATE: 06/30/2018 SUBJECTIVE: This patient states that he is feeling better. He is still having some shortness of breath but, as per the patient, this is chronic. He has COPD, and he used to be a smoker and an alcoholic. He received Lasix IV yesterday and, also, he will receive it today in the afternoon but I will give him an extra dose right now. His kidney function is stable. OBJECTIVE: Vital Signs: Temperature 97.5, pulse 82, respiratory rate 18, blood pressure 128/68, oxygen saturation 95% on 3 L of nasal cannula. HEENT: Head normocephalic. No trauma. PERRLA. Neck supple. No JVD. No masses. Central trachea. Chest: Decreased breath sounds globally with prolonged expiratory phase. Bilateral scattered crackles but no wheezing today. Abdomen is soft, nontender, nondistended. No hepatosplenomegaly. Extremities 2+ lower extremity edema. No clubbing. No cyanosis. Neurologic: This patient is alert and oriented x3. No focal deficits. LABORATORY: WBC 6.3, hemoglobin 10.5, hematocrit 33.1, platelet 113. Sodium 143 , potassium 3.6, chloride 100, bicarbonate 36. BUN 18, creatinine 1, glucose 121. Calcium 9.1. AST 94, ALT 156, alkaline phosphatase 240. Albumin 3.2. ASSESSMENT AND PLAN: 1. [id number] hypoxemic and hypercapnic respiratory failure likely multifactorial due to pneumonia and chronic obstructive pulmonary disease. Continue with antibiotics. He is not having fever. We will continue with the same dose of the steroids as well. 2. Chronic obstructive pulmonary disease exacerbation. 3. Continue with steroids, oxygen supplementation, breathing treatment and pulmonary toilet. 4. Right lower lobe pneumonia. Continue with antibiotics. 5. Chronic systolic congestive heart failure. Ejection fraction around 40% to 45% percent. He does not appear to be in exacerbation at this moment. He does have some crackles at the level of the lower lobes and lower extremity edema. He is getting Lasix daily and an extra dose of Lasix this morning. 6. Type 2 diabetes. Blood sugar better controlled. 7. History of alcohol abuse. This patient has been highly advised against alcohol abuse and will continue with daily cessation education. Apparently, this patient stopped drinking more than 1 month ago, and he went to a detox center. 8. Tobacco abuse. This patient has been highly advised against tobacco use. I will continue with daily cessation education. 9. Atrial fibrillation, likely paroxysmal. I am not quite sure about this diagnosis as he has never been told about this apparently. We will continue to monitor for now. 10. Transaminitis, likely secondary to alcoholic hepatitis. Continue to monitor. 11. Deep vein thrombosis prophylaxis with sequential compression devices. cc: Glenroy Roth MD MTDD
[2018-06-30] MEDS: ROCEPHIN 1 GM in NS 50 ML IV SCH (14:16)
[2018-06-30] MEDS: ATIVAN IV PRN (20:46)
[2018-06-30] MEDS: SEROQUEL PO SCH (20:46)
[2018-07-01] MEDS: DUONEB (A & A) INH SCH ×3 (02:55→11:17)
[2018-07-01 06:50] LABS: BASO# 0.01 X1000 (0.0-0.2); BASO% 0.1 % (0.0-0.8); EOS# 0.05 X1000 (0.0-0.7); EOS% 0.7 % (0.0-10.0); HEMATOCRIT 36.8 % (42.0-52.0); HEMOGLOBIN 11.7 g/dL (14.0-18.0); LYMPH# 0.78 X1000 (1.2-3.4); LYMPH% 10.8 % (20.5-51.1); MCH 31.8 PG (27-31); MCHC 31.8 g/dL (33-37); MONO# 0.48 X1000 (0.11-0.59); MONO% 6.6 % (1.7-9.3); NEUT# 5.93 X1000 (1.4-6.5); NEUT% 81.8 % (42.2-75.2); PLT 128 X1000 (130-400); RBC 3.68 XMIL (4.7-6.1); RDW 13.4 % (11.5-14.5); WBC 7.25 X1000 (4.8-10.8)
[2018-07-01] MEDS: HUMALOG SUBQ SCH (07:00)
[2018-07-01 07:41] LABS: AGAP 9; ALBUMIN 3.6 g/dL (3.5-5.0); ALKALINE PHOSPHATASE 297 U/L (32-122); BUN 17 mg/dL (8-22); CALCIUM 9.5 mg/dL (8.8-10.2); CHLORIDE 99 mmol/L (98-107); COSMO 288; CREATININE 0.9 mg/dL (0.7-1.2); ESTIMATED GFR > 60; GLUCOSE 99 mg/dL (70-104); GOT 124 U/L (10-34); GPT 202 U/L (10-44); POTASSIUM 3.4 mmol/L (3.5-5.1); SODIUM 144 mmol/L (136-145); TCO2 36 mmol/L (25-35); TOTAL BILIRUBIN 0.49 mg/dL (0.20-1.00); TOTAL PROTEIN 7.1 g/dL (6.3-8.3)
[2018-07-01 07:53] VITALS: BP 127/62
[2018-07-01] MEDS ORDERED: KLOR-CON PO ONE (09:20)
[2018-07-01] MEDS: SOLU-MEDROL IV SCH (09:42)
[2018-07-01] MEDS: BASAGLAR SUBQ SCH (09:43)
[2018-07-01] MEDS: FOLIC ACID PO SCH (09:44)
[2018-07-01] MEDS: WELLBUTRIN XL PO SCH (09:44)
[2018-07-01] MEDS: LASIX IV SCH (09:44)
--- NOTE | 2018-07-02 06:03 | DISCHARGE SUMMARY ---
ADMISSION DATE: 06/25/2018 DISCHARGE DATE: 07/01/2018 CONSULTATIONS: None. PERTINENT PROCEDURES: 1. Chest CT, mild COPD, emphysematous changes, pneumonitis and/or bronchopneumonia on the right, most prominent in the lower lobe. No dense consolidation. 2. Followup chest x-ray showed a stable chest. 3. Echocardiogram showed an EF of 45% with apical hypokinesis, pacing leads noted to the right chamber. DISCHARGE DIAGNOSES: 1. Acute on chronic hypoxemic, hypercapnic respiratory failure, likely multifactorial due to pneumonia and chronic obstructive pulmonary disease. The patient has been on intravenous antibiotics. He has improved with antibiotics, bronchodilators, and steroids. He will be discharged home with home oxygen. He will continue on bronchodilators, a Z-Bryan, Keflex, and a prednisone taper. 2. Chronic obstructive pulmonary disease exacerbation. Will continue with steroids and supplemental oxygen at home. Continue aggressive pulmonary toilet and bronchodilators. 3. Right lower lobe pneumonia. He will continue on oral antibiotics. 4. Chronic systolic heart failure, ejection fraction is 40 to 45 percent, without exacerbation. He will continue his home medications. 5. Type 2 diabetes. Blood sugars are better controlled. He will continue with a diabetic diet and home regimen. 6. History of alcohol abuse. The patient did quit alcohol one month ago and went to a detox center. 7. Tobacco abuse. Again, the patient has been educated daily about smoking cessation as well as the means to quit. He also quit smoking one month ago. 8. Atrial fibrillation, likely paroxysmal. We were quite sure about this diagnosis as he has never been told. We continued to monitor. Stable rhythm. 9. Transaminitis, secondary to alcoholic hepatitis. HOSPITAL COURSE: Briefly, Mr. Leija is a 67-year-old, gentleman with a history of COPD on 2 L of O2 at home, hypertension, diabetes, atrial fibrillation, congestive heart failure, tobacco abuse, recently quit both alcohol and tobacco. He was discharged on June 19, approximately 5 days ago, for being admitted for prolonged period of COPD exacerbation, pneumonia, pulmonary edema, and alcohol withdrawal. He reported being relatively stable for the 1st day or so after discharge but then began having episodes of shortness of breath. He did have an increase in cough that was nonproductive, subjective chills but no fevers, episodes of shortness of breath associated with anxiety. He denied the use of restarting alcohol or tobacco. He was previously a pint a day drinker. He was admitted for acute on chronic hypoxemic and hypercapnic respiratory failure secondary to chronic obstructive pulmonary disease exacerbation as well as found to have a right lower lobe pneumonia. He was placed on appropriate antibiotics, IV steroids, bronchodilators, aggressive pulmonary toilet, supplemental O2. He continued to improve throughout his hospital stay. His clinical course was stable. He will be discharged back home with home O2, and encourage alcohol and tobacco abuse cessation. DISCHARGE DIET: Diabetic. DISCHARGE MEDICATIONS: 1. Bupropion XL 150 mg p.o. b.i.d. 2. Trelegy Ellipta 100/62.5/25 one puff inhaled daily. 3. Lasix 60 mg p.o. daily. 4. Glimepiride 1 tablet p.o. daily. 5. Metformin 500 mg p.o. b.i.d. 6. Potassium chloride 20 mEq p.o. daily. 7. Mirapex 0.25 mg p.o. p.r.n. 8. Seroquel 25 mg p.o. at bedtime. 9. Apresoline 25 mg p.o. q.8 hours. 10. DuoNebs 3 mL inhaled q.6 hours p.r.n. 11. Z-Bryan as instructed. 12. Keflex 500 mg p.o. q.8 hours, total of 12 capsules. 13. Folic acid 1 mg p.o. daily. 14. Basaglar 20 units subcutaneous q.a.m. 15. Combivent Respimat inhaler 1 inch inhaled 4 times a day. 16. Icar C 1 each p.o. b.i.d. 17. Ativan 0.5 mg p.o. daily. 18. Medrol Dosepak 4 mg p.o. as directed. 19. Prednisone taper 20 mg for 5 days, taper as directed. FOLLOWUP: Mr. Leija is being discharged back home with home O2. Again, he has been educated to continue with his alcohol and tobacco abuse cessation. He has been quit for 1 month. We encouraged him to continue this. He is to follow up with his primary care provider, Dr. Omar Ruiz. He is to take all antibiotics, steroids, and bronchodilators as instructed. He can return to the ED or call 911 for any worsening of symptoms. Dictated by BRENDA Deleon for Glenroy Roth MD cc: MD Omar Lowe MD
== END 2018-07-01 14:08 | disposition home health service (06) | DRG 193 ==
LOC: ED 13:26 → EDIPHOLD 18:48 → SUATTDRO 18:48 → 4N 06-26 10:12
PROVIDERS: ATTEND Internal Medicine
CPT/HCPCS: 71010; 71045; 71250; 80053; 81001; 82550; 82607; 82728; 82746; 82805; 82948; 83036; 83540; 83550; 83605; 83880; 84484; 85025; 85610; 85730; 87040; 87088; 93005; 93306; 94640; 94761; 96365; 96367; 96372; 96375; 96376; 97116; 97162; 99285; A9270; C8929; J0456; J0696; J1815; J1940; J2060; J2920; J2930; J7030; Q9957; XXXXX

== ENCOUNTER 2018-12-23 15:37 | Inpatient (IN) ==
[2018-12-23] MEDS ORDERED: ASPIRIN PO ONE (15:59)
[2018-12-23] MEDS ORDERED: VANCOMYCIN 1 GM/NS 1 GM/250 ML IVPB IV ONE (16:06)
[2018-12-23] MEDS ORDERED: ZOSYN 3.375 GM in NS 50 ML IV ONE ×2 (16:06→20:00)
[2018-12-23] MEDS ORDERED: SOLU-MEDROL IV ONE (16:06)
[2018-12-23] MEDS ORDERED: DUONEB (A & A) INH ONE (16:06)
[2018-12-23] MEDS ORDERED: NS 1,000 ML IV ONE (16:06)
[2018-12-23] MEDS ORDERED: SOLU-CORTEF IV ONE (16:08)
[2018-12-23 16:42] LABS: BASO# 0.01 X1000 (0.0-0.2); BASO% 0.1 % (0.0-0.8); EOS# 0.09 X1000 (0.0-0.7); EOS% 1.1 % (0.0-10.0); HEMATOCRIT 37.5 % (42.0-52.0); HEMOGLOBIN 12.1 g/dL (14.0-18.0); IMM GRAN# 0.01 X1000 (0.0-0.04); IMM GRAN% 0.1 % (0.0-0.5); LYMPH# 0.64 X1000 (1.2-3.4); LYMPH% 7.6 % (20.5-51.1); MCH 30.9 PG (27-31); MCHC 32.3 g/dL (33-37); MCV 95.7 FL (81-99); MONO# 0.43 X1000 (0.11-0.59); MONO% 5.1 % (1.7-9.3); MPV 9.7 FL (7.4-10.4); NEUT# 7.28 X1000 (1.4-6.5); PLT 139 X1000 (130-400); RBC 3.92 XMIL (4.7-6.1); RDW 13.6 % (11.5-14.5); WBC 8.46 X1000 (4.8-10.8)
[2018-12-23 16:56] LABS: INR 0.91; PROTIME 12.7 Seconds (11.0-16.0)
[2018-12-23 16:57] LABS: BILIRUBIN URINE NEGATIVE (NEGATIVE); BLOOD URINE TRACE (NEGATIVE); CLARITY VERY CLOUDY (CLEAR); COLOR YELLOW; GLUCOSE URINE NEGATIVE (NEGATIVE); KETONE URINE NEGATIVE (NEGATIVE); LEUKOCYTES URINE 2+ (NEGATIVE); NITRITE URINE NEGATIVE (NEGATIVE); PROTEIN URINE NEGATIVE (NEGATIVE); SP GRAVITY URINE 1.015; UROBILINOGEN URINE NORMAL
[2018-12-23 16:57] LABS: PTT 28.4 Seconds (22.3-41.8)
[2018-12-23 16:59] LABS: UR AMPHETAMINES QUAL NONE DETECTED (NONE DETECT); UR BARBITUATES QUAL NONE DETECTED (NONE DETECT); UR BENZODIAZEPIN QUAL PRESUMPTIVE POSITIVE (NONE DETECT); UR CANNABINOIDS QUAL NONE DETECTED (NONE DETECT); UR COCAINE QUAL NONE DETECTED (NONE DETECT); UR METHADONE QUAL NONE DETECTED (NONE DETECT); UR METHAMPHETAMINE QUAL NONE DETECTED (NONE DETECT); UR OPIATES QUAL NONE DETECTED (NONE DETECT); UR OXYCODONE QUAL NONE DETECTED (NONE DETECT); UR PCP QUAL NONE DETECTED (NONE DETECT); UR PROPOXYPHENE QUAL NONE DETECTED (NONE DETECT); UR TCA QUAL NONE DETECTED (NONE DETECT)
[2018-12-23 17:02] LABS: BE 7.8 mmoll (-3.0-3.0); BLOOD TYPE ARTERIAL; HCO3-(ACT) 30.9 mmoll (20.0-26.0); METHB 1.3 % (0.0-1.5); O2(CT) 15.9 mL/dL (15.0-23.0); O2HB 91.7 % (95.0-99.0); PO2(98.6) 116 mmHg (60-100); SAMPLE BLOOD; SAO2 99.7 % (95.0-100.0); THB 12.2 g/dL (11.5-17.4); pH(98.6) 7.39 (7.35-7.45)
[2018-12-23 17:07] LABS: PCO2(98.6) 57 mmHg (35-45)
[2018-12-23 17:08] LABS: MODALITY CANNULA
[2018-12-23 17:09] LABS: ALLEN TEST YES
[2018-12-23 17:16] LABS: URINE SOURCE CLEAN CATCH
[2018-12-23 17:17] LABS: ALBUMIN 4.2 g/dL (3.5-5.0); CALCIUM 8.9 mg/dL (8.8-10.2); CREATININE 1.3 mg/dL (0.7-1.2); POTASSIUM 4.7 mmol/L (3.5-5.1); TOTAL BILIRUBIN 0.4 mg/dL (0.20-1.00); TOTAL PROTEIN 7.4 g/dL (6.3-8.3)
[2018-12-23 17:19] LABS: URINE RBC <10 /HPF (<10); URINE WBC TNTC /HPF (<10)
[2018-12-23 17:20] LABS: URINE BACTERIA NEGATIVE /HFP; URINE CAST NONE SEEN /LPF; URINE CRYSTAL NONE SEEN /HPF; URINE EPITHELIAL CELLS <10 /HPF (<10); URINE SMALL ROUND CELLS TRANSITIONAL PRESENT; URINE YEAST PRESENT /HPF
--- NOTE | 2018-12-23 17:20 | EKG Report ---
Test Performed on : 12/23/2018 4:19:15 PM Test Reason : AMS Blood Pressure : / mmHG Vent. Rate : 087 BPM Atrial Rate : 087 BPM P-R Int : 170 ms QRS Dur : 094 ms QT Int : 384 ms P-R-T Axes : 075 -19 050 degrees QTc Int : 462 ms Normal sinus rhythm. Septal infarct (cited on or before 05-DEC-2018) Abnormal ECG When compared with ECG of 05-DEC-2018 15:25, (Unconfirmed) No significant change was found Unconfirmed Result
[2018-12-23] MEDS ORDERED: DIFLUCAN 400 MG/NS 400 MG/200 ML IVPB IV ONE (17:46)
[2018-12-23] MEDS ORDERED: ZOFRAN IV PRN (17:56)
[2018-12-23] MEDS ORDERED: TYLENOL PO PRN (17:56)
--- NOTE | 2018-12-23 17:56 | PROVIDER DOCUMENTATION ---
This chart was entered by Dayanna Singh Scribe, acting as scribe for Guzman Grider MD. HPI-Respiratory General - General Chief Complaint: Shortness of Breath Stated Complaint: STROKE LIKE SX Time Seen by Provider: 12/23/18 15:55 Source: patient Allergies/Adverse Reactions: Patient Allergies Allergy/AdvReac Type Severity Reaction Status Date / Time No Known Allergies Allergy Verified 12/23/18 16:18 Home Medications: Home Medication List Medication Instructions Recorded Confirmed Last Taken Type Bupropion HCl [Bupropion Xl] 150 mg PO BID 09/09/17 06/25/18 05/20/18 History Furosemide 60 mg PO DAILY 09/09/17 06/25/18 05/20/18 History Potassium Chloride 20 meq PO DAILY 09/09/17 06/26/18 05/20/18 History Fluticasone/Umeclidin/Vilanter 1 puff IH DAILY 05/24/18 06/26/18 Unknown History [Trelegy Ellipta 100-62.5-25] Glimepiride 1 tab PO DAILY 05/24/18 06/25/18 Unknown History Metformin HCl [Metformin HCl ER] 500 mg PO BID 05/24/18 06/26/18 Unknown History Albuterol 2.5MG/Ipratrop 0.5MG 3 ml INH RTQ4H PRN #30 neb 06/19/18 06/25/18 Unknown Rx [Duoneb (A & A)] Hydralazine [Apresoline] 25 mg PO Q8HR #90 tab 06/19/18 06/25/18 Unknown Rx Insulin Glargine [Basaglar] 20 unit SUBQ QAM #4 insuln.pen 06/19/18 06/25/18 Un known Rx Iron Carbonyl/Ascorbic Acid 1 ea PO BID #60 tab 06/19/18 06/25/18 Unknown Rx [Icar-C] Lorazepam [Ativan] 0.5 mg PO DAILY #10 tablet 06/19/18 06/25/18 Unknown Rx Quetiapine [Seroquel] 25 mg PO QHS tablet 06/19/18 06/25/18 Unknown Rx Pramipexole [Mirapex] 0.25 mg PO PRN PRN 06/26/18 06/26/18 Unknown History Azithromycin [Zithromax Z-Bryan] 250 mg PO DIRECTED #1 pkg 07/01/18 Unknown Rx Cephalexin [Keflex] 500 mg PO Q8H #12 cap 07/01/18 Unknown Rx Folic Acid 1 mg PO DAILY #90 tab 07/01/18 Unknown Rx Ipratropium/Albuterol Sulfate 1 inh INH 4XDAY #1 07/01/18 06/25/18 05/20/18 Rx [Combivent Respimat 20-100 Mcg] Methylprednisolone [Medrol Dosepak] 4 mg PO DIRECTED #1 pkg 07/01/18 Unknown Rx Prednisone 20 mg PO DAILY #20 tab 07/01/18 Unknown Rx Levofloxacin [Levaquin] 500 mg PO DAILY #10 tab 12/05/18 Unknown Rx Levofloxacin [Levaquin] 750 mg PO DAILY #7 tab 12/05/18 Unknown Rx - History of Present Illness-Resp Nature of Presenting Problem: Patient is a 68 year old male who presents with family for shortness of breath. Patient's daughter states patient has been having visual and auditory galeano ucinations. Daughter reports history of carbon dioxide retention. Family also states patient has been on multiple antibiotics recently for numerous diagnoses. Patient's GCS is 14. Quality of Pain: reports: tightness Severity in ED: reports: moderate Onset/Duration: reports: gradual Timing: reports: still present, getting worse Associated Symptoms: reports: shortness of breath Similar Symptoms Previously?: Yes Recently seen or treated by another doctor?: Yes Review of Systems - Adult - REVIEW OF SYSTEMS - ADULT ROS:: ROS per family Constitutional: reports: no symptoms reported. denies: chills, fever, fatique Eyes: reports: no symptoms reported Ears, Nose, Mouth & Throat: reports: no symptoms reported Cardiovascular: reports: no symptoms reported Respiratory: reports: see HPI, shortness of breath. denies: cough, wheezing Gastrointestinal: reports: no symptoms reported Genitourinary: reports: no symptoms reported Musculoskeletal: reports: no symptoms reported Integumentary: reports: no symptoms reported Neurological: reports: no symptoms reported Psychiatric: reports: see HPI, other (auditory and visual hallucinations). denies: anxiety, depression, suicidal thoughts Endocrine: reports: no symptoms reported Hematologic/Lymphatic: reports: no symptoms reported Allergic/Immunologic: reports: no symptoms reported All Other Systems: Reviewed and Negative Past History - Adult - PAST MEDICAL HISTORY-ADULT Review of Records: reports: Old Records Reviewed, Nursing Assessment Review, Medications Reviewed, Social history reviewed & non-contributory. Major Childhood Illnesses: reports: denies history Cardiovascular: reports: CHF, HTN, pacemaker Respiratory: reports: asthma, COPD Gastrointestinal: reports: denies history Obstetrical/Gynecological: reports: denies history Genitourinary: reports: denies history Musculoskeletal: reports: denies history Neurological: reports: denies history Endocrine/Immune: reports: Diabetes Other Conditions: reports: denies history - PRIOR SURGERIES/PROCEDURES Surgical/Procedure History: reports: pacemaker - PRIOR HOSPITALIZATIONS Prior Hospitalizations: reports: none - IMMUNIZATION STATUS Childhood Immunizations: See Nurse Assessment Flu Vaccine: See Nurse Assessment - FAMILY HISTORY Family History: reviewed, not pertinent - SOCIAL HISTORY Smoking: cigarettes, greater than 1 pack/day Provider spent 3-5 mins advising pt. on dangers of tobacco.: Discussed manners to quit use, and f/u contacts for add'l counseling. Alcohol Use Frequency: sober (former use) Physical Exam-General - PHYSICAL EXAM-ADULT Initial Vital Signs Reviewed: Yes - CONSTITUTIONAL General Appearance: alert, mild distress. negative: lethargic - HEAD, EARS, NOSE, MOUTH & THROAT HENMT: normocephalic/atraumatic, moist mucous membranes. negative: angioedema - RESPIRATORY Respiratory: chest non-tender, respiratory distress (mild), decreased breath sounds, wheezing (inspiratory and expiratory bilaterally), increased rate, other (tight breath sounds bilaterally.). negative: crackles, rhonchi - CARDIOVASCULAR Cardiovascular: normal peripheral pulses, regular rate, rhythm. negative: tachycardia, systolic murmur - GASTROINTESTINAL (ABDOMEN) Abdominal Exam: normal bowel sounds, non tender, soft. negative: guarding, rebound - MUSCULOSKELETAL Extremity: non-tender, normal inspection. negative: deformity, erythema - SKIN Integumentary: normal color, normal turgor, warm/dry. negative: cyanosis, ecchymosis, erythema, jaundice - NEUROLOGIC Neurologic: grossly normal. negative: aphasia, facial droop - PSYCHIATRIC Psych/Mental Status: normal mood/affect, other (oriented to person and place.). negative: anxious Progress - PLAN OF CARE/RESULTS Progress/Plan/Lab Results: Vital Signs - 8 hr 12/23/18 15:48 12/23/18 16:45 12/23/18 16:55 Temperature 98.3 F Pulse Rate 94 H 84 88 Respiratory Rate 21 24 Blood Pressure 131/67 O2 Sat by Pulse Oximetry 92 L 96 12/23/18 17:05 Temperature Pulse Rate 85 Respiratory Rate 21 Blood Pressure O2 Sat by Pulse Oximetry Laboratory Results - last 24 hr 12/23/18 12/23/18 12/23/18 15:48 16:15 16:15 WBC 8.46 RBC 3.92 L Hgb 12.1 L Hct 37.5 L MCV 95.7 MCH 30.9 MCHC 32.3 L RDW Std Deviation 13.6 Plt Count 139 MPV 9.7 Immature Gran % (Auto) 0.1 Neut % (Auto) 86.0 H Lymph % (Auto) 7.6 L [place] % (Auto) 5.1 Eos % (Auto) 1.1 Baso % (Auto) 0.1 Immature Gran # (Auto) 0.01 Neut # (Auto) 7.28 H Lymph # (Auto) 0.64 L [place] # (Auto) 0.43 Eos # (Auto) 0.09 Baso # (Auto) 0.01 PT INR PTT (Actin FS) Specimen Type Sample Site pH pCO2 pO2 HCO3 Base Excess Oxyhemoglobin ABG O2 Sat (Calculated) ABG O2 Saturation ABG Carboxyhemoglobin ABG Methemoglobin Raúl Test A-a O2 Difference Total Hemoglobin Lactate Liter Flow Blood Gas Modality FiO2 % Sodium 140 Potassium 4.7 Chloride 102 Carbon Dioxide 29 Anion Gap 9 BUN 21 Creatinine 1.3 H Estimated GFR/1.73 m2 55 BUN/Creatinine Ratio 16 Glucose 191 H POC Glucose 195 H Calculated Osmolality 288 Calcium 8.9 Total Bilirubin 0.40 AST 66 H ALT 60 H Alkaline Phosphatase 150 H Creatine Kinase 82 Troponin T [id number] Pept Total Protein 7.4 Albumin 4.2 Globulin 3.0 Albumin/Globulin Ratio 1.0 Plasma Lactate Urine Source Urine Color Urine Clarity Urine pH Ur Specific [place] Urine Protein Urine Ketones Urine Blood Urine Nitrite Urine Bilirubin Urine Urobilinogen Urine Microscopic RBC Urine WBC Urine Microscopic WBC Ur Epithelial Cells Urine Crystals Small Round Cells Urine Bacteria Urine Casts Urine Yeast Urine Glucose Urine Opiates Screen Ur Oxycodone Screen Urine Methadone Screen U Propoxyphene Qual Ur Barbituates Screen Ur Tricyclics Screen Ur Phencyclidine Scrn Ur Amphetamines Screen U Methamphetamines Scrn U Benzodiazepines Scrn Urine Cocaine Screen U Cannabinoids Screen Plasma/Serum Ethyl Alc 12/23/18 12/23/18 12/23/18 16:15 16:15 16:15 WBC RBC Hgb Hct MCV MCH MCHC RDW Std Deviation Plt Count MPV Immature Gran % (Auto) Neut % (Auto) Lymph % (Auto) [place] % (Auto) Eos % (Auto) Baso % (Auto) Immature Gran # (Auto) Neut # (Auto) Lymph # (Auto) [place] # (Auto) Eos # (Auto) Baso # (Auto) PT 12.7 INR 0.91 PTT (Actin FS) 28.4 Specimen Type Sample Site pH pCO2 pO2 HCO3 Base Excess Oxyhemoglobin ABG O2 Sat (Calculated) ABG O2 Saturation ABG Carboxyhemoglobin ABG Methemoglobin Raúl Test A-a O2 Difference Total Hemoglobin Lactate Liter Flow Blood Gas Modality FiO2 % Sodium Potassium Chloride Carbon Dioxide Anion Gap BUN Creatinine Estimated GFR/1.73 m2 BUN/Creatinine Ratio Glucose POC Glucose Calculated Osmolality Calcium Total Bilirubin AST ALT Alkaline Phosphatase Creatine Kinase Troponin T < 0.010 [id number] Pept 892 H Total Protein Albumin Globulin Albumin/Globulin Ratio Plasma Lactate Urine Source Urine Color Urine Clarity Urine pH Ur Specific [place] Urine Protein Urine Ketones Urine Blood Urine Nitrite Urine Bilirubin Urine Urobilinogen Urine Microscopic RBC Urine WBC Urine Microscopic WBC Ur Epithelial Cells Urine Crystals Small Round Cells Urine Bacteria Urine Casts Urine Yeast Urine Glucose Urine Opiates Screen Ur Oxycodone Screen Urine Methadone Screen U Propoxyphene Qual Ur Barbituates Screen Ur Tricyclics Screen Ur Phencyclidine Scrn Ur Amphetamines Screen U Methamphetamines Scrn U Benzodiazepines Scrn Urine Cocaine Screen U Cannabinoids Screen Plasma/Serum Ethyl Alc 12/23/18 12/23/18 12/23/18 16:15 16:15 16:33 WBC RBC Hgb Hct MCV MCH MCHC RDW Std Deviation Plt Count MPV Immature Gran % (Auto) Neut % (Auto) Lymph % (Auto) [place] % (Auto) Eos % (Auto) Baso % (Auto) Immature Gran # (Auto) Neut # (Auto) Lymph # (Auto) [place] # (Auto) Eos # (Auto) Baso # (Auto) PT INR PTT (Actin FS) Specimen Type Sample Site pH pCO2 pO2 HCO3 Base Excess Oxyhemoglobin ABG O2 Sat (Calculated) ABG O2 Saturation ABG Carboxyhemoglobin ABG Methemoglobin Raúl Test A-a O2 Difference Total Hemoglobin Lactate Liter Flow Blood Gas Modality FiO2 % Sodium Potassium Chloride Carbon Dioxide Anion Gap BUN Creatinine Estimated GFR/1.73 m2 BUN/Creatinine Ratio Glucose POC Glucose Calculated Osmolality Calcium Total Bilirubin AST ALT Alkaline Phosphatase Creatine Kinase Troponin T [id number] Pept Total Protein Albumin Globulin Albumin/Globulin Ratio Plasma Lactate 1.4 Urine Source CLEAN CATCH Urine Color YELLOW Urine Clarity VERY CLOUDY A Urine pH 5.0 Ur Specific [place] 1.015 Urine Protein NEGATIVE Urine Ketones NEGATIVE Urine Blood TRACE Urine Nitrite NEGATIVE Urine Bilirubin NEGATIVE Urine Urobilinogen NORMAL Urine Microscopic RBC <10 Urine WBC 2+ A Urine Microscopic WBC TNTC A Ur Epithelial Cells <10 Urine Crystals NONE SEEN Small Round Cells TRANSITIONAL PRESENT Urine Bacteria NEGATIVE Urine Casts NONE SEEN Urine Yeast PRESENT Urine Glucose NEGATIVE Urine Opiates Screen Ur Oxycodone Screen Urine Methadone Screen U Propoxyphene Qual Ur Barbituates Screen Ur Tricyclics Screen Ur Phencyclidine Scrn Ur Amphetamines Screen U Methamphetamines Scrn U Benzodiazepines Scrn Urine Cocaine Screen U Cannabinoids Screen Plasma/Serum Ethyl Alc 12/23/18 12/23/18 16:33 16:44 WBC RBC Hgb Hct MCV MCH MCHC RDW Std Deviation Plt Count MPV Immature Gran % (Auto) Neut % (Auto) Lymph % (Auto) [place] % (Auto) Eos % (Auto) Baso % (Auto) Immature Gran # (Auto) Neut # (Auto) Lymph # (Auto) [place] # (Auto) Eos # (Auto) Baso # (Auto) PT INR PTT (Actin FS) Specimen Type ARTERIAL Sample Site L RADIAL pH 7.39 pCO2 57 H* pO2 116 H HCO3 30.9 H Base Excess 7.8 H Oxyhemoglobin 91.7 L ABG O2 Sat (Calculated) 15.9 ABG O2 Saturation 99.7 ABG Carboxyhemoglobin 6.60 H* ABG Methemoglobin 1.3 Raúl Test YES A-a O2 Difference 69.0 Total Hemoglobin 12.2 Lactate 1.50 Liter Flow 4.0 Blood Gas Modality CANNULA FiO2 % 36.0 Sodium Potassium Chloride Carbon Dioxide Anion Gap BUN Creatinine Estimated GFR/1.73 m2 BUN/Creatinine Ratio Glucose POC Glucose Calculated Osmolality Calcium Total Bilirubin AST ALT Alkaline Phosphatase Creatine Kinase Troponin T [id number] Pept Total Protein Albumin Globulin Albumin/Globulin Ratio Plasma Lactate Urine Source Urine Color Urine Clarity Urine pH Ur Specific [place] Urine Protein Urine Ketones Urine Blood Urine Nitrite Urine Bilirubin Urine Urobilinogen Urine Microscopic RBC Urine WBC Urine Microscopic WBC Ur Epithelial Cells Urine Crystals Small Round Cells Urine Bacteria Urine Casts Urine Yeast Urine Glucose Urine Opiates Screen NONE DETECTED Ur Oxycodone Screen NONE DETECTED Urine Methadone Screen NONE DETECTED U Propoxyphene Qual NONE DETECTED Ur Barbituates Screen NONE DETECTED Ur Tricyclics Screen NONE DETECTED Ur Phencyclidine Scrn NONE DETECTED Ur Amphetamines Screen NONE DETECTED U Methamphetamines Scrn NONE DETECTED U Benzodiazepines Scrn PRESUMPTIVE POSITIVE A Urine Cocaine Screen NONE DETECTED U Cannabinoids Screen NONE DETECTED Plasma/Serum Ethyl Alc Orders Category Date Time Status Cardiac Monitoring DIRECTED Care 12/23/18 15:59 Active Oxygen Therapy- ED Nursing DIRECTED Care 12/23/18 15:59 Active Saline Loc NOW Care 12/23/18 15:59 Active CHEST-2 VIEWS [RAD] Stat Exams 12/23/18 16:[address] HEAD W/O CONTRAST [CT] Stat Exams 12/23/18 16:09 Ordered ABG [RESP] Routine Lab 12/23/18 16:44 Completed ALCOHOL BLOOD Stat Lab 12/23/18 16:15 Completed BLOOD CULTURE [BLDCUL] Stat Lab 12/23/18 16:16 Ordered CBC WITH ELECTRONIC DIFF [HEME] Stat Lab 12/23/18 16:15 Completed CK PROFILE [SP CHEM] Stat Lab 12/23/18 16:15 Completed COMPREHENSIVE METABOLIC PANEL [CHEM] Stat Lab 12/23/18 16:15 Completed CORTISOL Stat Lab 12/23/18 16:15 Received LACTATE, PLASMA [CHEM] Stat Lab 12/23/18 16:15 Completed PRO B-NATRIURETIC PEPTIDE Stat Lab 12/23/18 16:15 Completed PROTIME WITH INR [COAG] Stat Lab 12/23/18 16:15 Completed PTT [COAG] Stat Lab 12/23/18 16:15 Completed TROPONIN T Stat Lab 12/23/18 16:[address] W/POSS RFLX CULT [URINALYSIS] Stat Lab 12/23/18 16:33 Completed URINE CULTURE [RM] Routine Lab 12/23/18 17:20 Ordered [address] DRUG SCREEN [address] Stat Lab 12/23/18 16:33 Completed 0.9% Sodium Chloride Inj [Ns] 1,000 ml Med 12/23/18 16:06 Discontinued IV 999 mls/hr Albuterol 2.5MG/Ipratrop 0.5MG [Duoneb (A & A)] Med 12/23/18 16:06 Discontinued 9 ml INH NOW ONE Aspirin Med 12/23/18 15:59 Discontinued 325 mg PO NOW ONE Fluconazole 400 mg/Ns [Diflucan 400 mg/Ns] Med 12/23/18 17:46 Active 400 mg in 200 ml IV NOW Hydrocortisone Sod Succinate [Solu-Cortef] Med 12/23/18 16:08 Discontinued 100 mg IV NOW ONE Methylprednisolone Sod Succ [Solu-Medrol] Med 12/23/18 16:06 Discontinued 125 mg IV NOW ONE Piperacillin/Tazobactam [Zosyn] 3.375 gm Med 12/23/18 16:06 Discontinued 0.9% Sodium Chloride Inj [Ns] 50 ml IV NOW Vancomycin 1 gm/Ns Med 12/23/18 16:06 Discontinued 1 gm in 250 ml IV NOW Aerosol Treatments Routine Oth 12/23/18 16:07 Completed Aerosol Treatments Stat Oth 12/23/18 16:07 Completed CP/SOB/Palp >45 yrs of Age Stat Oth 12/23/18 15:59 Ordered EKG [EKG] Stat Ther 12/23/18 15:59 Draft Result Diagrams: 12/23/18 16:15 12/23/18 16:15 - REASSESSMENT Reassessment #1 Time Reassessed: 17:50 Status: improving (Given IVF bolus, Vanc/Zosyn in case of HCAP PNE. Also has UTI, so will give Fluconazole. Lactate is NEGATIVE, and he is not hypotensive, so he does not need IVF bolus. He has severe sepsis with [employer] manifestation of AMS. Also has mild resp acidosis) - EKG 1 Time of EKG reading by physician:: 16:19 EKG Read and Signed by:: Guzman Grider EKG Interpretation (*Must complete 3 of following elements*): Abnormal Rate: 87 Rhythm: normal sinus rhythm [place]: normal [place] Interval: normal Comments: septal infarct, age undetermined Departure - Departure Date of Disposition Decision: 12/23/18 Time of Disposition Decision: 17:53 DIAGNOSIS: Severe sepsis with acute organ dysfunction, Type 2 diabetes mellitus with hyperglycemia, with long-term current use of insulin, Decompensated COPD with exacerbation (chronic obstructive pulmonary disease), Hypercapnemia, Tobacco use disorder, Candidal UTI (urinary tract infection) Altered mental status, unspecified Qualifiers: Altered mental status type: disorientation Qualified Code(s): R41.0 - Disorientation, unspecified Disposition: ADMITTED INPATIENT 09 Certified Medical Emergency: Emergent Condition: Fair Referrals and Follow-Ups: Omar Ruiz MD [Primary Care Provider] - - Critical Care Note This patient required my direct & personal management of CC.: Yes Total Time (mins): 40 (Respiratory/[employer] systems at risk for decompensation) Critical Care Statement: This patient required my direct personal management to treat or rule out processes, the absence of which, could potentiallly result in sudden, clinically significant life or limb threatening deterioration. Attestation - Physician/ JER Attestation Patient care was provided by Advanced Practice Provider:: No The physician spent face to face time with patient:: Yes Advanced Practice Provider documentation review:: Supervising physician onsite and consulted in the evaluation and care of this patient. The physician did have a face to face encounter with the patient. This chart was documented by the indicated scribe, (Dayanna Singh Scribe) and accurately reflects the services I performed and decisions made by me, Guzman Grider MD, as attested by the provider's signature.
[2018-12-23] MEDS ORDERED: D50W SYRINGE IV ONE (17:59)
--- NOTE | 2018-12-23 18:13 | Diag Imaging Result Doc PS360 ---
CT HEAD W/O CONTRAST - 12/23/2018 INDICATION: ams COMPARISON: 06/05/2018 FINDINGS: The ventricles and sulci are normal in size and contour. No intracranial mass or hemorrhage. The skull is intact. The sinuses mastoids and middle ears are clear. IMPRESSION: Negative exam. This exam was performed using automated exposure control, adjustment of mA or kV according to patient size, and/or use of iterative reconstruction technique Electronically signed by Avtar Hawkins 12/23/2018 6:10 PM
--- NOTE | 2018-12-23 18:48 | Diag Imaging Result Doc PS360 ---
CHEST-2 VIEWS - 12/23/2018 INDICATION: short of breath COMPARISON: 12/05/2018 FINDINGS: Stable left-sided dual-chamber pacemaker in good position. The lungs are clear. Heart size is normal. No pneumothorax or pleural effusion. IMPRESSION: Negative exam. Electronically signed by Avtar Hawkins 12/23/2018 6:46 PM
[2018-12-23] MEDS: DIFLUCAN 200 MG/NS 100 ML IV SCH ×2 (19:26→20:31)
[2018-12-23] MEDS: DUONEB (A & A) INH SCH ×2 (20:14→23:40)
[2018-12-23] MEDS ORDERED: ATIVAN IV ONE (21:20)
[2018-12-23] MEDS: HUMULIN R (PARKWAY) SUBQ SCH (21:40)
[2018-12-24] MEDS: HUMULIN R (PARKWAY) SUBQ SCH ×6 (00:10→23:23)
[2018-12-24] MEDS: DUONEB (A & A) INH SCH ×6 (03:25→23:33)
[2018-12-24] MEDS ORDERED: ATIVAN IV ONE (05:19)
[2018-12-24 05:35] LABS: BE 8.4 mmoll (-3.0-3.0); BLOOD TYPE ARTERIAL; HCO3-(ACT) 31.4 mmoll (20.0-26.0); METHB 0.9 % (0.0-1.5); O2(CT) 15.8 mL/dL (15.0-23.0); O2HB 94.5 % (95.0-99.0); PO2(98.6) 84 mmHg (60-100); SAMPLE BLOOD; SAO2 98.2 % (95.0-100.0); THB 11.8 g/dL (11.5-17.4); pH(98.6) 7.39 (7.35-7.45)
[2018-12-24 05:38] LABS: ALLEN TEST YES; MODALITY CANNULA; PCO2(98.6) 58 mmHg (35-45)
[2018-12-24] MEDS ORDERED: ATIVAN PO ONE (09:44)
[2018-12-24] MEDS ORDERED: MIRAPEX PO ONE ×2 (09:45→10:45)
[2018-12-24] MEDS ORDERED: AMARYL PO SCH (11:45)
[2018-12-24] MEDS ORDERED: VANCOMYCIN IV PER PHARMACY MISC SCH (11:45)
[2018-12-24 11:49] LABS: HEMOGLOBIN A1C 5.8 % (4.8-6.0)
[2018-12-24] MEDS: KLOR-CON PO SCH (12:25)
[2018-12-24] MEDS: PREDNISONE PO SCH ×2 (12:26→20:36)
[2018-12-24] MEDS: LASIX PO SCH (12:26)
[2018-12-24] MEDS: ZOSYN 3.375 GM in NS 50 ML IV SCH ×3 (12:26→23:24)
--- NOTE | 2018-12-24 12:42 | HISTORY AND PHYSICAL ---
HISTORY OF PRESENT ILLNESS: The patient is a 68-year-old male who presented with his daughter for shortness of breath and also he had been having some issues with some altered mental status with auditory and visual hallucinations. He had a history once upon a time with carbon monoxide accumulation in his house due to poor venting. He has been off and on different antibiotics for one thing or another. He has been tight in the chest and he has had some gradual worsening of this with increasing shortness of breath and increased work of breathing but his problems are all kind of clouded by his history of alcohol abuse. He claims that he is just drinking wine now and not drinking hard liquor and not drinking until he cannot stand up but just drinking a glass or maybe 2 of wine only and nothing else. He has been a clinic patient for quite some time now. I see him primarily in the hospital though. ALLERGIES: He has no known allergies. CURRENT MEDICATIONS: We will have to review. He takes albuterol neb treatments at home. He has Glimepiride listed as one of his medicines along with metformin 500 mg b.i.d. He takes some insulin, long-acting, 20 units. We are going to confirm all of this with his daughter. PAST MEDICAL HISTORY: He has had a history of diabetes. History of chronic anxiety. History of chronic alcohol abuse. REVIEW OF SYSTEMS: Constitutional: Per the family, he has not had any significant weight gain or loss. He denies any fever or chills just general lack of exercise intolerance secondary to COPD. HEENT: He claims that his eyes are irritated and his nose is running, and that his daughter has been mowing the yard as well. Cardiovascular: He denies any recent chest pain or palpitations. No significant edema. Belly is distended. Respiratory: He is chronically short of breath and chronically limited to exercise tolerance but it worsens periodically for various minor and sundry reasons. Gastrointestinal: No nausea, vomiting, diarrhea, constipation, melena, or hematochezia. Genitourinary: No dysuria or hematuria. Some BPH symptoms. Musculoskeletal: He is not currently complaining of any significant problems. Skin: No rashes. He bruises very easily. Neurological: He has no focal neurological deficits. Psychiatric: He has had some auditory and visual hallucinations. I am not sure where that is coming from but he denies any seizures, suicidal thoughts, anxiety, or depression. Endocrine: He is a diabetic. No thyroid disease. No other hormone problems. Allergic: He has no history of asthma but he has a lot of respiratory symptoms when people mow their hay and such around his house. Hematological: No bleeding or clotting disorders. PHYSICAL EXAMINATION: VITAL SIGNS: At the time of admission his temperature was 98.3, pulse 94, respiratory rate 24, and blood pressure 131/67. HEENT: Head was normocephalic. Male pattern baldness. Eyes were PERRLA. EOMs intact. Sclerae are clear and anicteric. Nares are patent. Oropharynx is negative. NECK: Supple without thyromegaly or lymphadenopathy. CHEST: Inspiratory and expiratory wheezing. Diminished breath sounds. Diminished AP diaphragms. ABDOMEN: Distended. No hepatosplenomegaly. No CVA tenderness. Positive bowel sounds. EXTREMITIES: Negative for clubbing, cyanosis, or edema. NEUROLOGIC: Exam was intact. LABORATORY DATA FROM THE EMERGENCY ROOM: Labs showed that he had a plasma lactate of 1.4. Blood gases revealed a pH of 7.39, pCO2 57, and pO2 116. His carboxyhemoglobin level was 6.6. His gas was redone on 36% FiO2. He wears oxygen routinely at home. Drug screen was positive just for benzodiazepines. His urinalysis had too numerous to count WBCs, and 2+ white cells. We are going to do a PSA and a urine C S. BNP was 892. Troponin was less than 0.01. PT was 0.91. Electrolytes: BUN was 21, creatinine 1.3, estimated GFR 55, random glucose 191 to 195, calcium 8, total protein 0.4, AST 66, ALT 60, ALK PHOS 150, CK 82, and total protein and albumin were normal. CBC: White count was 8,460, hematocrit 37.5, and relatively normal differential. IMAGING STUDIES: His imaging showed a chest x-ray which showed that he had a dual chamber pacemaker in good position, otherwise negative. Head CT showed a negative exam. ADMITTING DIAGNOSES: He was admitted for: 1. Chronic obstructive pulmonary disease exacerbation with CO2 retention. 2. Ongoing smoker. 3. History of alcohol abuse. 4. Hypertension. 5. History of a pacemaker. 6. 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 PLAN: We are going to culture him and treat him with antibiotics and deal with his hypoxia and his respiratory issues and go from there. cc: Omar Ruiz MD
[2018-12-24] MEDS ORDERED: ATIVAN PO SCH (13:00)
[2018-12-24] MEDS ORDERED: VANCOMYCIN 2,300 MG in NS 500 ML IV ONE (13:00)
[2018-12-24] MEDS ORDERED: MISC. PHARMACY COMMUNICATION SCH (13:15)
[2018-12-24] MEDS: NON-FORMULARY BULK MED INH SCH (19:36)
[2018-12-24] MEDS: MIRAPEX PO SCH (20:35)
[2018-12-24] MEDS: ATIVAN PO SCH (21:01)
[2018-12-25] MEDS: DUONEB (A & A) INH SCH ×6 (03:39→23:41)
[2018-12-25] MEDS: ATIVAN PO SCH ×3 (06:10→21:15)
[2018-12-25] MEDS: ZOSYN 3.375 GM in NS 50 ML IV SCH ×4 (06:10→23:47)
[2018-12-25] MEDS: HUMULIN R (PARKWAY) SUBQ SCH ×4 (07:17→21:16)
[2018-12-25] MEDS: NON-FORMULARY BULK MED INH SCH (07:19)
[2018-12-25] MEDS: PREDNISONE PO SCH ×2 (08:22→21:15)
[2018-12-25] MEDS: AMARYL PO SCH (08:23)
[2018-12-25] MEDS: MIRAPEX PO SCH ×2 (08:23→21:15)
[2018-12-25] MEDS: KLOR-CON PO SCH (08:23)
[2018-12-25] MEDS: LASIX PO SCH (08:23)
[2018-12-25] MEDS ORDERED: VANCOMYCIN 1,750 MG in NS 250 ML IV SCH (13:00)
[2018-12-26] MEDS: DUONEB (A & A) INH SCH ×3 (03:38→11:14)
[2018-12-26] MEDS ORDERED: AYR NASAL SPRAY NAS PRN (03:52)
[2018-12-26] MEDS: ATIVAN PO SCH (05:43)
[2018-12-26] MEDS: ZOSYN 3.375 GM in NS 50 ML IV SCH ×2 (05:43→12:05)
[2018-12-26] MEDS: HUMULIN R (PARKWAY) SUBQ SCH ×2 (06:41→12:05)
[2018-12-26] MEDS ORDERED: NON-FORMULARY BULK MED INH SCH (07:30)
[2018-12-26 07:34] LABS: HEMATOCRIT 37.9 % (42.0-52.0); HEMOGLOBIN 12.4 g/dL (14.0-18.0); MCH 31.2 PG (27-31); MCHC 32.7 g/dL (33-37); MCV 95.5 FL (81-99); MPV 9.2 FL (7.4-10.4); RBC 3.97 XMIL (4.7-6.1); WBC 6.18 X1000 (4.8-10.8)
[2018-12-26 08:20] LABS: AGAP 9; BUN 26 mg/dL (8-22); CHLORIDE 99 mmol/L (98-107); COSMO 288; ESTIMATED GFR > 60; GLUCOSE 210 mg/dL (70-104); POTASSIUM 4.5 mmol/L (3.5-5.1); SODIUM 139 mmol/L (136-145); TCO2 31 mmol/L (25-35)
[2018-12-26] MEDS: KLOR-CON PO SCH (08:42)
[2018-12-26] MEDS: LASIX PO SCH (08:42)
[2018-12-26] MEDS: PREDNISONE PO SCH (08:42)
[2018-12-26] MEDS: AMARYL PO SCH (08:42)
[2018-12-26] MEDS: MIRAPEX PO SCH (08:43)
[2018-12-26 10:21] LABS: BE 13.3 mmoll (-3.0-3.0); BLOOD TYPE ARTERIAL; HCO3-(ACT) 35.1 mmoll (20.0-26.0); PO2(98.6) 54 mmHg (60-100); SAMPLE BLOOD; SAO2 91.3 % (95.0-100.0); THB 12.2 g/dL (11.5-17.4); pH(98.6) 7.45 (7.35-7.45)
[2018-12-26 10:22] LABS: O2(CT) 15.2 mL/dL (15.0-23.0)
[2018-12-26 10:28] LABS: MODALITY ROOM AIR; O2HB 88.6 % (95.0-99.0); PCO2(98.6) 57 mmHg (35-45)
[2018-12-26 10:29] LABS: ALLEN TEST YES
[2018-12-26 12:04] VITALS: BP 131/56
--- NOTE | 2019-01-22 17:11 | PROGRESS NOTE ---
DATE: 12/24/2018 SUBJECTIVE: He was admitted for dyspnea and shortness of breath with a background history of COPD and systolic heart failure based on alcoholism. He is on broad-spectrum antibiotics. Blood sugars are fine. OBJECTIVE: Vital Signs: His temperature was 97.4, pulse 66, respiratory rate 24, blood pressure 133/71. He had an 02 saturation of 100% on 4 liters. DATABASE: His pH was 7.39, pCO2 was 58, pO2 was 84. Carboxyhemoglobin was 2.9. FiO2 was 36. ASSESSMENT/PLAN: He is being treated for respiratory issues. Seems a little better. cc: Omar Ruiz MD
--- NOTE | 2019-01-22 17:15 | PROGRESS NOTE ---
DATE: 12/25/2018 SUBJECTIVE/OBJECTIVE: This is a gentleman with COPD, heart failure, and alcoholism who presented with shortness of breath. His blood sugars have been well controlled during the stay so far. He is coughing less. He is not having any significant fluid retention. His culture data is negative except for yeast in his urine, which is being treated. He is on broad-spectrum antibiotics awaiting definitive culture data. ASSESSMENT/PLAN: His work of breathing is still hard. He sits up on the side of the bed tripoding, but generally feels like he is doing better. He is always erythematous in the face. Nothing else to add. cc: Omar Ruiz MD
--- NOTE | 2019-01-22 20:55 | DISCHARGE SUMMARY ---
ADMISSION DATE: 12/23/2018 DISCHARGE DATE: 12/26/2018 HISTORY: This is a patient of mine who presented to the Emergency Room complaining of shortness of breath. He was brought in by his daughters, stating that he has had increasing work of breathing which is common for him. He is a longstanding smoker with end-stage lung disease, on DuoNebs on a regular basis and also has home oxygen. He presented also with visual and auditory hallucinations. He was a heavy beer drinker in the past with alcohol-induced potomania. He also has had delirium tremens in the past. Daughter thinks there is an issue with carbon dioxide retention. She is familiar with her father and has been exposed to some other carbon monoxide environments and has had some issues. He has a tightness that has just been gradually developing over a couple of days. No true pleuritic issues. It seems to be getting worse as it goes onward. ALLERGIES: No known allergies. MEDICATIONS: Wellbutrin 150 mg b.i.d.; furosemide 60 mg daily; potassium chloride 20 mEq daily; Trelegy inhaler, 1 inhalation per day; metformin 500 mg b.i.d.; albuterol/ipratropium q. 3-4 hours p.r.n.; hydralazine 25 mg t.i.d.; insulin glargine Basaglar 20 units subcutaneously daily; iron therapy; lorazepam 0.5 mg p.o. p.r.n. anxiety; Seroquel 25 mg; Mirapex 0.25 mg; and assorted and various combinations of antibiotics and steroids in the past. PAST MEDICAL HISTORY: Pertinent in that he has been a smoker for most of his life. Some brief times when he would stop smoking. He has been a longstanding heavy drinker since he retired from [employer] some years back. He has a history of hypertension, chronic congestive heart failure that has been blamed on alcohol, and a pacemaker. He has asthma. He denies any thyroid disorder. He has type 2 diabetes mellitus. Neurological: He has never had a stroke. He has had some hallucinations and delirium tremens. Musculoskeletal: No significant problems. No gouty arthritis, no significant degenerative arthritic disease. Genitourinary: He has some lower urinary tract infective symptoms. No hematuria, no polyuria. He has frequent nocturia. Gastrointestinal: Currently no nausea, vomiting, diarrhea or constipation, or bloody stools. HOSPITAL COURSE: He smokes greater than a pack a day. He was seen in the ER with initially a temperature of 98.3 degrees, pulse 94, blood pressure 131/67, oxygen saturation 92%. CBC on admission showed white count of 8460, hematocrit 37.5, platelet count was 139. Differential was left shifted white cell population. Sodium 140, potassium 4.7, chloride 102, CO2 of 29, BUN 21, creatinine 1.3, GFR estimated at 55, BUN:creatinine ratio of 16. Blood sugars were elevated in the 190s. His calculated osmolality was 288. Calcium 8.9, total bilirubin 0.4, AST 66, ALT 60, alkaline phosphatase 150, kinase 82, total protein 7.4, albumin 4.2, albumin ratio was 1. INR was normal. ProBNP was 892. Troponin was nondetectable. Plasma lactate was 1.4. Urine was very cloudy, 1.015 specific gravity, too numerous to count white cells, less than 10 epithelial cells. There was yeast present in his urine, otherwise negative. He has been on antibiotics for quite some time. He rotates antibiotics to kind of lessen the impact of his recurrent chronic bronchitis. Blood gases: pH was 7.39, pCO2 of 54, PO2 of 116, carboxyhemoglobin was 6.6. He was wearing a 36% cannula to generate the 116 PO2 level. Urine drug screen was positive for benzodiazepines; otherwise negative. In the ER, he was started on oxygen. Cultures and other labs were drawn. He was given a liter of fluids as well as an albuterol/ipratropium treatment, aspirin p.o., 400 mg of fluconazole IV, Solu- Cortef 100 mg, methylprednisone 125 mg. He was placed on piperacillin and Zosyn along with vancomycin. His EKG showed normal sinus rhythm, septal infarct undetermined age. The impression was severe sepsis with acute organ dysfunction, type 2 diabetes with hyperglycemia, long-term current use of insulin, decompensated COPD with exacerbation, hypercapnia, tobacco abuse disorder, and M[place]. His admitting chest x-ray was not described but subsequently the reports on a chest x-ray showed stable left-sided dual-chamber pacemaker in good position. Lungs were clear. Heart size was normal. No pneumothorax. He had a CT done that was negative. His blood cultures were negative. Urine culture grew out yeast. His electrocardiogram was sinus rhythm, rate of 87, septal infarct, otherwise no acute changes. The patient was hospitalized from 12/23/2018 through date of discharge 12/26/2018. During the hospital stay, his sugars were well controlled. He was maintained on 4 liters by nasal cannula to support his oxygen saturation. He had no fever whatsoever. Subsequent laboratory studies towards the end of hospital stay were pretty much the same. His urine had too numerous to count white cells and yeast. Chemistries on 12/26/2018: BUN 26, creatinine 1. Blood gases: pH was 7.39, pCO2 of 57, PO2 of 116, 6.6 carboxyhemoglobin on 36% FiO2. On 12/24/2018, his pH was 7.39, pCO2 was 58, PO2 was 84, carboxyhemoglobin was 2.9 on 36% FiO2. On 12/26/2018 at the time of discharge, his pH was 7.5, pCO2 was 57, PO2 was 54. Coag studies were fine. Hematology studies were negative. Hematocrit stayed around 37. White counts were very similar. Toxicology was negative. No fever; cultures were negative. We jumped on it with a bunch of antibiotics. His chest x-ray was negative. Basically, he had respiratory disuse and with the marked CO2 retention and blood gas at 116. He did not seem to be as affected as he usually is with his drinking responses or lack of drinking responses. He did not have sepsis. DISCHARGE MEDICATIONS: He was discharged on his Lasix 120 mg daily; potassium 20 mEq daily; Wellbutrin 150 mg b.i.d.; glimepiride 2 mg daily; metformin 500 mg b.i.d.; Trelegy one inhalation daily; albuterol/ipratropium q. 4-6 hours; prednisone 20 mg daily; lorazepam 0.5 mg daily; Mirapex 0.5 mg daily. FOLLOWUP: He is to follow up in the office. He was encouraged not to drink, to take his medications, and we will see how he does. cc: Omar Ruiz MD
== END 2018-12-26 13:11 | disposition home or self-care (01) | DRG 191 ==
LOC: P.ED 15:37 → P.ICU 20:11 → P.MEDSURG 12-25 13:29
PROVIDERS: ADMIT Internal Medicine; ATTEND Internal Medicine
CPT/HCPCS: 70450; 71020; 71046; 80048; 80053; 80104; 80301; 80305; 80307; 80320; 81001; 82055; 82533; 82550; 82805; 82948; 83036; 83605; 83735; 83880; 84153; 84484; 85025; 85027; 85610; 85730; 87040; 87088; 93005; 94640; 94761; 96365; 96367; 96375; 99285; 99291; A9270; G0431; G0434; G0477; G0480; G6040; J1450; J1720; J1815; J2060; J2543; J2930; J3370; J7030; J7040; J7050; J7506; J7512; XXXXX

== ENCOUNTER 2019-01-22 08:35 | Inpatient (IN) ==
[2019-01-22] MEDS ORDERED: DUONEB (A & A) INH ONE (08:37)
[2019-01-22] MEDS ORDERED: PULMICORT INH ONE (08:37)
[2019-01-22] MEDS ORDERED: SOLU-MEDROL IV ONE (08:38)
--- NOTE | 2019-01-22 08:52 | PROVIDER DOCUMENTATION ---
HPI-Respiratory General - General Stated Complaint: resp distress Time Seen by Provider: 01/22/19 08:37 Allergies/Adverse Reactions: Patient Allergies Allergy/AdvReac Type Severity Reaction Status Date / Time No Known Allergies Allergy Verified 01/22/19 09:40 Home Medications: Home Medication List Medication Instructions Recorded Confirmed Last Taken Type Bupropion HCl [Bupropion Xl] 150 mg PO BID 09/09/17 12/24/18 05/20/18 History Furosemide 120 mg PO DAILY 09/09/17 12/25/18 05/20/18 History Potassium Chloride 20 meq PO DAILY 09/09/17 12/24/18 05/20/18 History Fluticasone/Umeclidin/Vilanter 1 puff IH BID 05/24/18 12/25/18 Unknown History [Trelegy Ellipta 100-62.5-25] Glimepiride 2 mg PO DAILY 05/24/18 12/25/18 Unknown History Metformin HCl [Metformin HCl ER] 500 mg PO BID 05/24/18 12/24/18 Unknown History Albuterol 2.5MG/Ipratrop 0.5MG 3 ml INH RTQ4H PRN #30 neb 06/19/18 12/24/18 Unknown Rx [Duoneb (A & A)] Ipratropium/Albuterol Sulfate 1 inh INH 4XDAY #1 07/01/18 12/24/18 05/20/18 Rx [Combivent Respimat 20-100 Mcg] Lorazepam [Ativan] 2 mg PO TID 12/24/18 12/24/18 Unknown History Prednisone 10 mg PO DAILY 12/24/18 12/24/18 Unknown History Meloxicam 15 mg PO DAILY 12/25/18 12/25/18 Unknown History Pramipexole [Mirapex] 1 mg PO BID 12/25/18 12/25/18 Unknown History - History of Present Illness-Resp Nature of Presenting Problem: patient is a 68 y/o male with history of COPD presented to the emergency room with respiratory distress, audible wheezes. Review of Systems - Adult - REVIEW OF SYSTEMS - ADULT Constitutional: reports: fatique. denies: fever Eyes: reports: no symptoms reported Ears, Nose, Mouth & Throat: reports: no symptoms reported Cardiovascular: reports: chest pain, palpitations Respiratory: reports: cough, shortness of breath, wheezing Gastrointestinal: reports: no symptoms reported Genitourinary: reports: no symptoms reported Musculoskeletal: reports: no symptoms reported Integumentary: reports: no symptoms reported Neurological: reports: no symptoms reported Psychiatric: reports: no symptoms reported Endocrine: reports: no symptoms reported Hematologic/Lymphatic: reports: no symptoms reported Allergic/Immunologic: reports: no symptoms reported Past History - Adult - PAST MEDICAL HISTORY-ADULT Review of Records: reports: Nursing Assessment Review Major Childhood Illnesses: reports: denies history Cardiovascular: reports: CHF, HTN, pacemaker Respiratory: reports: COPD Gastrointestinal: reports: denies history Obstetrical/Gynecological: reports: denies history Genitourinary: reports: denies history Musculoskeletal: reports: denies history Neurological: reports: denies history Endocrine/Immune: reports: denies history, Diabetes Other Conditions: reports: denies history - PRIOR SURGERIES/PROCEDURES Surgical/Procedure History: reports: pacemaker - PRIOR HOSPITALIZATIONS Prior Hospitalizations: reports: none - IMMUNIZATION STATUS Childhood Immunizations: See Nurse Assessment Flu Vaccine: See Nurse Assessment - FAMILY HISTORY Family History: reviewed, not pertinent Physical Exam-General - PHYSICAL EXAM-ADULT Initial Vital Signs Reviewed: Yes - CONSTITUTIONAL General Appearance: alert, no apparent distress - EYES Eyes: PERRL/EOMI - HEAD, EARS, NOSE, MOUTH & THROAT HENMT: normocephalic/atraumatic - NECK Neck: non-tender, supple - RESPIRATORY Respiratory: chest non-tender, respiratory distress, accessory muscle use, wheezing, retractions - CARDIOVASCULAR Cardiovascular: tachycardia - GASTROINTESTINAL (ABDOMEN) Abdominal Exam: normal bowel sounds, non tender, soft - LYMPHATIC Lymphatic: no adenopathy - MUSCULOSKELETAL Back Exam: normal inspection, no CVA tenderness, no vertebral tenderness Extremity: non-tender, normal gait, normal inspection, no pedal edema, no calf tenderness - SKIN Integumentary: normal color, warm/dry - 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, grossly normal, no motor/sensory deficits - PSYCHIATRIC Psych/Mental Status: normal mood/affect Progress - PLAN OF CARE/RESULTS Progress/Plan/Lab Results: Vital Signs - 8 hr 01/22/19 08:39 01/22/19 08:40 01/22/19 08:41 Temperature Pulse Rate 101 H 102 H Respiratory Rate 30 H Blood Pressure 142/91 138/76 O2 Sat by Pulse Oximetry 95 96 01/22/19 08:42 08/02/19 08:50 01/22/19 08:56 Temperature 97.7 F Pulse Rate 103 H 101 H 103 H Respiratory Rate 38 H 24 32 H Blood Pressure 142/91 O2 Sat by Pulse Oximetry 97 98 95 01/22/19 09:00 01/22/19 09:02 01/22/19 09:10 Temperature Pulse Rate 98 H 98 H 98 H Respiratory Rate 18 26 H 21 Blood Pressure 116/68 O2 Sat by Pulse Oximetry 98 97 97 01/22/19 09:20 01/22/19 09:30 01/22/19 09:32 Temperature Pulse Rate 98 H 92 H 95 H Respiratory Rate 29 H 19 19 Blood Pressure 99/65 O2 Sat by Pulse Oximetry 97 96 97 01/22/19 09:40 01/22/19 09:50 01/22/19 10:00 Temperature Pulse Rate 95 H 98 H 96 H Respiratory Rate 19 19 Blood Pressure O2 Sat by Pulse Oximetry 95 95 97 01/22/19 10:02 01/22/19 10:10 01/22/19 10:20 Temperature Pulse Rate 100 H 100 H 98 H Respiratory Rate 21 15 20 Blood Pressure 122/75 O2 Sat by Pulse Oximetry 97 96 01/22/19 10:30 01/22/19 10:32 01/22/19 10:40 Temperature Pulse Rate 98 H 99 H 101 H Respiratory Rate 22 29 H 25 H Blood Pressure 119/64 O2 Sat by Pulse Oximetry 93 L 94 L 93 L 01/22/19 10:50 01/22/19 11:00 01/22/19 11:02 Temperature Pulse Rate 99 H 98 H 97 H Respiratory Rate 20 25 H 23 Blood Pressure 118/75 O2 Sat by Pulse Oximetry 93 L 93 L 94 L 01/22/19 11:10 01/22/19 11:20 01/22/19 11:30 Temperature Pulse Rate 98 H 99 H 99 H Respiratory Rate 17 22 25 H Blood Pressure O2 Sat by Pulse Oximetry 94 L 94 L 95 01/22/19 11:32 01/22/19 11:40 01/22/19 11:50 Temperature Pulse Rate 99 H 97 H 98 H Respiratory Rate 25 H 23 27 H Blood Pressure 126/81 O2 Sat by Pulse Oximetry 94 L 94 L 94 L 01/22/19 12:00 01/22/19 12:02 01/22/19 12:10 Temperature Pulse Rate 97 H 96 H 95 H Respiratory Rate 23 18 23 Blood Pressure 127/76 O2 Sat by Pulse Oximetry 96 96 95 01/22/19 12:20 01/22/19 12:30 01/22/19 12:32 Temperature Pulse Rate 103 H 98 H 97 H Respiratory Rate 26 H 27 H 27 H Blood Pressure 141/88 O2 Sat by Pulse Oximetry 94 L 95 95 01/22/19 12:40 Temperature Pulse Rate 96 H Respiratory Rate 29 H Blood Pressure O2 Sat by Pulse Oximetry 94 L Laboratory Results - last 24 hr 01/22/19 01/22/19 01/22/19 08:53 08:53 08:53 WBC 8.65 RBC 4.44 L Hgb 13.6 L Hct 41.2 L MCV 92.8 MCH 30.6 MCHC 33.0 RDW Std Deviation 14.2 Plt Count 113 L MPV 9.8 Immature Gran % (Auto) 0.2 Neut % (Auto) 78.8 H Lymph % (Auto) 11.2 L [place] % (Auto) 7.7 Eos % (Auto) 2.0 Baso % (Auto) 0.1 Immature Gran # (Auto) 0.02 Neut # (Auto) 6.81 H Lymph # (Auto) 0.97 L [place] # (Auto) 0.67 H Eos # (Auto) 0.17 Baso # (Auto) 0.01 PT 12.3 INR 0.91 PTT (Actin FS) 29.7 Specimen Type Sample Site pH pCO2 pO2 HCO3 Base Excess Oxyhemoglobin ABG O2 Sat (Calculated) ABG O2 Saturation ABG Carboxyhemoglobin ABG Methemoglobin Raúl Test A-a O2 Difference Total Hemoglobin Lactate Blood Gas Modality FiO2 % Sodium 141 Potassium 4.0 Chloride 101 Carbon Dioxide 27 Anion Gap 13 BUN 27 H Creatinine 1.1 Estimated GFR/1.73 m2 > 60 BUN/Creatinine Ratio 25 Glucose 166 H Calculated Osmolality 290 Calcium 9.5 Total Bilirubin 0.39 AST 40 H ALT 32 Alkaline Phosphatase 147 H Creatine Kinase 91 Troponin T Total Protein 7.0 Albumin 4.4 Globulin 2.6 Albumin/Globulin Ratio 1.7 Plasma Lactate Plasma/Serum Ethyl Alc 01/22/19 01/22/19 01/22/19 08:53 08:53 08:53 WBC RBC Hgb Hct MCV MCH MCHC RDW Std Deviation Plt Count MPV Immature Gran % (Auto) Neut % (Auto) Lymph % (Auto) [place] % (Auto) Eos % (Auto) Baso % (Auto) Immature Gran # (Auto) Neut # (Auto) Lymph # (Auto) [place] # (Auto) Eos # (Auto) Baso # (Auto) PT INR PTT (Actin FS) Specimen Type Sample Site pH pCO2 pO2 HCO3 Base Excess Oxyhemoglobin ABG O2 Sat (Calculated) ABG O2 Saturation ABG Carboxyhemoglobin ABG Methemoglobin Raúl Test A-a O2 Difference Total Hemoglobin Lactate Blood Gas Modality FiO2 % Sodium Potassium Chloride Carbon Dioxide Anion Gap BUN Creatinine Estimated GFR/1.73 m2 BUN/Creatinine Ratio Glucose Calculated Osmolality Calcium Total Bilirubin AST ALT Alkaline Phosphatase Creatine Kinase Troponin T < 0.010 Total Protein Albumin Globulin Albumin/Globulin Ratio Plasma Lactate 1.2 Plasma/Serum Ethyl Alc 01/22/19 01/22/19 10:00 12:21 WBC RBC Hgb Hct MCV MCH MCHC RDW Std Deviation Plt Count MPV Immature Gran % (Auto) Neut % (Auto) Lymph % (Auto) [place] % (Auto) Eos % (Auto) Baso % (Auto) Immature Gran # (Auto) Neut # (Auto) Lymph # (Auto) [place] # (Auto) Eos # (Auto) Baso # (Auto) PT INR PTT (Actin FS) Specimen Type ARTERIAL Sample Site L RADIAL pH 7.36 pCO2 54 H* pO2 80 HCO3 27.8 H Base Excess 3.8 H Oxyhemoglobin 92.0 L ABG O2 Sat (Calculated) 16.9 ABG O2 Saturation 98.2 ABG Carboxyhemoglobin 5.00 H ABG Methemoglobin 1.3 Raúl Test YES A-a O2 Difference 81.0 Total Hemoglobin 13.0 Lactate 0.70 Blood Gas Modality CANNULA FiO2 % 32.0 Sodium Potassium Chloride Carbon Dioxide Anion Gap BUN Creatinine Estimated GFR/1.73 m2 BUN/Creatinine Ratio Glucose Calculated Osmolality Calcium Total Bilirubin AST ALT Alkaline Phosphatase Creatine Kinase Troponin T Total Protein Albumin Globulin Albumin/Globulin Ratio Plasma Lactate 1.1 Plasma/Serum Ethyl Alc Orders Category Date Time Status Admit - [facility] Routine AdmDCTranf 01/22/19 12:07 Active Activity - Up with Assistance ORDERED Care 01/22/19 12:07 Active Bladder Scan and Record Result ORDERED Care 01/22/19 12:29 Active Cardiac Monitoring DIRECTED Care 01/22/19 09:28 Active FSBS/Accucheck Result AC + HS Care 01/22/19 12:09 Active I&O [Intake and Output-Strict] ORDERED Care 01/22/19 12:11 Active IV Insertion ORDERED Care 01/22/19 09:17 Active IV Insertion ORDERED Care 01/22/19 09:28 Active Intake and Output-Strict ORDERED Care 01/22/19 12:07 Active Notify MD of + Sepsis Screen NOW Care 01/22/19 09:28 Active Notify Physician As Ordered Care 01/22/19 09:28 Active Update & Confirm Home Medicati ROUTINE Care 01/22/19 12:09 Active Vital Signs Order Q 8-HR ASSESS Care 01/22/19 12:07 Active Z-Document. for Tele Applied ORDERED Care 01/22/19 12:09 Active Full Liquid Diet Diet 01/22/19 12:08 Completed Miscellaneous Diet Routine Diet 01/22/19 12:27 Active CHEST-1 VIEW [RAD] Stat Exams 01/22/19 09:28 Completed ABG [RESP] DAILY Lab 01/23/19 06:00 Ordered ABG [RESP] DAILY Lab 01/24/19 06:00 Ordered ABG [RESP] DAILY Lab 01/25/19 06:00 Ordered ABG [RESP] Routine Lab 01/22/19 10:00 Completed ALCOHOL BLOOD Stat Lab 01/22/19 08:53 Completed BLOOD CULTURE [BLDCUL] Stat Lab 01/22/19 08:53 Results CBC WITH DIFF [HEME] Routine Lab 01/23/19 05:00 Ordered CBC WITH DIFF [HEME] Stat Lab 01/22/19 08:53 Completed CK PROFILE [SP CHEM] Stat Lab 01/22/19 08:53 Completed COMPREHENSIVE METABOLIC PANEL [CHEM] Routine Lab 01/23/19 06:00 Uncollected COMPREHENSIVE METABOLIC PANEL [CHEM] Stat Lab 01/22/19 08:53 Completed LACTATE, PLASMA [CHEM] Lab 01/22/19 12:21 Completed LACTATE, PLASMA [CHEM] Lab 01/22/19 15:30 Uncollected LACTATE, PLASMA [CHEM] Q3H Lab 01/22/19 08:53 Completed MAGNESIUM [CHEM] Routine Lab 01/23/19 06:00 Uncollected PROTIME WITH INR [COAG] Stat Lab 01/22/19 08:53 Completed PTT [COAG] Stat Lab 01/22/19 08:53 Completed TROPONIN T Stat Lab 01/22/19 08:53 Completed TSH Routine Lab 01/23/19 06:00 Uncollected URINALYSIS W/POSS RFLX CULT [URINALYSIS] Stat Lab 01/22/19 09:28 Ordered URINALYSIS [URINALYSIS] Stat Lab 01/22/19 12:32 Uncollected URINE CULTURE [RM] Routine Lab 01/22/19 12:31 Uncollected URINE DRUG SCREEN PL Routine Lab 01/22/19 12:31 Ordered Albuterol 2.5MG/Ipratrop 0.5MG [Duoneb (A & A)] Med 01/22/19 08:37 Discontin ued 3 ml INH NOW ONE Albuterol 2.5MG/Ipratrop 0.5MG [Duoneb (A & A)] Med 01/22/19 12:06 Active 3 ml INH Q2H PRN PRN Albuterol 2.5MG/Ipratrop 0.5MG [Duoneb (A & A)] Med 01/22/19 15:30 Active 3 ml INH RTQ4H Budesonide [Pulmicort] Med 01/22/19 08:37 Discontinued 0.5 mg INH NOW ONE CefTRIAXONE [Rocephin] 1 gm Med 01/22/19 12:30 Active 0.9% Sodium Chloride Inj [Ns] 50 ml IV Q24H Enoxaparin [Lovenox] Med 01/22/19 12:15 Active 40 mg SUBQ Q24H Furosemide [Lasix] Med 01/22/19 12:15 Active 40 mg IV Q12H Guaifenesin E.r. [Mucinex] Med 01/22/19 21:00 Active 1,200 mg PO Q12HR Insulin Lispro [Humalog] Med 01/22/19 16:00 Active See Protocol SUBQ 0700,1100,1600,2100 Methylprednisolone Sod Succ [Solu-Medrol] Med 01/22/19 08:38 Discontinued 125 mg IV NOW ONE Methylprednisolone Sod Succ [Solu-Medrol] Med 01/22/19 20:00 Discontinued 60 mg IV Q8H Methylprednisolone Sod Succ [Solu-Medrol] Med 01/22/19 20:00 Active 80 mg IV Q8H Pantoprazole [Protonix] Med 01/23/19 07:00 Active 40 mg PO DAILY@0700 Tamsulosin [Flomax] Med 01/22/19 21:00 Active 0.4 mg PO QHS Aerosol Treatments Routine Oth 01/22/19 08:37 Active Aerosol Treatments Routine Oth 01/22/19 08:37 Active Aerosol Treatments Routine Oth 01/22/19 12:06 Active Aerosol Treatments Stat Oth 01/22/19 08:37 Active Aerosol Treatments Stat Oth 01/22/19 08:37 Active Oxygen Device Stat Oth 01/22/19 09:28 Active Telemetry [OM.EQ] Routine Oth 01/22/19 12:07 Active Speech Evaluation [OM.SPT] Routine Ther 01/22/19 12:25 Active Transfer/Admit Order [TRANSFER] Routine Transfer 01/22/19 12:33 Ordered Result Diagrams: 01/22/19 08:53 01/22/19 08:53 Departure - Departure Date of Disposition Decision: 01/22/19 Time of Disposition Decision: 13:05 DIAGNOSIS: Respiratory distress Disposition: ADMITTED INPATIENT 09 Certified Medical Emergency: Emergent Condition: Fair Referrals and Follow-Ups: Omar Ruiz MD [Primary Care Provider] - Discharge Education: Steps to Quit Smoking, [id number] - Critical Care Note This patient required my direct & personal management of CC.: No Attestation - Physician/ JER Attestation Patient care was provided by Advanced Practice Provider:: No The physician spent face to face time with patient:: Yes Advanced Practice Provider documentation review:: Supervising physician onsite and consulted in the evaluation and care of this patient. The physician did have a face to face encounter with the patient.
[2019-01-22 09:41] LABS: HEMATOCRIT 41.2 % (42.0-52.0); HEMOGLOBIN 13.6 g/dL (14.0-18.0); MCH 30.6 PG (27-31); MCV 92.8 FL (81-99); MPV 9.8 FL (7.4-10.4); NEUT% 78.8 % (42.2-75.2); PLT 113 X1000 (130-400); RBC 4.44 XMIL (4.7-6.1); RDW 14.2 % (11.5-14.5); WBC 8.65 X1000 (4.8-10.8)
[2019-01-22 09:42] LABS: BASO# 0.01 X1000 (0.0-0.2); BASO% 0.1 % (0.0-0.8); EOS# 0.17 X1000 (0.0-0.7); IMM GRAN# 0.02 X1000 (0.0-0.04); IMM GRAN% 0.2 % (0.0-0.5); LYMPH# 0.97 X1000 (1.2-3.4); LYMPH% 11.2 % (20.5-51.1); MONO# 0.67 X1000 (0.11-0.59); MONO% 7.7 % (1.7-9.3); NEUT# 6.81 X1000 (1.4-6.5)
[2019-01-22 09:47] LABS: INR 0.91; PROTIME 12.3 Seconds (11.0-16.0)
[2019-01-22 09:48] LABS: PTT 29.7 Seconds (22.3-41.8)
--- NOTE | 2019-01-22 09:54 | Diag Imaging Result Doc PS360 ---
EXAM: CHEST-1 VIEW 01/22/2019 HISTORY: sepsis TECHNIQUE: AP portable at 0925 COMMENT: There is slightly increased interstitial markings. Otherwise are has been no significant change since 12/23/2018. IMPRESSION: Mild interstitial pulmonary edema. Electronically signed by Maximo Devine 01/22/2019 9:52 AM
[2019-01-22 10:05] LABS: AGAP 13; ALB/GLOB RATIO 1.7; ALBUMIN 4.4 g/dL (3.5-5.0); ALKALINE PHOSPHATASE 147 U/L (32-122); BUN 27 mg/dL (8-22); CALCIUM 9.5 mg/dL (8.8-10.2); CHLORIDE 101 mmol/L (98-107); CK PROFILE 91 U/L (24-204); COSMO 290; CREATININE 1.1 mg/dL (0.7-1.2); ESTIMATED GFR > 60; GLUCOSE 166 mg/dL (70-104); GOT 40 U/L (10-34); GPT 32 U/L (10-44); SODIUM 141 mmol/L (136-145); TCO2 27 mmol/L (25-35); TOTAL BILIRUBIN 0.39 mg/dL (0.20-1.00)
[2019-01-22 10:13] LABS: ALLEN TEST YES; BE 3.8 mmoll (-3.0-3.0); BLOOD TYPE ARTERIAL; HCO3-(ACT) 27.8 mmoll (20.0-26.0); METHB 1.3 % (0.0-1.5); O2(CT) 16.9 mL/dL (15.0-23.0); PO2(98.6) 80 mmHg (60-100); SAMPLE BLOOD; SAO2 98.2 % (95.0-100.0); pH(98.6) 7.36 (7.35-7.45)
[2019-01-22 10:16] LABS: MODALITY CANNULA; PCO2(98.6) 54 mmHg (35-45)
[2019-01-22] MEDS ORDERED: DUONEB (A & A) INH PRN (12:06)
--- NOTE | 2019-01-22 13:17 | HISTORY AND PHYSICAL ---
HISTORY OF PRESENT ILLNESS: Mr. Leija is a 68-year-old patient of Dr. Omar Ruiz who presented with his daughter for shortness of breath. States that this morning, the daughter felt like he was strangling or choking on some liquids, since sometimes he has trouble with swallowing liquids. He is on Trelegy already with severe COPD. He is breathing a little better now, but still has diffuse wheezing. It is tight, prolonged expiratory phase. Denies any fever or chills. Denies any real chest pain or pleuritic pain. PAST MEDICAL HISTORY: 1. Diabetes mellitus type 2. 2. History of chronic anxiety. 3. History of chronic alcohol abuse. 4. Severe COPD on Trelegy at home. ALLERGIES: No known drug allergies. PAST MEDICAL HISTORY: He was on BiPAP for short time. He is doing a little better now. He is on nasal cannula. He has a history of benign prostatic hypertrophy. Looking back, I could see where he got a myocardial perfusion scan in June 2016, mildly abnormal, suggesting a mild degree of inducible ischemia involving the midportion of the inferior wall and left ventricle. Cannot exclude artifact as the reason. Well preserved left ventricular function at that time. He had a pulmonary arteriogram on 12/04/2017. No evidence of pulmonary embolism. Mild emphysematous changes. Apparent bronchitis at that time, mild interstitial pneumonitis. He had a CT of the chest done on 06/25/2018 and this showed COPD, emphysematous changes, pneumonitis and a bronchopneumonia at the lower lobe. He had an echocardiogram on 06/25/2018, which showed left atrial enlargement, mitral valve normal, tricuspid normal, left ventricle mildly dilated. Estimated ejection fraction 45%. Apical hypokinesis at that time. He was seen by Dr. Linda back in May 2018. At that time he had alcohol withdrawal, very combative. He had a Hayes catheter in and was having some bladder spasms. REVIEW OF SYSTEMS: He denies any fever or chills. HEENT: No change in visual or hearing acuity. He has been complaining of some trouble with swallowing. Respiratory: As above. Cardiovascular: No chest pain or tachycardia on palpitation. GI: No change in bowels. He does have a history of benign prostatic hypertrophy. Endocrinologic/hematologic: No significant history. PHYSICAL EXAMINATION: VITAL SIGNS: Today in the emergency room temp 97.7 degrees, pulse 98 respirations 19, blood pressure 99/65, O2 sats was 95%. EYES: Pupils are equal and round. LUNGS: Clear in all lung alfaro. CARDIOVASCULAR: Regular rhythm and rate without murmur or S3. ABDOMEN: Soft, nondistended. SKIN: Warm and dry. EXTREMITIES: No pedal edema. LABORATORY DATA: White count 8650, hematocrit 41, platelet count a 113,000. Sodium 141, potassium 4.0, chloride 101, BUN 27, creatinine 1.1, blood sugar 166, calcium 9.5. ProTime is 12.3, PTT is 29. Blood gas pH is 7.36, pCO2 is 54, PO2 is 80, O2 saturation is 98% and this was 32% FiO2. He has mild interstitial pulmonary edema on chest x-ray. ASSESSMENT AND PLAN: 1. Chronic obstructive pulmonary disease exacerbation. I am not sure if he choked on liquids. He has been describing some thick mucus drainage and he may have some dysphagia, so we will put him on some bronchodilators. I will put him on some guaifenesin. We will give him DuoNeb q.4 hours while awake q.2 p.r.n.. We will keep him on his Wellbutrin or bupropion XL 150 mg b.i.d., Trelegy. They are going back to get that. His Ellipta 100/62.5/25 one puff b.i.d.. He takes furosemide 120 mg q.a.m., glimepiride 2 mg daily, Combivent which is Respimat 20/100 one puff 4 times a day. He takes Ativan 2 mg p.o. t.i.d., meloxicam 15 mg daily, metformin 500 mg b.i.d., potassium chloride 20 mEq daily, Mirapex 1 mg p.o. b.i.d., and prednisone 10 mg a day. I do not see any source of infection right now. We will go ahead and give him a dose of Rocephin 1 g. We will put him on guaifenesin extended release 1200 mg twice a day to thin out secretions. We will try to keep him on his inhalers. He is already on a steroid inhaler, has Trelegy Ellipta. I do not know if we carry that. If not, we will change that around, but he is on Combivent and he is getting Respimat and we will give him DuoNeb q.4 hours while awake and then every 2 hours p.r.n. I am going to go ahead and give him some Solu-Medrol. He is on prednisone 10 mg daily. We will hold the prednisone 10 mg a day. We will load him with Solu-Medrol 125 mg IV and then 80 mg IV 8 hours. 2. Diabetes mellitus. We will put him on a diabetic diet. Check pattern sugars, sliding scale. 3. Anxiety. I am going to continue his medication. He is on bupropion 150 mg b.i.d. It looks like he is taking Ativan 2 mg p.o. t.i.d. already. cc: Raúl Pineda MD
[2019-01-22] MEDS: ROCEPHIN 1 GM in NS 50 ML IV SCH (14:50)
[2019-01-22] MEDS: LASIX IV SCH (14:50)
[2019-01-22] MEDS: LOVENOX SUBQ SCH (14:50)
[2019-01-22 15:42] LABS: URINE SOURCE CLEAN CATCH
[2019-01-22 15:45] LABS: BILIRUBIN URINE NEGATIVE (NEGATIVE); BLOOD URINE SMALL (NEGATIVE); COLOR YELLOW; GLUCOSE URINE 500 mg/dL (NEGATIVE); KETONE URINE NEGATIVE (NEGATIVE); LEUKOCYTES URINE NEGATIVE (NEGATIVE); NITRITE URINE NEGATIVE (NEGATIVE); PH URINE 5.5; PROTEIN URINE NEGATIVE (NEGATIVE); SP GRAVITY URINE 1.013; TURBIDITY URINE CLEAR (CLEAR); UROBILINOGEN URINE NORMAL (NORMAL)
[2019-01-22 15:48] LABS: UR EPITHELIAL CELLS <10 /HPF (<10); URINE BACTERIA NEGATIVE /HPF; URINE RBC <10 /HPF (<10); URINE WBC <10 /HPF (<10)
[2019-01-22 15:53] LABS: URINE CASTS NONE SEEN; URINE CRYSTALS NONE SEEN; URINE SMALL ROUND CELLS NONE SEEN; URINE YEAST PRESENT
[2019-01-22 16:11] LABS: UR AMPHETAMINES QUAL NONE DETECTED (NONE DETECT); UR BARBITUATES QUAL NONE DETECTED (NONE DETECT); UR BENZODIAZEPIN QUAL NONE DETECTED (NONE DETECT); UR CANNABINOIDS QUAL PRESUMPTIVE POSITIVE (NONE DETECT); UR COCAINE QUAL NONE DETECTED (NONE DETECT); UR METHADONE QUAL NONE DETECTED (NONE DETECT); UR OPIATES QUAL NONE DETECTED (NONE DETECT); UR OXYCODONE QUAL NONE DETECTED (NONE DETECT); UR PCP QUAL NONE DETECTED (NONE DETECT)
[2019-01-22] MEDS: DUONEB (A & A) INH SCH ×3 (16:40→22:54)
[2019-01-22] MEDS: HUMALOG SUBQ SCH ×2 (18:55→20:49)
[2019-01-22] MEDS ORDERED: SOLU-MEDROL IV SCH (20:00)
[2019-01-22] MEDS: ADVAIR 250/50 DISKUS INH SCH (20:15)
[2019-01-22] MEDS: WELLBUTRIN XL PO SCH (20:45)
[2019-01-22] MEDS: MIRAPEX PO SCH (20:45)
[2019-01-22] MEDS: SOLU-MEDROL IV SCH (20:46)
[2019-01-22] MEDS: ATIVAN PO PRN (20:46)
[2019-01-22] MEDS: MUCINEX PO SCH (20:46)
[2019-01-22] MEDS: FLOMAX PO SCH (20:47)
[2019-01-22] MEDS: APRESOLINE PO SCH (20:47)
[2019-01-23] MEDS: LASIX IV SCH ×3 (00:14→16:50)
[2019-01-23] MEDS: DUONEB (A & A) INH SCH ×6 (03:19→22:36)
[2019-01-23] MEDS: SOLU-MEDROL IV SCH ×3 (05:25→21:22)
[2019-01-23] MEDS: APRESOLINE PO SCH ×3 (05:26→21:22)
[2019-01-23 05:48] LABS: ALLEN TEST YES; BE 2.7 mmoll (-3.0-3.0); BLOOD TYPE ARTERIAL; METHB 0.8 % (0.0-1.5); O2(CT) 16.8 mL/dL (15.0-23.0); O2HB 94.3 % (95.0-99.0); PCO2(98.6) 50 mmHg (35-45); PO2(98.6) 76 mmHg (60-100); SAMPLE BLOOD; SAO2 97.3 % (95.0-100.0); THB 12.6 g/dL (11.5-17.4); pH(98.6) 7.37 (7.35-7.45)
[2019-01-23 05:49] LABS: MODALITY BI PAP
[2019-01-23] MEDS: HUMALOG SUBQ SCH ×4 (06:32→21:23)
[2019-01-23 06:42] LABS: HEMATOCRIT 37.2 % (42.0-52.0); HEMOGLOBIN 12.6 g/dL (14.0-18.0); LYMPH# 0.42 X1000 (1.2-3.4); LYMPH% 7.1 % (20.5-51.1); MCH 31.2 PG (27-31); MCHC 33.9 g/dL (33-37); MCV 92.1 FL (81-99); MONO% 3.4 % (1.7-9.3); MPV 10.1 FL (7.4-10.4); NEUT% 89.5 % (42.2-75.2); PLT 98 X1000 (130-400); RBC 4.04 XMIL (4.7-6.1); RDW 13.4 % (11.5-14.5); WBC 5.92 X1000 (4.8-10.8)
[2019-01-23] MEDS: PROTONIX PO SCH (06:42)
[2019-01-23 06:48] LABS: ALB/GLOB RATIO 1.4; ALBUMIN 4.2 g/dL (3.5-5.0); CALCIUM 9.3 mg/dL (8.8-10.2); CREATININE 1.2 mg/dL (0.7-1.2); MAGNESIUM 2.4 mg/dL (1.5-2.7); POTASSIUM 4.1 mmol/L (3.5-5.1); TOTAL BILIRUBIN 0.43 mg/dL (0.20-1.00); TOTAL PROTEIN 7.1 g/dL (6.3-8.3)
[2019-01-23] MEDS: ADVAIR 250/50 DISKUS INH SCH ×2 (07:23→19:20)
[2019-01-23 07:49] LABS: LYMPHS 2 % (21-51); MONO 2 % (1-9); SEGS 96 % (42-75)
[2019-01-23] MEDS: MOBIC PO SCH (08:25)
[2019-01-23] MEDS: FOLIC ACID PO SCH (08:25)
[2019-01-23] MEDS: ATIVAN PO PRN ×2 (08:25→16:50)
[2019-01-23] MEDS: GLUCOPHAGE XR PO SCH ×2 (08:25→16:50)
[2019-01-23] MEDS: KLOR-CON PO SCH (08:25)
[2019-01-23] MEDS: MUCINEX PO SCH ×2 (08:25→21:22)
[2019-01-23] MEDS: AMARYL PO SCH (08:25)
[2019-01-23] MEDS: WELLBUTRIN XL PO SCH (08:26)
[2019-01-23] MEDS: LOVENOX SUBQ SCH (12:33)
[2019-01-23] MEDS: ROCEPHIN 1 GM in NS 50 ML IV SCH (12:34)
--- NOTE | 2019-01-23 12:42 | PROGRESS NOTE ---
DATE: 01/23/2019 Mr. Leija is breathing a little better. He still does not feel like he is back to baseline, but he is moving air well and had a pretty uneventful night. He is back on his Trelegy. PHYSICAL EXAMINATION: Vital Signs: Remains afebrile, temperature 97.4 degrees, pulse 80, respirations 18, blood pressure 123/60. HEENT: Pupils are equal and round. Lungs: Are clear in all lung alfaro. Cardiovascular: Regular rhythm and rate without murmur or S3. Abdomen: Is soft. Skin: Is warm and dry. Chest x-ray with mild interstitial pulmonary edema. ASSESSMENT AND PLAN: 1. Chronic obstructive pulmonary disease with COPD exacerbation, bronchospasm and complained of thick postnasal drainage and sinus drainage. Did not see any evidence of pneumonia. Seems to be doing better. We will put him back on his Trelegy inhaler. 2. Diabetes mellitus type 2. Sugars last 3 numbers are 356, 292 and 326. Of course he is on Solu-Medrol. Review of his orders: I will add Trelegy to his regimen. He is taking Advair I think right now. cc: Raúl Pineda MD
[2019-01-23] MEDS: MIRAPEX PO SCH (21:22)
[2019-01-23] MEDS: FLOMAX PO SCH (21:23)
[2019-01-24] MEDS: DUONEB (A & A) INH SCH ×6 (03:10→23:30)
[2019-01-24 03:29] LABS: BLOOD TYPE ARTERIAL; SAMPLE BLOOD
[2019-01-24 03:30] LABS: ALLEN TEST YES; BE 4.1 mmoll (-3.0-3.0); HCO3-(ACT) 28.1 mmoll (20.0-26.0); METHB 1.4 % (0.0-1.5); O2(CT) 15.6 mL/dL (15.0-23.0); O2HB 96.7 % (95.0-99.0); PCO2(98.6) 45 mmHg (35-45); PO2(98.6) 164 mmHg (60-100); SAO2 99.5 % (95.0-100.0); THB 11.2 g/dL (11.5-17.4); pH(98.6) 7.42 (7.35-7.45)
[2019-01-24 03:32] LABS: MODALITY BI PAP
[2019-01-24] MEDS: SOLU-MEDROL IV SCH ×3 (04:12→20:42)
[2019-01-24] MEDS: LASIX IV SCH ×2 (04:12→17:01)
[2019-01-24] MEDS: APRESOLINE PO SCH ×3 (04:13→20:42)
[2019-01-24] MEDS: HUMALOG SUBQ SCH ×4 (06:14→20:44)
[2019-01-24] MEDS: PROTONIX PO SCH (06:15)
[2019-01-24] MEDS: ADVAIR 250/50 DISKUS INH SCH ×2 (07:34→19:21)
[2019-01-24] MEDS: GLUCOPHAGE XR PO SCH ×2 (08:17→17:01)
[2019-01-24] MEDS: MUCINEX PO SCH ×2 (08:17→20:42)
[2019-01-24] MEDS: KLOR-CON PO SCH (08:17)
[2019-01-24] MEDS: AMARYL PO SCH (08:17)
[2019-01-24] MEDS: FOLIC ACID PO SCH (08:17)
[2019-01-24] MEDS: ATIVAN PO PRN ×2 (08:17→15:19)
[2019-01-24] MEDS: MOBIC PO SCH (08:17)
[2019-01-24] MEDS: LOVENOX SUBQ SCH (13:46)
[2019-01-24] MEDS: ROCEPHIN 1 GM in NS 50 ML IV SCH (13:46)
--- NOTE | 2019-01-24 14:30 | PROGRESS NOTE ---
DATE: 01/24/2019 SUBJECTIVE: Mr. Leija was felt he was doing better, but then this morning he had another kind of smothering spell while he was in the bathroom while washing up. He still has some wheezing. He has calmed down some now. OBJECTIVE: Vital signs: Temperature 97.5 degrees, pulse 92, respirations 18, blood pressure 143/66. HEENT: Pupils are equal and round. Neck: No distended neck veins. Lungs: Clear in all lung alfaro, but he does have expiratory wheezing throughout. Abdomen: Soft. Skin: Warm and dry. Cardiovascular: Regular rhythm and rate with without murmur or S3 appreciated. DIAGNOSTIC STUDIES: Last 3 sugars: 350, 301, 248. ASSESSMENT AND PLAN: 1. Chronic obstructive pulmonary disease, chronic obstructive pulmonary disease exacerbation, and bronchospasm. I suspect there is an element of cor pulmonale as well. I do not see evidence of infection, but I am treating him for possible bronchitis. He does have thick mucus. I am going to ask Pulmonology and Cardiology to evaluate. He reported that his urologist is thinking about doing a TURP, and he was supposed to get a cardiovascular evaluation, but I am going to ask them to help and see if we can tune him up a little better. He is on albuterol. Continue his bronchodilators, including steroid inhalers. 2. He had an echocardiogram done in June of this year. Technically a suboptimal study. Mitral valve was normal. Aortic valve leaflets were trileaflet. Left ventricular was mildly dilated with estimated ejection fraction 45%. Apical hypokinesis. I do not see where his right-sided pressures were able to calculate. We will ask Pulmonary and Cardiology to help. 3. His blood pressure and afterload seem to be fairly well controlled. 4. He is getting Lasix 40 mg IV q.12 h. 5. I am going to repeat another chest x-ray. He has mild interstitial edema. I do have him on some guaifenesin. cc: Raúl Pineda MD MTDD
--- NOTE | 2019-01-24 14:51 | CARDIOLOGY CONSULTATION ---
DATE: 01/24/2019 CHIEF COMPLAINT ON PRESENTATION: Shortness of breath. HISTORY OF PRESENT ILLNESS: Mr. Leija is a 68-year-old, white male with a history of severe COPD and diabetes who presents with shortness of breath. It sounds like it has been worsening. He reports worse wheezing, increasing cough frequency as well as severity, along with a more productive cough. He denies any overt fevers. He has not had any orthopnea. The patient does occasionally complain of some discomfort in his chest but this usually occurs in the setting of a coughing fit. He has not had any exertional chest pain. PAST MEDICAL HISTORY: Significant for: 1. Diabetes. 2. History of severe COPD. 3. History of mild systolic dysfunction as evidenced with an ejection fraction of 45% on an echocardiogram in June of this year. He had some mild LV dilatation on that study as well. 4. Hypertension. SOCIAL HISTORY: He smokes and drinks 1 pint of alcohol per day. REVIEW OF SYSTEMS: A 10 system review of systems is negative except for those things mentioned in the HPI. PHYSICAL EXAMINATION: Vital Signs: He is afebrile, heart rate of 90, blood pressure 132/58. General: He is in no acute distress. HEENT: Oropharynx is moist. Poor dentition. His eye examination shows pink conjunctivae and white sclerae. Neck: Examination shows no obvious thyromegaly or thyroid tenderness. Cardiovascular: He sounds to be in a regular rate and rhythm. I did not hear any obvious murmurs. He has no S3. He has no lower extremity edema. Chest Examination: Has marked bilateral end-expiratory wheezes with a prolonged expiratory phase throughout all lung alfaro. He has no increased work of breathing. He is on O2 via nasal cannula. Abdomen: Soft, nontender, nondistended. He has no obvious organomegaly. Skin: Examination is warm and dry throughout without any rashes. Neurological: He is moving all extremities well. He has no lateralizing deficits. PERTINENT DATA: His chest x-ray was with evidence for possible mild interstitial edema. His white count yesterday was 5.9 with a hematocrit of 37 and platelet count of 98,000. His sodium is 136, potassium 4.1, BUN 31, creatinine is 1.2. His cardiac enzymes were negative on admission. ASSESSMENT: Mr. Leija is a 68-year-old gentleman who presents with what seems like a chronic obstructive pulmonary disease flare. PLAN: We will check an echocardiogram tomorrow as well as laboratories including a basic metabolic panel and a BNP. Further recommendations to follow. cc: Ashok Barron MD
[2019-01-24] MEDS: MIRAPEX PO SCH (20:42)
[2019-01-24] MEDS: FLOMAX PO SCH (20:42)
[2019-01-25] MEDS: DUONEB (A & A) INH SCH ×6 (03:47→22:36)
[2019-01-25 04:33] LABS: ALLEN TEST YES; BE 2.8 mmoll (-3.0-3.0); BLOOD TYPE ARTERIAL; HCO3-(ACT) 27.1 mmoll (20.0-26.0); METHB 1.4 % (0.0-1.5); O2(CT) 16.3 mL/dL (15.0-23.0); O2HB 95.8 % (95.0-99.0); PO2(98.6) 91 mmHg (60-100); SAMPLE BLOOD; SAO2 98.7 % (95.0-100.0); pH(98.6) 7.34 (7.35-7.45)
[2019-01-25 04:44] LABS: MODALITY CANNULA; PCO2(98.6) 55 mmHg (35-45)
[2019-01-25] MEDS: APRESOLINE PO SCH ×3 (06:08→20:43)
[2019-01-25] MEDS: LASIX IV SCH (06:09)
[2019-01-25] MEDS: HUMALOG SUBQ SCH ×5 (06:09→23:12)
[2019-01-25] MEDS: PROTONIX PO SCH (06:09)
[2019-01-25] MEDS: SOLU-MEDROL IV SCH ×3 (06:09→20:43)
[2019-01-25] MEDS: ADVAIR 250/50 DISKUS INH SCH ×2 (07:33→19:26)
[2019-01-25 07:55] LABS: CALCIUM 9.6 mg/dL (8.8-10.2); CREATININE 1.5 mg/dL (0.7-1.2); POTASSIUM 4.6 mmol/L (3.5-5.1)
[2019-01-25] MEDS: FOLIC ACID PO SCH (09:57)
[2019-01-25] MEDS: MOBIC PO SCH (09:57)
[2019-01-25] MEDS: GLUCOPHAGE XR PO SCH ×2 (09:57→18:14)
[2019-01-25] MEDS: MUCINEX PO SCH ×2 (09:58→20:43)
[2019-01-25] MEDS: ATIVAN PO PRN ×2 (09:58→19:54)
[2019-01-25] MEDS: AMARYL PO SCH (09:58)
[2019-01-25] MEDS: KLOR-CON PO SCH (09:58)
--- NOTE | 2019-01-25 12:31 | Diag Imaging Result Doc PS360 ---
EXAM: CHEST-2 VIEWS INDICATION: copd, pulmonary edema TECHNIQUE: 3 views COMPARISON: 01/22/2019 FINDINGS: The lungs are grossly clear. There is no discrete pleural fluid collection or pneumothorax. The central vasculature appears mildly prominent suggesting possible mild pulmonary venous congestion. The pacemaker/defibrillator is in stable position. The cardiomediastinal silhouette is grossly unremarkable, otherwise. IMPRESSION: Questionable mild pulmonary venous congestion. No definite acute pathology, otherwise. Electronically signed by Jovanny Bain 01/25/2019 12:29 PM
--- NOTE | 2019-01-25 12:32 | PROGRESS NOTE ---
DATE: 01/25/2019 SUBJECTIVE: Mr. Leija still feels about the same. He gets short of breath with very little exertion and he has had some chest discomfort. He remains afebrile. OBJECTIVE: Temperature 97.8 degrees, pulse 99, respirations 20, blood pressure 125/90. Pupils are equal and round. Lungs are clear in all lung alfaro. Cardiovascular Examination: Regular rhythm and rate without murmur or S3. Abdomen is soft. Skin is warm and dry. Blood sugars 270, 273, and 121. ASSESSMENT/PLAN: 1. Chronic obstructive pulmonary disease. Check echocardiogram. He has nonspecific chest pain. Currently, he is on fluticasone-salmeterol inhaler. We have been trying to diurese him with some Lasix 40 mg intravenous every 12 hours. He is on Mobic 15 mg a day, metformin ER 500 mg twice a day, methylprednisone 80 mg intravenous every 8 hours, Protonix 40 mg a day, and ceftriaxone 1 g every 24 hours. He is hoping to get a transurethral prostate resection and so he wanted cardiology evaluation as well as his concern about his chest pain. 2. Blood pressures appear well controlled. 3. Benign prostatic hypertrophy. LABORATORY DATA: Review of his lab this morning, electrolytes, sodium 138, potassium 4.6, chloride 99, BUN 49, creatinine 1.5 and that has gone up from 1.2 so I will stop his diuresis. We will stop the Lasix. cc: Raúl Pineda MD
[2019-01-25] MEDS: LOVENOX SUBQ SCH (12:36)
[2019-01-25] MEDS: ROCEPHIN 1 GM in NS 50 ML IV SCH (12:36)
--- NOTE | 2019-01-25 13:27 | ECHO REPORT ---
ORDER DATE: 01/25/2019 INTERPRETING PHYSICIAN: Dr. Roel Hernandez. ECHOCARDIOGRAPHIC MEASUREMENTS: 1. Interventricular septum: 1.1 cm. 2. Left ventricular posterior wall: 1.1 cm. 3. Diastolic diameter: 5.3 cm. 4. Left atrium: 4.0 cm. 5. Aorta: 3.6 cm. SUMMARY OF THE 2-DIMENSIONAL IMAGIN. Normal left ventricular cavity size. Estimated ejection fraction of 45 to 50 percent. There is mild anteroseptal hypokinesis, pacing leads are noted in the right chamber. 2. There is left atrial enlargement. 3. Aortic valve leaflets are trileaflet. 4. Mitral valve was normal. 5. Tricuspid valve was normal. 6. Pulmonic valve was normal. 7. There is mild tricuspid regurgitation. Peak velocity across the tricuspid valve was 3 m/sec. 8. Pulmonary artery systolic pressure of 46 to 50 mmHg. 9. There is left atrial enlargement. 10. There is no aortic stenosis or regurgitation. 11. There is mild mitral regurgitation. 12. There is diastolic dysfunction. 13. There is no aortic stenosis or regurgitation. 14. There is no pericardial effusion or obvious intracardiac mass or thrombus seen. cc: MD Ashok De La Fuente MD
[2019-01-25] MEDS ORDERED: NS 1,000 ML IV SCH (14:15)
--- NOTE | 2019-01-25 15:02 | CARDIOLOGY PROGRESS NOTE ---
DATE: 01/25/2019 SUBJECTIVE: Mr. Leija continues to be short of breath. He continues to have significant wheezing. OBJECTIVE: Vital Signs: He is afebrile, heart rate 99, blood pressure 125/91. General: He is in no acute distress. Cardiovascular: He sounds to be in a regular rate and rhythm. He has no obvious murmurs. He has no S3. He has no lower extremity edema. Chest: His chest exam has marked bilateral end-expiratory wheezes. No increased work of breathing. Abdomen: Soft, nontender. PERTINENT DATA: His sodium is 138, potassium 4.6, his BUN is 49, creatinine is 1.5. His proBNP is 12 95. Notably his creatinine has trended up to 1.5 today compared to 1.2 on presentation. It did appear that he got a dose of Lasix yesterday in the morning; that has since been stopped. ASSESSMENT: Mr. Leija is a 68-year-old gentleman who presented with chronic obstructive pulmonary disease exacerbation. PLAN: His echocardiogram demonstrates an EF of 45% to 50%. We will consider initiation of an LAURA or an ARB in the near future; however, given his trend up in his creatinine, I would hold off on that for the time being. We will review his outside studies to see if he has had previous notations of low EFs previously. He continues to have an elevated pCO2 with a mild reduction in his pH. cc: Ashok Barron MD
--- NOTE | 2019-01-25 19:17 | CONSULTATION ---
DATE OF CONSULTATION: 01/25/2019 REQUESTING PROVIDER: Dr. Edmundo Pineda. REASON FOR CONSULTATION: Help with evaluation and treatment. HISTORY OF PRESENT ILLNESS: This is a 68-year-old male with a medical history of chronic obstructive pulmonary disease with ongoing tobacco abuse, congestive heart failure, atrial fibrillation, hypertension, chronic pain syndrome, diabetes mellitus type 2, alcoholism, and restless legs syndrome. He presented to the ER on 01/22/2019 with respiratory distress and audible wheezes. Initial workup in the ER revealed COPD exacerbation. He has been admitted for further evaluation and management. Patient currently sitting on the age of the bed with no acute distress noted. He reports chronic productive cough. Specifically in the morning right after he gets up and chronic dry cough during the daytime, especially after drinking some liquids. He reports shortness of breath, wheezing, chest pain palpitation but no weight change, fever, chills, bowel habit change, nausea, vomiting. PAST MEDICAL HISTORY: 1. COPD with nocturnal hypoxia. Patient uses a Trilogy with oxygen at bedtime. He reports he does not use any oxygen during the daytime. 2. Ongoing tobacco abuse. 3. Congestive heart failure. Systolic dysfunction with an ejection fraction of 45% with some mild LV dilatation on an echocardiogram in June 2018. 4. Atrial fibrillation status post permanent pacemaker placement for more than 10 year. 5. Hypertension. 6. Chronic pain syndrome. 7. Diabetes mellitus type 2. 8. Alcoholism. 9. Restless legs syndrome. SOCIAL HISTORY: The patient lives at home with his granddaughter. He used to drink at least a pint of alcohol a day and smoked more than a pack per day for more than 40 years. He reports currently he already cut his drink a lot and he smokes several cigarettes a day. He does report that he is ready to quit both drinking and smoking. He has no history of illicit drug use. FAMILY HISTORY: Positive for diabetes and congestive heart failure. ALLERGIES: No known drug allergies. REVIEW OF SYSTEMS: A 10-point review of systems was conducted and the pertinent is listed within the HPI, otherwise noncontributory. PHYSICAL EXAMINATION: Vital Signs: Temperature 97.8 degrees, blood pressure 125/91, pulse 99, respiratory rate 20, oxygen saturation 93% on nasal cannula at 3 L. General: Chronically ill-appearing, sitting on the age of the bed in no acute distress. Pleasant and cooperative. HEENT: Atraumatic, normocephalic. Trachea midline. Mucosa pink and moist. Respiratory: Even and unlabored. Auscultation revealed diminished breathing sounds bilaterally with expiratory wheezing throughout all the lung alfaro. Cardiovascular: Regular rate and rhythm. Gastrointestinal: Soft, nontender, nondistended, normoactive bowel sounds in all 4 quadrants. Extremities: Trace BLE pitting edema, especially around the areas above the ankle. No cyanosis. No clubbing. BUE discoloration; Dorsalis pedis 2+ bilaterally. Neurologic: Alert and oriented x3. Speech fluent. Follows commands. LAB DATA: Sodium 138, potassium 4.6, chloride 99, carbon dioxide 27, BUN 49, creatinine 1.5, glucose 242. ProBNP 1295. ABG, pH 7.34, pCO2 55, PO2 91, HCO3 27.1, base excess 2.8 and oxyhemoglobin 95.8. IMAGING DATA: Chest x-ray showed questionable mild pulmonary venous congestion. No definite acute pathology otherwise. ASSESSMENT: This is a 68-year-old male with a medical history of COPD with ongoing tobacco abuse, congestive heart failure, atrial fibrillation, hypertension, chronic pain syndrome, diabetes mellitus type 2, alcoholism, and restless legs syndrome. He has been admitted since 01/22/2019 with COPD exacerbation. 1. Acute on chronic hypoxemic and hypercapnic respiratory failure. 2. Chronic obstructive pulmonary disease exacerbation. 3. Chronic cough, worsening by drinking. 4. Ongoing tobacco abuse; tried wellbutrin before. PLAN: 1. Continue supplemental oxygen as needed. Continue trilogy at bedtime. 2. Continue antibiotics, steroid and bronchodilators as prescribed. 3. Follow up with BMP and speech evaluation. Check ABG and chest x-ray if indicated. 4. Educate patient on the importance of smoking cessation and the ways of smoking cessation. Highly recommend patient to quit smoking. 5. Continue GI and DVT prophylaxis. 6. Further recommendations pending hospital course. Thank you for the courtesy of this consult. Dictated by BRENDA Leon for Evon Mak MD cc: BRENDA Leon MD Allen J. Schmidt, MD [facility] CENTERSarina
[2019-01-25] MEDS: MIRAPEX PO SCH (20:43)
[2019-01-25] MEDS: FLOMAX PO SCH (20:43)
[2019-01-26] MEDS: DUONEB (A & A) INH SCH ×6 (03:36→23:27)
[2019-01-26 05:06] LABS: ALLEN TEST YES; BE 3.3 mmoll (-3.0-3.0); BLOOD TYPE ARTERIAL; HCO3-(ACT) 27.5 mmoll (20.0-26.0); METHB 1.3 % (0.0-1.5); O2(CT) 17.5 mL/dL (15.0-23.0); O2HB 96.9 % (95.0-99.0); PCO2(98.6) 45 mmHg (35-45); PO2(98.6) 155 mmHg (60-100); SAMPLE BLOOD; SAO2 99.9 % (95.0-100.0); THB 12.6 g/dL (11.5-17.4); pH(98.6) 7.41 (7.35-7.45)
[2019-01-26 05:07] LABS: MODALITY CANNULA
[2019-01-26] MEDS: SOLU-MEDROL IV SCH ×3 (05:54→20:49)
[2019-01-26] MEDS: PROTONIX PO SCH ×2 (05:54→10:35)
[2019-01-26] MEDS: APRESOLINE PO SCH ×3 (05:54→20:42)
[2019-01-26] MEDS: HUMALOG SUBQ SCH ×5 (05:55→20:43)
--- NOTE | 2019-01-26 07:13 | Diag Imaging Result Doc PS360 ---
EXAM: CHEST-PORTABLE 01/26/2019 HISTORY: dyspnea TECHNIQUE: AP portable at 0540 COMMENT: There is cardiomegaly and there is a prominent apical epicardial fat pad. Considering differences in inspiration and technique there has been no significant change since 01/25/2019. IMPRESSION: Stable chest. Electronically signed by Maximo Devine 01/26/2019 7:10 AM
[2019-01-26 07:24] LABS: HEMATOCRIT 35.8 % (42.0-52.0); HEMOGLOBIN 11.7 g/dL (14.0-18.0); MCH 31.5 PG (27-31); MCHC 32.7 g/dL (33-37); MCV 96.2 FL (81-99); RBC 3.72 XMIL (4.7-6.1); RDW 14.3 % (11.5-14.5); WBC 5.15 X1000 (4.8-10.8)
[2019-01-26] MEDS: ADVAIR 250/50 DISKUS INH SCH ×2 (07:31→19:45)
[2019-01-26 08:04] LABS: CALCIUM 9.3 mg/dL (8.8-10.2); CREATININE 1.3 mg/dL (0.7-1.2); MAGNESIUM 2.5 mg/dL (1.5-2.7); POTASSIUM 4.7 mmol/L (3.5-5.1)
[2019-01-26] MEDS: MUCINEX PO SCH ×2 (08:46→20:42)
[2019-01-26] MEDS: AMARYL PO SCH (08:46)
[2019-01-26] MEDS: ATIVAN PO PRN ×2 (08:46→16:44)
[2019-01-26] MEDS: FOLIC ACID PO SCH (08:47)
[2019-01-26] MEDS: MOBIC PO SCH (08:47)
[2019-01-26] MEDS: KLOR-CON PO SCH (08:47)
[2019-01-26] MEDS: GLUCOPHAGE XR PO SCH ×2 (08:47→16:44)
[2019-01-26] MEDS ORDERED: AYR NASAL SPRAY NAS PRN (09:29)
[2019-01-26] MEDS: ROCEPHIN 1 GM in NS 50 ML IV SCH (13:20)
[2019-01-26] MEDS: LOVENOX SUBQ SCH (13:20)
--- NOTE | 2019-01-26 16:05 | PROGRESS NOTE ---
DATE: 01/26/2019 SUBJECTIVE: The patient is sitting at the edge of the bed. He states that he still feels short of breath. No acute events noted overnight. OBJECTIVE: Vital Signs: Temperature is 97.7 degrees, blood pressure 142/82, heart rate 100, respirations 18, O2 saturation is 96% on 3 L nasal cannula. General: This is an elderly male, lying in bed in no acute distress. Heart: S1, S2 normal, tachycardic. Lungs: Equal air entry bilaterally. No wheezing. No rales. No rhonchi. Abdomen: Positive bowel sounds. Soft, nontender, nondistended. Extremities: No edema. No cyanosis. Neurologic: The patient is alert and oriented x4. DIAGNOSTIC STUDIES: White blood cell count 5, hemoglobin 11, hematocrit 35, platelets 96,000. Sodium 140, potassium 4.7, BUN 44, creatinine 1.3, glucose 139. Chest x-ray shows cardiomegaly. ASSESSMENT AND PLAN: 1. Acute on chronic hypoxemic respiratory failure. Continue to treat the underlying COPD exacerbation. 2. Chronic obstructive pulmonary disease exacerbation. Continue on Solu-Medrol, bronchodilator therapy, and antibiotic therapy. 3. Hypertension. Stable. Continue on the current antihypertensive regimen. 4. Diabetes mellitus type 2. Continue with sliding scale insulin. 5. Thrombocytopenia. We will discontinue the Lovenox and monitor the patient's platelet count closely. 6. Acute kidney injury. Slightly improved today. Continue to monitor closely. 7. Anemia. Stable. 8. Alcohol dependence. Aware. cc: Honey Rutherford MD MTDD
[2019-01-26 18:33] LABS: BILIRUBIN URINE NEGATIVE (NEGATIVE); BLOOD URINE NEGATIVE (NEGATIVE); COLOR YELLOW; GLUCOSE URINE NEGATIVE (NEGATIVE); KETONE URINE NEGATIVE (NEGATIVE); LEUKOCYTES URINE MODERATE (NEGATIVE); NITRITE URINE NEGATIVE (NEGATIVE); SP GRAVITY URINE 1.022; TURBIDITY URINE CLEAR (CLEAR); URINE SOURCE CLEAN CATCH; UROBILINOGEN URINE NORMAL (NORMAL)
[2019-01-26 18:45] LABS: PROTEIN URINE NEGATIVE (NEGATIVE); UR EPITHELIAL CELLS <10 /HPF (<10); URINE BACTERIA NEGATIVE /HPF; URINE RBC <10 /HPF (<10); URINE WBC 20-40 /HPF (<10)
[2019-01-26] MEDS: FLOMAX PO SCH (20:42)
[2019-01-26] MEDS: MIRAPEX PO SCH (20:42)
[2019-01-27] MEDS: DUONEB (A & A) INH SCH ×6 (03:27→23:27)
[2019-01-27] MEDS: SOLU-MEDROL IV SCH ×3 (06:21→20:49)
[2019-01-27] MEDS: ATIVAN PO PRN (06:22)
[2019-01-27] MEDS: PROTONIX PO SCH (06:22)
[2019-01-27] MEDS: APRESOLINE PO SCH ×3 (06:22→20:39)
[2019-01-27] MEDS: HUMALOG SUBQ SCH ×4 (06:22→20:40)
[2019-01-27 07:28] LABS: HEMOGLOBIN 11.9 g/dL (14.0-18.0); MCH 31.2 PG (27-31); MCHC 33.1 g/dL (33-37); MCV 94.2 FL (81-99); MPV 9.9 FL (7.4-10.4); RBC 3.82 XMIL (4.7-6.1); RDW 14.2 % (11.5-14.5); WBC 4.29 X1000 (4.8-10.8)
[2019-01-27] MEDS: ADVAIR 250/50 DISKUS INH SCH ×2 (07:31→19:45)
[2019-01-27 07:40] LABS: AGAP 10; BUN 37 mg/dL (8-22); CHLORIDE 103 mmol/L (98-107); COSMO 297; CREATININE 1.1 mg/dL (0.7-1.2); ESTIMATED GFR > 60; GLUCOSE 266 mg/dL (70-104); POTASSIUM 4.4 mmol/L (3.5-5.1); SODIUM 140 mmol/L (136-145); TCO2 27 mmol/L (25-35)
[2019-01-27] MEDS ORDERED: LASIX PO SCH ×2 (09:00→17:30)
[2019-01-27] MEDS: MUCINEX PO SCH ×2 (10:19→20:39)
[2019-01-27] MEDS: KLOR-CON PO SCH (10:19)
[2019-01-27] MEDS: FOLIC ACID PO SCH (10:20)
[2019-01-27] MEDS: AMARYL PO SCH (10:20)
[2019-01-27] MEDS: GLUCOPHAGE XR PO SCH ×2 (10:21→18:14)
[2019-01-27] MEDS: ROCEPHIN 1 GM in NS 50 ML IV SCH (12:06)
--- NOTE | 2019-01-27 13:45 | CARDIOLOGY PROGRESS NOTE ---
DATE: 01/27/2019 SUBJECTIVE: Mr. Leija continues to be short of breath, although he reports this is somewhat improved. PHYSICAL EXAMINATION: The patient is afebrile, heart rate 95, his blood pressure is 140/75. Generally, he is in no acute distress. Cardiovascular: He sounds to be in a regular rate and rhythm. He has no lower extremity edema. Chest Examination: Has bilateral end-expiratory wheezes. He has no increased work of breathing. His abdomen is soft, nontender. PERTINENT DATA: Lab-garcia, he has a white count of 4.2, hematocrit 36, platelet count 97,000. His sodium is 140, potassium 4.4, BUN 37, creatinine is 1.4. ASSESSMENT: Mr. Leija is a 68-year-old gentleman with a marked chronic obstructive pulmonary disease exacerbation. PLAN: At this point, the patient continues to have marked wheezing. He seems to be in a fairly significant chronic obstructive pulmonary disease flare. He did have echocardiogram findings suggesting a mild reduction in his LV function with an EF of 45 to 50 percent. I would not acutely work this up until he improves in his COPD flare. I will initiate him on some losartan at 25 mg daily. Please contact us if we can be of further assistance with the patient. I made him a followup appointment in the office in the next month or so. cc: Ashok Barron MD
--- NOTE | 2019-01-27 14:33 | CONSULTATION ---
DATE OF CONSULTATION: 01/27/2019 ROOM NUMBER: [id number]. HISTORY OF PRESENT ILLNESS: Mr. Leija has had some confusion and delirium. History is taken from review of the hospital records and discussion with attentive sister at the bedside. There is history of chronic ethanol abuse. There is at least remote history of DTs and possibly history of more recent DTs. Sister thinks there might have been seizure associated with DTs in the past, but that is not certain. Otherwise, he has never had diagnosed seizure. He has never had diagnosed stroke. There is history of head injury a few years ago when he fell from a tree and struck his head. From sister's report, it sounds like there may have been subdural hematoma and that was managed conservatively without operation. There is not history of more recent serious head injury. Sister has been aware of forgetfulness for several years. In retrospect, this might have begun after his head injury but sister thinks he might have been forgetful prior to that injury. Forgetfulness has been gradually more prominent in recent years. Within the last year, sister has noticed that he seems definitely more confused when hospitalized. There have clearly been some features of delirium and hallucination recognized. After lengthy discussion at the bedside, I am not certain about his recent ethanol use and his benzodiazepine use. He apparently has prescription for lorazepam 2 mg and possibly directions to take that t.i.d. He told me that he did not take that, later said he takes it once a day and then later said he might take it twice some days. Sister thought he was abstaining completely from ethanol, but he reports drinking some wine and some beer sometimes. Later, he told me he drinks wine or beer most days. He presented with urine drug screen negative for benzodiazepine and serum ethanol level was zero. Urine drug screen was positive only for cannabis. He has been taking pramipexole chronically for restless legs. He reports he would not be able to sleep if not for that drug. He has not had prior delirium or hallucination directly attributed to pramipexole dose. Workup here includes noncontrast CT done 12/23/2018 reported unremarkable. Lab shows blood sugars ranging 100s to 300s. Chemistry otherwise unremarkable. He has been afebrile. Systolic blood pressures have been 110s to 170s in recent days. Heart rate has ranged 60s to 110s. There is reported past history of COPD, hypertension, diabetes mellitus type 2, thrombocytopenia. He presented with evidence of acute on chronic hypoxemic respiratory failure. His hospital medicine list includes lorazepam 2 mg b.i.d. for the last several days and dose reduced to 1 mg p.r.n. this morning, no dose recorded on that order yet. PHYSICAL EXAMINATION: On exam, Mr. Leija is awake, alert, attentive, cheerful. He did not identify his surroundings correctly. At one point, he said he was in his bedroom at home. He told me he was in [facility]. He seemed willing to agree that this is the hospital in [place]. He did not name the President but did name several former presidents. He missed the day of the month by just 1 day and was oriented to the correct month. He missed the day of the week by 2. Remote memory is fair. Recent memory is poor. Speech is very dysarthric and difficult to understand at times. Language function is intact on bedside testing. Head and neck are unremarkable. There is no meningismus. Visual alfaro are full tested by confrontational finger counting. Extraocular movements are full. Facial motility is symmetric. Gag is intact. Tongue is midline. Shoulder shrug is equal. Strength is normal in the arms and legs. He did well on finger-to- nose testing. He has slight difficulty with unog-ya-pyha testing bilaterally. His gait is wide-based but more steady than I expected. Proprioception is good at the great toe MTP joint bilaterally. He reports good pinprick appreciation around the ankles and over the palms. IMPRESSION: Global encephalopathy. This is likely multifactorial. This sounds like he has a baseline cognitive impairment syndrome which might be related to alcohol. Baseline cognitive impairment predisposes him to greater degree and duration of encephalopathy with any toxic or metabolic disturbance. He may have had alcohol and/or benzodiazepine withdrawal earlier this admission. He continues disoriented, but he does not appear to have agitated delirium or DTs now. I strongly encouraged him to abstain completely from ethanol and to be careful with his medicines. I encouraged him to allow more supervision of his home medicines and to consider using a pill organizer. We discussed potential for dopaminergic medicines such as pramipexole to aggravate hallucinations. If pramipexole is providing benefit for restless legs, he may continue that carefully. We discussed potential for dependence and withdrawal symptoms very similar to alcohol withdrawal with benzodiazepines including lorazepam. He reports considering bupropion and we discussed potential for seizure with that drug. If there is not history of seizure, I don't think bupropion is contraindicated. I do not think we need anything further from Neurology standpoint right now. Depending on his clinical course, he might be a candidate for cholinesterase inhibitor trial later, probably as an outpatient after current medical illness is resolved. Thanks for asking Neurology to see Mr. Leija. cc: MD CAITLIN Parsons III
[2019-01-27] MEDS: ATIVAN IV PRN ×3 (14:47→22:33)
[2019-01-27] MEDS: FLOMAX PO SCH (20:39)
[2019-01-27] MEDS: MIRAPEX PO SCH (20:39)
[2019-01-27] MEDS: LEVEMIR SUBQ SCH (20:41)
[2019-01-27] MEDS ORDERED: INSULIN PEN NEEDLES ONE (20:46)
--- NOTE | 2019-01-27 21:32 | CONSULTATION ---
DATE OF CONSULTATION: 01/27/2019 CHIEF COMPLAINT: Weak urine stream. HISTORY OF PRESENT ILLNESS: Mr. Leija is a 68-year-old with history of severe COPD, congestive heart failure, atrial fibrillation, status post pacemaker placement, hypertension, chronic pain syndrome, type 2 diabetes, alcoholism, tobacco abuse, restless legs syndrome, who presents in consultation regarding difficulty with urination. The patient states he has had a long history of difficulty with urination and has been seen previously by Dr. Cooper in [place]. The patient states that he has had several procedures on his urethra for "narrowing." He initially described having issues with his prostate, but later described having procedures done as a teenager and then again in his 30s. Seems to be describing a history of urethral stricture, but cannot adequately describe what was done to him. The patient has a history of a circumcision in his 30s, related to scar tissue formation. The patient initially presented to the emergency room on 01/22/2019, due to increased work of breathing and respiratory distress, and was admitted for a COPD exacerbation. He has been evaluated by Pulmonary, Cardiology, and Neurology. The patient describes having difficulty with urination, feeling like his urinary stream is weakened. He recently was seen by Dr. Cooper and had a cystoscopy performed, and said that he needs another procedure done. He was also diagnosed with kidney stones in both kidneys per his report. The patient denies any dysuria or hematuria. Denies any urgency. The patient is a chronic smoker, but denies history of kidney or bladder cancer in his family. The patient is on home oxygen as well as a CPAP at night. The patient continues to have shortness of breath with wheezing and chest pain. The patient states the chest pain is worsened when he tries to urinate. PAST MEDICAL HISTORY: 1. COPD, on home oxygen. 2. Tobacco abuse. 3. Congestive heart failure. 4. Atrial fibrillation with a pacemaker in place. 5. Hypertension. 6. Chronic pain syndrome. 7. Type 2 diabetes. 8. Alcoholism. 9. Restless legs syndrome. PAST SURGICAL HISTORY: 1. Pacemaker placement with defibrillator. 2. Circumcision. 3. Urethral surgery x2. 4. TURP ALLERGIES: No known drug allergies. HOME MEDICATIONS: 1. Folic acid 1 mg p.o. daily. 2. Lasix 120 mg p.o. daily. 3. Glimepiride 2 mg p.o. daily. 4. Hydralazine 25 mg p.o. q.8 hours. 5. Ipratropium/albuterol 3 mL as needed. 6. Lorazepam 2 mg p.o. q.8 hours p.r.n. 7. Meloxicam 15 mg p.o. daily. 8. Metformin 500 mg p.o. b.i.d. 9. Potassium chloride 20 mEq p.o. daily. 10. Mirapex. 11. Prednisone 10 mg p.o. daily. FAMILY HISTORY: He denies family history of malignancy. SOCIAL HISTORY: The patient continues to drink heavily with upwards of a pint a day. He smokes more than a pack of cigarettes daily for greater than [id number]. He denies any illicit drug use. REVIEW OF SYSTEMS: A 12-point review of systems performed with all pertinent positives and negatives in HPI. PHYSICAL EXAMINATION: Vital Signs: Temperature 98.1 degrees, heart rate 95, blood pressure 140/75, oxygen saturation 100% on nasal cannula. General: No acute distress. Resting comfortably in bed. Alert and oriented x3. HEENT: Normocephalic, atraumatic. Pupils equal, round, and reactive to light. Neck: Trachea midline with no palpable masses. Respiratory: No increased work of breathing. The patient has audible wheezing in the bases. The patient seems to be using accessory breathing, but is comfortable. Cardiovascular: Regular rate and rhythm. No evidence of lower extremity edema. Gastrointestinal: Abdomen soft, nontender, nondistended. No palpable hepatosplenomegaly. No point tenderness or rebound, guarding. Genitourinary: Normal bilateral testicles palpated without masses. No palpable hydroceles or varicoceles. Phallus shows evidence of a hypostatic meatus, as well as appearance of lichen sclerosus and scarring of the head of the penis. No palpable masses are felt in the penis itself. Digital rectal exam shows a small prostate measuring approximately 25 g with no nodules, asymmetry, no palpable rectal masses. Bladder is nontender to palpation and nondistended. Musculoskeletal: Moving all extremities. Neurologic: Gross motor and sensory intact. LABORATORY: White blood cell count 4.3, hemoglobin 11.9, hematocrit 36.0, platelets 97,000. Sodium 140, potassium 4.4, chloride 103, bicarbonate 27, BUN 37, creatinine 1.1, glucose 266. ProB natriuretic peptide 1295. Urinalysis shows negative blood, moderate leukocytes with 20-40 white blood cells with negative bacteria. ASSESSMENT/PLAN: Mr. Leija is a 68-year-old with chronic obstructive pulmonary disease, congestive heart failure, type 2 diabetes, hypertension, chronic pain, alcoholism, chronic tobacco use, restless legs syndrome, and chronic urethral stricture disease. The patient describes having a weak urinary stream and inability to empty his bladder rapidly. The patient describes a long history with procedures on his urethra and seems to be describing urethral stricture disease, but cannot adequately tell me what the cause or the procedures he has had done on his urethra before. The patient denies any surgeries on his prostate previously. The patient's prostate is relatively small and likely not the cause of his issues. Patient has had several bladder scans which showed low volume. I think the patient's greatest concern is related to his urethral stricture disease. The patient has evidence of lichen sclerosus, which likely led to a circumcision. He has a slightly hypospadiac appearance. Uncertain if he has some type of urethral meatal stenosis from his lichen sclerosus that leads to a weak urinary stream. The patient was scheduled to have a procedure done by Dr. Cooper, but was admitted to the hospital in the interim. The patient continues to have issues with increased work of breathing and chest pain. Concern arises that the patient is in COPD exacerbation. Recommend optimization of this and can work on voiding complaints in the future. Would recommend a repeat cystoscopy to better assess. Patient seems to be emptying his bladder to completion. I think patient will likely need repeat cystoscopy and urethral dilation. We will obtain an abdominal x-ray, as he states that he was told he had kidney stones previously, and that they may or may not be causing him problems. We will try to obtain information from Dr. Cooper's office. Will contact them in the morning. cc: Chai Nunez MD MTDSarina
[2019-01-27] MEDS ORDERED: NICODERM PATCH TD PRN (22:47)
[2019-01-27] MEDS: PHENOBARBITAL IV PRN (23:01)
[2019-01-28] MEDS: PHENOBARBITAL IV PRN ×2 (00:15→01:15)
[2019-01-28] MEDS: ATIVAN IV PRN ×3 (03:01→20:10)
[2019-01-28] MEDS: DUONEB (A & A) INH SCH ×6 (03:32→23:20)
--- NOTE | 2019-01-28 04:00 | PROGRESS NOTE ---
DATE: 01/27/2019 SUBJECTIVE: The patient was noted to be very confused and belligerent. He was hallucinating as per the nursing staff. OBJECTIVE: Vital Signs: Temperature 98.7 degrees, blood pressure 156/63, heart rate 92, respirations 19, O2 saturation 98% on 2 L nasal cannula. General: This is a chronically ill- appearing elderly male, sitting at the edge of the bed in no acute distress. Heart: S1, S2, normal. Lungs: Positive for expiratory wheezes bilaterally. Abdomen: Positive bowel sounds. Soft, nontender, nondistended. Extremities: Trace pedal edema. Neurologic: The patient is oriented to person and place; however, he does have periods of confusion. LABS: White blood cell count 4.2, hemoglobin 11, hematocrit 36, platelets 97,000. Sodium 140, potassium 4.4, chloride 103, CO2 27, BUN 37, creatinine 1.1, glucose 266. ASSESSMENT AND PLAN: 1. Acute on chronic hypoxemic respiratory failure. The patient has chronic obstructive pulmonary disease. We will continue to treat the underlying condition. 2. Chronic obstructive pulmonary disease exacerbation. Continue with the current treatment regimen. Further management as per the controller mechanic. 3. Encephalopathy. This may represent alcohol withdrawal. We will consult with the neurologist for further recommendations. 4. Chronic systolic congestive heart failure, stable. 5. Urinary retention. Continue on Flomax. 6. Acute kidney injury, improved. 7. Diabetes mellitus type 2. Continue on sliding scale insulin. Will also add long-acting insulin since the patient is on steroids. 8. Restless leg syndrome. Continue on Mirapex. 9. Thrombocytopenia, stable. cc: Honey Rutherford MD
[2019-01-28] MEDS: APRESOLINE PO SCH ×3 (04:58→21:28)
[2019-01-28] MEDS: SOLU-MEDROL IV SCH ×3 (05:35→20:10)
[2019-01-28] MEDS: PROTONIX PO SCH (06:06)
[2019-01-28 06:07] LABS: HEMATOCRIT 37.1 % (42.0-52.0); HEMOGLOBIN 12.1 g/dL (14.0-18.0); MCH 30.9 PG (27-31); MCHC 32.6 g/dL (33-37); MCV 94.9 FL (81-99); MPV 10.1 FL (7.4-10.4); RBC 3.91 XMIL (4.7-6.1); RDW 14.3 % (11.5-14.5); WBC 6.49 X1000 (4.8-10.8)
[2019-01-28] MEDS: HUMALOG SUBQ SCH ×4 (06:09→21:29)
--- NOTE | 2019-01-28 06:23 | Diag Imaging Result Doc PS360 ---
EXAM: CHEST-PORTABLE HISTORY: copd TECHNIQUE: Portable chest single view COMPARISON: 01/26/2019 FINDINGS: The lungs are well expanded. The heart is borderline mildly prominent. Left-sided pacemaker. The vessels are not distended. There are no infiltrates. No effusion identified. IMPRESSION: Stable chest Electronically signed by Luis Monique 01/28/2019 6:20 AM
[2019-01-28 06:33] LABS: CALCIUM 9.3 mg/dL (8.8-10.2); CREATININE 1.4 mg/dL (0.7-1.2); POTASSIUM 4.3 mmol/L (3.5-5.1)
[2019-01-28 07:18] LABS: ALBUMIN 4.2 g/dL (3.5-5.0); DIRECT BILIRUBIN 0.1 mg/dL (0.00-0.20); TOTAL BILIRUBIN 0.34 mg/dL (0.20-1.00); TOTAL PROTEIN 6.3 g/dL (6.3-8.3)
[2019-01-28] MEDS: ADVAIR 250/50 DISKUS INH SCH (07:47)
[2019-01-28] MEDS ORDERED: STERILE WATER INJ. INJ PRN (08:46)
[2019-01-28] MEDS ORDERED: COZAAR PO SCH (09:00)
[2019-01-28 09:10] LABS: BLOOD TYPE ARTERIAL; SAMPLE BLOOD
[2019-01-28 09:11] LABS: ALLEN TEST YES; BE 9.5 mmoll (-3.0-3.0); HCO3-(ACT) 32.3 mmoll (20.0-26.0); METHB 1.1 % (0.0-1.5); O2(CT) 16.6 mL/dL (15.0-23.0); O2HB 95.5 % (95.0-99.0); PCO2(98.6) 49 mmHg (35-45); PO2(98.6) 82 mmHg (60-100); SAO2 98.5 % (95.0-100.0); THB 12.3 g/dL (11.5-17.4); pH(98.6) 7.46 (7.35-7.45)
[2019-01-28 09:12] LABS: MODALITY BI PAP
[2019-01-28] MEDS: GEODON IM PRN (09:23)
[2019-01-28] MEDS: GLUCOPHAGE XR PO SCH (09:48)
[2019-01-28] MEDS: AMARYL PO SCH (09:48)
[2019-01-28] MEDS: FOLIC ACID PO SCH (09:48)
[2019-01-28] MEDS: MUCINEX PO SCH ×2 (09:49→21:28)
--- NOTE | 2019-01-28 09:53 | Diag Imaging Result Doc PS360 ---
EXAM: KUB ABDOMEN HISTORY: Abdominal Pain and History of kidney stones TECHNIQUE: Abdomen single view COMPARISON: 05/27/2018 FINDINGS: There is stool throughout the colon. No bowel obstruction. No organomegaly. There are several calcifications overlying the kidneys similar to the prior exam. Moderate atherosclerosis. IMPRESSION: 1.Bilateral renal stones 2.Constipation Electronically signed by Luis Monique 01/28/2019 9:50 AM
[2019-01-28] MEDS: LEVEMIR SUBQ SCH (10:00)
[2019-01-28 10:17] LABS: URINE SOURCE CATH
[2019-01-28 10:19] LABS: BILIRUBIN URINE NEGATIVE (NEGATIVE); BLOOD URINE NEGATIVE (NEGATIVE); COLOR YELLOW; GLUCOSE URINE NEGATIVE (NEGATIVE); KETONE URINE NEGATIVE (NEGATIVE); LEUKOCYTES URINE NEGATIVE (NEGATIVE); NITRITE URINE NEGATIVE (NEGATIVE); PROTEIN URINE NEGATIVE (NEGATIVE); SP GRAVITY URINE 1.014; TURBIDITY URINE CLEAR (CLEAR); UROBILINOGEN URINE NORMAL (NORMAL)
[2019-01-28 10:21] LABS: UR EPITHELIAL CELLS <10 /HPF (<10); URINE BACTERIA NEGATIVE /HPF; URINE RBC <10 /HPF (<10); URINE WBC <10 /HPF (<10)
--- NOTE | 2019-01-28 12:52 | PROGRESS NOTE ---
DATE: 01/28/2019 LOCATION: [facility][id number]. SUBJECTIVE: I saw Mr. Leija on the hospital floor yesterday. He was awake, alert, attentive, confused, and a little bit agitated then, but mostly appropriate. Later, he became more agitated and required restraints. He has moved to [facility]. OBJECTIVE: Right now, he is awake, alert, following simple commands, speaking with very soft voice. He moved all limbs. I did not test his gait. Neck is supple. IMPRESSION: Agitated confusion, delirium, concern for alcohol withdrawal and/or benzodiazepine withdrawal. He has received lorazepam here, but dose may have been less than dose he had been getting prior to admission. He has had ziprasidone and haloperidol in recent hours. I do not see evidence of a primary central nervous system event. I agree with your management plans. Thank you for asking Neurology to see Mr. Leija. cc: MD CAITLIN Parsons III
[2019-01-28] MEDS: ROCEPHIN 1 GM in NS 50 ML IV SCH (13:08)
[2019-01-28] MEDS: HALDOL IV PRN ×2 (13:38→21:32)
--- NOTE | 2019-01-28 15:34 | PROGRESS NOTE ---
DATE: 01/28/2019 SUBJECTIVE: The patient was noted to be very confused and agitated overnight. He is now in 4 point restraints. OBJECTIVE: Vital Signs: Temperature 97.5 degrees, blood pressure 157/80, heart rate 114, respirations 18, O2 saturation 99% on 4 L nasal cannula. General: This is a chronically ill- appearing elderly male lying in bed in no acute distress. Heart: S1, S2 normal. Tachycardic. Lungs: Diffuse expiratory wheezes bilaterally. Abdomen: Positive bowel sounds. Soft, nontender, nondistended. Extremities: No cyanosis. Trace pedal edema. Neurologic: The patient is oriented to self only. He is able to move all 4 extremities. LABS: White blood cell count 6.4, hemoglobin 12, hematocrit 37, platelets 108,000 sodium 143, potassium 4.3, chloride 101, CO2 32, BUN 37, creatinine 1.4, glucose 228, AST 30, ALT 53. ASSESSMENT AND PLAN: 1. Acute on chronic hypoxemic respiratory failure. Continue to treat the underlying condition. 2. Chronic obstructive pulmonary disease exacerbation. Continue on bronchodilator therapy, IV steroids, antibiotic therapy, and supplemental oxygen. Further management as per the environmental services manager. 3. Encephalopathy. There is concern about possible alcohol withdrawal. Will continue on Ativan. We will try to avoid using too much Ativan given the patient's underlying respiratory issues. 4. Chronic systolic congestive heart failure. Stable. 5. Acute kidney injury. This is likely secondary to diuretic therapy. We will hold the Lasix dosage for today and re-evaluate tomorrow. 6. Diabetes mellitus type 2. Continue on Levemir and sliding scale insulin. 7. Tobacco dependence. The patient has been counseled about smoking cessation. 8. Restless leg syndrome. Continue on Requip. 9. Gastrointestinal prophylaxis. Continue on Protonix. 10. Chronic thrombocytopenia. Slightly improved. cc: Honey Rutherford MD MTDD
[2019-01-28] MEDS: D50W SYRINGE IV ONE ×2 (16:07→16:50)
--- NOTE | 2019-01-28 20:55 | PROGRESS NOTE ---
DATE: 01/28/2019 SUBJECTIVE: The patient has been very combative and confused, agitated throughout the last 24 hours. The patient was initially in the CICU and was transferred to the ICU this afternoon. In reading through notes, the patient has been abusive to staff, required multiple rounds of chemical restraints as well as physical restraints. The patient currently appears to be less comfortable in bed at this time. He is asleep and arousal. The patient's vital signs are all stable. Urethral catheter has been placed and draining clear yellow urine. OBJECTIVE: Vital Signs: Temperature 97.5 degrees, heart rate 86, blood pressure 119/63, oxygen saturation 97% on nasal cannula 5 L. General: Sedated and agitated. Respiratory: Good respiratory effort without increased work of breathing. Slight wheezing at the bases. Abdomen: Soft, nontender, nondistended. : No suprapubic tenderness. No CVA tenderness. Musculoskeletal: Extremities in restraints. LABS: White blood cell count 6.5, hemoglobin 12.1, hematocrit 37.1, platelet 108,000. Sodium 143, potassium 4.3, chloride 101, bicarb 32, BUN 37, creatinine 1.4, glucose 228. ASSESSMENT AND PLAN: Mr. eLija is a 68-year-old who has history of chronic obstructive pulmonary disease, tobacco abuse, congestive heart failure, atrial fibrillation with pacemaker, hypertension, chronic pain, type 2 diabetes, alcoholism, and restless legs, who presents in evaluation for management of urinary retention. The patient had post void residuals that were all low yesterday. I do not think the patient truly has urinary retention. He describes some type of urethral pathology, whether that is some obstructing tissue from his prostate versus urethral stricture. The patient has a catheter placed by nursing and was described as easy, so likely minimal urethral stricture. The patient had a KUB today which showed 2 stones, one in the lower pole of the left kidney and one in the upper pole of the right kidney. I obtained records from Dr. Cooper's office, which showed the patient had a transurethral resection of prostate in 2014, and was just seen recently for recurrent infection and kidney stones. He was scheduled to undergo surgery for these stones. On the x-ray, there are no obstructing stones present. The patient's renal function is at baseline. I do not think that these are causing his current symptoms. Likely, it is related to alcohol abuse as well as underlying medical conditions. Recommend continued optimization. I think leaving indwelling catheter in at this time is fine until patient becomes more interactive and less combative. Urine culture is without growth. Will continue to monitor from a urologic standpoint. Please call with questions or concerns. cc: Chai Nunez MD MTDD
[2019-01-28] MEDS: MIRAPEX PO SCH (21:28)
[2019-01-28] MEDS: FLOMAX PO SCH (21:30)
[2019-01-29] MEDS: ATIVAN IV PRN ×2 (02:34→06:16)
[2019-01-29] MEDS: GEODON IM PRN (02:42)
[2019-01-29] MEDS: DUONEB (A & A) INH SCH ×6 (03:25→23:49)
[2019-01-29] MEDS: HUMALOG SUBQ SCH ×4 (04:00→20:19)
[2019-01-29] MEDS: HALDOL IV PRN ×2 (04:13→23:21)
[2019-01-29 04:22] LABS: BLOOD TYPE ARTERIAL; SAMPLE BLOOD
[2019-01-29 04:23] LABS: ALLEN TEST YES; BE 10.3 mmoll (-3.0-3.0); HCO3-(ACT) 32.9 mmoll (20.0-26.0); METHB 1.4 % (0.0-1.5); O2(CT) 16.3 mL/dL (15.0-23.0); PO2(98.6) 147 mmHg (60-100); THB 11.9 g/dL (11.5-17.4)
[2019-01-29 04:26] LABS: MODALITY BI PAP; PCO2(98.6) 60 mmHg (35-45)
[2019-01-29] MEDS: SOLU-MEDROL IV SCH ×3 (06:16→20:19)
[2019-01-29] MEDS: APRESOLINE PO SCH (06:21)
[2019-01-29] MEDS: PROTONIX PO SCH (06:22)
[2019-01-29 06:27] LABS: HEMATOCRIT 37.1 % (42.0-52.0); HEMOGLOBIN 11.8 g/dL (14.0-18.0); MCH 31.1 PG (27-31); MCHC 31.8 g/dL (33-37); MCV 97.9 FL (81-99); RBC 3.79 XMIL (4.7-6.1); RDW 14.2 % (11.5-14.5); WBC 4.6 X1000 (4.8-10.8)
[2019-01-29 07:01] LABS: AGAP 8; BUN 28 mg/dL (8-22); CHLORIDE 107 mmol/L (98-107); COSMO 298; CREATININE 0.9 mg/dL (0.7-1.2); ESTIMATED GFR > 60; GLUCOSE 95 mg/dL (70-104); POTASSIUM 4.3 mmol/L (3.5-5.1); SODIUM 147 mmol/L (136-145); TCO2 32 mmol/L (25-35)
--- NOTE | 2019-01-29 07:49 | PROGRESS NOTE ---
DATE: 01/29/2019 SUBJECTIVE: The patient was transferred to the ICU yesterday due to agitation and confusion. Overall, patient seems to be better controlled at this time. Patient remains with stable vital signs. Indwelling catheter has been in place, draining 2.3 L of urine. The patient's nurse states that he was less agitated last night. OBJECTIVE: Vital signs: Temperature 98.3 degrees, heart rate 84, blood pressure 143/75, oxygen saturation 97% on CPAP machine. General: Resting comfortably. Slightly sedated. Respiratory: Good respiratory effort without increased work of breathing. The patient has slight wheezing at the bases. Abdomen: Soft, nontender, nondistended. Genitourinary: No suprapubic tenderness. No CVA tenderness. Urethral catheter in place draining clear yellow urine. Evidence of lichen sclerosis present over the glans of the penis. MUSCULOSKELETAL: The patient is wearing four-point restraints. LABORATORY DATA: White blood cell count 4.6, hemoglobin 11.8, hematocrit 37.1, platelets 98,000. Sodium 147, potassium 4.3, chloride 107, bicarb 32, BUN 28, creatinine 0.9, glucose 95. ASSESSMENT PLAN: Mr. Leija is a 68-year-old with chronic obstructive pulmonary disease, tobacco abuse, congestive heart failure, atrial fibrillation with pacemaker, hypertension, chronic pain, type 2 diabetes, alcoholism, and restless legs syndrome, who presents for evaluation for management of urinary retention. I think the patient does not have true urinary retention, but rather possible urethral stricture disease. The patient had an indwelling catheter inserted by nursing staff and it seems to have minimal stricturing. The patient describes having cystoscopy done by Dr. Cooper previously. Patient also had a x-ray initially which showed several nonobstructing stones within the kidney. I do not think these are related to his symptoms. I think the patient will likely need to be optimized from his agitation and possible delirium tremens. The patient likely could have outpatient follow-up for his kidney stones and management of his ureteral stricture disease. This had been discussed with him previously before he became more agitated. Overall, I think the patient is improving and patient has stable vital signs and all his labs are within normal limits. We will continue to monitor from a urologic standpoint. Please call with questions or concerns. cc: MD CAITLIN Wing
[2019-01-29] MEDS ORDERED: APRESOLINE IV PRN (08:41)
[2019-01-29] MEDS ORDERED: SODIUM CHLORIDE 0.9% INJ SCH (08:45)
[2019-01-29] MEDS: VASOTEC IV SCH ×2 (09:34→20:19)
[2019-01-29] MEDS: PROTONIX IV SCH (09:34)
[2019-01-29] MEDS: MUCINEX PO SCH ×2 (09:35→20:19)
[2019-01-29] MEDS: FOLIC ACID PO SCH (09:35)
[2019-01-29] MEDS: NICODERM PATCH TD SCH (09:35)
--- NOTE | 2019-01-29 09:43 | PROGRESS NOTE ---
DATE: 01/29/2019 SUBJECTIVE: Patient continues to be confused and agitated. He had just 1 episode last night where he was briefly oriented but now he continues to be on 4 point restraints. Continues to be confused. OBJECTIVE: Vital Signs: Temperature 98.3, heart rate 76, respiratory rate 18, blood pressure 158/70, O2 saturation 96% on BiPAP. General: This is a chronically ill- appearing, 68-year-old male lying in bed, somewhat restless. HEENT: Head is normocephalic, atraumatic. Mucous membranes dry. Upon my examination, he is using a BiPAP mask. Neck: No JVD noted. No carotid bruits. No lymphadenopathy. No thyromegaly. Cardiovascular: S1, S2 heard. No murmurs, gallops, or rubs. Regular rate and rhythm. Respiratory: Continues to have diffuse expiratory wheezing all over both pulmonary alfaro. Patient is not using any accessory muscles or having work of breathing. Abdomen: Soft. A little bit distended. Apparently nontender to palpation. Bowel sounds present. No organomegaly. Extremities: No clubbing or cyanosis but there is mild edema in both lower extremities. Peripheral pulses present. Neurological: Patient continues to be agitated. Does not follow commands. He is somewhat a little bit combative at times, moves 4 extremities spontaneously. LABORATORY DATA: White cell count 4.6, hemoglobin 11.8, hematocrit 37.1, platelets 98,000. ABG shows pH 7.42 with pCO2 60, PO2 147. Sodium 147, BUN 28, creatinine is 0.9. ASSESSMENT AND PLAN: 1. Acute on chronic hypoxemic hypercarbic respiratory failure. The patient is now requiring BiPAP. I am not quite sure for how long he has been using his BiPAP but his CO2 is elevated, so we recommend to continue with BiPAP now. Pulmonary has been consulted. We will follow recommendations. 2. Chronic obstructive pulmonary disease exacerbation. Patient continues to be on DuoNeb every 4 hours and IV steroids, and antibiotics, in this case ceftriaxone, and oxygen supplementation by BiPAP. The patient is still having some wheezing, so we will continue with same management. 3. Metabolic encephalopathy. The patient has been transferred to intensive care unit yesterday for possible alcohol withdrawal. Patient is on Ativan p.r.n. Also we are using Haldol IV, in this case 5 mg q.6 hours. We will continue with the same management. 4. Chronic systolic congestive heart failure, stable. Does not have any signs of exacerbation at this time. 5. Acute kidney injury. The patient was receiving Lasix that has been stopped and renal function is back to normal. We will continue with same management. 6. Hypertension. Blood pressure is under control. Because he is not able to take his hydralazine by mouth, will change to enalapril IV and will place on hydralazine IV p.r.n. to systolic blood pressure greater than 180. 7. Diabetes mellitus type 2. We will continue with sliding scale insulin, but I do not think we need to continue with Levemir because he is not able to eat that this point. 8. Tobacco dependency. We will continue the nicotine patch daily. 9. Gastrointestinal prophylaxis with Protonix. 10. Chronic thrombocytopenia, stable. We will continue to monitor. 11. Disposition. We will continue to monitor this patient in intensive care unit. Addendum: I was called by nurse around 4 pm and patient is alert and awake. Oriented in person and time. Will monitor patient closely in ICU today and if he is better will send him to regular floor. cc: Antoine Cantor MD MTDD
[2019-01-29] MEDS: MUCOMYST 20% INH SCH ×2 (11:10→19:50)
[2019-01-29] MEDS: ROCEPHIN 1 GM in NS 50 ML IV SCH (13:00)
--- NOTE | 2019-01-29 15:10 | Diag Imaging Result Doc PS360 ---
EXAM: CT HEAD W/O CONTRAST 01/28/2019 HISTORY: encephalopathy TECHNIQUE: This exam was performed using automated exposure control, adjustment of mA or kV according to patient size, and/or use of iterative reconstruction technique. COMMENT: There is no evidence of mass effect, bleed, or abnormal extra-axial fluid collection. Compared to 12/23/2018 the appearance the brain has not changed significantly. The calvarium is intact. The visualized paranasal sinuses are clear. IMPRESSION: No evidence of acute intracranial disease. Electronically signed by Maximo Devine 01/29/2019 3:07 PM
--- NOTE | 2019-01-29 18:37 | PULMONOLOGY PROGRESS NOTE ---
DATE: 01/29/2019 SUBJECTIVE: Patient is confused, restrained, and currently on BiPAP. OBJECTIVE: Vital Signs: The patient had an isolated temperature of 101.8 degrees at 5 p.m. last evening, but otherwise has remained afebrile. Blood pressure 105/57, heart rate 79. Respiratory rate 15, oxygen saturation 94%. HEENT: Pupils are equal and reactive. Oropharynx appears clear. Neck: Supple. Chest: Reveals good air entry bilaterally without wheezing or rhonchi. CARDIAC: S1, S2. Abdomen: Soft and without hepatosplenomegaly. Extremities: Reveal trace edema. LABORATORIES: Arterial blood gas on BiPAP device, pH 7.40, pCO2 of 60, pO2 of 147. Chemistry: Sodium 147, potassium 4.3, chloride 107, bicarbonate 32, BUN 28, creatinine 0.9. Chest x-ray was not performed today. IMPRESSION: 1. A 68-year-old with acute on chronic hypoxemic respiratory failure. 2. Acute on chronic hypercarbic respiratory failure.. 3. Delirium, query alcohol use. 4. Secondary pulmonary hypertension. 5. Mild left ventricular dysfunction. PLAN: 1. Continue to observe in the ICU for altered mental status/delirium. 2. Continue to cycle BiPAP at bedtime and p.r.n. 3. Consider IV fluids/PPN if the patient does not resume eating in the next 24 to 48 hours. cc: Alexandr Franklin MD MTDD
[2019-01-29] MEDS: MIRAPEX PO SCH (20:19)
[2019-01-29] MEDS: FLOMAX PO SCH (20:19)
[2019-01-29] MEDS: LASIX IV SCH (20:19)
[2019-01-29] MEDS: MYCELEX 1% CREAM TOP SCH (20:20)
[2019-01-29] MEDS: ATIVAN PO PRN (23:02)
[2019-01-29] MEDS ORDERED: MORPHINE IV ONE (23:53)
[2019-01-30] MEDS: DUONEB (A & A) INH SCH ×6 (03:23→23:54)
[2019-01-30] MEDS: HALDOL IV PRN (03:57)
[2019-01-30 04:44] LABS: ALLEN TEST YES; BE 7.7 mmoll (-3.0-3.0); BLOOD TYPE ARTERIAL; HCO3-(ACT) 30.9 mmoll (20.0-26.0); METHB 0.9 % (0.0-1.5); O2(CT) 17.2 mL/dL (15.0-23.0); O2HB 95.1 % (95.0-99.0); PO2(98.6) 85 mmHg (60-100); SAMPLE BLOOD; THB 12.8 g/dL (11.5-17.4); pH(98.6) 7.42 (7.35-7.45)
[2019-01-30 04:45] LABS: MODALITY CANNULA; PCO2(98.6) 52 mmHg (35-45)
[2019-01-30] MEDS: SOLU-MEDROL IV SCH ×3 (05:14→21:19)
[2019-01-30 05:34] LABS: HEMATOCRIT 37.3 % (42.0-52.0); HEMOGLOBIN 12.3 g/dL (14.0-18.0); IMM GRAN# 0.02 X1000 (0.0-0.04); IMM GRAN% 0.2 % (0.0-0.5); LYMPH# 0.54 X1000 (1.2-3.4); LYMPH% 6.4 % (20.5-51.1); MCH 30.8 PG (27-31); MCV 93.3 FL (81-99); MONO# 0.61 X1000 (0.11-0.59); MONO% 7.2 % (1.7-9.3); MPV 10.1 FL (7.4-10.4); NEUT# 7.26 X1000 (1.4-6.5); NEUT% 86.2 % (42.2-75.2); PLT 107 X1000 (130-400); RDW 13.5 % (11.5-14.5); WBC 8.43 X1000 (4.8-10.8)
[2019-01-30 05:49] LABS: AGAP 11; BUN 31 mg/dL (8-22); CALCIUM 8.7 mg/dL (8.8-10.2); CHLORIDE 101 mmol/L (98-107); COSMO 294; ESTIMATED GFR > 60; GLUCOSE 249 mg/dL (70-104); SODIUM 140 mmol/L (136-145); TCO2 28 mmol/L (25-35)
[2019-01-30] MEDS: HUMALOG SUBQ SCH ×5 (05:58→21:20)
[2019-01-30] MEDS: MUCOMYST 20% INH SCH ×2 (08:00→19:56)
--- NOTE | 2019-01-30 08:54 | PROGRESS NOTE ---
DATE: 01/30/2019 SUBJECTIVE: Since yesterday afternoon at 4 p.m. patient is completely awake, oriented, has slept very well. He reports has started walking now. He has a good appetite. Not confused anymore. OBJECTIVE: Vital Signs: Temperature 98.4 degrees, heart rate 86, respiratory rate 19, blood pressure 126/65, O2 saturation 96% on 4 L nasal cannula. General: This is a chronically ill- appearing, 68-year-old male, lying in bed, in no acute distress. HEENT: Head is normocephalic, atraumatic. Mucous membranes dry. Neck: No JVD noted. No carotid bruits. No lymphadenopathy. No thyromegaly. Cardiovascular: S1, S2 heard. No murmurs, gallops, or rubs. Regular rate and rhythm. Respiratory: Exam patient has still diffuse expiratory wheezing all over both pulmonary alfaro mostly noted in both bases but patient is not using any accessory muscles or having work of breathing. Abdomen: Soft, a little bit distended. Apparently nontender to palpation. Bowel sounds present. No organomegaly. Extremities: No clubbing, cyanosis, mild edema in both lower extremities unchanged in comparing with yesterday. Peripheral pulses present. Neurological: Patient is alert and oriented x3. Moves 4 extremities. Follows commands. Speech is coherent. LABORATORY DATA: White count 8.43, hemoglobin 12.3, hematocrit 37.3, platelets 108,000. ABG that shows pH 7.42 with pCO2 52, PO2 85 that was on nasal cannula. Normal BMP except glucose 249. ASSESSMENT/PLAN: 1. Acute on chronic hypoxemic hypercarbic respiratory failure. The patient is requiring now 4 L of oxygen by nasal cannula. At home he requires 6. CO2 is getting better according to the ABG so at this point, we will recommend BiPAP at night. Pulmonary is following this patient. We will follow their recommendation. 2. Chronic obstructive pulmonary disease exacerbation. Patient continues to have diffuse wheezes. We will continue with DuoNeb every 4 hours and IV steroids and also we will add Advair to current treatment. 3. Metabolic encephalopathy resolved. 4. Chronic systolic congestive heart failure. Lasix has been held the day before yesterday because of abnormal renal function. Since yesterday and today renal function is okay so we have restarted Lasix. We will continue to monitor. 5. Acute kidney injury resolved. 6. Hypertension. Blood pressure is under control. We are going to stop IV medications in this case, enalapril. We will put him back to hydralazine oral. 7. Diabetes mellitus type 2. We will continue with the sliding scale insulin. Accu-Chek before meals and also at bedtime. 8. Tobacco dependence. He will continue with nicotine patch daily. 9. Gastrointestinal prophylaxis with Protonix. 10. Chronic thrombocytopenia stable. 11. Disposition. The patient is definitely much more stable. I will send this patient to a regular floor. We will see if he can be discharged in the next 24 to 48 hours. cc: Antoine Cantor MD MTDD
[2019-01-30] MEDS: MUCINEX PO SCH ×2 (08:56→21:19)
[2019-01-30] MEDS: FOLIC ACID PO SCH (08:56)
[2019-01-30] MEDS: LASIX IV SCH ×2 (08:57→21:19)
[2019-01-30] MEDS: PROTONIX IV SCH (08:57)
[2019-01-30] MEDS: APRESOLINE PO SCH ×3 (08:57→18:42)
[2019-01-30] MEDS: MYCELEX 1% CREAM TOP SCH ×2 (08:58→21:20)
[2019-01-30] MEDS: NICODERM PATCH TD SCH (09:00)
[2019-01-30] MEDS: ATIVAN PO PRN ×2 (10:10→19:24)
[2019-01-30] MEDS: ADVAIR 500/50 DISKUS INH SCH ×2 (10:33→19:55)
[2019-01-30] MEDS: FLOMAX PO SCH ×2 (14:21→21:20)
[2019-01-30] MEDS: ROCEPHIN 1 GM in NS 50 ML IV SCH (14:21)
--- NOTE | 2019-01-30 18:57 | PULMONOLOGY PROGRESS NOTE ---
DATE: 01/30/2019 SUBJECTIVE: The patient is awake, alert and conversant this morning. He denies significant alcohol use. He does report ongoing tobacco use. OBJECTIVE: Vital Signs: The patient has been afebrile for the last 24 hours. BP 139/60, heart rate 88, respiratory rate 20, oxygen saturation 97% on nasal cannula. HEENT: Pupils are equal and reactive. Oropharynx appears clear. Neck: Supple. Chest: Reveals prolonged expiratory phase with scattered wheezing. Cardiac: S1-S2. ABDOMEN: Is obese and soft. Extremities: Reveal generalized bruising. LABORATORIES: White blood count 8.43, hemoglobin 12.3, platelet count 107,000. Arterial blood gas reveals a pH 7.42, pCO2 of 85 on nasal cannula. No new chest x-ray data. IMPRESSION: 68-year-old with 1. Acute on chronic hypoxemic respiratory failure. 2. Acute on chronic hypercapnic respiratory failure. 3. Delirium which has resolved. 4. Pulmonary hypertension, secondary to number next. 5. Mild left ventricular dysfunction. DISCUSSION: A 68-year-old with problems outlined above. He has significantly improved over the last 24 hours. I believe he can be safely transferred to the floor. PLAN: 1. Continue current antibiotic, steroid and bronchodilator regimen. 2. Cycle BiPAP at bedtime and p.r.n. 3. Advance diet as tolerated. 4. Okay for transfer to the floor from the ICU. cc: Alexandr Franklin MD
[2019-01-30] MEDS: MIRAPEX PO SCH (21:19)
[2019-01-31] MEDS: DUONEB (A & A) INH SCH ×3 (04:39→11:36)
[2019-01-31] MEDS: ATIVAN PO PRN (04:45)
[2019-01-31 06:19] LABS: ALLEN TEST YES; BE 5.4 mmoll (-3.0-3.0); BLOOD TYPE ARTERIAL; HCO3-(ACT) 29.1 mmoll (20.0-26.0); METHB 0.8 % (0.0-1.5); O2(CT) 16.3 mL/dL (15.0-23.0); O2HB 97.1 % (95.0-99.0); PCO2(98.6) 46 mmHg (35-45); PO2(98.6) 133 mmHg (60-100); SAMPLE BLOOD; SAO2 99.7 % (95.0-100.0); THB 11.8 g/dL (11.5-17.4); pH(98.6) 7.43 (7.35-7.45)
[2019-01-31 06:21] LABS: MODALITY CANNULA
[2019-01-31 06:35] LABS: EOS# 0.02 X1000 (0.0-0.7); EOS% 0.3 % (0.0-10.0); HEMATOCRIT 34.4 % (42.0-52.0); HEMOGLOBIN 11.8 g/dL (14.0-18.0); IMM GRAN# 0.02 X1000 (0.0-0.04); IMM GRAN% 0.3 % (0.0-0.5); LYMPH# 0.68 X1000 (1.2-3.4); MCH 31.2 PG (27-31); MCHC 34.3 g/dL (33-37); MONO# 0.52 X1000 (0.11-0.59); MONO% 8.4 % (1.7-9.3); MPV 9.8 FL (7.4-10.4); NEUT# 4.92 X1000 (1.4-6.5); PLT 96 X1000 (130-400); RBC 3.78 XMIL (4.7-6.1); RDW 13.4 % (11.5-14.5); WBC 6.16 X1000 (4.8-10.8)
[2019-01-31 06:44] LABS: CALCIUM 8.8 mg/dL (8.8-10.2); CREATININE 1.2 mg/dL (0.7-1.2)
[2019-01-31] MEDS: HUMALOG SUBQ SCH (06:45)
[2019-01-31] MEDS: MUCOMYST 20% INH SCH (08:12)
[2019-01-31] MEDS: ADVAIR 500/50 DISKUS INH SCH (08:13)
[2019-01-31] MEDS: MUCINEX PO SCH (09:41)
[2019-01-31] MEDS: APRESOLINE PO SCH (09:41)
[2019-01-31] MEDS: LASIX IV SCH (09:43)
[2019-01-31] MEDS: FOLIC ACID PO SCH (09:43)
[2019-01-31] MEDS: PROTONIX IV SCH (09:43)
[2019-01-31] MEDS: FLOMAX PO SCH (09:43)
[2019-01-31 11:18] VITALS: BP 125/56
[2019-02-01] MEDS ORDERED: SOLU-MEDROL IV SCH (09:00)
--- NOTE | 2019-02-01 09:22 | PROGRESS NOTE ---
DATE: 01/29/2019 SUBJECTIVE: Mr. Leija was restless and agitated. He was controlled with medications and continues sedated this morning. He responded minimally to loud name calling. When not vigorously stimulated, he appeared to be sleeping peacefully. OBJECTIVE: Limb tone is symmetric. There is no meningismus. Lateral eye movements are full with passive head turning. IMPRESSION: Global encephalopathy, concern for withdrawal syndrome, nothing new neurologically. I do not have any new suggestion today. Thanks for asking Neurology to see Mr. Leija. cc: Kenyon Haines III, MD
--- NOTE | 2019-02-02 16:03 | DISCHARGE SUMMARY ---
ADMISSION DATE: 01/22/2019 DISCHARGE DATE: 01/31/2019 DISCHARGE DIAGNOSES: 1. Chronic obstructive pulmonary disease exacerbation. 2. Acute on chronic hypoxemic, hypercarbic respiratory secondary to condition #1. 3. Metabolic encephalopathy, resolved. 4. Chronic systolic congestive heart failure. 5. Acute kidney injury, resolved. 6. Hypertension. 7. Diabetes mellitus type 2. 8. Tobacco dependence. CONSULTATIONS: 1. Dr. Ashok Barron from Cardiology. 2. Dr. Mak from Pulmonary. 3. Dr. Haines from Neurology. 4. Dr. Nunez from Urology. HOSPITAL COURSE: The patient was placed in the hospital because of shortness of breath that was actually a COPD exacerbation. Patient was started on breathing treatments, antibiotics, and IV steroids. Everything was doing fine. While he was hospitalized, he developed urinary retention so a Hayes catheter was placed but we have put a consult for urology who determined that obstruction is not likely related to a prostate problem but to a urethral stricture so he recommended outpatient cystoscopy. Then the patient became very restless and agitated. We thought initially this patient was having alcohol withdrawal but in talking with daughter, she mentioned that the patient was not drinking enough alcohol as used to. Actually, he was only 1 day admitted in the intensive care unit for metabolic encephalopathy. That resolved on its own. Since then, he was feeling much better, breathing much better. At the time of discharge, he is going to be discharged in stable condition with breathing treatments and oral antibiotics. For diabetes mellitus, we have continued with insulin sliding scale. Acute kidney injury recovered after we stopped Lasix which we were using for volume overload. The patient is going to be discharged in stable condition. DISCHARGE PHYSICAL EXAMINATION: Vital Signs: Temperature 98.3 degrees, heart rate 87, respiratory rate 20, blood pressure 125/56, O2 saturation 98% on 3 L nasal cannula. General Examination: This is a chronically ill-appearing, 68-year-old, male, lying in bed, in no acute distress. HEENT: Head is normocephalic and atraumatic. Mucous membranes are dry. Neck: No JVD noted. No carotid bruits. No lymphadenopathy. No thyromegaly. Cardiovascular Examination: S1 and S2 heard. No murmurs, gallops, or rubs. Regular rate and rhythm. Respiratory Examination: Minimal coarse breath sounds noted in both pulmonary bases. Patient is not using any accessory muscles or having work of breathing. Abdomen: Soft, nontender to palpation. Bowel sounds present. No organomegaly. Extremities: No clubbing, cyanosis, or edema. Peripheral pulses present in both legs. Neurological Examination: The patient is alert and oriented x3. Moves 4 extremities. DISCHARGE DISPOSITION: Home to self-care. FOLLOWUP: With his primary care doctor, Dr. Ruiz, in a week. LIST OF MEDICATIONS: 1. Clotrimazole 1 g topically twice daily. 2. Advair 500 mcg/50 Diskus 1 puff twice daily. 3. Furosemide 120 mg 1 tablet p.o. daily. 4. Potassium chloride 20 mEq p.o. daily. 5. Mirapex 1-2 tablets p.o. at bedtime. 6. Folic acid 1 tablet p.o. daily. 7. Lorazepam 2 mg p.o. q.8 hours as needed. 8. Metformin 500 mg 1 tablet p.o. twice daily. 9. Prednisone 10 mg 1 tablet p.o. daily. 10. Hydralazine 25 mg p.o. 8 hours. 11. Glimepiride 2 mg 1 tablet p.o. daily. 12. DuoNeb 3 mL by inhalation as needed for shortness of breath. TIME TO DISCHARGE THIS PATIENT: 35 minutes. cc: Antoine Cantor MD
== END 2019-01-31 12:40 | disposition home or self-care (01) | DRG 190 ==
LOC: SUPCPDRO → ED 08:35 → SUATTDRO 13:34 → 3N 13:34 → 3S 01-27 14:32 → ICU 01-28 17:11 → 4N 01-30 10:48
PROVIDERS: ATTEND Internal Medicine

== ENCOUNTER 2019-05-02 18:19 | Inpatient (IN) ==
[2019-05-02] MEDS ORDERED: DUONEB (A & A) INH ONE ×2 (18:32→19:51)
[2019-05-02] MEDS ORDERED: SOLU-MEDROL IV ONE (18:33)
[2019-05-02] MEDS ORDERED: PULMICORT INH ONE (18:33)
--- NOTE | 2019-05-02 18:41 | PROVIDER DOCUMENTATION ---
HPI-Respiratory General - General Stated Complaint: SOB Time Seen by Provider: 05/02/19 18:31 Source: patient, EMS Allergies/Adverse Reactions: Patient Allergies Allergy/AdvReac Type Severity Reaction Status Date / Time No Known Allergies Allergy Verified 05/02/19 19:00 Home Medications: Home Medication List Medication Instructions Recorded Confirmed Last Taken Type Furosemide 120 mg PO DAILY 09/09/17 05/02/19 1 Day Ago History ~05/01/19 Ipratropium/Albuterol Sulfate 3 ml INHALATION PRN PRN 01/22/19 05/02/19 Unknown History [Iprat-Albut 0.5-3(2.5) mg/3 ml] Lorazepam 2 mg PO Q8H PRN 01/22/19 05/02/19 05/02/19 History ATORVAstatin [Lipitor] 40 mg PO DAILY 05/02/19 05/02/19 05/02/19 History Carvedilol [Coreg] 3.125 mg PO BID 05/02/19 05/02/19 05/02/19 History Clopidogrel Bisulfate [Clopidogrel] 75 mg PO DAILY 05/02/19 05/02/19 05/02/19 History Losartan [Cozaar] 25 mg PO DAILY 05/02/19 05/02/19 Unknown History Multivitamins/Minerals [Centrum 1 ea PO DAILY tab 05/06/19 Unknown Rx Silver] Polyethylene Glycol 3350 [Miralax] 17 gm PO DAILY powder, packet 05/06/19 Unknown Rx Prednisone 40 mg PO DAILY #90 tab 05/06/19 Unknown Rx Thiamine [Vitamin B-1] 100 mg PO DAILY tab 05/06/19 Unknown Rx - History of Present Illness-Resp Nature of Presenting Problem: 68 YO M pmh for COPD and pacer brought in for SOB worse on today. Pt normally on 3-4 L home o2 and has been using his BiPAP today with no relief. He called EMS for SOB. Onset/Duration: reports: 24 hours ago Timing: reports: still present, getting worse Cough Quality/Degree: reports: moderate Episode Frequency: frequent episodes Similar Symptoms Previously?: Yes Recently seen or treated by another doctor?: No Review of Systems - Adult - REVIEW OF SYSTEMS - ADULT Constitutional: denies: chills, fever Eyes: reports: no symptoms reported Ears, Nose, Mouth & Throat: reports: no symptoms reported Cardiovascular: denies: chest pain, edema, palpitations Respiratory: reports: cough, dyspnea on exertion, shortness of breath, wheezing Gastrointestinal: denies: abdominal pain, diarrhea, nausea, poor appetite Genitourinary: reports: no symptoms reported Musculoskeletal: reports: no symptoms reported Integumentary: reports: no symptoms reported Neurological: denies: headache/migraines, loss of balance, syncope Endocrine: reports: no symptoms reported Past History - Adult - PAST MEDICAL HISTORY-ADULT Review of Records: reports: Old Records Reviewed Major Childhood Illnesses: reports: denies history Cardiovascular: reports: CHF, HTN, pacemaker Respiratory: reports: COPD Gastrointestinal: reports: denies history Obstetrical/Gynecological: reports: denies history Genitourinary: reports: denies history Musculoskeletal: reports: denies history Neurological: reports: denies history Endocrine/Immune: reports: denies history, Diabetes Other Conditions: reports: denies history - PRIOR SURGERIES/PROCEDURES Surgical/Procedure History: reports: pacemaker - PRIOR HOSPITALIZATIONS Prior Hospitalizations: reports: none - IMMUNIZATION STATUS Childhood Immunizations: See Nurse Assessment Flu Vaccine: See Nurse Assessment - FAMILY HISTORY Family History: reviewed, not pertinent Physical Exam-General - PHYSICAL EXAM-ADULT Initial Vital Signs Reviewed: Yes - CONSTITUTIONAL General Appearance: alert, moderate distress, other (pink around the eyes nose and mouth) - EYES Eyes: PERRL/EOMI - NECK Neck: supple - RESPIRATORY Respiratory: respiratory distress, accessory muscle use, wheezing - CARDIOVASCULAR Cardiovascular: tachycardia - GASTROINTESTINAL (ABDOMEN) Abdominal Exam: non tender, soft - MUSCULOSKELETAL Extremity: normal range of motion, normal gait, normal inspection, no pedal edema - NEUROLOGIC Neurologic: grossly normal - PSYCHIATRIC Psych/Mental Status: normal mood/affect, oriented x 3 Progress - PLAN OF CARE/RESULTS Progress/Plan/Lab Results: Orders Category Date Time Status Admit [facility] Routine AdmDCTranf 05/02/19 22:13 Active Activity - Up with Assistance ORDERED Care 05/02/19 22:13 Active Cardiac Monitoring DIRECTED Care 05/02/19 18:45 Completed Cardiac Monitoring DIRECTED Care 05/02/19 19:01 Completed FSBS/Accucheck Result AC + HS Care 05/02/19 22:13 Completed IV Insertion ORDERED Care 05/02/19 19:01 Completed Intake and Output-Strict Q 8-HR ASSESS Care 05/02/19 22:13 Active Notify MD of + Sepsis Screen NOW Care 05/02/19 19:01 Completed Notify Physician As Ordered Care 05/02/19 19:01 Completed Nursing- MD Consult Request ROUTINE Care 05/02/19 22:13 Completed Saline Loc NOW Care 05/02/19 18:32 Completed Z-Document. for Tele Applied ORDERED Care 05/02/19 22:13 Completed Physician/Provider Consults Routine Cons 05/02/19 22:13 Ordered Diabetic Diet Diet 05/02/19 22:13 Completed cxr [CHEST-1 VIEW] [RAD] Stat Exams 05/02/19 18:32 Completed ABG [RESP] Routine Lab 05/02/19 18:50 Completed BASIC METABOLIC PANEL [CHEM] Routine Lab 05/03/19 05:25 Completed BLOOD CULTURE [BLDCUL] Stat Lab 05/02/19 18:46 Results CBC WITH DIFF [HEME] Routine Lab 05/03/19 05:25 Completed CBC WITH DIFF [HEME] Stat Lab 05/02/19 18:46 Completed CK PROFILE [SP CHEM] Stat Lab 05/02/19 18:46 Completed COMPREHENSIVE METABOLIC PANEL [CHEM] Stat Lab 05/02/19 18:46 Completed LACTATE, PLASMA [CHEM] Lab 05/02/19 23:14 Completed LACTATE, PLASMA [CHEM] Lab 05/03/19 02:20 Completed LACTATE, PLASMA [CHEM] Q3H Lab 05/02/19 18:46 Completed MAGNESIUM [CHEM] Stat Lab 05/02/19 18:46 Completed PRO B-NATRIURETIC PEPTIDE Stat Lab 05/02/19 19:06 Completed PROTIME WITH INR [COAG] Stat Lab 05/02/19 18:46 Completed PTT [COAG] Stat Lab 05/02/19 18:46 Completed TROPONIN T Stat Lab 05/02/19 18:46 Completed URINALYSIS W/POSS RFLX CULT [URINALYSIS] Stat Lab 05/02/19 19:12 Completed ATORVAstatin [Lipitor] Med 05/03/19 09:00 Discontinued 40 mg PO DAILY Albuterol 2.5MG/Ipratrop 0.5MG [Duoneb (A & A)] Med 05/02/19 23:30 Discontinued 3 ml INH RTQ4H Albuterol 2.5MG/Ipratrop 0.5MG [Duoneb (A & A)] Med 05/02/19 19:51 Discontinued 6 ml INH NOW ONE Albuterol 2.5MG/Ipratrop 0.5MG [Duoneb (A & A)] Med 05/02/19 18:32 Discontinued 9 ml INH NOW ONE Albuterol [Albuterol Neb] Med 05/02/19 20:03 Discontinued 10 mg INH NOW ONE Budesonide [Pulmicort] Med 05/02/19 18:33 Discontinued 0.5 mg INH NOW ONE Carvedilol [Coreg] Med 05/03/19 09:00 Discontinued 3.125 mg PO BID Clopidogrel [Plavix] Med 05/03/19 09:00 Discontinued 75 mg PO DAILY Furosemide [Lasix] Med 05/03/19 09:00 Discontinued 120 mg PO DAILY Heparin Med 05/02/19 22:13 Discontinued 5,000 unit SUBQ Q12H Insulin Lispro [Humalog] Med 05/02/19 20:06 Discontinued 15 units SUBQ NOW ONE Levofloxacin 500 mg/D5w [Levaquin 500 mg/D5w] Med 05/02/19 22:13 Discontinued 500 mg in 100 ml IV Q24H Lorazepam [Ativan] Med 05/02/19 22:13 Discontinued 2 mg PO Q8H PRN PRN Losartan [Cozaar] Med 05/03/19 09:00 Discontinued 25 mg PO DAILY Methylprednisolone Sod Succ [Solu-Medrol] Med 05/02/19 18:33 Discontinued 125 mg IV NOW ONE Methylprednisolone Sod Succ [Solu-Medrol] Med 05/03/19 03:30 Discontinued 60 mg IV Q8H Aerosol Treatments Routine Ot 05/02/19 18:33 Completed Aerosol Treatments Routine Ot 05/02/19 19:51 Completed Aerosol Treatments Routine Ot 05/02/19 20:04 Completed Aerosol Treatments Routine Ot 05/02/19 22:13 Completed Aerosol Treatments Stat Ot 05/02/19 18:33 Completed Aerosol Treatments Stat Ot 05/02/19 19:51 Completed Aerosol Treatments Stat Ot 05/02/19 20:04 Completed Aerosol Treatments Stat Ot 05/02/19 22:13 Completed BIPAP Stat Ot 05/02/19 22:15 Active Oxygen Device Stat Ot 05/02/19 19:01 Completed Telemetry [OM.EQ] Routine Oth 05/02/19 22:13 Active EKG [EKG] Stat Ther 05/02/19 18:32 Draft Transfer/Admit Order [TRANSFER] Routine Transfer 05/02/19 21:52 Completed labs reviewed. pt remains with SOB. most likely will need BiPAP. plan for admission. Result Diagrams: 05/04/19 05:43 05/06/19 06:42 - EKG 1 Time of EKG reading by physician:: 23:40 EKG Read and Signed by:: Violeta Walter EKG Interpretation (*Must complete 3 of following elements*): Abnormal Rate: 112 Rhythm: sinus tachycardia Jeddo: normal QRS: normal CT Interval: normal ST Wave: normal Prior EKG Comparison: changes noted (improved from 03/22/19) - XRAY 1 XRAY Study: Chest Impression: See EMR Report (EXAM: CHEST-1 VIEW HISTORY: SOB TECHNIQUE: Single view COMPARISON: 03/22/2019 FINDINGS: The lungs are hyperexpanded. The heart is not enlarged. Left pacemaker. The vessels are not distended. There are no infiltrates. No effusion identified. IMPRESSION: Emphysema Electronically signed by Luis Monique 05/02/2019 7:01 PM) - CONSULTS/PCP/HOSPITALIST Notification #1 *Consult/PCP/Hospitalist*: Dr. Strange Time Discussed: 20:35 Consult Disposition: Will see in ED, Admit Departure - Departure Date of Disposition Decision: 05/02/19 Time of Disposition Decision: 20:13 DIAGNOSIS: COPD exacerbation, Respiratory distress, Hyperglycemia, Respiratory failure Disposition: ADMITTED INPATIENT 09 Certified Medical Emergency: Emergent Condition: Stable - Critical Care Note This patient required my direct & personal management of CC.: No Attestation - Physician/ JER Attestation The physician spent face to face time with patient:: Yes Advanced Practice Provider documentation review:: Supervising physician onsite and consulted in the evaluation and care of this patient. The physician did have a face to face encounter with the patient.
[2019-05-02 19:02] LABS: ALLEN TEST YES; BE 6.4 mmoll (-3.0-3.0); BLOOD TYPE ARTERIAL; HCO3-(ACT) 29.9 mmoll (20.0-26.0); METHB 1.2 % (0.0-1.5); O2(CT) 16.6 mL/dL (15.0-23.0); O2HB 94.4 % (95.0-99.0); PO2(98.6) 200 mmHg (60-100); SAMPLE BLOOD; SAO2 99.2 % (95.0-100.0); THB 12.2 g/dL (11.5-17.4); pH(98.6) 7.41 (7.35-7.45)
[2019-05-02 19:04] LABS: MODALITY NRB; PCO2(98.6) 51 mmHg (35-45)
--- NOTE | 2019-05-02 19:04 | Diag Imaging Result Doc PS360 ---
EXAM: CHEST-1 VIEW HISTORY: SOB TECHNIQUE: Single view COMPARISON: 03/22/2019 FINDINGS: The lungs are hyperexpanded. The heart is not enlarged. Left pacemaker. The vessels are not distended. There are no infiltrates. No effusion identified. IMPRESSION: Emphysema Electronically signed by Luis Monique 05/02/2019 7:01 PM
[2019-05-02 19:15] LABS: URINE SOURCE CLEAN CATCH
[2019-05-02 19:19] LABS: BILIRUBIN URINE NEGATIVE (NEGATIVE); BLOOD URINE NEGATIVE (NEGATIVE); COLOR YELLOW; GLUCOSE URINE >1000 mg/dL (NEGATIVE); KETONE URINE NEGATIVE (NEGATIVE); LEUKOCYTES URINE NEGATIVE (NEGATIVE); NITRITE URINE NEGATIVE (NEGATIVE); PH URINE 6.5; PROTEIN URINE NEGATIVE (NEGATIVE); SP GRAVITY URINE 1.024; TURBIDITY URINE CLEAR (CLEAR); UROBILINOGEN URINE NORMAL (NORMAL)
[2019-05-02 19:20] LABS: BASO# 0.01 X1000 (0.0-0.2); BASO% 0.1 % (0.0-0.8); EOS# 0.03 X1000 (0.0-0.7); EOS% 0.3 % (0.0-10.0); HEMATOCRIT 37.3 % (42.0-52.0); HEMOGLOBIN 12.1 g/dL (14.0-18.0); IMM GRAN# 0.03 X1000 (0.0-0.04); IMM GRAN% 0.3 % (0.0-0.5); LYMPH# 0.71 X1000 (1.2-3.4); LYMPH% 6.4 % (20.5-51.1); MCH 30.7 PG (27-31); MCHC 32.4 g/dL (33-37); MCV 94.7 FL (81-99); MONO# 0.84 X1000 (0.11-0.59); MONO% 7.6 % (1.7-9.3); MPV 10.7 FL (7.4-10.4); NEUT% 85.3 % (42.2-75.2); PLT 103 X1000 (130-400); RBC 3.94 XMIL (4.7-6.1); RDW 13.7 % (11.5-14.5); WBC 11.12 X1000 (4.8-10.8)
[2019-05-02 19:22] LABS: UR EPITHELIAL CELLS <10 /HPF (<10); URINE BACTERIA NEGATIVE /HPF; URINE RBC <10 /HPF (<10); URINE WBC <10 /HPF (<10)
[2019-05-02 19:49] LABS: INR 0.91; PROTIME 12.3 Seconds (11.0-16.0)
[2019-05-02 19:53] LABS: PTT 28.1 Seconds (22.3-41.8)
[2019-05-02 20:03] LABS: ALB/GLOB RATIO 1.3; CALCIUM 9.4 mg/dL (8.8-10.2); CREATININE 1.4 mg/dL (0.7-1.2); MAGNESIUM 2.5 mg/dL (1.5-2.7); POTASSIUM 4.7 mmol/L (3.5-5.1); TOTAL BILIRUBIN 0.57 mg/dL (0.20-1.00)
[2019-05-02] MEDS ORDERED: ALBUTEROL NEB INH ONE (20:03)
[2019-05-02] MEDS ORDERED: HUMALOG SUBQ ONE (20:06)
[2019-05-02] MEDS: DUONEB (A & A) INH SCH (23:27)
[2019-05-03] MEDS: LEVAQUIN 500 MG/D5W 500 MG/100 ML IVPB IV SCH ×2 (00:23→21:24)
[2019-05-03] MEDS: HEPARIN SUBQ SCH ×3 (00:23→21:25)
[2019-05-03] MEDS: ATIVAN PO PRN ×3 (00:26→21:25)
[2019-05-03] MEDS ORDERED: HUMULIN R SUBQ ONE (00:48)
[2019-05-03] MEDS ORDERED: HUMULIN R IV ONE (00:48)
[2019-05-03] MEDS: HUMULIN R SUBQ SCH ×6 (01:02→21:23)
--- NOTE | 2019-05-03 01:15 | HISTORY AND PHYSICAL ---
PRIMARY CARE PHYSICIAN: Dr. Ruiz. CHIEF COMPLAINT: Shortness of breath times several days. HISTORY OF PRESENTING ILLNESS: A 68-year-old male with a history of chronic respiratory failure on home oxygen and BiPAP with a history of COPD, CHF, diabetes mellitus type 2 and coronary artery disease, who had presented to emergency department with complaint of shortness of breath for the past several days. The patient states that he tried his nebulizers. He tried his oxygen and he also tried his BiPAP but he did have any improvement. The patient was evaluated in the emergency department. He seemed in some mild to moderate respiratory distress and subsequently he will be put on BiPAP and admitted for further evaluation and management. At the time of my examination, the patient had difficulty completing full sentences and most of the history is obtained from his family members. As per family, he did not complain of any chest pain, hemoptysis, melena, nausea, vomiting, diarrhea or any weight changes, but complained of having some fever and being short of breath. PAST MEDICAL HISTORY: Includes COPD on home oxygen 3 L, CHF, diabetes mellitus type 2, coronary artery disease, hypertension, hyperlipidemia. PAST SURGICAL HISTORY: Pacemaker, coronary stent. ALLERGIES: No known drug allergies. CURRENT MEDICATIONS: Atorvastatin 40 mg p.o. daily, carvedilol 3.125 mg p.o. b.i.d., Plavix 75 mg p.o. daily, Lasix 120 mg p.o. daily, lorazepam 2 mg p.o. q.8 hours, losartan 25 mg p.o. daily, prednisone 10 mg p.o. daily, Chantix 1 mg p.o. daily. SOCIAL HISTORY: 50+ pack years history of smoking. History of alcohol use regularly. Denies any illicit drug use. FAMILY HISTORY: Positive for coronary artery disease in father. REVIEW OF SYSTEMS: Fourteen point review of system as listed in HPI. Other systems negative. PHYSICAL EXAMINATION: GENERAL: The patient is in mild to moderate respiratory distress. VITAL SIGNS: Temperature 99.3 degrees, pulse 115, respiration 30, blood pressure 142/77. HEENT: Atraumatic, normocephalic. Extraocular movements intact. PERRLA. NECK: No masses. CHEST: Rhonchi. CARDIOVASCULAR: Tachycardic. ABDOMEN: Soft. Positive bowel sounds. EXTREMITIES: Trace edema. NEUROLOGIC: He is awake, alert, oriented x3. GENITOURINARY: No bladder distention. SKIN: Warm. LABORATORIES AND STUDIES: Sodium 137, potassium 4.7, chloride 96, CO2 is 29, BUN is 26, creatinine is 1.4, glucose is 454. WBCs is 11.12, hemoglobin 12.1, hematocrit 37.3, platelets 103,000. UA, nitrite negative. Blood gas shows a pCO2 of 51. Chest x-ray shows emphysema. ASSESSMENT: A 68-year-old male with a history of chronic respiratory failure on home oxygen 3 L, chronic obstructive pulmonary disease, congestive heart failure, diabetes mellitus type 2 and coronary artery disease, who had presented to the emergency department with several days history of worsening shortness of breath. He was evaluated in the emergency department. He had difficulty completing his full sentences and suspected he was having exacerbation of his COPD. Due to these symptoms, he will require admission for further management. 1. Acute on chronic respiratory failure. 2. Acute chronic obstructive pulmonary disease exacerbation. 3. Congestive heart failure. 4. Diabetes mellitus type 2 with hyperglycemia. 5. Hypertension. PLAN: 1. We will admit patient to PVC. 2. Continue patient on BiPAP. 3. We will continue with IV Solu-Medrol, DuoNebs and IV antibiotics. 4. We will consult with poultry debeaker. 5. We will obtain a proBNP and continue with gentle diuresis. 6. We will monitor blood glucose. Put patient on sliding scale insulin regimen. 7. We will monitor blood pressure. Resume antihypertensive agent. 8. Put patient on DVT prophylaxis with heparin. 9. We will continue to follow, and reassess and make further recommendation based on patient's clinical course. cc: Johnathan Strange MD
[2019-05-03] MEDS: SOLU-MEDROL IV SCH ×3 (03:27→21:25)
[2019-05-03] MEDS: DUONEB (A & A) INH SCH ×6 (03:41→23:11)
[2019-05-03 05:00] LABS: ALLEN TEST YES; BLOOD TYPE ARTERIAL; HCO3-(ACT) 26.5 mmoll (20.0-26.0); METHB 0.9 % (0.0-1.5); O2HB 96.8 % (95.0-99.0); PCO2(98.6) 40 mmHg (35-45); PO2(98.6) 133 mmHg (60-100); SAMPLE BLOOD; SAO2 99.6 % (95.0-100.0); THB 11.6 g/dL (11.5-17.4); pH(98.6) 7.43 (7.35-7.45)
[2019-05-03 05:02] LABS: MODALITY BI PAP
--- NOTE | 2019-05-03 05:22 | EKG Report ---
Test Performed on : 05/02/2019 11:33:08 PM Test Reason : SOB Blood Pressure : / mmHG Vent. Rate : 112 BPM Atrial Rate : 112 BPM P-R Int : 172 ms QRS Dur : 102 ms QT Int : 354 ms P-R-T Axes : 065 -21 056 degrees QTc Int : 483 ms Sinus tachycardia. Otherwise normal ECG When compared with ECG of 22-MAR-2019 20:32, (Unconfirmed) Vent. rate has increased BY [address] no longer depressed in Inferior leads Unconfirmed Result
[2019-05-03 06:28] LABS: HEMATOCRIT 33.6 % (42.0-52.0); IMM GRAN# 0.02 X1000 (0.0-0.04); IMM GRAN% 0.2 % (0.0-0.5); LYMPH# 0.27 X1000 (1.2-3.4); LYMPH% 3.1 % (20.5-51.1); MCH 30.6 PG (27-31); MCHC 32.7 g/dL (33-37); MCV 93.6 FL (81-99); MONO# 0.21 X1000 (0.11-0.59); MONO% 2.4 % (1.7-9.3); MPV 10.6 FL (7.4-10.4); NEUT# 8.18 X1000 (1.4-6.5); NEUT% 94.3 % (42.2-75.2); PLT 89 X1000 (130-400); RBC 3.59 XMIL (4.7-6.1); RDW 13.4 % (11.5-14.5); WBC 8.68 X1000 (4.8-10.8)
[2019-05-03] MEDS ORDERED: HUMULIN R SUBQ SCH (07:00)
[2019-05-03 07:03] LABS: AGAP 15; BUN 27 mg/dL (8-22); CALCIUM 8.8 mg/dL (8.8-10.2); CHLORIDE 95 mmol/L (98-107); COSMO 286; CREATININE 1.1 mg/dL (0.7-1.2); ESTIMATED GFR > 60; GLUCOSE 286 mg/dL (70-104); POTASSIUM 3.8 mmol/L (3.5-5.1); SODIUM 135 mmol/L (136-145); TCO2 25 mmol/L (25-35)
[2019-05-03 07:26] LABS: ANISOCYTOSIS 1+; LYMPHS 3 % (21-51); MONO 3 % (1-9); POLYCHROM 1+; SEGS 94 % (42-75)
[2019-05-03] MEDS: LASIX PO SCH (08:07)
[2019-05-03] MEDS: COZAAR PO SCH (08:07)
[2019-05-03] MEDS: LIPITOR PO SCH (08:07)
[2019-05-03] MEDS: COREG PO SCH ×2 (08:07→21:25)
[2019-05-03] MEDS: PLAVIX PO SCH (08:07)
[2019-05-03] MEDS ORDERED: LANTUS INSULIN SUBQ SCH (09:15)
--- NOTE | 2019-05-03 09:38 | PROGRESS NOTE ---
DATE: 05/03/2019 SUBJECTIVE: The patient seems to be breathing a bit better at this moment. He is using the BiPAP machine. He came in with respiratory failure; also he is complaining of constipation and lower extremity weakness. I have requested physical therapy to evaluate this patient. I do not see any focal motor deficits. Sensation is intact. OBJECTIVE: Vital Signs: Temperature 98.7 degrees, pulse 99, respiratory rate 30, blood pressure 148/83, oxygen saturation 90 on the BiPAP machine. HEENT: Head normocephalic, no trauma. PERRLA. Neck: Supple. No JVD. No masses. Central trachea. Chest: Decreased breath sounds globally with prolonged expiratory phase and expiratory wheezing. Abdomen: Soft, protuberant. Not painful to palpation. Positive bowel sounds. Extremities: No edema, no clubbing, no cyanosis. Neurological examination: The patient is alert and oriented x3. No focal deficits, but he does have generalized weakness, especially lower extremities. LABORATORY: WBC 8.6, hemoglobin 11, hematocrit 33.6, platelet 89. Sodium 135, potassium 3.8, chloride 95, bicarbonate 25. BUN 27, creatinine 1.1 glucose 286, calcium 8.8. AST 67, ALT 78, alkaline phosphatase 179. ASSESSMENT AND PLAN: 1. Acute on chronic hypoxemic and hypercarbic respiratory failure, likely due to chronic obstructive pulmonary disease exacerbation. We will continue with same management. Pulmonary Department has been consulted. 2. Chronic obstructive pulmonary disease exacerbation. Continue breathing treatment, steroids, oxygen supplementation and antibiotics. 3. Congestive heart failure with an ejection fraction of 40 to 45 percent in a recent echocardiogram done in June of 2018. We will continue with diuresis, the same amount that this patient has been getting at home. 4. Type 2 diabetes with hyperglycemia. We have placed this patient on a sliding scale insulin. I will give him Lantus on a daily basis since he is on steroids to try to help with the blood sugar. 5. Hypertension, stable. Continue with the same management. 6. History of alcohol abuse and elevated liver function tests, aware. Apparently, he stopped drinking some time ago. His liver function tests have been chronically elevated. 7. Generalized weakness and physical deconditioning. I have requested an evaluation by physical therapy. cc: Glenroy Roth MD
[2019-05-03] MEDS: MIRALAX PO SCH (10:27)
--- NOTE | 2019-05-03 23:44 | PULMONOLOGY CONSULTATION ---
DATE: 05/03/2019 REASON FOR CONSULTATION: COPD. HISTORY OF PRESENT ILLNESS: Mr. Leija is a 68-year-old white male with severe COPD with a home BiPAP, chronic hypoxemic respiratory failure, who continues to smoke. Over the last several days the patient has had increased cough, increased sputum production which he was having difficulty clearing with progressive dyspnea. He was evaluated in the emergency room and remained short of breath despite treatments. He was subsequently admitted for additional evaluation and management. PAST MEDICAL HISTORY: 1. Severe COPD with component of hypoxemia and hypercapnic respiratory failure. The patient is followed by Dr. Usman Mansfield in [place]. 2. History of alcohol use and admission to the hospital in January with global encephalopathy with possible baseline cognitive impairment due to alcohol. 3. Diabetes mellitus. 4. Hypertension. 5. History of systolic heart failure with mild reduction in ejection fraction. 6. Status post pacemaker placement. 7. History of atrial fibrillation. 8. Chronic pain syndrome . 9. Hypertension. 10. Restless legs syndrome . SOCIAL HISTORY: The patient continues to smoke and use alcohol on a regular basis. He reports he did quit smoking for several years. FAMILY HISTORY: Positive for heart failure and diabetes. REVIEW OF SYSTEMS: As noted in the HPI but is otherwise negative. PHYSICAL EXAMINATION: Reveals a well-developed, well-nourished male with an oxygen saturation 98% on 4 L per nasal cannula.HEENT: Pupils are equal and reactive. Oropharynx appears clear. Neck: Supple. Chest: Reveals diffuse wheezing bilaterally with scattered rhonchi. Cardiac: S1- S2. Abdomen: Soft. Extremities: Without edema. LABORATORIES: Arterial blood gas last night on nonrebreather reveals a pH of 7.41, pCO2 of 51, pO2 of 200. IMPRESSION: A 68-year-old with 1. Severe chronic obstructive pulmonary disease exacerbation. 2. Acute on chronic hypoxemic respiratory failure. 3. Chronic hypercapnic respiratory failure. 4. Daily alcohol use. RECOMMENDATION: 1. Continue current treatment for COPD exacerbation which includes steroids, antibiotics, and bronchodilators. 2. Strongly encourage patient to discontinue tobacco use with each professional interaction. 3. Follow the patient closely for possible alcohol withdrawal. 4. Cycle BiPAP at bedtime and p.r.n. cc: Usman Mansfield III, MD
[2019-05-04] MEDS ORDERED: HUMULIN R SUBQ ONE (00:21)
[2019-05-04] MEDS: HUMULIN R SUBQ SCH ×6 (01:58→20:39)
[2019-05-04] MEDS: DUONEB (A & A) INH SCH ×5 (03:47→19:33)
[2019-05-04] MEDS: SOLU-MEDROL IV SCH ×3 (04:07→20:49)
[2019-05-04] MEDS: ATIVAN PO PRN ×3 (05:44→23:34)
[2019-05-04] MEDS ORDERED: NORCO-5 PO ONE (05:47)
[2019-05-04 06:35] LABS: HEMOGLOBIN A1C 9.2 % (4.8-6.0)
[2019-05-04 06:47] LABS: HEMATOCRIT 34.2 % (42.0-52.0); HEMOGLOBIN 11.2 g/dL (14.0-18.0); IMM GRAN# 0.02 X1000 (0.0-0.04); IMM GRAN% 0.2 % (0.0-0.5); LYMPH# 0.37 X1000 (1.2-3.4); LYMPH% 3.7 % (20.5-51.1); MCH 30.9 PG (27-31); MCHC 32.7 g/dL (33-37); MCV 94.2 FL (81-99); MONO# 0.31 X1000 (0.11-0.59); MONO% 3.1 % (1.7-9.3); MPV 10.9 FL (7.4-10.4); NEUT# 9.35 X1000 (1.4-6.5); PLT 97 X1000 (130-400); RBC 3.63 XMIL (4.7-6.1); RDW 13.4 % (11.5-14.5); WBC 10.05 X1000 (4.8-10.8)
[2019-05-04 07:16] LABS: ALB/GLOB RATIO 1.4; ALBUMIN 4.2 g/dL (3.5-5.0); CALCIUM 9.9 mg/dL (8.8-10.2); CREATININE 1.2 mg/dL (0.7-1.2); POTASSIUM 4.7 mmol/L (3.5-5.1); TOTAL BILIRUBIN 0.42 mg/dL (0.20-1.00); TOTAL PROTEIN 7.3 g/dL (6.3-8.3)
[2019-05-04 07:18] LABS: LYMPHS 2 % (21-51); MONO 1 % (1-9); SEGS 97 % (42-75)
--- NOTE | 2019-05-04 09:02 | PROGRESS NOTE ---
DATE: 05/04/2019 SUBJECTIVE: This patient seems to be breathing a little bit better. At this moment, he is still using the BiPAP machine. Pulmonary department on board. He is complaining of back pain and lower extremity weakness. I will request a pelvic x-ray and a lumbar x-ray also to rule out any abnormality. Also, I have requested physical therapy to evaluate this patient. OBJECTIVE: Vital Signs: Temperature 98.1 degrees, pulse 92, respiratory rate 20, blood pressure 125/72, oxygen saturation 96 on 3 L of nasal cannula. HEENT: Head normocephalic. No trauma. PERRLA. Neck: Supple. No JVD. No masses. Central trachea. Chest: Decreased breath sounds globally with prolonged expiratory phase and expiratory wheezing. Abdomen: Soft, protuberant. Not painful to palpation. Positive bowel sounds. Extremities: No edema, no clubbing, no cyanosis. Neurological Examination: The patient is alert. He is oriented x3. No focal deficits but he does have generalized weakness, especially lower extremities. Laboratory: WBC 10, hemoglobin 11.2, hematocrit 34.2, platelets 97,000. Sodium 141, potassium 4.7, chloride 98, bicarbonate 29, BUN 36, creatinine 1.2, glucose 237, calcium 9.9. AST 42, ALT 64, alkaline phosphatase 173. ASSESSMENT AND PLAN: 1. Acute on chronic hypoxemic and hypercarbic respiratory failure, likely due to chronic obstructive pulmonary disease exacerbation. We will continue with the same management. Pulmonary department on board. I will continue with the same dose of steroids today and hopefully tomorrow, we will start decreasing the frequency and/or the dose. 2. Chronic obstructive pulmonary disease exacerbation, as above. 3. Congestive heart failure with an ejection fraction of 40 to 45 percent on a recent echocardiogram done in June 2018. We will continue with diuresis, home dose. 4. Type 2 diabetes with hyperglycemia. Continue with the same management. I will increase the dose of Lantus today from 20 to 30. Blood sugar seems to be a little bit better though. 5. Hypertension, stable. 6. History of alcohol abuse and elevated liver function tests. Aware. As per the patient, he took 2 beers 2 weeks ago. I will add thiamine and multivitamins to this patient. Also, I will continue with Ativan as needed for withdrawal symptoms or anxiety. 7. Generalized weakness and physical deconditioning. I have requested an evaluation by physical therapy. cc: Glenroy Roth MD
[2019-05-04] MEDS: PLAVIX PO SCH (09:07)
[2019-05-04] MEDS: LASIX PO SCH (09:08)
[2019-05-04] MEDS: COREG PO SCH ×2 (09:08→20:49)
[2019-05-04] MEDS: CENTRUM SILVER PO SCH (09:09)
[2019-05-04] MEDS: LIPITOR PO SCH (09:09)
[2019-05-04] MEDS: COZAAR PO SCH (09:09)
[2019-05-04] MEDS: VITAMIN B-1 PO SCH (09:10)
[2019-05-04] MEDS: HEPARIN SUBQ SCH ×3 (09:10→21:12)
[2019-05-04] MEDS: MIRALAX PO SCH (09:13)
[2019-05-04] MEDS: LANTUS INSULIN SUBQ SCH (09:17)
--- NOTE | 2019-05-04 10:05 | Diag Imaging Result Doc PS360 ---
EXAM: XRAY HIP W/PELVIS BILAT 3-4VWS 05/04/2019 HISTORY: Trauma TECHNIQUE: AP pelvis and bilateral hips, five views. COMMENT: The hip joint spaces are well-maintained. There is a bone island in the iliac bone above the acetabulum on the left. There are some atherosclerotic calcifications in the common femoral artery on the right. IMPRESSION: No evidence of acute bony abnormality. Electronically signed by Maximo Devine 05/04/2019 10:03 AM
--- NOTE | 2019-05-04 10:06 | Diag Imaging Result Doc PS360 ---
EXAM: LUMBAR SPINE 2-VIEWS 05/04/2019 HISTORY: Trauma TECHNIQUE: Lumbosacral spine AP and lateral two views COMMENT: The pedicles are intact. There is generalized osteopenia. The disc spaces are fairly well-maintained. There is bilateral spondylolysis at L5 with grade 1 anterolisthesis of L5 on S1. There is sclerosis and some loss of height of the anterior portion of the T12 vertebral body. This appearance was also present on the lateral chest radiograph of 03/22/2019. IMPRESSION: Spondylolysis and spondylolisthesis at L5. Old compression fracture of T12. Electronically signed by Maximo Devine 05/04/2019 10:04 AM
[2019-05-04] MEDS ORDERED: ULTRAM PO ONE (10:46)
[2019-05-04] MEDS: LEVAQUIN 500 MG/D5W 500 MG/100 ML IVPB IV SCH (21:11)
[2019-05-05] MEDS: DUONEB (A & A) INH SCH ×7 (00:16→23:45)
--- NOTE | 2019-05-05 02:30 | PULMONOLOGY PROGRESS NOTE ---
DATE: 05/04/2019 SUBJECTIVE: The patient is awake, alert, and conversant. He is currently off his BiPAP and appears comfortable. OBJECTIVE: Vital Signs: The patient has been afebrile for the last 24 hours. Blood pressure 126/71, heart rate 92, respiratory rate 18, oxygen saturation 96%. HEENT: Pupils are equal and reactive. Oropharynx appears clear. Neck: Supple. Chest: Reveals diffuse bilateral wheezing with prolonged expiratory phase. Cardiac: S1, S2. Abdomen: Soft. Extremities: Without edema. LABORATORIES: No new microbiology data. No arterial blood gas today. Sodium 141, potassium 4.7, chloride 98, bicarbonate 29, BUN 36, creatinine 1.2. IMPRESSION: A 68-year-old with: 1. Chronic obstructive pulmonary disease exacerbation. 2. Acute on chronic hypoxemic respiratory failure. 3. Chronic hypercapnic respiratory failure. 4. Nicotine addiction with ongoing tobacco use. 5. Daily alcohol use. PLAN: 1. Continue treatment for COPD exacerbation with steroids, antibiotics and bronchodilators. 2. Encourage patient to discontinue tobacco. 3. Follow patient for alcohol withdrawal. 4. Continue to cycle BiPAP at bedtime and p.r.n. cc: Alexandr Franklin MD
[2019-05-05] MEDS: LEVAQUIN 500 MG/D5W 500 MG/100 ML IVPB IV SCH ×2 (02:57→21:57)
[2019-05-05] MEDS: HUMULIN R SUBQ SCH ×6 (03:13→21:59)
[2019-05-05] MEDS: SOLU-MEDROL IV SCH ×3 (04:08→21:58)
[2019-05-05 07:34] LABS: AGAP 10; ALB/GLOB RATIO 1.3; ALBUMIN 3.9 g/dL (3.5-5.0); ALKALINE PHOSPHATASE 161 U/L (32-122); BUN 37 mg/dL (8-22); CALCIUM 9.7 mg/dL (8.8-10.2); CHLORIDE 95 mmol/L (98-107); COSMO 282; CREATININE 1.1 mg/dL (0.7-1.2); ESTIMATED GFR > 60; GLUCOSE 292 mg/dL (70-104); GOT 39 U/L (10-34); GPT 65 U/L (10-44); POTASSIUM 4.6 mmol/L (3.5-5.1); SODIUM 131 mmol/L (136-145); TCO2 26 mmol/L (25-35); TOTAL BILIRUBIN 0.44 mg/dL (0.20-1.00)
[2019-05-05 09:47] LABS: ALLEN TEST YES; BE 2.1 mmoll (-3.0-3.0); BLOOD TYPE ARTERIAL; HCO3-(ACT) 26.5 mmoll (20.0-26.0); METHB 1.2 % (0.0-1.5); O2HB 96.1 % (95.0-99.0); PCO2(98.6) 44 mmHg (35-45); PO2(98.6) 104 mmHg (60-100); SAMPLE BLOOD; SAO2 99.1 % (95.0-100.0); THB 11.7 g/dL (11.5-17.4)
[2019-05-05 09:48] LABS: MODALITY CANNULA
[2019-05-05] MEDS: HEPARIN SUBQ SCH ×2 (09:56→22:04)
[2019-05-05] MEDS: CENTRUM SILVER PO SCH (09:56)
[2019-05-05] MEDS: COZAAR PO SCH (09:57)
[2019-05-05] MEDS: COREG PO SCH ×2 (09:57→21:59)
[2019-05-05] MEDS: LANTUS INSULIN SUBQ SCH (09:58)
[2019-05-05] MEDS: LASIX PO SCH (09:58)
[2019-05-05] MEDS: VITAMIN B-1 PO SCH (09:58)
[2019-05-05] MEDS: PLAVIX PO SCH (09:58)
[2019-05-05] MEDS: LIPITOR PO SCH (09:59)
[2019-05-05] MEDS: MIRALAX PO SCH (09:59)
[2019-05-05] MEDS: ATIVAN IV PRN ×2 (12:58→22:01)
--- NOTE | 2019-05-05 13:25 | PROGRESS NOTE ---
DATE: 05/05/2019 SUBJECTIVE: This patient seems to be breathing a little bit better. I will decrease the dose of the steroids from 60 every 8 hours to 40 every 8 hours. I had a large conversation with the daughters, and they have requested to be evaluated by hospice care. Palliative Care has been consulted. Hopefully, this patient can be discharged in the next 24 hours. He seems to be a little bit confused today, but ABGs are okay. OBJECTIVE: Vital Signs: Temperature 98 degrees, pulse 85, respiratory rate 21, blood pressure 143/68, oxygen saturation 97% on 3 L of nasal cannula. HEENT: Head normocephalic. No trauma. PERRLA. Neck: Supple. No JVD. No masses. Central trachea. Chest: Decreased breath sounds globally with prolonged expiratory phase and end-expiratory wheezing, scattered. Abdomen: Soft, protuberant, not painful to palpation. Positive bowel sounds. Extremities: No edema, no clubbing, no cyanosis. Neurological: The patient is alert. He is oriented x3, but he has some episodes of confusion. He does have generalized weakness. LABORATORY DATA: Sodium 131, potassium 4.6, chloride 95, bicarbonate 26, BUN 37, creatinine 1.1, glucose 292, calcium 9.7. AST 39, ALT 65, alkaline phosphatase 161. ASSESSMENT AND PLAN: 1. Acute on chronic hypoxemic and hypercarbic respiratory failure, likely due to chronic obstructive pulmonary disease exacerbation. Continue with the same management. Pulmonary Department on board. I have requested an evaluation by the Palliative Care team and Hospice. Hopefully, this patient can be discharged in the next 24 hours from now. I will just decrease, a little bit, the dose of the steroids, and continue with the same management. 2. Chronic obstructive pulmonary disease exacerbation. As above. 3. Congestive heart failure with an ejection fraction of 40% to 45% on a recent echocardiogram done in 06/2018. Continue with diuresis, home dose. 4. Type 2 diabetes with hyperglycemia. We will continue to monitor. Continue with Lantus for now. Likely, the increase of the blood sugar is related to also steroids. 5. Hypertension, stable. 6. History of alcohol abuse and tobacco abuse. This patient has been highly advised against alcohol and tobacco use. I will continue with daily cessation education. He has been placed on thiamine and multivitamins. Also continue with Ativan as needed for withdrawal symptoms or anxiety. 7. Elevated liver function tests, likely due to alcohol abuse, chronic alcoholic hepatitis. As per the daughter, he has fatty liver. 8. Generalized weakness and physical deconditioning. Continue physical therapy. 9. Back pain. He is not complaining of back pain at this moment. cc: Glenroy Roth MD
[2019-05-05] MEDS ORDERED: SOLU-MEDROL IV SCH (16:00)
[2019-05-06] MEDS: HUMULIN R SUBQ SCH ×4 (02:26→14:03)
[2019-05-06] MEDS: SOLU-MEDROL IV SCH ×2 (03:42→14:04)
[2019-05-06] MEDS: DUONEB (A & A) INH SCH ×3 (05:35→11:06)
[2019-05-06 07:42] LABS: AGAP 13; BUN 37 mg/dL (8-22); CALCIUM 9.4 mg/dL (8.8-10.2); CHLORIDE 100 mmol/L (98-107); COSMO 294; ESTIMATED GFR > 60; GLUCOSE 199 mg/dL (70-104); POTASSIUM 4.6 mmol/L (3.5-5.1); SODIUM 140 mmol/L (136-145); TCO2 27 mmol/L (25-35)
--- NOTE | 2019-05-06 08:43 | PULMONOLOGY PROGRESS NOTE ---
DATE: 05/05/2019 SUBJECTIVE: The patient is awake, alert, and conversant. He reports he is breathing better today. OBJECTIVE: Vital Signs: The patient has been afebrile for the last 24 hours. Blood pressure 137/61, heart rate 87, respiratory rate 16, oxygen saturation 99% on nasal cannula at 2 L. HEENT: Pupils are equal and reactive. Oropharynx is clear. Neck: Supple. Chest: Reveals prolonged expiratory phase with bilateral wheezing. This has marginally improved. Extremities: Reveal trace edema. LABORATORY DATA: Arterial blood gas reveals a pH of 7.44, phosphorus 7.40, pCO2 of 44, pO2 of 104. Sodium 131, potassium 3.6, chloride 95, bicarbonate 26, BUN 37, creatinine 1.1. IMPRESSION: A 68-year-old with 1. Chronic obstructive pulmonary disease exacerbation. 2. Acute on chronic hypoxemic respiratory failure. 3. Mild hypercapnic respiratory failure. 4. Daily alcohol use. 5. Nicotine addiction with ongoing tobacco use. DISCUSSION: A 68-year-old with problems outlined above. If the patient continues his current alcohol and tobacco use, then he would likely qualify for hospice in the near future. Currently, I suspect that his life expectancy is longer than 6 months. Clearly if he would stop smoking and stop drinking, his prognosis would be longer than 6 months. He has not developed CO2 retention. RECOMMENDATIONS: 1. Continue current steroids, antibiotics, and bronchodilator. 2. Encourage abstinence from tobacco. 3. Encourage abstinence from alcohol. 4. Cycle BiPAP at bedtime and p.r.n. cc: Alexandr Franklin MD
[2019-05-06] MEDS: COZAAR PO SCH (10:41)
[2019-05-06] MEDS: PLAVIX PO SCH (10:41)
[2019-05-06] MEDS: CENTRUM SILVER PO SCH (10:42)
[2019-05-06] MEDS: LIPITOR PO SCH (10:42)
[2019-05-06] MEDS: HEPARIN SUBQ SCH (10:42)
[2019-05-06] MEDS: COREG PO SCH (10:42)
[2019-05-06] MEDS: LASIX PO SCH (10:42)
[2019-05-06] MEDS: MIRALAX PO SCH (10:43)
[2019-05-06] MEDS: VITAMIN B-1 PO SCH (10:43)
[2019-05-06] MEDS: LANTUS INSULIN SUBQ SCH (10:43)
[2019-05-06 13:22] VITALS: BP 140/71
--- NOTE | 2019-05-07 13:57 | DISCHARGE SUMMARY ---
ADMISSION DATE: 05/02/2019 DISCHARGE DATE: 05/06/2019 DISCHARGE DIAGNOSES: 1. Acute on chronic hypoxemic respiratory failure. 2. Mild hypercarbic respiratory failure. 3. Chronic obstructive pulmonary disease exacerbation. 4. Alcohol and tobacco abuse. 5. Type 2 diabetes. 6. Hypertension. 7. Elevated liver function tests, chronic. 8. Chronic back pain. 9. Generalized weakness and physical deconditioning. CONSULTS: Pulmonary department, Dr. Franklin. PROCEDURES PERFORMED: Chest x-ray dated 05/02/2019. Impression: Emphysema. Hip and pelvis x- ray dated 05/04/2019. Impression: No evidence of acute bony abnormality. Lumbar spine x-ray dated 05/04/2019. Impression: Spondylosis and spondylolisthesis at L5, old compression fracture of T12. HOSPITAL COURSE: A 68-year-old, male with a past medical history of COPD, chronic respiratory failure on home oxygen, and actually he also has a Trilogy machine, history of COPD, CHF, diabetes mellitus type 2, coronary artery disease. Presented to the emergency department with a chief complaint of shortness of breath for the past several days. The patient states that he tried his nebulizers, he tried his oxygen, and he also tried his Trilogy machine but did not have any improvement. The patient was evaluated in the emergency department. He seems to be in some [id number] respiratory distress and subsequently, he was admitted and placed on the BiPAP machine. He also has been placed on oxygen and steroids, antibiotics. At the moment of the admission, the patient was having problems completing full sentences and most of the history was obtained from his family members. Per the family, he was not complaining of chest pain, hemoptysis, melena, nausea, vomiting, diarrhea, or any weight changes. He was evaluated by the pulmonary department. We continued with steroids, breathing treatments scheduled, and using the BiPAP machine on and off, and breathing treatments and oxygen. He has been improving on a daily basis. Then, one of the daughters asked us to evaluate this patient for the possibility of hospice but he did not qualify. He is not retaining CO2 but the problem is that this patient is still smoking and also he is drinking. We believe that if he stops smoking or drinking, the possibility of surviving more than 6 months is possible. That has been explained in detail to the patient and also to the daughter. Palliative care was consulted and they helped us through all this process. Today, this patient is feeling better. He is asking to go home and since apparently this is his baseline, I will discharge him. He has been chronically on steroids so I will put him on 40 of prednisone daily for a few days, then I will decrease it to 20 and then he will continue with 10, which is his baseline. We tried to send this patient also to a rehab center but he seems to be strong enough to go home so they refused this patient as well. PHYSICAL EXAMINATION: Vital Signs: Temperature 97.4 degrees, pulse 81, respiratory rate 19, blood pressure 140/71, oxygen saturation 100% on 2.5 L of nasal cannula. HEENT: Head normocephalic. No trauma. PERRLA. Neck: Supple. No JVD. No masses. Central trachea. Chest: Decreased breath sounds bilaterally. Prolonged expiratory phase and mild scattered wheezing, mostly at the bases. Abdomen: Soft, protuberant, nontender, nondistended. No hepatosplenomegaly. Extremities: No edema, no clubbing, no cyanosis. Neurological Examination: The patient is alert. He is oriented x3. He is not confused today. He does have generalized weakness. He is not complaining of pain either. LABORATORY DATA: Sodium 140, potassium 4.6, chloride 100, bicarbonate 27, BUN 37, creatinine 1, glucose 199, calcium 9.4. DISCHARGE MEDICATIONS: Atorvastatin 40 mg p.o. daily, carvedilol 3.125 mg p.o. b.i.d., Plavix 75 mg p.o. daily, furosemide 120 mg p.o. daily, ipratropium/albuterol 3 mL inhalation as needed for shortness of breath, losartan 25 mg p.o. daily, Centrum Silver 1 tablet p.o. daily, MiraLAX 17 g p.o. daily, prednisone 40 mg p.o. daily for 5 days, then 20 mg p.o. daily for 5 days, then 10 mg p.o. daily, thiamine 100 mg p.o. daily. Time discussing the case with the patient and the family member by phone, and total time discharging this patient around 30 minutes. cc: Glenroy Roth MD
--- NOTE | 2019-05-07 19:07 | Extremity Venous Study ---
PROCEDURE NAME: Venous U/S Bilateral Legs - 05/04/2019 REQUESTING PHYSICIAN: Glenroy Roth MD READING PHYSICIAN: Sergo Macario MD BRE[employer]EDING [employer]ER COUNSELOR: Claudette. INDICATION: Possible DVT. FINDINGS: The deep and superficial veins of both lower extremities were imaged throughout their course. They are compressible, patent and without thrombus. INTERPRETATION: No deep venous thrombosis or superficial venous thrombosis of either lower extremity. cc: MD Glenroy Montalvo MD
== END 2019-05-06 14:19 | disposition home health service (06) | DRG 189 ==
LOC: SUPCPDRO → ED 18:19 → SUATTDRO 22:40 → 2N 22:40 → 3N 05-04 13:51
PROVIDERS: ATTEND Internal Medicine